=== PATIENT | female | born 1955 | race Caucasian/White ===

== ENCOUNTER 2016-10-06 08:54 | Inpatient (IN) | payer BC ==
[~2016-10-06] VITALS: Ht 165.1 cm; Wt 91.7 kg
[~2016-10-06 08:54] MED LIST: ADVIL; PRO20
[2016-10-06] MEDS ORDERED: SOD CHLORIDE 0.9% 1,000 ML IV STA (08:58)
--- NOTE | 2016-10-06 09:10 | ERA ---
ER Documentation Chief Complaint Date/Time DATE: 10/06/16 TIME: 09:06 Chief Complaint HPI Patient is a 61-year-old female who was last seen normal at 7 PM. She was found this morning with decreased mental status and left-sided weakness. paramedics brought her in for evaluation. Patient has significant slurred speech and is difficult to understand. She does state that she is weak on the left side. Sensation is not altered according to her. Although there may be a language barrier as well. It appears she is Yemeni-speaking. Our Yemeni- speaking nurses talking to her but again her speech is garbled and she is difficult to understand. From what it we can gather she does not have any chest pain or shortness of breath. And she did not fall and hit her head. The remainder of the systems are limited. ROS All systems reviewed and are negative except as per history of present illness. Medications Home Meds Reported Medications Advil 06/29/10 Nifedipine* (Procardia*) 20 Mg Cap 06/29/10 Allergies Allergies: Coded Allergies: No Known Drug Allergies (Unverified Allergy, Unknown, 02/20/15) PMhx/Soc History of Surgery: Yes (RONNY, GALLSTONES REMOVED, JACLYN ALATORRE 2004) Anesthesia Reaction: Yes (ONCE IN HER COUNTRY, SHE STOPPED BREATHING) Hx Neurological Disorder: No Hx Respiratory Disorders: No Hx Cardiac Disorders: Yes (AORTIC STENOSIS,HIGH CHOL, HTN) Hx Psychiatric Problems: Yes (DEPRESSION ON MED) Hx Miscellaneous Medical Probl: No Hx Alcohol Use: No Hx Substance Use: No Hx Tobacco Use: No (QUIT 40 YEARS AGO) Physical Exam Vitals Vital Signs Date Time Temp Pulse Resp B/P Pulse Ox O2 Delivery O2 Flow Rate FiO2 10/06/16 10:23 87 18 131/84 98 Room Air 2.0 Nasal Cannula 10/06/16 09:34 79 20 107/65 96 Room Air 10/06/16 09:15 Nasal Cannula 2 10/06/16 09:01 98.2 121 20 146/96 96 Physical Exam Const: [] Well-developed well-nourished female on the bed with obvious left- sided weakness. She appears to have some altered mentation. Head: Atraumatic normocephalic Eyes: Normal Conjunctiva, pupils are equally round reactive to light ENT: Normal External Ears, Nose and Mouth. Neck: Full range of motion..~ No meningismus. Resp: Clear to auscultation bilaterally Cardio: Irregular rate, slightly tachycardic, no murmurs, rubs or gallops Abd: Soft, non tender, non distended. Normal bowel sounds Skin: No petechiae or rashes Back: No midline or flank tenderness Ext: No cyanosis, or edema Neur: Awake and alert, no movement of the left upper or left lower extremity , left lower face has an obvious droop, she has slurred speech Psych: GCS equals [id number] V3 Result Diagram: 10/06/1691810/06/16918 Results 24 hrs Laboratory Tests Test 10/06/16 09:18 10/06/16 09:19 10/06/16 09:30 Hemoglobin A1c 6.0% Activated Partial Thromboplast Time 26.5Sec Alanine Aminotransferase (ALT/SGPT) 78IU/L Albumin 4.2g/dl Albumin/Globulin Ratio 0.97 Alkaline Phosphatase 133IU/L Anion Gap 19 Aspartate Amino Transf (AST/SGOT) 33IU/L Basophils # 0.010^3/ul Basophils % 0.2% Blood Urea Nitrogen 19mg/dl Calcium Level 9.7mg/dl Carbon Dioxide Level 27mmol/L Chloride Level 102mmol/L Creatinine 0.59mg/dl Direct Bilirubin 0.00mg/dl Eosinophils # 0.010^3/ul Eosinophils % 0.4% Globulin 4.30g/dl Glucose Level 130mg/dl Hematocrit 42.5% Hemoglobin 14.0g/dl INR International Normalized Ratio 0.95 Indirect Bilirubin 0.3mg/dl Lymphocytes # 1.310^3/ul Lymphocytes % 12.9% Mean Corpuscular Hemoglobin 28.9pg Mean Corpuscular Hemoglobin Concent 32.9g/dl Mean Corpuscular Volume 87.8fl Mean Platelet Volume 9.3fl Monocytes # 0.410^3/ul Monocytes % 3.9% Neutrophils # 8.110^3/ul Neutrophils % 82.2% Nucleated Red Blood Cells # 0.010^3/ul Nucleated Red Blood Cells % 0.0/100WBC Platelet Count 21489^3/UL Potassium Level 3.6mmol/L Prothrombin Time 12.7Sec Prothrombin Time Ratio 1.0 Red Blood Count 4.8410^6/ul Red Cell Distribution Width 13.2% Sodium Level 144mmol/L Total Bilirubin 0.3mg/dl Total Protein 8.5g/dl Troponin I < 0.012ng/ml White Blood Count 9.810^3/ul Urine Amphetamines Screen NEGATIVE Urine Barbiturates NEGATIVE Urine Benzodiazepines Screen NEGATIVE Urine Bilirubin NEGATIVE Urine Cannabinoids NEGATIVE Urine Clarity CLEAR Urine Cocaine Screen NEGATIVE Urine Color LT. YELLOW Urine Glucose NEGATIVE% Urine Hemoglobin 2+ Urine Ketones NEGATIVE Urine Leukocyte Esterase NEGATIVE Urine Microscopic RBC 2-5/HPF Urine Microscopic WBC NONE SEEN/HPF Urine Nitrite NEGATIVE Urine Opiates Screen NEGATIVE Urine Specific [place] <=1.005 Urine Total Protein NEGATIVE Urine Urobilinogen 0.2 E.U./dL Urine pH 7.0 Current Medications Medications (Trade) Dose Ordered Sig/Kiana Route PRN Reason Start Time Stop Time Status Last Admin Dose Admin Sodium Chloride 1,000 ml @ 1,000 mls/hr Q1H STAT IV 10/06/16 08:58 10/06/16 09:57 DC 10/06/16 09:22 Diltiazem HCl (Cardizem-D5W 125 Mg/125 ml Drip) 125 ml @ 5 mls/hr TITRATE IV 10/06/16 09:30 Diltiazem HCl (Cardizem Iv) 10 mg ONCE ONCE IV 10/06/16 09:30 10/06/16 09:31 DC 10/06/16 09:22 Procedures/MDM Differential includes but is not limited to acute ischemic stroke, hemorrhagic stroke, brain tumor, hypoglycemia, narcotic overdose, altered mental status EKG: Rate/Rhythm: Atrial fibrillation with RVR at 120 bpm, nonspecific ST -T wave changes noted inferolaterally without any evidence for acute ischemia, no old EKG available for comparison QRS, ST, T-waves: No changes consistent w/ acute ischemia Impression: No evidence of ischemia or arrhythmia CT of the head is already demonstrating evidence for evolving infarct of the right frontal/parietal lobes per the radiologist. The radiologist is suggesting MRI. An MRI has been ordered. Patient received 2 mg of diltiazem IV. Her rate has now been controlled. Unfortunately blood pressure dropped a little bit so we were unable to start the drip. Does not appear at this time she needs a drip. 1145: Patient's examination has remained unchanged physically. She is still profoundly weak on the left side with left facial droop and slurred speech. I spoke with Dr. Lau about admitting her to the hospital. My recommendation is that she probably go to the intensive care unit since her deficit is pretty significant and she is having some altered mental status. Dr. Lau requested Dr. Olivas to manage her atrial fibrillation. He would like tele-neuro to see the patient as well. Critical care time of 45 minutes not to include any procedures. Departure Diagnosis: Primary Impression: Acute CVA (cerebrovascular accident) Additional Impressions: Atrial fibrillation by electrocardiogram Altered mental status, unspecified Condition: Serious NERY YORK Oct 06, 2016 09:10
[2016-10-06] MEDS ORDERED: DILTIAZEM-D5W 125MG/125ML DRIP 125 ML IV SCH ×2 (09:30→18:30)
[2016-10-06] MEDS ORDERED: DILTIAZEM 25 MG INJ IV ONE (09:30)
[2016-10-06 09:33] LABS: ADD SCAN DIFF NO
[2016-10-06 09:36] LABS: BASOPHILS % 0.2 % (0.0-2.0); EOSINOPHILS % 0.4 % (0.0-7.0); HEMATOCRIT 42.5 % (37.0-47.0); LYMPHOCYTES # 1.3 10^3/ul (0.8-2.9); LYMPHOCYTES % 12.9 % (15.0-51.0); MEAN CORPUSCULAR HEMOGLOBIN 28.9 pg (29.0-33.0); MEAN CORPUSCULAR HGB CONC 32.9 g/dl (32.0-37.0); MEAN CORPUSCULAR VOLUME 87.8 fl (82.0-101.0); MEAN PLATELET VOLUME 9.3 fl (7.4-10.4); MONOCYTE # 0.4 10^3/ul (0.3-0.9); MONOCYTES % 3.9 % (0.0-11.0); NEUTROPHIL # 8.1 10^3/ul (1.6-7.5); NEUTROPHILS % 82.2 % (39.0-77.0); PLATELET COUNT 309 10^3/UL (140-415); RED BLOOD COUNT 4.84 10^6/ul (4.20-5.40); RED CELL DISTRIBUTION WIDTH 13.2 % (11.5-14.5); WHITE BLOOD COUNT 9.8 10^3/ul (4.8-10.8)
[2016-10-06 09:45] LABS: ALBUMIN 4.2 g/dl (3.3-4.9); CHLORIDE 102 mmol/L (97-110)
[2016-10-06 09:46] LABS: POTASSIUM 3.6 mmol/L (3.5-5.1); SODIUM 144 mmol/L (135-144)
[2016-10-06 09:48] LABS: ALBUMIN/GLOBULIN RATIO 0.97; ALKALINE PHOSPHATASE 133 IU/L (42-121); ANION GAP 19 (8-16); ASPARTATE AMINO TRANSFERASE 33 IU/L (15-46); BILIRUBIN,INDIRECT 0.3 mg/dl (0-1.1); BILIRUBIN,TOTAL 0.3 mg/dl (0.2-1.3); CARBON DIOXIDE 27 mmol/L (21-31); CREATININE 0.59 mg/dl (0.44-1.00); INR 0.95; PROTIME 12.7 Sec (12.2-14.2); TOTAL PROTEIN 8.5 g/dl (6.1-8.1)
[2016-10-06 09:49] LABS: ALANINE AMINOTRANSFERASE 78 IU/L (13-69); BLOOD UREA NITROGEN 19 mg/dl (7-20); CALCIUM 9.7 mg/dl (8.4-10.2); GLUCOSE 130 mg/dl (70-220); PARTIAL THROMBOPLASTIN TIME 26.5 Sec (25.0-35.0)
[2016-10-06 10:00] LABS: ADD UMIC YES; URINE BILIRUBIN (Dip) NEGATIVE (NEGATIVE); URINE BLOOD (Dip) 2+ (NEGATIVE); URINE COLOR LT. YELLOW (YELLOW); URINE GLUCOSE (Dip) NEGATIVE (NEGATIVE); URINE KETONES (Dip) NEGATIVE (NEGATIVE); URINE LEUKOCYTE ESTERASE (Dip) NEGATIVE (NEGATIVE); URINE NITRITE (Dip) NEGATIVE (NEGATIVE); URINE TOTAL PROTEIN (Dip) NEGATIVE (NEGATIVE); URINE UROBILINOGEN (Dip) 0.2 E.U./dL (0.1-1.0)
--- NOTE | 2016-10-06 10:09 | RADRPT ---
PROCEDURE: XR Chest. CLINICAL INDICATION: Possible Stroke TECHNIQUE: Single frontal chest x-ray. COMPARISON: None. FINDINGS: Sternotomy wires with atrial appendage clamp is seen. . Cardiomegaly with calcific atherosclerosis of the aorta is present.. There is mild hilar vascular congestion. No alveolar infiltrates, edema, or effusions.. The osseous structures are intact. IMPRESSION: Cardiomegaly status post sternotomy with atrial appendage clamp. Mild hilar vascular congestion.. RPTAT: VV .Deonte Cameron MD, MD Date Time Electronically viewed and signed by .Deonte Cameron MD, MD on 10/06/2016 10:09 .L/
[2016-10-06 10:19] LABS: BARBITURATES NEGATIVE (NEGATIVE); BENZODIAZEPINES NEGATIVE (NEGATIVE); CANNABINOIDS NEGATIVE (NEGATIVE); COCAINE NEGATIVE (NEGATIVE); OPIATES NEGATIVE (NEGATIVE)
[2016-10-06 10:29] LABS: TROPONIN-I < 0.012 ng/ml (0.00-0.12)
--- NOTE | 2016-10-06 11:18 | RADRPT ---
PROCEDURE: CT Head without. CLINICAL INDICATION: Mumbling, suspected stroke. TECHNIQUE: The study was performed utilizing a multi-slice, multidetector CT scanner. Direct spira l 1 mm axial sections were obtained through the head without the use of intravenous contrast materia l. 1 or more of the following dose reduction techniques were utilized: Automated exposure control, adjustment of the mA and/or kV according to patient's size, iterative reconstruction technique. Co fletcher and sagittal reformations were obtained. The images were reviewed on a PACS workstation. RADIATION DOSE: CTDIvol: 43.5 mGyDLP: 630.2 mGy-cm COMPARISON: No prior studies are available for comparison. FINDINGS: There is subtle loss of bach-white matter differentiation involving the right posterior frontal / pa rietal lobe, concerning for possible acute infarct. There is no intracranial hemorrhage, extra-axia l fluid collection, mass lesion, midline shift or hydrocephalus. The ventricles, sulci and cisterns are within normal limits. The white matter is unremarkable. There are mild atherosclerotic calcif ications of the bilateral parasellar internal carotid arteries. The bach-white matter differentiati on is preserved. The basal cisterns are patent. The midline structures are intact. The orbits, ca lvarium and extracranial soft tissues are normal in appearance. The visualized paranasal sinuses, ma stoid air cells and middle ear cavities are normally aerated. IMPRESSION: 1. Subtle loss of bach-white matter differentiation involving the right posterior frontal / parieta l lobe, concerning for possible acute infarct. MRI is recommended for further evaluation. 2. No intracranial hemorrhage, extra-axial fluid collection, mass lesion or hydrocephalous. The above findings were discussed with Patient's physician Dr. Boyd by telephone on 10/06/2016 11:15: 36 AM. RPTAT: DD .Ranjit Gaspar MD, Date Time Electronically viewed and signed by .Ranjit Gaspar MD, MD on 10/06/2016 11:17 .S/
--- NOTE | 2016-10-06 13:46 | STROKE ---
Date/Time of Note Date/Time of Note DATE: 10/06/16 TIME: 12:21 Patient Information General Patient location: emergency Arrival Date Age 61 Gender female Weight 90 kg Vital Signs Vital Signs Vital Signs Date Time Temp Pulse Resp B/P Pulse Ox O2 Delivery O2 Flow Rate FiO2 10/06/16 10:23 87 18 131/84 98 Room Air 2.0 Nasal Cannula 10/06/16 09:01 98.2 Patient History Current Medications Allergies: Coded Allergies: No Known Drug Allergies (Unverified Allergy, Unknown, 02/20/15) Labs Hematology Labs Hematology Test 10/06/16 09:19 Basophils # 0.010^3/ul (0.0-0.1) Basophils % 0.2% (0.0-2.0) Eosinophils # 0.010^3/ul (0.0-0.5) Eosinophils % 0.4% (0.0-7.0) Hematocrit 42.5% (37.0-47.0) Hemoglobin 14.0g/dl (12.0-16.0) Lymphocytes # 1.310^3/ul (0.8-2.9) Lymphocytes % 12.9% (15.0-51.0) Mean Corpuscular Hemoglobin 28.9pg (29.0-33.0) Mean Corpuscular Hemoglobin Concent 32.9g/dl (32.0-37.0) Mean Corpuscular Volume 87.8fl (82.0-101.0) Mean Platelet Volume 9.3fl (7.4-10.4) Monocytes # 0.410^3/ul (0.3-0.9) Monocytes % 3.9% (0.0-11.0) Neutrophils # 8.110^3/ul (1.6-7.5) Neutrophils % 82.2% (39.0-77.0) Nucleated Red Blood Cells # 0.010^3/ul (0.0-0.0) Nucleated Red Blood Cells % 0.0/100WBC (0.0-0.0) Platelet Count 49916^3/UL (140-415) Red Blood Count 4.8410^6/ul (4.20-5.40) Red Cell Distribution Width 13.2% (11.5-14.5) White Blood Count 9.810^3/ul (4.8-10.8) Chemistry Labs Chemistry Test 10/06/16 09:18 10/06/16 09:19 Hemoglobin A1c 6.0% (0-5.9) Alanine Aminotransferase (ALT/SGPT) 78IU/L (13-69) Albumin 4.2g/dl (3.3-4.9) Albumin/Globulin Ratio 0.97 Alkaline Phosphatase 133IU/L (42-121) Anion Gap 19 (8-16) Aspartate Amino Transf (AST/SGOT) 33IU/L (15-46) Blood Urea Nitrogen 19mg/dl (7-20) Calcium Level 9.7mg/dl (8.4-10.2) Carbon Dioxide Level 27mmol/L (21-31) Chloride Level 102mmol/L (97-110) Creatinine 0.59mg/dl (0.44-1.00) Direct Bilirubin 0.00mg/dl (0.00-0.20) Globulin 4.30g/dl (1.3-3.2) Glucose Level 130mg/dl (70-220) Indirect Bilirubin 0.3mg/dl (0-1.1) Potassium Level 3.6mmol/L (3.5-5.1) Sodium Level 144mmol/L (135-144) Total Bilirubin 0.3mg/dl (0.2-1.3) Total Protein 8.5g/dl (6.1-8.1) Troponin I < 0.012ng/ml (0.00-0.12) Coagulation Labs: Coagulation Test 10/06/16 09:19 Activated Partial Thromboplast Time 26.5Sec (25.0-35.0) INR International Normalized Ratio 0.95 Prothrombin Time 12.7Sec (12.2-14.2) Prothrombin Time Ratio 1.0 History & Physical Patient History Notes Pt Hx Reviewed History of Present Illness 61yo F presents with acute onset left sided weakness. Patient was last seen normal last night at 7pm by her son. She spoke to another relative at 10pm last night and was apparently normal at that time. Her son noticed when he woke that here was coffee spilled over the floor overnight, and thinks that she may have developed the weakness overnight. When he found her this morning, she had left arm and leg weakness. Review of Systems All Other Systems: Reviewed and Negative (unable to obtain from patient due to her decreased responsiveness to questions) NIH Stroke Scale NIH Stroke Scale 1A - Level of Conciousness: 2 - Not Alert w [id number] LOC Questions: 1 - Anwers one [id number] - LOC Commands: 1 - Performs one task2 - Best Gaze: 0 - Normal3 - Visual: 0 - No visual loss4 - Facial Palsy: 2 - Complete Hemianopia 5A - Motor Arm - Left: 4 - No [id number] - Motor Arm - Right: 0 - No [id number] - Motor Leg - Left: 4 - No [id number] - Motor Leg - Right: 0 - No drift7 - Limb Ataxia: 0 - Absent8 - Sensory: 1 - Mild to moderate loss9 - Best Language : 0 - No aphasia or normalDysarthria: 0 - [id number] - Extinction and inattentio : 1 - Sensory stimulationTotal Score: 16 Date/Time Recorded DATE: 10/06/16 TIME: 12:21 Submitted By Prasanth Harris t-PA Imaging Review Imaging Reviewed: Yes Date/Time Imaging Reviewed DATE: 10/06/16 TIME: 12:21 Imaging Findings hypodensity in right frontal lobe consistent with acute infarction Inclusion/Exclusion Criteria outside of time window t-PA Administration Recommendation: No Weight 90 kg Recommedation submitted by Prasanth Harris Reason t-PA not Recommended outside time window t-PA Not Recommended Date/Time 12:03 Recommendations Impression Diagnosis Acute ischemic stroke of the right middle cerebral artery Recommendation 61yo F presents with acute onset left sided weakness. Neurological exam is notable for patient being unable to attend to stimulation, left sided weakness and numbness, and left visual neglect. CT head is demonstrates hypodensity in the right frontal lobe. Patient has had an acute ischemic stroke of the right middle cerebral artery. I recommend patient be admitted to the ICU and serial CT scans daily to monitor for edema. I recommend workup to include MRI Brain without gadolinium and carotid ultrasound. Patient has been found to have atrial fibillation. I recommend holding anticoagulation for now. Anticoagulation could be reconsidered after 3 or 7 days, depending on size is stroke seen on MRI Brain. I recommend aspirin 325mg daily for now. Diagnostic Labs: Lipid Proile Hgb A1C CMP CBC w/Diff Coags Therapy: Physical Therapy Speech Therapy Occupational Therapy Misc. Recommendations: Bedside Swallow Evaluation Pnumatic Compression Devices Stroke Education Smoking Education PRASANTH HARRIS Oct 06, 2016 13:13
[2016-10-06] MEDS ORDERED: BISACODYL (EC) 5 MG TAB PO PRN (16:00)
[2016-10-06] MEDS ORDERED: ONDANSETRON 4 MG INJ IV PRN (16:00)
[2016-10-06] MEDS ORDERED: HYDROCODONE/APAP (5/325) TAB PO PRN (16:00)
[2016-10-06] MEDS ORDERED: DOCUSATE SODIUM 100 MG CAP PO PRN (16:00)
[2016-10-06] MEDS ORDERED: ALBUTEROL/IPRATROPIUM (NEB) 3 ML AMP NEB PRN (16:00)
[2016-10-06] MEDS ORDERED: ACETAMINOPHEN 325 MG TAB PO PRN (16:00)
[2016-10-06] MEDS ORDERED: NALOXONE (0.4 MG/ML) INJ IV PRN (16:00)
[2016-10-06] MEDS ORDERED: FLUMAZENIL 0.5 MG INJ IV PRN (16:00)
--- NOTE | 2016-10-06 18:34 | RADRPT ---
PROCEDURE: MR Brain without contrast. CLINICAL INDICATION: Left-sided weakness TECHNIQUE: An MRI of the brain was performed utilizing the following sequences: Axial T1, axial T 2, axial FLAIR, coronal gradient echo, sagittal T1 FLAIR, diffusion weighted imaging, and ADC map. COMPARISON: CT 09/27/2016 FINDINGS: There is diffusion restriction through the right middle cerebral artery territory, including involve ment of the right frontal lobe, right parietal lobe, right insula, right basal ganglia, and right ca udate nucleus. There is associated T2 and FLAIR hyperintensity, with effacement of sulci, and parti al effacement of the right lateral ventricle. There is slight shift of midline to the left, measuri ng 3 mm. There is small susceptibility artifact within the right putamen. There is minimal diffuse cerebral volume loss. The ventricles are symmetric and normal in configura tion. There is no mass, mass effect, or midline shift. There is no abnormal intra-axial or extra-a xial fluid collection. There is no intracranial hemorrhage. There are scattered areas of high T2 / FLAIR signal in the periventricular white matter, consistent with mild small vessel ischemic changes. The sella and suprasellar cistern appear within normal limits. The brainstem and posterior fossa ar e normal in configuration. There is gas within the left optic globe, likely postoperative. Paranasal sinuses are clear. IMPRESSION: 1. Large right middle cerebral artery territory acute infarct, with right frontal lobe and right par ietal lobe involvement, as well as right basal ganglia and caudate body involvement. 2. Susceptibility artifact in the right basal ganglia, without T1 hyperintensity, likely reflecting petechial/microscopic hemorrhagic changes. 3. Partial effacement of the right lateral ventricle, slight midline shift to the left, 3 mm. 4. Minimal diffuse cerebral volume loss. Mild small vessel ischemic changes. 5. Gas in the left optic globe, presumably postoperative. RPTAT: HBST .Lion Toth MD, Date Time Electronically viewed and signed by .Lion Toth MD, on 10/06/2016 18:34 .T/
[2016-10-06] MEDS: DEXTROSE 5%-0.45% NACL 1,000 ML IV SCH (18:36)
[2016-10-06] MEDS ORDERED: ASPI-664 PO (19:07)
[2016-10-06] MEDS ORDERED: AMLO5TAB4 PO (19:08)
[2016-10-06] MEDS ORDERED: FER325 PO (19:08)
[2016-10-06] MEDS ORDERED: ERGO500037 PO (19:09)
[2016-10-06] MEDS ORDERED: METF-382 PO (19:09)
[2016-10-06] MEDS ORDERED: LOSA25TA5 PO (19:10)
[2016-10-06] MEDS ORDERED: HYDR12.58 PO (19:10)
--- NOTE | 2016-10-06 20:13 | CONS ---
DATE OF ADMISSION: 10/06/2016 DATE OF CONSULTATION: REFERRING PHYSICIAN: Dr. Lau REASON FOR EVALUATION: Atrial fibrillation, valve replacement, likely mitral valve replacement, his tory of CVA. HISTORY OF PRESENT ILLNESS: Ms. Ayala is a 61-year-old woman with a history of hypertension, h istory of atrial fibrillation on chronic prior history of valve replacement, based on chest x-ray, l ikely mitral valve with bioprosthetic valve, unclear anticoagulation status, [facility] of mental status. The patient was already evaluated by neurologist. Sh ottoniel appears to have an acute CVA for which she is being treated by neurological team. I have been ask ed to see the patient in consultation to see the patient because of atrial fibrillation. The patien t's CVA is probably ischemic versus embolic. There is no obvious bleeding now. According to the ne urology interpretation, the patient was out of window for tPA therapy; therefore, conservative thera py is expected for now. Aspirin 325 was recommended per primary team, but primary neurologist will continue to monitor for now. The patient is in atrial fibrillation. Her rate is modestly well cont rolled and blood pressure is less than 140. For now, we will continue to follow the patient and niya l obtain a 2D echo to evaluate the valvular structures. Long-term patient, will require anticoagula tion, most likely both for atrial fibrillation and now CVA; however, will defer to neurology team fo r initial assessment. PAST MEDICAL HISTORY: 1. Hypertension. 2. Obesity. 3. Atrial fibrillation, probably chronic. 4. History of valve replacement, probably mitral valve replacement. 5. History of cardiac surgery in the past. ALLERGIES: NO KNOWN DRUG ALLERGIES. SOCIAL HISTORY: The patient does not smoke, does not drink, does not use any drugs. MEDICATIONS: The patient is on medications at home, but family was not aware of which ones. She has received Procardia here. REVIEW OF SYSTEMS: CONSTITUTIONAL: No fever, no chills. Recent altered mental status. HEENT: No changes in vision or hearing. CARDIAC: Atrial fibrillation, chronic. RESPIRATORY: Shortness of breath. GASTROINTESTINAL: No nausea, vomiting, diarrhea, constipation. NEUROLOGIC: Status post cerebrovascular accident. PSYCHIATRIC: Psychiatric history is unknown. PHYSICAL EXAMINATION: VITAL SIGNS: Temperature is 98.7, heart rate is 92, blood pressure 129/92. GENERAL: She is a well-nourished woman in no acute distress, alert and oriented x1 to 2, somewhat r esponsive. HEAD: Normocephalic, atraumatic. Eyes anicteric. NECK: Supple. JVD 6-7 cm. No lymphadenopathy. HEART: Irregularly irregular. She has a soft murmur mid chest. She has a sternal scar. LUNGS: Coarse at the bases. ABDOMEN: Distended, bowel sounds are present. There is no hepatosplenomegaly. GENITOURINARY: Exam is intact. EXTREMITIES: No clubbing or cyanosis. There is trace edema. LABORATORY DATA: No ECG is available for my review in the chart, but patient appears in atrial fibr illation on the monitor. White blood cell count 9.8, hemoglobin 14.0, platelets 305. INR is 1.0. Sodium 144, potassium 3.6. Her BUN is 19, creatinine . Troponin is less than 0.012, alkaline phosphatase is 133. ASSESSMENT AND PLAN: 1. Atrial fibrillation, atrial fibrillation, probably chronic. based on left atrial en largement on chest x-ray and mitral valve surgery; however, it is not a definitive finding. We will obtain a 2D echo to evaluate size and valve replacement and follow expectantly. No anticoagu lation now per neurology. Aspirin 325 is reasonable. 2. Hypertension. Blood pressure well controlled now. Continue medical optimization. 3. Status post cerebrovascular accident. Ischemic versus embolic but probably ischemic based on ne urologic interpretation. CVA is fairly large. The patient is beginning to have some recovery now. Neurology will follow. 4. Valve replacement, likely mitral valve replacement. I do not see any mechanical structures on t he chest x-ray, likely bioprosthetic valve, 2D echo to follow. 5. Hypertension. Blood pressure well optimized. We will allow permissive hypertension as needed p er neurology team. 6. History of diabetes. Continue therapy as warranted. I would like to thank Dr. Lau for referring this patient for my evaluation. Dictated By: AVERY FOLEY MD ML/NTS Conf#: [id number] DID#: [id number]
[2016-10-06 22:15] VITALS: BP 110/68; PULSE 106
--- NOTE | 2016-10-06 22:15 | QN ---
Documentation Comment [id number] SON AKHTAR MD Oct 06, 2016 22:15
[2016-10-06 22:45] VITALS: BP 107/65; PULSE 130; RESP 27
[2016-10-06 22:55] VITALS: Ht 165.1 cm; Wt 91.7 kg
[2016-10-06 23:00] VITALS: BP 155/95; PULSE 122; RESP 24
[2016-10-06 23:24] LABS: CHOL/HDL RATIO 4.9 RATIO
[2016-10-06 23:30] VITALS: BP 142/85; PULSE 98; RESP 29
[2016-10-07] VITALS (68 sets, daily range): BP systolic 119–169; BP diastolic 62–139; PULSE 74–125; RESP 17–36
[2016-10-07] MEDS: morphine 2 MG INJ IV PRN ×2 (00:26→21:29)
[2016-10-07] MEDS: ACCU-CHEK XX SCH (02:00)
--- NOTE | 2016-10-07 05:04 | CONS ---
DATE OF ADMISSION: 10/06/2016 DATE OF CONSULTATION: 10/06/2016 TYPE OF CONSULTATION: Neurology. Thank you, Dr. Lau, for your kind referral for evaluation of acute stroke. HISTORY OF PRESENT ILLNESS: The patient is a 61-year-old lady with past medical history of hyperten pam, valvular surgery last year, atrial fibrillation, not on anticoagulation. She is also diabetic and anemic. The patient woke up with left-sided weakness today. She already had a CAT scan as well as MRI of th e brain. MRI shows large right middle cerebral artery territory ischemic infarct with slight right to left shift, 3 mm, and partial effacement of the right lateral ventricle. Chest x-ray: Mild vasc ular congestion, status post surgery, sternotomy. LABORATORY DATA: Show essentially normal CBC, though neutrophil count 82%. ALT 78, alkaline phosph atase 133, total protein 8.5. The rest of comprehensive metabolic panel within normal limits. Norm al PT, PTT. Urinalysis: 2+ hemoglobin. Tox screen is negative. ALLERGIES: NONE. ALLERGIES: NONE. CURRENT MEDICATIONS: 1. Protonix. 2. Diltiazem. 3. Different p.r.n. The patient is still in the emergency room. SOCIAL HISTORY: No alcohol, tobacco, drug use. FAMILY HISTORY: Noncontributory. PHYSICAL EXAMINATION: VITAL SIGNS: Today, temperature 98.2, pulse 109, respirations 24, blood pressure 160/115. GENERAL: Not in acute distress, lying in bed. HEENT: Normocephalic, atraumatic head. NECK: No carotid bruits. No thyromegaly. LUNGS: Clear to auscultation bilaterally. CARDIAC: Irregularly irregular cardiac rhythm. ABDOMEN: Soft. Present bowel sounds. EXTREMITIES: No cyanosis, clubbing, or edema. NEUROLOGIC: She is lethargic but easily arousable by voice. The patient's son is at bedside interp reting. The patient speaks Cymraes. She has fluent speech. Oriented x2. She knows it is September t not the exact date. Follows commands. Cranial nerve examination shows no response to visual threat from the left. Pupils reactive from 3 to 2 mm on the right and about 3 mm fixed postsurgical on the left. Symmetrical face. Extraocular movements intact without nystagmus. Corneal reflexes present bilaterally. Gag is present. Motor s trength examination shows decreased tone in the left upper extremity. No spontaneous movements. Le ft lower extremity about 3/5, withdraws to pain. Deep tendon reflexes 2+ throughout. Downgoing toe s on the right and equivocal on the left. The patient has a diminished response to noxious stimuli applied to the left upper and lower extremities. IMPRESSION: Acute ischemic stroke in the right MCA territory in patient with atrial fibrillation, h istory of valvular surgery, as well as hypertension. The patient was on aspirin prior to admission, not on anticoagulation. Etiology of stroke is likely cardioembolic. I would not recommend to use anticoagulation given the large size of the stroke until 1 or 2 weeks from now to decrease chance of hemorrhagic transformatio n. We will obtain lipid profile and start the patient on Lipitor. Keep patient euglycemic. It is okay to allow elevated blood pressure in the first few days after ac nikolai stroke up to 220/120 unless different parameters set by electrical power engineer. The patient is lethargic but arousable. We will continue stroke scale testing per protocol. If any worsening of mental status or new neurological symptoms, we can repeat CAT scan of the head for david luation of mass effect from the large area of stroke, especially with expected edema in the area of the stroke. I would repeat CAT scan tomorrow regardless. If major worsening of edema seen tomorrow , then neurosurgical consult could be obtained for possibility of so-called malignant MCA territory stroke which, at times, requires craniectomy to relieve the pressure from the stroke related edema. We will get a swallow evaluation tomorrow. Thank you very much for this interesting consultation. Probably it is okay not to give any antiplat elet therapy for now. Dictated By: IRWIN MARQUEZ/AUDRA Conf#: [id number] DID#: [id number]
--- NOTE | 2016-10-07 05:16 | HP ---
DATE OF ADMISSION: 10/06/2016 HISTORY OF PRESENT ILLNESS: The patient has a history of CAD, CABG, history of ischemic attack, and presented to this hospital with left-sided weakness when she was found by the family member. The patient presented to the emergency room with acute stroke symptoms. When presented, the patient's vital signs show blood pressure 125/93. Hematocrit 42.5. Sodium 141, potassium 3.6. The patient's ALT 17, alkaline phosphatase 133, globulin 4.30. Urine toxicology is negative. The patient had chest x-ray done which shows cardiomegaly, stable post-sternotomy, with clamp. The patient has mild hilar vascular congestion. The patient had a CT of the brain that shows focal loss of bach white matter differentiation involving the right posterior frontal, right lobe, concerning for possible acute stroke. No acute intracranial hemorrhage. The patient had brain MRI scan done that shows large right middle cerebral artery territory infarction, right frontal lobe and right parietal lobe involvement, as well as basal ganglion right and carotid body involvement, right basal ganglion, partial effacement of the right lateral ventricle, slight midline shift to the left, 3 mm, minimal diffuse cerebral volume loss, and gas in the left optic globe, postoperative. The patient also has atrial fibrillation with rapid ventricular response which is controlled no. Dr. Turner has been consulted on this patient as well as Dr. Jeffers. Stroke neurologist called by ER physician. PAST MEDICAL HISTORY: Positive for diabetes mellitus, hypertension. The patient has history of coronary artery bypass graft and history of tummy tuck. ALLERGY HISTORY: NEGATIVE. FAMILY HISTORY: Negative. SOCIAL HISTORY: Negative. MEDICATIONS 1. Amlodipine. 2. Aspirin. 3. Ergocalciferol. 4. Iron sulfate. 5. Hydrochlorothiazide. 6. Losartan. 7. Metformin. REVIEW OF SYSTEMS: The patient has severe headache; cannot be obtained. PHYSICAL EXAMINATION: GENERAL: The patient is aphasic. VITAL SIGNS: Pulse 97, blood pressure 151/80 HEENT: Head is atraumatic, normocephalic. Pupils equal, reactive to light. No icterus. NECK: Supple. LUNGS: Clear. CARDIOVASCULAR: S1, S2 normal. CABG scar noted. ABDOMEN: Soft. Bowel sounds present. No palpable mass. Surgical scar of tummy tuck noted. EXTREMITIES: No cyanosis, clubbing, edema. CENTRAL NERVOUS SYSTEM: The patient is awake, alert, with left-sided weakness noted. LABORATORY DATA: As mentioned above. EKG will be reviewed. IMPRESSION: Acute cerebrovascular accident and left-sided weakness, hypertension, diabetes mellitus. The patient has atrial fibrillation on the monitor. PLAN: Obtain neurology consultation, cardiology consultation. The patient will be monitored in ICU. The patient will be on aspirin. The patient is on stroke sliding scale. The patient will have carotid duplex and 2-D echo. Orders were done. Dictated By: SON AKHTAR MD BS/NTS Conf#: [id number] DID#: [id number] MTDD
[2016-10-07] MEDS: PANTOPRAZOLE 40 MG INJ IV SCH (06:03)
[2016-10-07 06:24] LABS: CHOL/HDL RATIO 5.3 RATIO
[2016-10-07] MEDS: INSULIN ASPART [NOVOLOG] 3 ML PEN SC SCH ×4 (08:00→21:00)
--- NOTE | 2016-10-07 08:23 | RADRPT ---
PROCEDURE: US Carotids. CLINICAL INDICATION: bruit , cva TECHNIQUE: Multiple sonographic of the carotid bifurcation region and vertebral arteries were obta ined utilizing bach scale, duplex and color-flow imaging. The images were reviewed on a PACS worksta tion. COMPARISON: No prior studies are available for comparison. FINDINGS: Evaluation of the right carotid bifurcation region reveals no significant calcific atherosclerotic d isease. Evaluation of the left carotid bifurcation region reveals mild calcific atherosclerotic disease. the re is a 28% stenosis in the left carotid bulb. There is antegrade flow within the vertebral arteries bilaterally. RIGHT CAROTID MEASUREMENTS: Common Carotid Exknwz28.6 (cm/sec) Internal Carotid Artery - wxwnjqdy20.6 (cm/sec) Internal Carotid Artery - mid46.9 (cm/sec) Internal Carotid Artery - .6 (cm/sec) Internal Carotid/Common Carotid0.75 LEFT CAROTID MEASUREMENTS: Common Carotid Sajfhy78.1 (cm/sec) Internal Carotid Artery - ccmaybll70.5 (cm/sec) Internal Carotid Artery - mid47.6 (cm/sec) Internal Carotid Artery - .9 (cm/sec) Internal Carotid/Common Carotid0.89 RPTAT: AA IMPRESSION: No evidence for hemodynamically significant stenosis in the bilateral internal carotid arteries - va lidated velocity measurements with angiographic measurements, velocity criteria are extrapolated fro m diameter data as defined by the Society of Radiologists in Ultrasound Consensus Conference Radiolo gy 2003; 229;340-346. This study does indirectly reference the measurement of the distal ICA diamet er as the denominator for stenosis measurement. Normal antegrade flow in the vertebral arteries bilaterally. .Alexandre Pena MD, MD Date Time Electronically viewed and signed by .Alexandre Pena MD, MD on 10/07/2016 08:23 .S/
[2016-10-07] MEDS: DILTIAZEM-D5W 125MG/125ML DRIP 125 ML IV PRN (08:31)
[2016-10-07] MEDS ORDERED: ASPIRIN 325 MG TAB PO SCH (09:00)
[2016-10-07] MEDS ORDERED: ASPIRIN 300 MG SUPP PR SCH (09:00)
--- NOTE | 2016-10-07 09:33 | CONS ---
Date/Time of Note Date/Time of Note DATE: 10/07/16 TIME: 09:27 Assessment/Plan Assessment/Plan Chief Complaint/Hosp Course Imp: 1AF-on Dilt drip 2.HTN 3.CVA-acute 4.Encephalopathy 5.DM 6.HL Recc: -Tele -serial ecg's -F/U echo -Check TSH -IVP digoxin -Neuro followin-Not on systemic anti-coag due to petechial bleed on MRI Problems: Consultation Date/Type/Reason Admit Date/Time Oct 06, 2016 at 15:49 Initial Consult Date 10/06/2016 Type of Consultation: Cardiology Reason for Consultation AF Referring Provider: SON AKHTAR MD Exam/Review of Systems Vital Signs Vitals Vital Signs Date Time Temp Pulse Resp B/P Pulse Ox O2 Delivery O2 Flow Rate FiO2 10/07/16 08:00 100 10/07/16 06:09 3.0 10/07/16 06:00 25 157/95 98 Nasal Cannula 10/07/16 04:00 98.0 Intake and Output 10/06/16 10/06/16 10/07/16 15:00 23:00 07:00 Intake Total 100 ml 400 ml Output Total 1800 ml 520 ml Balance -1700 ml -120 ml Exam Review of Systems: CONSTITUTIONAL: No fevers, chills. PULMONARY: No sob CARDIOVASCULAR: No chest pain/palpitations GASTROINTESTINAL: No nausea/vomiting. GENITOURINARY: No hematuria/dysuria. MUSCULOSKELETAL: No myagias/arthalgias. PSYCHIATRIC: The patient denies depression. NEUROLOGIC: encephalopathic Constitutional: other (encephalopathic) Eyes: nl conjunctiva Neck: bruits Respiratory: diminished breath sounds (at bases/B) Cardiovascular: regular rate and rhythm Gastrointestinal: non-tender, soft Musculoskeletal: muscle tone Extremities: normal pulses Neurological: other (encephalopathic) Results Result Diagram: 10/06/1691810/06/16918 Results 24 hrs Laboratory Tests Test 10/06/16 09:30 10/06/16 17:00 10/06/16 22:00 10/07/16 05:25 Urine Amphetamines Screen NEGATIVE Urine Barbiturates NEGATIVE Urine Benzodiazepines Screen NEGATIVE Urine Bilirubin NEGATIVE Urine Cannabinoids NEGATIVE Urine Clarity CLEAR Urine Cocaine Screen NEGATIVE Urine Color LT. YELLOW Urine Glucose NEGATIVE Urine Hemoglobin 2+ H Urine Ketones NEGATIVE Urine Leukocyte Esterase NEGATIVE Urine Microscopic RBC 2-5 Urine Microscopic WBC NONE SEEN Urine Nitrite NEGATIVE Urine Opiates Screen NEGATIVE Urine Specific Lindsey <=1.005 L Urine Total Protein NEGATIVE Urine Urobilinogen 0.2 E.U./dL Urine pH 7.0 Troponin I < 0.012 < 0.012 0.084 Cholesterol Level 203 H 223 H Cholesterol/HDL Ratio 4.9 5.3 HDL Cholesterol 41 42 LDL Cholesterol, Calculated 131 150 Triglycerides Level 154 H 157 H Test 10/07/16 06:05 10/07/16 08:46 Bedside Glucose 119 132 Medications Medications Current Medications Dextrose/Sodium Chloride (D5-1/2ns) 1,000 ml @ 50 mls/hr Q20H IV Last administered on 10/06/16 18:36; Admin Dose 50 MLS/HR; Start 10/06/16 at 15:46 Flumazenil (Romazicon) 0.2 mg Q1M PRN IV BENZODIAZEPINE OVERDOSE; Start at 16:00 Naloxone HCl (Narcan) 0.4 mg Q3M PRN IV DECREASED REPIRATORY RATE; Start at 16:00 Ondansetron HCl (Zofran Inj) 4 mg Q6H PRN IV NAUSEA AND/OR VOMITING; Start at 16:00 Acetaminophen (Tylenol Liquid) 650 mg Q6H PRN PO PAIN LEVEL 1-3 OR FEVER; Start 10/06/16 at 16:00 Acetaminophen (Tylenol Tab) 650 mg Q6H PRN PO PAIN LEVEL 1-3 OR FEVER; Start at 16:00 Acetaminophen/ Hydrocodone Bitart ([place] (5/325)) 1 tab Q6H PRN PO PAIN LEVEL 4 -6; Start 10/06/16 at 16:00 Docusate Sodium (Colace) 100 mg Q12H PRN PO CONSTIPATION; Start 10/06/16 at 16: 00 Magnesium Hydroxide (Milk Of Mag) 30 ml DAILY PRN PO CONSTIPATION; Start at 16:00 Bisacodyl (Dulcolax) 5 mg DAILY PRN PO CONSTIPATION; Start 10/06/16 at 16:00 Pantoprazole (Protonix Iv) 40 mg DAILY@06 IV Last administered on 10/07/16 06: 03; Admin Dose 40 MG; Start 10/07/16 at 06:00 Morphine Sulfate (morphine) 2 mg Q6H PRN IV PAIN Last administered on 00:26; Admin Dose 2 MG; Start 10/06/16 at 22:00 Diagnostic Test (Pha) 1 ea 1 ea 02 XX Last administered on 10/07/16 02:00; Admin Dose 1 EA; Start 10/07/16 at 02:00 Diltiazem HCl (Cardizem-D5W 125 Mg/125 ml Drip) 125 ml @ 5 mls/hr TITRATE PRN IV START IF HR IS ABOVE 120/min * Last administered on 10/07/16 08:31; Admin Dose 5 MLS/HR; Start 10/07/16 at 00:30 Aspirin (Aspirin) 300 mg DAILY [place] Last administered on 10/07/16 08:30; Admin Dose 300 MG; Start 10/07/16 at 09:00 EMANUEL LAMAR 22, 2017 09:33
[2016-10-07] MEDS: DIGOXIN 500 MCG INJ IV SCH ×2 (10:03→16:27)
[2016-10-07] MEDS: DEXTROSE 5%-0.45% NACL 1,000 ML IV SCH ×2 (11:46→14:43)
--- NOTE | 2016-10-07 12:10 | RADRPT ---
PROCEDURE: CT Head without. CLINICAL INDICATION: Follow-up stroke. TECHNIQUE: The study was performed utilizing a multi-slice, multidetector CT scanner. Direct spira l 1 mm axial sections were obtained through the head without the use of intravenous contrast materia l. 1 or more of the following dose reduction techniques were utilized: Automated exposure control, adjustment of the mA and/or kV according to patient's size, iterative reconstruction technique. Co fletcher and sagittal reformations were obtained. The images were reviewed on a PACS workstation. RADIATION DOSE: CTDIvol: 43.4 mGyDLP: 630 point of mGy-cm COMPARISON: MRI brain 10/06/2016, CT head 10/06/2016 FINDINGS: There is redemonstration of ill-defined hypodensity involving the right frontal operculum/posterior right frontal lobe, left caudate in the left sub insular cortex, with redemonstration of subtle area s of hyperdensity involving the right insular cortex, consistent with the previously visualized hemo rrhagic conversion in this region. There is diffuse gyral swelling, with mild interval worsening link lcal effacement and mild right ventricular effacement. There is stable 2-3 mm of leftward midline s hift, unchanged compared to the prior MRI. There is no significant subfalcine, transtentorial or fo ramen magnum herniation. There is no extra-axial fluid collection, mass lesion, midline shift or hydrocephalus. The ventricl es, sulci and cisterns are within normal limits. The white matter is unremarkable. The basal ciste rns are patent. The midline structures are intact. The orbits, calvarium and extracranial soft tis sues are normal in appearance. The visualized paranasal sinuses, mastoid air cells and middle ear ca vities are normally aerated. IMPRESSION: 1. Continued interval evolution of the previously visualized right MCA distribution infarct involvi ng the right frontal lobe, right caudate and right sub insular white matter. There is stable early hemorrhagic conversion in the inferior aspect of the infarct in the region of the right sub insular cortex. There is stable 2-3 mm of leftward midline shift, unchanged compared to prior examination w ith diffuse moderate sulcal effacement. RPTAT: DD .Ranjit Gaspar MD, MD Date Time Electronically viewed and signed by .Ranjit Gaspar MD, MD on 10/07/2016 12:10 .S/
--- NOTE | 2016-10-07 20:15 | RADRPT ---
Echocardiogram Report Patient Name: ARIANA MORENO Gender: Female Date: 1955 Study Date: 07-Oct-2016 Audio Visual Technician: Miguel Verma [facility] Location: 107 Ref. Physician: AVERY FOLEY Quality: Good Procedures: Transthoracic echocardiogram with complete 2D, M-Mode, and doppler examination. Indications: Evaluate Left Ventricular function. 2D/M Mode Doppler Measurement Value Normal Ranges Measurement Value Normal Ranges LVIDd 2D 3.9 3.5 - 5.6 cm [place] Vmax 1.6 cm2 LVIDs 2D 2.8 2.1 - 4.1 cm [place] VTI 1.6 cm2 LVPWd 2D 1.1 0.6 - 1.1 cm AV Mean Shmuel 1.5 m/sec IVSd 2D 1.1 0.6 - 1.1 cm AV Mean PG 10.0 mmHg AoR Diam 2D 2.2 2.0 - 3.7 cm AV Peak Shmuel 2.1 m/sec EDV 2D 67.8 cm3 AV Peak PG 16.9 mmHg ESV 2D 22.1 cm3 AV VTI 40.1 cm LA Dimen 2D 5.3 2.3 - 4.0 cm LVOT Mean Shmuel 0.7 m/sec LVOT Diam 2.0 cm LVOT Mean PG 2.4 mmHg LVOT Peak Shmuel 1.0 m/sec LVOT Peak PG 4.2 mmHg LVOT VTI 23.2 cm MV Peak Shmuel 2.0 m/sec MV Peak PG 16.8 mmHg MV Mean Shmuel 1.4 m/sec MV Mean PG 8.8 mmHg MV VTI 8.5 cm TR Peak Shmuel 2.7 m/sec TR Peak PG 28.3 mmHg RVSP 31.0 mmHg Findings Left Ventricle: Normal left ventricular systolic function. Normal left ventricular cavity size. Normal left ventricular wall thickness. Ejection fraction is visually estimated at 60 %. Right Ventricle: Normal right ventricular size. Normal right ventricular systolic function. Left Atrium: There is severe enlargement of left atrium. Right Atrium: There is mild enlargement of right atrium. Mitral Valve: Mitral valve leaflets appear moderately thickened. Mild mitral annular calcification. Moderate mitral valve regurgitation. Mitral Valve Bio Prosthesis. Mild to moderate mitral stenosis. Mitral valve Max Velocity 1.37 m/sec. MaxPG 15.50 mmHg. MeanPG 8.50 mmHg. Mitral Valve Area by Continuity1.80 cm2. Aortic Valve: Mild aortic stenosis. Aortic valve Max velocity 2.06 m/sec. Max PG 16.90 mmHg. Mean PG 10.00 mmHg. Tricuspid Valve: Estimated peak PA systolic pressure 31 mmHg. There is mild tricuspid regurgitation. Pulmonic Valve: Normal pulmonic valve appearance. There is trace pulmonic regurgitation. Pericardium: Normal pericardium with no significant pericardial effusion. Aorta: Normal aortic root. IVC: Normal size and normal respiratory collapse consistent with normal right atrial pressure. Conclusions Normal left ventricular systolic function. Normal left ventricular cavity size. Normal left ventricular wall thickness. Ejection fraction is visually estimated at 6 %. There is severe enlargement of left atrium. There is mild enlargement of right atrium. Mitral valve leaflets appear moderately thickened. Mild mitral annular calcification. Moderate mitral valve regurgitation. Mitral Valve Bio Prosthesis/repair. Mild to moderate mitral stenosis. MaxPG 15.50 mmHg. MeanPG 8.50 mmHg. Mitral Valve Area by Continuity1.80 cm2. Mild aortic stenosis. Aortic valve Max velocity 2.06 m/sec. Max PG 16.90 mmHg. Mean PG 10.00 mmHg. Estimated peak PA systolic pressure 31 mmHg. There is mild tricuspid regurgitation. There is trace pulmonic regurgitation. Electronically Signed By: Horace Olivas 07-Oct-2016 20:15:16 -0700 Patient Name: ARIANA MORENO Study Date: 07-Oct-2016 [id number]
--- NOTE | 2016-10-07 22:19 | CONS ---
Date/Time of Note Date/Time of Note DATE: 10/07/16 TIME: 22:16 Consult Date/Type/Reason Admit Date/Time Oct 06, 2016 at 15:49 Initial Consult Date Type of Consultation: neurology Ordering Provider: SON AKHTAR MD Subjective no acute events. lethargic, arousable, received morphine for headache Objective Vital Signs Date Time Temp Pulse Resp B/P Pulse Ox O2 Delivery O2 Flow Rate FiO2 10/07/16 21:45 82 29 146/89 97 Nasal Cannula 2.0 10/07/16 21:01 31 10/07/16 20:00 97.8 Intake and Output 10/06/16 10/06/16 10/07/16 15:00 23:00 07:00 Intake Total 100 ml 400 ml Output Total 1800 ml 570 ml Balance -1700 ml -170 ml Results/Medications Result Diagram: 10/06/1691810/06/16918 Results 24 hrs Laboratory Tests Test 10/07/16 05:25 10/07/16 06:05 10/07/16 08:46 10/07/16 12:10 Troponin I 0.084 Triglycerides Level 157 H Cholesterol Level 223 H LDL Cholesterol, Calculated 150 HDL Cholesterol 42 Cholesterol/HDL Ratio 5.3 Bedside Glucose 119 132 118 Test 10/07/16 16:30 10/07/16 21:25 Bedside Glucose 119 123 Medications Current Medications Dextrose/Sodium Chloride (D5-1/2ns) 1,000 ml @ 50 mls/hr Q20H IV Last administered on 10/07/16t 14:43; Admin Dose 50 MLS/HR; Start 10/06/16 at 15:46 Flumazenil (Romazicon) 0.2 mg Q1M PRN IV BENZODIAZEPINE OVERDOSE; Start at 16:00 Naloxone HCl (Narcan) 0.4 mg Q3M PRN IV DECREASED REPIRATORY RATE; Start at 16:00 Ondansetron HCl (Zofran Inj) 4 mg Q6H PRN IV NAUSEA AND/OR VOMITING; Start at 16:00 Acetaminophen (Tylenol Liquid) 650 mg Q6H PRN PO PAIN LEVEL 1-3 OR FEVER; Start 10/06/16 at 16:00 Acetaminophen (Tylenol Tab) 650 mg Q6H PRN PO PAIN LEVEL 1-3 OR FEVER; Start at 16:00 Acetaminophen/ Hydrocodone Bitart ([place] (5/325)) 1 tab Q6H PRN PO PAIN LEVEL 4 -6; Start 10/06/16 at 16:00 Docusate Sodium (Colace) 100 mg Q12H PRN PO CONSTIPATION; Start 10/06/16 at 16: 00 Magnesium Hydroxide (Milk Of Mag) 30 ml DAILY PRN PO CONSTIPATION; Start at 16:00 Bisacodyl (Dulcolax) 5 mg DAILY PRN PO CONSTIPATION; Start 10/06/16 at 16:00 Pantoprazole (Protonix Iv) 40 mg DAILY@06 IV Last administered on 10/07/16 06: 03; Admin Dose 40 MG; Start 10/07/16 at 06:00 Morphine Sulfate (morphine) 2 mg Q6H PRN IV PAIN Last administered on 21:29; Admin Dose 2 MG; Start 10/06/16 at 22:00 Diagnostic Test (Pha) 1 ea 1 ea 02 XX Last administered on 10/07/16 02:00; Admin Dose 1 EA; Start 10/07/16 at 02:00 Diltiazem HCl (Cardizem-D5W 125 Mg/125 ml Drip) 125 ml @ 5 mls/hr TITRATE PRN IV START IF HR IS ABOVE 120/min * Last administered on 10/07/16 08:31; Admin Dose 5 MLS/HR; Start 10/07/16 at 00:30 Aspirin (Aspirin) 300 mg DAILY MA Last administered on 10/07/16 08:30; Admin Dose 300 MG; Start 10/07/16 at 09:00 Assessment/Plan Chief Complaint/Hosp Course PHYSICAL EXAMINATION: GENERAL: Not in acute distress, lying in bed. HEENT: Normocephalic, atraumatic head. NECK: No carotid bruits. No thyromegaly. LUNGS: Clear to auscultation bilaterally. CARDIAC: Irregularly irregular cardiac rhythm. ABDOMEN: Soft. Present bowel sounds. EXTREMITIES: No cyanosis, clubbing, or edema. NEUROLOGIC: She is lethargic but easily arousable by voice. The patient's son is at bedside interpreting. The patient speaks Slovak. She has fluent speech. Oriented x2. She knows it is September but not the exact date. Follows commands. Cranial nerve examination shows no response to visual threat from the left. Pupils reactive from 3 to 2 mm on the right and about 3 mm fixed postsurgical on the left. Symmetrical face. Extraocular movements intact without nystagmus. Corneal reflexes present bilaterally. Gag is present. Motor strength examination shows decreased tone in the left upper extremity. No spontaneous movements. Left lower extremity about 3/5, withdraws to pain. Deep tendon reflexes 2+ throughout. Downgoing toes on the right and equivocal on the left. The patient has a diminished response to noxious stimuli applied to the left upper and lower extremities. IMPRESSION: Acute ischemic stroke in the right MCA territory with hemorrhagic transformation in patient with atrial fibrillation, history of valvular surgery , as well as hypertension. The patient was on aspirin prior to admission, not on anticoagulation. Repeat CT slightly more mass effects. Etiology of stroke is likely cardioembolic. I would not recommend to use anticoagulation given the large size of the stroke until 1 or 2 weeks from now to decrease chance of hemorrhagic transformation. We will obtain lipid profile and start the patient on Lipitor. Keep patient euglycemic. It is okay to allow elevated blood pressure in the first few days after acute stroke up to 220/120 unless different parameters set by work force advisor. The patient is lethargic but arousable. We will continue stroke scale testing per protocol. If any worsening of mental status or new neurological symptoms, will repeat CAT scan of the head for evaluation of mass effect from the large area of stroke, especially with expected edema in the area of the stroke. I would repeat CAT scan tomorrow again. If major worsening of edema seen tomorrow , then neurosurgical consult could be obtained for possibility of so-called malignant MCA territory stroke which, at times, requires craniectomy to relieve the pressure from the stroke related edema. Problems: IRWIN AVALOS MD Oct 07, 2016 22:19
--- NOTE | 2016-10-07 23:00 | PN ---
Date/Time of Note Date/Time of Note DATE: 10/07/16 TIME: 22:57 Assessment/Plan VTE Prophylaxis VTE Prophylaxis Intervention: other Lines/Catheters IV Catheter Type (from Nrs): Peripheral IV Urinary Cath still in place: Yes Reason Cath still needed: other (indicate) Assessment/Plan Chief Complaint/Hosp Course Acute cerebrovascular accident and left-sided weakness, hypertension, diabetes mellitus. The patient has atrial fibrillation on the monitor. plan per dr nilo lea Problems: Subjective 24 Hr Interval Summary Subjective hx not possible: pt non-verbal Exam/Review of Systems Vital Signs Vitals Vital Signs Date Time Temp Pulse Resp B/P Pulse Ox O2 Delivery O2 Flow Rate FiO2 10/07/16 21:45 82 29 146/89 97 Nasal Cannula 2.0 10/07/16 21:01 31 10/07/16 20:00 97.8 Intake and Output 10/06/16 10/06/16 10/07/16 15:00 23:00 07:00 Intake Total 100 ml 400 ml Output Total 1800 ml 570 ml Balance -1700 ml -170 ml Exam Respiratory: clear to auscultation Cardiovascular: irregular rhythm Gastrointestinal: bowel sounds (+), soft Extremities: No edema Neurological: confused, lethargic Results Result Diagram: 10/06/1619 10/06/16 0919 Results 24 hrs Laboratory Tests Test 10/07/16 05:25 10/07/16 06:05 10/07/16 08:46 10/07/16 12:10 Troponin I 0.084 Triglycerides Level 157 H Cholesterol Level 223 H LDL Cholesterol, Calculated 150 HDL Cholesterol 42 Cholesterol/HDL Ratio 5.3 Bedside Glucose 119 132 118 Test 10/07/16 16:30 10/07/16 21:25 Bedside Glucose 119 123 Medications Medications Current Medications Dextrose/Sodium Chloride (D5-1/2ns) 1,000 ml @ 50 mls/hr Q20H IV Last administered on 10/07/16t 14:43; Admin Dose 50 MLS/HR; Start 10/06/16 at 15:46 Flumazenil (Romazicon) 0.2 mg Q1M PRN IV BENZODIAZEPINE OVERDOSE; Start at 16:00 Naloxone HCl (Narcan) 0.4 mg Q3M PRN IV DECREASED REPIRATORY RATE; Start at 16:00 Ondansetron HCl (Zofran Inj) 4 mg Q6H PRN IV NAUSEA AND/OR VOMITING; Start at 16:00 Acetaminophen (Tylenol Liquid) 650 mg Q6H PRN PO PAIN LEVEL 1-3 OR FEVER; Start 10/06/16 at 16:00 Acetaminophen (Tylenol Tab) 650 mg Q6H PRN PO PAIN LEVEL 1-3 OR FEVER; Start at 16:00 Acetaminophen/ Hydrocodone Bitart ([place] (5/325)) 1 tab Q6H PRN PO PAIN LEVEL 4 -6; Start 10/06/16 at 16:00 Docusate Sodium (Colace) 100 mg Q12H PRN PO CONSTIPATION; Start 10/06/16 at 16: 00 Magnesium Hydroxide (Milk Of Mag) 30 ml DAILY PRN PO CONSTIPATION; Start at 16:00 Bisacodyl (Dulcolax) 5 mg DAILY PRN PO CONSTIPATION; Start 10/06/16 at 16:00 Pantoprazole (Protonix Iv) 40 mg DAILY@06 IV Last administered on 10/07/16 06: 03; Admin Dose 40 MG; Start 10/07/16 at 06:00 Morphine Sulfate (morphine) 2 mg Q6H PRN IV PAIN Last administered on 21:29; Admin Dose 2 MG; Start 10/06/16 at 22:00 Diagnostic Test (Pha) 1 ea 1 ea 02 XX Last administered on 10/07/16 02:00; Admin Dose 1 EA; Start 10/07/16 at 02:00 Diltiazem HCl (Cardizem-D5W 125 Mg/125 ml Drip) 125 ml @ 5 mls/hr TITRATE PRN IV START IF HR IS ABOVE 120/min * Last administered on 10/07/16 08:31; Admin Dose 5 MLS/HR; Start 10/07/16 at 00:30 SON AKHTAR MD Oct 07, 2016 23:00
[2016-10-08] VITALS (60 sets, daily range): BP systolic 98–156; BP diastolic 55–109; PULSE 71–109; RESP 16–33
[2016-10-08] MEDS: ACCU-CHEK XX SCH (01:29)
[2016-10-08] MEDS: morphine 2 MG INJ IV PRN ×3 (03:50→23:09)
[2016-10-08] MEDS: DILTIAZEM-D5W 125MG/125ML DRIP 125 ML IV PRN (03:51)
[2016-10-08] MEDS: PANTOPRAZOLE 40 MG INJ IV SCH (05:47)
[2016-10-08 06:25] LABS: ADD SCAN DIFF NO
[2016-10-08 06:38] LABS: BASOPHILS % 0.1 % (0.0-2.0); EOSINOPHILS % 0.1 % (0.0-7.0); HEMATOCRIT 42.4 % (37.0-47.0); HEMOGLOBIN 14.3 g/dl (12.0-16.0); LYMPHOCYTES # 1.1 10^3/ul (0.8-2.9); LYMPHOCYTES % 9.9 % (15.0-51.0); MEAN CORPUSCULAR HEMOGLOBIN 29.3 pg (29.0-33.0); MEAN CORPUSCULAR HGB CONC 33.7 g/dl (32.0-37.0); MEAN CORPUSCULAR VOLUME 86.9 fl (82.0-101.0); MEAN PLATELET VOLUME 9.1 fl (7.4-10.4); MONOCYTE # 0.6 10^3/ul (0.3-0.9); MONOCYTES % 5.3 % (0.0-11.0); NEUTROPHIL # 9.2 10^3/ul (1.6-7.5); NEUTROPHILS % 84.2 % (39.0-77.0); PLATELET COUNT 298 10^3/UL (140-415); RED BLOOD COUNT 4.88 10^6/ul (4.20-5.40); RED CELL DISTRIBUTION WIDTH 13.5 % (11.5-14.5); WHITE BLOOD COUNT 10.9 10^3/ul (4.8-10.8)
[2016-10-08 06:46] LABS: ALBUMIN 3.6 g/dl (3.3-4.9)
[2016-10-08 06:49] LABS: ALBUMIN/GLOBULIN RATIO 0.94; BILIRUBIN,INDIRECT 0.5 mg/dl (0-1.1); BILIRUBIN,TOTAL 0.5 mg/dl (0.2-1.3); CREATININE 0.55 mg/dl (0.44-1.00); TOTAL PROTEIN 7.4 g/dl (6.1-8.1)
[2016-10-08 06:50] LABS: CALCIUM 9.2 mg/dl (8.4-10.2)
[2016-10-08] MEDS: INSULIN ASPART [NOVOLOG] 3 ML PEN SC SCH ×4 (07:35→20:58)
[2016-10-08] MEDS: DEXTROSE 5%-0.45% NACL 1,000 ML IV SCH (10:11)
--- NOTE | 2016-10-08 11:18 | CONS ---
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 Recc: -Tele -serial ecg's -IVP PRN diltiazem at this time -Neuro following-Not on systemic anti-coag due to Hemm conversion -ASA held Problems: Consultation Date/Type/Reason Admit Date/Time Oct 06, 2016 at 15:49 Initial Consult Date 10/06/2016 Type of Consultation: Cardiology Reason for Consultation AF Referring Provider: SON AKHTAR MD Exam/Review of Systems Vital Signs Vitals Vital Signs Date Time Temp Pulse Resp B/P Pulse Ox O2 Delivery O2 Flow Rate FiO2 10/08/16 09:30 73 24 116/80 96 10/08/16 09:00 Nasal Cannula 10/08/16 08:00 3.0 10/08/16 08:00 99.5 10/08/16 01:11 27 Intake and Output 10/07/16 10/07/16 10/08/16 15:00 23:00 07:00 Intake Total 432.5 ml 440 ml 385 ml Output Total 395 ml 485 ml 425 ml Balance 37.5 ml -45 ml -40 ml Exam Review of Systems: CONSTITUTIONAL: No fevers, chills. PULMONARY: No sob CARDIOVASCULAR: No chest pain/palpitations GASTROINTESTINAL: No nausea/vomiting. GENITOURINARY: No hematuria/dysuria. MUSCULOSKELETAL: No myagias/arthalgias. PSYCHIATRIC: The patient denies depression. NEUROLOGIC: encephalopathy Constitutional: other (encephalopathic) Psych: no complaints Head: normocephalic ENMT: mucosa pink and moist Neck: jvd (cm water), supple Respiratory: diminished breath sounds (at bases/B) Cardiovascular: regular rate and rhythm Gastrointestinal: non-tender, soft Musculoskeletal: muscle tone (normal) Extremities: edema (none) Neurological: other (Encephalopathy) Results Result Diagram: 10/08/16 0542 10/08/16 0542 Results 24 hrs Laboratory Tests Test 10/07/16 12:10 10/07/16 16:30 10/07/16 21:25 10/08/16 01:28 Bedside Glucose 118 119 123 127 Test 10/08/16 05:42 10/08/16 07:51 White Blood Count 10.9 H Red Blood Count 4.88 Hemoglobin 14.3 Hematocrit 42.4 Mean Corpuscular Volume 86.9 Mean Corpuscular Hemoglobin 29.3 Mean Corpuscular Hemoglobin Concent 33.7 Red Cell Distribution Width 13.5 Platelet Count 298 Mean Platelet Volume 9.1 Neutrophils % 84.2 H Lymphocytes % 9.9 L Monocytes % 5.3 Eosinophils % 0.1 Basophils % 0.1 Nucleated Red Blood Cells % 0.0 Neutrophils # 9.2 H Lymphocytes # 1.1 Monocytes # 0.6 Eosinophils # 0.0 Basophils # 0.0 Nucleated Red Blood Cells # 0.0 Sodium Level 139 Potassium Level 4.0 Chloride Level 102 Carbon Dioxide Level 23 Anion Gap 18 H Blood Urea Nitrogen 12 Creatinine 0.55 Glucose Level 134 Calcium Level 9.2 Total Bilirubin 0.5 Direct Bilirubin 0.00 Indirect Bilirubin 0.5 Aspartate Amino Transf (AST/SGOT) 174 H Alanine Aminotransferase (ALT/SGPT) 141 H Alkaline Phosphatase 167 H Total Protein 7.4 # Albumin 3.6 Globulin 3.80 H Albumin/Globulin Ratio 0.94 Bedside Glucose 144 Medications Medications Current Medications Dextrose/Sodium Chloride (D5-1/2ns) 1,000 ml @ 50 mls/hr Q20H IV Last administered on 10/08/16t 10:11; Admin Dose 50 MLS/HR; Start 10/06/16 at 15:46 Flumazenil (Romazicon) 0.2 mg Q1M PRN IV BENZODIAZEPINE OVERDOSE; Start at 16:00 Naloxone HCl (Narcan) 0.4 mg Q3M PRN IV DECREASED REPIRATORY RATE; Start at 16:00 Ondansetron HCl (Zofran Inj) 4 mg Q6H PRN IV NAUSEA AND/OR VOMITING; Start at 16:00 Acetaminophen (Tylenol Liquid) 650 mg Q6H PRN PO PAIN LEVEL 1-3 OR FEVER; Start 10/06/16 at 16:00 Acetaminophen (Tylenol Tab) 650 mg Q6H PRN PO PAIN LEVEL 1-3 OR FEVER; Start at 16:00 Acetaminophen/ Hydrocodone Bitart ([place] (5/325)) 1 tab Q6H PRN PO PAIN LEVEL 4 -6; Start 10/06/16 at 16:00 Docusate Sodium (Colace) 100 mg Q12H PRN PO CONSTIPATION; Start 10/06/16 at 16: 00 Magnesium Hydroxide (Milk Of Mag) 30 ml DAILY PRN PO CONSTIPATION; Start at 16:00 Bisacodyl (Dulcolax) 5 mg DAILY PRN PO CONSTIPATION; Start 10/06/16 at 16:00 Pantoprazole (Protonix Iv) 40 mg DAILY@06 IV Last administered on 10/08/16 05: 47; Admin Dose 40 MG; Start 10/07/16 at 06:00 Morphine Sulfate (morphine) 2 mg Q6H PRN IV PAIN Last administered on 10:13; Admin Dose 2 MG; Start 10/06/16 at 22:00 Diagnostic Test (Pha) 1 ea 1 ea 02 XX Last administered on 10/08/16 01:29; Admin Dose 1 EA; Start 10/07/16 at 02:00 Diltiazem HCl (Cardizem-D5W 125 Mg/125 ml Drip) 125 ml @ 5 mls/hr TITRATE PRN IV START IF HR IS ABOVE 120/min * Last administered on 10/08/16 03:51; Admin Dose 5 MLS/HR; Start 10/07/16 at 00:30 EMANUEL LAMAR Oct 08, 2016 11:18
--- NOTE | 2016-10-08 12:41 | RADRPT ---
PROCEDURE: CT Brain without contrast. CLINICAL INDICATION: Neurologic deficit TECHNIQUE: A CT of the brain was performed on multidetector high-resolution CT scanner utilizing a xial sections from the skull base through the vertex without contrast. One or more of the following dose reduction techniques were used: Automated exposure control, Adjustment of the mA and/or kV acc ording to patient size, and/or use of iterative reconstruction technique. DOSE: CTDI = 44 mGy and the DLP = 630 mGy-cm. COMPARISON: Head CT yesterday FINDINGS: Continued evolution of the right MCA territory infarct with hemorrhagic conversion. No evidence of n ew bleeding or progressive mass effect. Stable 3 mm leftward midline shift. Patchy hypoattenuation o f the cerebral white matter is most consistent with mildchronic microvascular ischemic changes. Athe rosclerotic calcifications of the cavernous segments of the internal carotid arteries are seen. Stab le ventricle size. No significant opacification of the visualized paranasal sinuses or mastoids. Air is again identified in the left globe and probably related to post-operative change. IMPRESSION: Continued evolution of the right MCA territory infarct with hemorrhagic conversion. No evidence of new bleeding or progressive mass effect. Stable 3 mm leftward midline shift. RPTAT: AA .Dhaval Ram MD, MD Date Time Electronically viewed and signed by .Dhaval Ram MD, on 10/08/2016 12:41 .T/
[2016-10-08] MEDS ORDERED: BUMETANIDE 1 MG INJ IV ONE (18:30)
--- NOTE | 2016-10-08 20:28 | CONS ---
Date/Time of Note Date/Time of Note DATE: 10/08/16 TIME: 20:22 Consult Date/Type/Reason Admit Date/Time Oct 06, 2016 at 15:49 Type of Consultation: neurology Ordering Provider: SON AKHTAR MD Subjective no acute events. per family, pt is more awake today. Still occasional headaches Objective Vital Signs Date Time Temp Pulse Resp B/P Pulse Ox O2 Delivery O2 Flow Rate FiO2 10/08/16 19:53 98 2.0 27 10/08/16 19:00 106 27 122/95 Nasal Cannula 10/08/16 16:00 97.5 Intake and Output 10/07/16 10/07/16 10/08/16 15:00 23:00 07:00 Intake Total 432.5 ml 440 ml 435 ml Output Total 395 ml 485 ml 425 ml Balance 37.5 ml -45 ml 10 ml Results/Medications Result Diagram: 10/08/16 0542 10/08/16 0542 Results 24 hrs Laboratory Tests Test 10/07/16 21:25 10/08/16 01:28 10/08/16 05:42 10/08/16 07:51 Bedside Glucose 123 127 144 White Blood Count 10.9 H Red Blood Count 4.88 Hemoglobin 14.3 Hematocrit 42.4 Mean Corpuscular Volume 86.9 Mean Corpuscular Hemoglobin 29.3 Mean Corpuscular Hemoglobin Concent 33.7 Red Cell Distribution Width 13.5 Platelet Count 298 Mean Platelet Volume 9.1 Neutrophils % 84.2 H Lymphocytes % 9.9 L Monocytes % 5.3 Eosinophils % 0.1 Basophils % 0.1 Nucleated Red Blood Cells % 0.0 Neutrophils # 9.2 H Lymphocytes # 1.1 Monocytes # 0.6 Eosinophils # 0.0 Basophils # 0.0 Nucleated Red Blood Cells # 0.0 Sodium Level 139 Potassium Level 4.0 Chloride Level 102 Carbon Dioxide Level 23 Anion Gap 18 H Blood Urea Nitrogen 12 Creatinine 0.55 Glucose Level 134 Calcium Level 9.2 Total Bilirubin 0.5 Direct Bilirubin 0.00 Indirect Bilirubin 0.5 Aspartate Amino Transf (AST/SGOT) 174 H Alanine Aminotransferase (ALT/SGPT) 141 H Alkaline Phosphatase 167 H Total Protein 7.4 # Albumin 3.6 Globulin 3.80 H Albumin/Globulin Ratio 0.94 Test 10/08/16 11:39 10/08/16 18:12 Bedside Glucose 114 117 Medications Current Medications Dextrose/Sodium Chloride (D5-1/2ns) 1,000 ml @ 50 mls/hr Q20H IV Last administered on 10/08/16 10:11; Admin Dose 50 MLS/HR; Start 10/06/16 at 15:46 Flumazenil (Romazicon) 0.2 mg Q1M PRN IV BENZODIAZEPINE OVERDOSE; Start at 16:00 Naloxone HCl (Narcan) 0.4 mg Q3M PRN IV DECREASED REPIRATORY RATE; Start at 16:00 Ondansetron HCl (Zofran Inj) 4 mg Q6H PRN IV NAUSEA AND/OR VOMITING; Start at 16:00 Acetaminophen (Tylenol Liquid) 650 mg Q6H PRN PO PAIN LEVEL 1-3 OR FEVER; Start 10/06/16 at 16:00 Acetaminophen (Tylenol Tab) 650 mg Q6H PRN PO PAIN LEVEL 1-3 OR FEVER; Start at 16:00 Acetaminophen/ Hydrocodone Bitart ([place] (5/325)) 1 tab Q6H PRN PO PAIN LEVEL 4 -6; Start 10/06/16 at 16:00 Docusate Sodium (Colace) 100 mg Q12H PRN PO CONSTIPATION; Start 10/06/16 at 16: 00 Magnesium Hydroxide (Milk Of Mag) 30 ml DAILY PRN PO CONSTIPATION; Start at 16:00 Bisacodyl (Dulcolax) 5 mg DAILY PRN PO CONSTIPATION; Start 10/06/16 at 16:00 Pantoprazole (Protonix Iv) 40 mg DAILY@06 IV Last administered on 10/08/16 05: 47; Admin Dose 40 MG; Start 10/07/16 at 06:00 Morphine Sulfate (morphine) 2 mg Q6H PRN IV PAIN Last administered on 10:13; Admin Dose 2 MG; Start 10/06/16 at 22:00 Diagnostic Test (Pha) 1 ea 1 ea 02 XX Last administered on 10/08/16 01:29; Admin Dose 1 EA; Start 10/07/16 at 02:00 Diltiazem HCl (Cardizem-D5W 125 Mg/125 ml Drip) 125 ml @ 5 mls/hr TITRATE PRN IV START IF HR IS ABOVE 120/min * Last administered on 10/08/16t 03:51; Admin Dose 5 MLS/HR; Start 10/07/16 at 00:30 Assessment/Plan Chief Complaint/Hosp Course PHYSICAL EXAMINATION: GENERAL: Not in acute distress, lying in bed. HEENT: Normocephalic, atraumatic head. NECK: No carotid bruits. No thyromegaly. LUNGS: Clear to auscultation bilaterally. CARDIAC: Irregularly irregular cardiac rhythm. ABDOMEN: Soft. Present bowel sounds. EXTREMITIES: No cyanosis, clubbing, or edema. NEUROLOGIC: She is lethargic but easily arousable by voice. The patient's son is at bedside interpreting. The patient speaks [place]. She has fluent speech. Oriented x2. She knows it is September but not the exact date. Follows commands. Cranial nerve examination shows no response to visual threat from the left. Pupils reactive from 3 to 2 mm on the right and about 3 mm fixed postsurgical on the left. Symmetrical face. Extraocular movements intact without nystagmus. Corneal reflexes present bilaterally. Gag is present. Motor strength examination shows decreased tone in the left upper extremity. No spontaneous movements. Left lower extremity about 3/5, withdraws to pain. Deep tendon reflexes 2+ throughout. Downgoing toes on the right and equivocal on the left. The patient has a diminished response to noxious stimuli applied to the left upper and lower extremities. IMPRESSION: Acute ischemic stroke in the right MCA territory with hemorrhagic transformation in patient with atrial fibrillation, history of valvular surgery , as well as hypertension. The patient was on aspirin prior to admission, not on anticoagulation. Repeat CT today stable mass effects. Keep patient euglycemic, normotensive. The patient is lethargic but arousable. We will continue stroke scale testing per protocol. If any worsening of mental status or new neurological symptoms, will repeat CAT scan of the head stat for evaluation of mass effect from the large area of stroke, especially with expected edema in the area of the stroke. If major worsening of edema seen, then neurosurgical consult could be obtained for possibility of so-called malignant MCA territory stroke which, at times, requires craniectomy to relieve the pressure from the stroke related edema. So far no worsening - stable mass effect on CT, and clinically pt is better, more awake. Dr. Thomas will follow over the weekend. OK for telemetry tomorrow Problems: IRWIN AVALOS MD Oct 08, 2016 20:27
--- NOTE | 2016-10-08 23:10 | PN ---
Date/Time of Note Date/Time of Note DATE: 10/08/16 TIME: 23:08 Assessment/Plan VTE Prophylaxis VTE Prophylaxis Intervention: other Lines/Catheters IV Catheter Type (from Nrs): Peripheral IV Urinary Cath still in place: Yes Reason Cath still needed: other (indicate) Assessment/Plan Chief Complaint/Hosp Course Acute cerebrovascular accident and left-sided weakness, hypertension, diabetes mellitus. The patient has atrial fibrillation on the monitor. plan per dr nilo lea d/w family Problems: Subjective 24 Hr Interval Summary Subjective hx not possible: pt non-verbal Exam/Review of Systems Vital Signs Vitals Vital Signs Date Time Temp Pulse Resp B/P Pulse Ox O2 Delivery O2 Flow Rate FiO2 10/08/16 21:30 95 31 139/89 97 10/08/16 21:00 Room Air Nasal Cannula 10/08/16 20:00 98.2 10/08/16 19:53 2.0 27 Intake and Output 10/07/16 10/07/16 10/08/16 14:59 22:59 06:59 Intake Total 427.5 ml 390 ml 490 ml Output Total 400 ml 480 ml 400 ml Balance 27.5 ml -90 ml 90 ml Exam Neck: supple Respiratory: clear to auscultation Cardiovascular: regular rate and rhythm Gastrointestinal: soft Neurological: confused Results Result Diagram: 10/08/16 0542 10/08/16 0542 Results 24 hrs Laboratory Tests Test 10/08/16 01:28 10/08/16 05:42 10/08/16 07:51 10/08/16 11:39 Bedside Glucose 127 144 114 White Blood Count 10.9 H Red Blood Count 4.88 Hemoglobin 14.3 Hematocrit 42.4 Mean Corpuscular Volume 86.9 Mean Corpuscular Hemoglobin 29.3 Mean Corpuscular Hemoglobin Concent 33.7 Red Cell Distribution Width 13.5 Platelet Count 298 Mean Platelet Volume 9.1 Neutrophils % 84.2 H Lymphocytes % 9.9 L Monocytes % 5.3 Eosinophils % 0.1 Basophils % 0.1 Nucleated Red Blood Cells % 0.0 Neutrophils # 9.2 H Lymphocytes # 1.1 Monocytes # 0.6 Eosinophils # 0.0 Basophils # 0.0 Nucleated Red Blood Cells # 0.0 Sodium Level 139 Potassium Level 4.0 Chloride Level 102 Carbon Dioxide Level 23 Anion Gap 18 H Blood Urea Nitrogen 12 Creatinine 0.55 Glucose Level 134 Calcium Level 9.2 Total Bilirubin 0.5 Direct Bilirubin 0.00 Indirect Bilirubin 0.5 Aspartate Amino Transf (AST/SGOT) 174 H Alanine Aminotransferase (ALT/SGPT) 141 H Alkaline Phosphatase 167 H Total Protein 7.4 # Albumin 3.6 Globulin 3.80 H Albumin/Globulin Ratio 0.94 Test 10/08/16 18:12 10/08/16 20:38 Bedside Glucose 117 129 Medications Medications Current Medications Dextrose/Sodium Chloride (D5-1/2ns) 1,000 ml @ 50 mls/hr Q20H IV Last administered on 10/08/16 10:11; Admin Dose 50 MLS/HR; Start 10/06/16 at 15:46 Flumazenil (Romazicon) 0.2 mg Q1M PRN IV BENZODIAZEPINE OVERDOSE; Start at 16:00 Naloxone HCl (Narcan) 0.4 mg Q3M PRN IV DECREASED REPIRATORY RATE; Start at 16:00 Ondansetron HCl (Zofran Inj) 4 mg Q6H PRN IV NAUSEA AND/OR VOMITING; Start at 16:00 Acetaminophen (Tylenol Liquid) 650 mg Q6H PRN PO PAIN LEVEL 1-3 OR FEVER; Start 10/06/16 at 16:00 Acetaminophen (Tylenol Tab) 650 mg Q6H PRN PO PAIN LEVEL 1-3 OR FEVER; Start at 16:00 Acetaminophen/ Hydrocodone Bitart ([place] (5/325)) 1 tab Q6H PRN PO PAIN LEVEL 4 -6; Start 10/06/16 at 16:00 Docusate Sodium (Colace) 100 mg Q12H PRN PO CONSTIPATION; Start 10/06/16 at 16: 00 Magnesium Hydroxide (Milk Of Mag) 30 ml DAILY PRN PO CONSTIPATION; Start at 16:00 Bisacodyl (Dulcolax) 5 mg DAILY PRN PO CONSTIPATION; Start 10/06/16 at 16:00 Pantoprazole (Protonix Iv) 40 mg DAILY@06 IV Last administered on 10/08/16 05: 47; Admin Dose 40 MG; Start 10/07/16 at 06:00 Morphine Sulfate (morphine) 2 mg Q6H PRN IV PAIN Last administered on 10:13; Admin Dose 2 MG; Start 10/06/16 at 22:00 Diagnostic Test (Pha) 1 ea 1 ea 02 XX Last administered on 10/08/16 01:29; Admin Dose 1 EA; Start 10/07/16 at 02:00 Diltiazem HCl (Cardizem-D5W 125 Mg/125 ml Drip) 125 ml @ 5 mls/hr TITRATE PRN IV START IF HR IS ABOVE 120/min * Last administered on 10/08/16 03:51; Admin Dose 5 MLS/HR; Start 10/07/16 at 00:30 SON AKHTAR MD Oct 08, 2016 23:10
[2016-10-09] VITALS (47 sets, daily range): BP systolic 115–159; BP diastolic 68–105; PULSE 79–135; RESP 11–32
[2016-10-09] MEDS: ACCU-CHEK XX SCH (02:00)
[2016-10-09] MEDS: DEXTROSE 5%-0.45% NACL 1,000 ML IV SCH ×2 (05:00→22:00)
[2016-10-09] MEDS: PANTOPRAZOLE 40 MG INJ IV SCH (05:09)
[2016-10-09] MEDS: morphine 2 MG INJ IV PRN ×2 (05:09→11:10)
[2016-10-09 06:31] LABS: ADD SCAN DIFF NO
[2016-10-09 06:54] LABS: BASOPHILS % 0.2 % (0.0-2.0); EOSINOPHILS % 0.3 % (0.0-7.0); HEMATOCRIT 45.2 % (37.0-47.0); HEMOGLOBIN 14.6 g/dl (12.0-16.0); LYMPHOCYTES # 1.2 10^3/ul (0.8-2.9); LYMPHOCYTES % 10.2 % (15.0-51.0); MEAN CORPUSCULAR HEMOGLOBIN 28.5 pg (29.0-33.0); MEAN CORPUSCULAR HGB CONC 32.3 g/dl (32.0-37.0); MEAN CORPUSCULAR VOLUME 88.3 fl (82.0-101.0); MEAN PLATELET VOLUME 9.6 fl (7.4-10.4); MONOCYTE # 0.9 10^3/ul (0.3-0.9); NEUTROPHIL # 9.5 10^3/ul (1.6-7.5); NEUTROPHILS % 80.9 % (39.0-77.0); PLATELET COUNT 292 10^3/UL (140-415); RED BLOOD COUNT 5.12 10^6/ul (4.20-5.40); RED CELL DISTRIBUTION WIDTH 13.8 % (11.5-14.5); WHITE BLOOD COUNT 11.7 10^3/ul (4.8-10.8)
[2016-10-09 06:59] LABS: ALBUMIN 3.8 g/dl (3.3-4.9)
[2016-10-09 07:01] LABS: BILIRUBIN,INDIRECT 0.5 mg/dl (0-1.1); BILIRUBIN,TOTAL 0.5 mg/dl (0.2-1.3); CREATININE 0.62 mg/dl (0.44-1.00)
[2016-10-09 07:02] LABS: CALCIUM 9.4 mg/dl (8.4-10.2); TOTAL PROTEIN 7.6 g/dl (6.1-8.1)
[2016-10-09] MEDS: INSULIN ASPART [NOVOLOG] 3 ML PEN SC SCH ×4 (07:35→21:00)
[2016-10-09] MEDS ORDERED: GLUCOSE GEL 15 GRAM TUBE BUCCAL PRN (09:30)
[2016-10-09] MEDS ORDERED: GLUCOSE GEL 15 GRAM TUBE PO PRN ×2 (09:30)
[2016-10-09] MEDS ORDERED: DEXTROSE 50% 50 ML SYRINGE IV PRN ×2 (09:30)
[2016-10-09] MEDS ORDERED: GLUCAGON 1 MG INJ IM PRN (09:30)
--- NOTE | 2016-10-09 09:50 | CONS ---
Date/Time of Note Date/Time of Note DATE: 10/09/16 TIME: 09:45 Assessment/Plan Assessment/Plan Additional Assessment/Plan Chest x-ray was reviewed from of this month which is showing mild cardio megaly, sternal wires are identified no acute infiltrates seen. Next CT of the head from yesterday showing hemorrhagic conversion of infarct in the right MCA distribution without any interval worsening compared to the prior CT of the head. Assessment recommendations; 1. 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 2. Multiple other comorbidities. As outlined above which all appear fairly stable, however patient is having A. fib with a heart rate around 110. Off Cardizem drip. 3. Currently there is no evidence of any airway compromise. Continue current supportive care. Consultation Date/Type/Reason Admit Date/Time Oct 06, 2016 at 15:49 Date of Consultation: Oct 09, 2016 Type of Consultation: Pulmonary/critical care Reason for Consultation Pulmonary consultation requested for evaluation of possible airway compromise. She is admitted for acute CVA. Next History presenting any; patient is a 60-year-old lady who was admitted on the first of this month with complaints of weakness involving the left arm. He was diagnosed with acute CVA. Was treated conservatively. Repeat CT of the head has shown hemorrhagic conversion out any interval worsening as seen on CT scan of head done yesterday morning. She has remained in atrial fibrillation with heart rate ranging between 90-110. Patient also is having slightly altered mental status and is unable to give any history by herself whatsoever patient was obtained from medical records. By the time I saw the patient I see the patient is awake somewhat responsive but does not appear to be in any distress. Next Past medical history; 1. History of aortic stenosis 2. History of hypertension. 3. History of coronary artery disease status post bypass surgery. 4. Atrial fibrillation apparently chronic 5. History of diabetes. 6. History of total abdominal hysterectomy. 7. History of diabetes. 8. History of cholecystectomy. Dictation; were reviewed. Allergies; are none. Next Social history; patient quit smoking 40 years ago. Next Occupational history; not available. Family history; not available. Review of systems; unable to be obtained. General exam; elderly woman, appears quite overweight. Currently in no distress awake follows minimal commands. Unable to move left upper extremity. As well as left lower extremity. Psychological: no complaints Social History Smoking Status: Former smoker Exam/Review of Systems Vital Signs Vitals Vital Signs Date Time Temp Pulse Resp B/P Pulse Ox O2 Delivery O2 Flow Rate FiO2 10/09/16 09:00 91 29 136/81 94 Room Air 10/09/16 08:00 98.8 10/09/16 05:30 2.0 10/09/16 02:20 27 Intake and Output 10/08/16 10/08/16 10/09/16 15:00 23:00 07:00 Intake Total 400 ml 400 ml 350 ml Output Total 320 ml 950 ml 370 ml Balance 80 ml -550 ml -20 ml Exam HEENT exam is; supple neck, JVD difficult to see because of short neck. No thyromegaly. No neck masses. No lymphadenopathy. Patient has left intraocular lens implant. Dentition is fair. No stridor. Chest examination; diminished but clear breath sounds bilaterally. S1-S2 audible, irregular rhythm. There is a well-healed sternal scar. Abdomen examination; soft, protuberant. Nontender. No organomegaly. Bowel sounds audible. Extremity exam is; no peripheral edema. Pulses 1+ bilaterally. [employer] examination a micro patient is awake but does not follow any commands unable to move left side. Results Result Diagram: 10/09/16 0541 10/09/16 0541 Results 24 hrs Laboratory Tests Test 10/08/16 11:39 10/08/16 18:12 10/08/16 20:38 10/09/16 05:41 Bedside Glucose 114 117 129 White Blood Count 11.7 H Red Blood Count 5.12 Hemoglobin 14.6 Hematocrit 45.2 Mean Corpuscular Volume 88.3 Mean Corpuscular Hemoglobin 28.5 L Mean Corpuscular Hemoglobin Concent 32.3 Red Cell Distribution Width 13.8 Platelet Count 292 Mean Platelet Volume 9.6 Neutrophils % 80.9 H Lymphocytes % 10.2 L Monocytes % 8.0 Eosinophils % 0.3 Basophils % 0.2 Nucleated Red Blood Cells % 0.0 Neutrophils # 9.5 H Lymphocytes # 1.2 Monocytes # 0.9 Eosinophils # 0.0 Basophils # 0.0 Nucleated Red Blood Cells # 0.0 Sodium Level 141 Potassium Level 4.0 Chloride Level 102 Carbon Dioxide Level 25 Anion Gap 18 H Blood Urea Nitrogen 17 Creatinine 0.62 Glucose Level 139 Calcium Level 9.4 Total Bilirubin 0.5 Direct Bilirubin 0.00 Indirect Bilirubin 0.5 Aspartate Amino Transf (AST/SGOT) 141 H Alanine Aminotransferase (ALT/SGPT) 255 H Alkaline Phosphatase 220 H Total Protein 7.6 Albumin 3.8 Globulin 3.80 H Albumin/Globulin Ratio 1.00 Test 10/09/16 08:03 Bedside Glucose 122 Medications Medications Current Medications Dextrose/Sodium Chloride (D5-1/2ns) 1,000 ml @ 50 mls/hr Q20H IV Last administered on 10/09/16 05:00; Admin Dose 50 MLS/HR; Start 10/06/16 at 15:46 Flumazenil (Romazicon) 0.2 mg Q1M PRN IV BENZODIAZEPINE OVERDOSE; Start at 16:00 Naloxone HCl (Narcan) 0.4 mg Q3M PRN IV DECREASED REPIRATORY RATE; Start at 16:00 Ondansetron HCl (Zofran Inj) 4 mg Q6H PRN IV NAUSEA AND/OR VOMITING; Start at 16:00 Acetaminophen (Tylenol Liquid) 650 mg Q6H PRN PO PAIN LEVEL 1-3 OR FEVER; Start 10/06/16 at 16:00 Acetaminophen (Tylenol Tab) 650 mg Q6H PRN PO PAIN LEVEL 1-3 OR FEVER; Start at 16:00 Acetaminophen/ Hydrocodone Bitart ([place] (5/325)) 1 tab Q6H PRN PO PAIN LEVEL 4 -6; Start 10/06/16 at 16:00 Docusate Sodium (Colace) 100 mg Q12H PRN PO CONSTIPATION; Start 10/06/16 at 16: 00 Magnesium Hydroxide (Milk Of Mag) 30 ml DAILY PRN PO CONSTIPATION; Start at 16:00 Bisacodyl (Dulcolax) 5 mg DAILY PRN PO CONSTIPATION; Start 10/06/16 at 16:00 Pantoprazole (Protonix Iv) 40 mg DAILY@06 IV Last administered on 10/09/16 05: 09; Admin Dose 40 MG; Start 10/07/16 at 06:00 Morphine Sulfate (morphine) 2 mg Q6H PRN IV PAIN Last administered on 05:09; Admin Dose 2 MG; Start 10/06/16 at 22:00 Diagnostic Test (Pha) 1 ea 1 ea 02 XX Last administered on 10/08/16 01:29; Admin Dose 1 EA; Start 10/07/16 at 02:00 Diltiazem HCl (Cardizem-D5W 125 Mg/125 ml Drip) 125 ml @ 5 mls/hr TITRATE PRN IV START IF HR IS ABOVE 120/min * Last administered on 10/08/16 03:51; Admin Dose 5 MLS/HR; Start 10/07/16 at 00:30 Miscellaneous Information 1 ea NOTE XX ; Start 10/09/16 at 09:30 Glucose (Glutose) 15 gm Q15M PRN PO DECREASED GLUCOSE; Start 10/09/16 at 09:30 Glucose (Glutose) 22.5 gm Q15M PRN PO DECREASED GLUCOSE; Start 10/09/16 at 09: 30 Dextrose (D50w Syringe) 25 ml Q15M PRN IV DECREASED GLUCOSE; Start 10/09/16 at 09:30 Dextrose (D50w Syringe) 50 ml Q15M PRN IV DECREASED GLUCOSE; Start 10/09/16 at 09:30 Glucagon (Glucagen) 1 mg Q15M PRN IM DECREASED GLUCOSE; Start 10/09/16 at 09:30 Glucose (Glutose) 15 gm Q15M PRN BUCCAL DECREASED GLUCOSE; Start 10/09/16 at 09 :30 FRANKIE WIGGINS Oct 09, 2016 09:50
--- NOTE | 2016-10-09 11:04 | CONS ---
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 Recc: -Tele -serial ecg's -IVP PRN diltiazem at this time -Neuro following-Not on systemic anti-coag due to Hemm conversion -ASA held -Follow MS closely -Possible transfer to tele today Problems: Consultation Date/Type/Reason Admit Date/Time Oct 06, 2016 at 15:49 Initial Consult Date 10/06/2016 Type of Consultation: Cardiology Reason for Consultation AF Referring Provider: SON AKHTAR MD Exam/Review of Systems Vital Signs Vitals Vital Signs Date Time Temp Pulse Resp B/P Pulse Ox O2 Delivery O2 Flow Rate FiO2 10/09/16 10:30 107 23 124/96 96 Room Air 10/09/16 08:00 98.8 10/09/16 05:30 2.0 10/09/16 02:20 27 Intake and Output 10/08/16 10/08/16 10/09/16 15:00 23:00 07:00 Intake Total 400 ml 400 ml 350 ml Output Total 320 ml 950 ml 370 ml Balance 80 ml -550 ml -20 ml Exam Review of Systems: CONSTITUTIONAL: No fevers, chills. PULMONARY: No sob CARDIOVASCULAR: No chest pain/palpitations GASTROINTESTINAL: No nausea/vomiting. GENITOURINARY: No hematuria/dysuria. MUSCULOSKELETAL: No myagias/arthalgias. PSYCHIATRIC: The patient denies depression. NEUROLOGIC: Encephalopathy/headache Constitutional: other (sleeping) Psych: no complaints Head: normocephalic ENMT: mucosa pink and moist Neck: jvd (9 cm water), supple Respiratory: diminished breath sounds (at bases/B) Cardiovascular: regular rate and rhythm Gastrointestinal: non-tender, soft Musculoskeletal: muscle tone (mild generalized weakness) Extremities: edema (none) Neurological: other (encephalopathic) Results Result Diagram: 10/09/16 0541 10/09/16 0541 Results 24 hrs Laboratory Tests Test 10/08/16 11:39 10/08/16 18:12 10/08/16 20:38 10/09/16 05:41 Bedside Glucose 114 117 129 White Blood Count 11.7 H Red Blood Count 5.12 Hemoglobin 14.6 Hematocrit 45.2 Mean Corpuscular Volume 88.3 Mean Corpuscular Hemoglobin 28.5 L Mean Corpuscular Hemoglobin Concent 32.3 Red Cell Distribution Width 13.8 Platelet Count 292 Mean Platelet Volume 9.6 Neutrophils % 80.9 H Lymphocytes % 10.2 L Monocytes % 8.0 Eosinophils % 0.3 Basophils % 0.2 Nucleated Red Blood Cells % 0.0 Neutrophils # 9.5 H Lymphocytes # 1.2 Monocytes # 0.9 Eosinophils # 0.0 Basophils # 0.0 Nucleated Red Blood Cells # 0.0 Sodium Level 141 Potassium Level 4.0 Chloride Level 102 Carbon Dioxide Level 25 Anion Gap 18 H Blood Urea Nitrogen 17 Creatinine 0.62 Glucose Level 139 Calcium Level 9.4 Total Bilirubin 0.5 Direct Bilirubin 0.00 Indirect Bilirubin 0.5 Aspartate Amino Transf (AST/SGOT) 141 H Alanine Aminotransferase (ALT/SGPT) 255 H Alkaline Phosphatase 220 H Total Protein 7.6 Albumin 3.8 Globulin 3.80 H Albumin/Globulin Ratio 1.00 Test 10/09/16 08:03 Bedside Glucose 122 Medications Medications Current Medications Dextrose/Sodium Chloride (D5-1/2ns) 1,000 ml @ 50 mls/hr Q20H IV Last administered on 10/09/16t 05:00; Admin Dose 50 MLS/HR; Start 10/06/16 at 15:46 Flumazenil (Romazicon) 0.2 mg Q1M PRN IV BENZODIAZEPINE OVERDOSE; Start at 16:00 Naloxone HCl (Narcan) 0.4 mg Q3M PRN IV DECREASED REPIRATORY RATE; Start at 16:00 Ondansetron HCl (Zofran Inj) 4 mg Q6H PRN IV NAUSEA AND/OR VOMITING; Start at 16:00 Acetaminophen (Tylenol Liquid) 650 mg Q6H PRN PO PAIN LEVEL 1-3 OR FEVER; Start 10/06/16 at 16:00 Acetaminophen (Tylenol Tab) 650 mg Q6H PRN PO PAIN LEVEL 1-3 OR FEVER; Start at 16:00 Acetaminophen/ Hydrocodone Bitart ([place] (5/325)) 1 tab Q6H PRN PO PAIN LEVEL 4 -6; Start 10/06/16 at 16:00 Docusate Sodium (Colace) 100 mg Q12H PRN PO CONSTIPATION; Start 10/06/16 at 16: 00 Magnesium Hydroxide (Milk Of Mag) 30 ml DAILY PRN PO CONSTIPATION; Start at 16:00 Bisacodyl (Dulcolax) 5 mg DAILY PRN PO CONSTIPATION; Start 10/06/16 at 16:00 Pantoprazole (Protonix Iv) 40 mg DAILY@06 IV Last administered on 10/09/16 05: 09; Admin Dose 40 MG; Start 10/07/16 at 06:00 Morphine Sulfate (morphine) 2 mg Q6H PRN IV PAIN Last administered on 05:09; Admin Dose 2 MG; Start 10/06/16 at 22:00 Diagnostic Test (Pha) 1 ea 1 ea 02 XX Last administered on 10/08/16 01:29; Admin Dose 1 EA; Start 10/07/16 at 02:00 Diltiazem HCl (Cardizem-D5W 125 Mg/125 ml Drip) 125 ml @ 5 mls/hr TITRATE PRN IV START IF HR IS ABOVE 120/min * Last administered on 10/08/16 03:51; Admin Dose 5 MLS/HR; Start 10/07/16 at 00:30 Miscellaneous Information 1 ea NOTE XX ; Start 10/09/16 at 09:30 Glucose (Glutose) 15 gm Q15M PRN PO DECREASED GLUCOSE; Start 10/09/16 at 09:30 Glucose (Glutose) 22.5 gm Q15M PRN PO DECREASED GLUCOSE; Start 10/09/16 at 09: 30 Dextrose (D50w Syringe) 25 ml Q15M PRN IV DECREASED GLUCOSE; Start 10/09/16 at 09:30 Dextrose (D50w Syringe) 50 ml Q15M PRN IV DECREASED GLUCOSE; Start 10/09/16 at 09:30 Glucagon (Glucagen) 1 mg Q15M PRN IM DECREASED GLUCOSE; Start 10/09/16 at 09:30 Glucose (Glutose) 15 gm Q15M PRN BUCCAL DECREASED GLUCOSE; Start 10/09/16 at 09 :30 EMANUEL LAMAR 24, 2017 11:04
[2016-10-09] MEDS ORDERED: DIGOXIN 500 MCG INJ IV ONE (11:30)
--- NOTE | 2016-10-09 13:43 | PN ---
Date/Time of Note Date/Time of Note DATE: 10/09/16 TIME: 13:38 Assessment/Plan VTE Prophylaxis VTE Prophylaxis Intervention: SCD's Lines/Catheters IV Catheter Type (from Nrs): Peripheral IV Urinary Cath still in place: Yes Reason Cath still needed: urinary retention Assessment/Plan Chief Complaint/Hosp Course 1.Acute cerebrovascular accident and left-sided weakness, 2. hypertension, 3 diabetes mellitus. T 4. Atrial flutter on the monitor. Problems: Assessment/Plan 1. Possible surgery per Neurosurgeon that was called by nursing 2. Pt is undergo swallow evaluation Subjective 24 Hr Interval Summary Constitutional: requiring IVF Eyes: visual change ENT: no complaints Respiratory: no complaints Cardiovascular: lightheadedness Gastrointestinal: decreased appetite Genitourinary: no complaints Musculoskeletal: other (left side wealness) Skin: no complaints Neurologic: other (unable to move left side of the body) Psychological: no complaints Immunologic: no complaints Exam/Review of Systems Vital Signs Vitals Vital Signs Date Time Temp Pulse Resp B/P Pulse Ox O2 Delivery O2 Flow Rate FiO2 10/09/16 12:30 102 28 120/87 96 Room Air 10/09/16 12:00 98.9 10/09/16 05:30 2.0 10/09/16 02:20 27 Intake and Output 10/08/16 10/08/16 10/09/16 15:00 23:00 07:00 Intake Total 400 ml 400 ml 400 ml Output Total 320 ml 950 ml 370 ml Balance 80 ml -550 ml 30 ml Exam Constitutional: alert, oriented, well developed Psych: nl mood/affect, no complaints Head: other (assymertrical) Eyes: nl conjunctiva, nl lids ENMT: nl external ears & nose, nl lips & teeth Neck: non-tender, supple Respiratory: diminished breath sounds Cardiovascular: irregular rhythm, other (atrial flutter) Gastrointestinal: soft Extremities: edema Neurological: other (left side decreased sensitivity and weakness) Skin: nl turgor Lymph: nl lymph nodes Results Result Diagram: 10/09/16 0541 10/09/16 0541 Results 24 hrs Laboratory Tests Test 10/08/16 18:12 10/08/16 20:38 10/09/16 05:41 10/09/16 08:03 Bedside Glucose 117 129 122 White Blood Count 11.7 H Red Blood Count 5.12 Hemoglobin 14.6 Hematocrit 45.2 Mean Corpuscular Volume 88.3 Mean Corpuscular Hemoglobin 28.5 L Mean Corpuscular Hemoglobin Concent 32.3 Red Cell Distribution Width 13.8 Platelet Count 292 Mean Platelet Volume 9.6 Neutrophils % 80.9 H Lymphocytes % 10.2 L Monocytes % 8.0 Eosinophils % 0.3 Basophils % 0.2 Nucleated Red Blood Cells % 0.0 Neutrophils # 9.5 H Lymphocytes # 1.2 Monocytes # 0.9 Eosinophils # 0.0 Basophils # 0.0 Nucleated Red Blood Cells # 0.0 Sodium Level 141 Potassium Level 4.0 Chloride Level 102 Carbon Dioxide Level 25 Anion Gap 18 H Blood Urea Nitrogen 17 Creatinine 0.62 Glucose Level 139 Calcium Level 9.4 Total Bilirubin 0.5 Direct Bilirubin 0.00 Indirect Bilirubin 0.5 Aspartate Amino Transf (AST/SGOT) 141 H Alanine Aminotransferase (ALT/SGPT) 255 H Alkaline Phosphatase 220 H Total Protein 7.6 Albumin 3.8 Globulin 3.80 H Albumin/Globulin Ratio 1.00 Test 10/09/16 11:13 Bedside Glucose 117 Medications Medications Current Medications Dextrose/Sodium Chloride (D5-1/2ns) 1,000 ml @ 50 mls/hr Q20H IV Last administered on 10/09/16t 05:00; Admin Dose 50 MLS/HR; Start 10/06/16 at 15:46 Flumazenil (Romazicon) 0.2 mg Q1M PRN IV BENZODIAZEPINE OVERDOSE; Start at 16:00 Naloxone HCl (Narcan) 0.4 mg Q3M PRN IV DECREASED REPIRATORY RATE; Start at 16:00 Ondansetron HCl (Zofran Inj) 4 mg Q6H PRN IV NAUSEA AND/OR VOMITING; Start at 16:00 Acetaminophen (Tylenol Liquid) 650 mg Q6H PRN PO PAIN LEVEL 1-3 OR FEVER; Start 10/06/16 at 16:00 Acetaminophen (Tylenol Tab) 650 mg Q6H PRN PO PAIN LEVEL 1-3 OR FEVER; Start at 16:00 Acetaminophen/ Hydrocodone Bitart ([place] (5/325)) 1 tab Q6H PRN PO PAIN LEVEL 4 -6; Start 10/06/16 at 16:00 Docusate Sodium (Colace) 100 mg Q12H PRN PO CONSTIPATION; Start 10/06/16 at 16: 00 Magnesium Hydroxide (Milk Of Mag) 30 ml DAILY PRN PO CONSTIPATION; Start at 16:00 Bisacodyl (Dulcolax) 5 mg DAILY PRN PO CONSTIPATION; Start 10/06/16 at 16:00 Pantoprazole (Protonix Iv) 40 mg DAILY@06 IV Last administered on 10/09/16 05: 09; Admin Dose 40 MG; Start 10/07/16 at 06:00 Morphine Sulfate (morphine) 2 mg Q6H PRN IV PAIN Last administered on 11:10; Admin Dose 2 MG; Start 10/06/16 at 22:00 Diagnostic Test (Pha) 1 ea 1 ea 02 XX Last administered on 10/08/16 01:29; Admin Dose 1 EA; Start 10/07/16 at 02:00 Diltiazem HCl (Cardizem-D5W 125 Mg/125 ml Drip) 125 ml @ 5 mls/hr TITRATE PRN IV START IF HR IS ABOVE 120/min * Last administered on 10/08/16 03:51; Admin Dose 5 MLS/HR; Start 10/07/16 at 00:30 Miscellaneous Information 1 ea NOTE XX ; Start 10/09/16 at 09:30 Glucose (Glutose) 15 gm Q15M PRN PO DECREASED GLUCOSE; Start 10/09/16 at 09:30 Glucose (Glutose) 22.5 gm Q15M PRN PO DECREASED GLUCOSE; Start 10/09/16 at 09: 30 Dextrose (D50w Syringe) 25 ml Q15M PRN IV DECREASED GLUCOSE; Start 10/09/16 at 09:30 Dextrose (D50w Syringe) 50 ml Q15M PRN IV DECREASED GLUCOSE; Start 10/09/16 at 09:30 Glucagon (Glucagen) 1 mg Q15M PRN IM DECREASED GLUCOSE; Start 10/09/16 at 09:30 Glucose (Glutose) 15 gm Q15M PRN BUCCAL DECREASED GLUCOSE; Start 10/09/16 at 09 :30 Diltiazem HCl (Cardizem Iv) 5 mg Q4H PRN IV PRN HR>110 Hold SBP<100; Start at 11:30 YULISSA GONSALES Oct 09, 2016 13:43
--- NOTE | 2016-10-09 19:55 | CONS ---
Date/Time of Note Date/Time of Note DATE: 10/09/16 TIME: 19:47 Assessment/Plan Assessment/Plan Problems: (1) Acute CVA (cerebrovascular accident) Status: Acute Additional Assessment/Plan Expected evolution of large Right MCA infarct with local mass effect and little / minimal midline shift. Patient is awake and tolerating the mass effect from CVA well. I think it is very unlikely that the small amount of hemorrhagic conversion in the infarct will progress to a larger clot, and most likely this represents the peak swelling from the infarct. There is therefore no indication for decompressive hemicraniectomy of clot evacuation. Avoid hypotonic fluid replacement. Avoid anti-platelet therapy or anti-coagulation. I think it would be reasonable to get a follow up CT in 2-3 days. She should also be followed by stroke neurology. Please re-c/s me prn. Consultation Date/Type/Reason Admit Date/Time Oct 06, 2016 at 15:49 Date of Consultation: Oct 09, 2016 Type of Consultation: neurosurgery Reason for Consultation hemorhagic Right MCA infarct Hx of Present Illness 61 y/o RH female with right MCA infarct with some hyperdensity on CT follow up. Stable on repeat CT. + mass effect with effacement of frontal horn of right lateral ventricle without significant midline shift. Complains of headache. Constitutional: requiring IVF Eyes: visual change ENT: no complaints Respiratory: no complaints Cardiovascular: lightheadedness Gastrointestinal: decreased appetite Genitourinary: no complaints Musculoskeletal: other (left side wealness) Skin: no complaints Neurologic: other (unable to move left side of the body) Endocrine: no complaints Lymphatic: no complaints Psychological: nl mood/affect, no complaints Immunologic: no complaints Social History Smoking Status: Former smoker Exam/Review of Systems Vital Signs Vitals Vital Signs Date Time Temp Pulse Resp B/P Pulse Ox O2 Delivery O2 Flow Rate FiO2 10/09/16 18:00 89 21 122/74 97 Room Air 10/09/16 16:00 98.9 10/09/16 14:52 21 10/09/16 05:30 2.0 Intake and Output 10/08/16 10/08/16 10/09/16 15:00 23:00 07:00 Intake Total 400 ml 400 ml 400 ml Output Total 320 ml 950 ml 370 ml Balance 80 ml -550 ml 30 ml Exam Constitutional: alert, obese, well developed Head: atraumatic, normocephalic Eyes: EOMI, nl conjunctiva ENMT: nl external ears & nose, nl lips & teeth Neck: supple Cardiovascular: regular rate and rhythm Musculoskeletal: nl extremities to inspection Skin: nl turgor Additional Comments On neuro exam, awake but slow to open eyes. Follows commands and + spontaneous speech (wants to go to private room on floor/ out of ICU!) Left hemiplegia. + left sensory deficit. Facce =. TML.. Results Result Diagram: 10/09/16 0541 10/09/16 0541 Results 24 hrs Laboratory Tests Test 10/08/16 20:38 10/09/16 05:41 10/09/16 08:03 10/09/16 11:13 Bedside Glucose 129 122 117 White Blood Count 11.7 H Red Blood Count 5.12 Hemoglobin 14.6 Hematocrit 45.2 Mean Corpuscular Volume 88.3 Mean Corpuscular Hemoglobin 28.5 L Mean Corpuscular Hemoglobin Concent 32.3 Red Cell Distribution Width 13.8 Platelet Count 292 Mean Platelet Volume 9.6 Neutrophils % 80.9 H Lymphocytes % 10.2 L Monocytes % 8.0 Eosinophils % 0.3 Basophils % 0.2 Nucleated Red Blood Cells % 0.0 Neutrophils # 9.5 H Lymphocytes # 1.2 Monocytes # 0.9 Eosinophils # 0.0 Basophils # 0.0 Nucleated Red Blood Cells # 0.0 Sodium Level 141 Potassium Level 4.0 Chloride Level 102 Carbon Dioxide Level 25 Anion Gap 18 H Blood Urea Nitrogen 17 Creatinine 0.62 Glucose Level 139 Calcium Level 9.4 Total Bilirubin 0.5 Direct Bilirubin 0.00 Indirect Bilirubin 0.5 Aspartate Amino Transf (AST/SGOT) 141 H Alanine Aminotransferase (ALT/SGPT) 255 H Alkaline Phosphatase 220 H Total Protein 7.6 Albumin 3.8 Globulin 3.80 H Albumin/Globulin Ratio 1.00 Test 10/09/16 17:47 Bedside Glucose 122 Medications Medications Current Medications Dextrose/Sodium Chloride (D5-1/2ns) 1,000 ml @ 50 mls/hr Q20H IV Last administered on 10/09/16t 05:00; Admin Dose 50 MLS/HR; Start 10/06/16 at 15:46 Flumazenil (Romazicon) 0.2 mg Q1M PRN IV BENZODIAZEPINE OVERDOSE; Start at 16:00 Naloxone HCl (Narcan) 0.4 mg Q3M PRN IV DECREASED REPIRATORY RATE; Start at 16:00 Ondansetron HCl (Zofran Inj) 4 mg Q6H PRN IV NAUSEA AND/OR VOMITING; Start at 16:00 Acetaminophen (Tylenol Liquid) 650 mg Q6H PRN PO PAIN LEVEL 1-3 OR FEVER; Start 10/06/16 at 16:00 Acetaminophen (Tylenol Tab) 650 mg Q6H PRN PO PAIN LEVEL 1-3 OR FEVER; Start at 16:00 Acetaminophen/ Hydrocodone Bitart ([place] (5/325)) 1 tab Q6H PRN PO PAIN LEVEL 4 -6 Last administered on 10/09/16 16:10; Admin Dose 1 TAB; Start 10/06/16 at 16: 00 Docusate Sodium (Colace) 100 mg Q12H PRN PO CONSTIPATION; Start 10/06/16 at 16: 00 Magnesium Hydroxide (Milk Of Mag) 30 ml DAILY PRN PO CONSTIPATION; Start at 16:00 Bisacodyl (Dulcolax) 5 mg DAILY PRN PO CONSTIPATION; Start 10/06/16 at 16:00 Pantoprazole (Protonix Iv) 40 mg DAILY@06 IV Last administered on 10/09/16 05: 09; Admin Dose 40 MG; Start 10/07/16 at 06:00 Morphine Sulfate (morphine) 2 mg Q6H PRN IV PAIN Last administered on 11:10; Admin Dose 2 MG; Start 10/06/16 at 22:00 Diagnostic Test (Pha) 1 ea 1 ea 02 XX Last administered on 10/08/16 01:29; Admin Dose 1 EA; Start 10/07/16 at 02:00 Diltiazem HCl (Cardizem-D5W 125 Mg/125 ml Drip) 125 ml @ 5 mls/hr TITRATE PRN IV START IF HR IS ABOVE 120/min * Last administered on 10/08/16 03:51; Admin Dose 5 MLS/HR; Start 10/07/16 at 00:30 Miscellaneous Information 1 ea NOTE XX ; Start 10/09/16 at 09:30 Glucose (Glutose) 15 gm Q15M PRN PO DECREASED GLUCOSE; Start 10/09/16 at 09:30 Glucose (Glutose) 22.5 gm Q15M PRN PO DECREASED GLUCOSE; Start 10/09/16 at 09: 30 Dextrose (D50w Syringe) 25 ml Q15M PRN IV DECREASED GLUCOSE; Start 10/09/16 at 09:30 Dextrose (D50w Syringe) 50 ml Q15M PRN IV DECREASED GLUCOSE; Start 10/09/16 at 09:30 Glucagon (Glucagen) 1 mg Q15M PRN IM DECREASED GLUCOSE; Start 10/09/16 at 09:30 Glucose (Glutose) 15 gm Q15M PRN BUCCAL DECREASED GLUCOSE; Start 10/09/16 at 09 :30 Diltiazem HCl (Cardizem Iv) 5 mg Q4H PRN IV PRN HR>110 Hold SBP<100; Start at 11:30 Brimonidine Tartrate ([place] 0.2%) 2 drop Q4 LEFT EYE ; Start 10/09/16 at 21: 00 Prednisolone Acetate (Pred-Forte 1%) 2 drop Q4 LEFT EYE ; Start 10/09/16 at 21: 00 SUE CARSON MD Oct 09, 2016 19:55
[2016-10-09] MEDS: PREDNISOLONE ACET 1% 5 ML OPH LEFT EYE SCH (22:37)
[2016-10-09] MEDS: BRIMONIDINE 0.2% 5 ML BTL LEFT EYE SCH (22:38)
--- NOTE | 2016-10-09 23:42 | RADRPT ---
PROCEDURE: XR Chest. CLINICAL INDICATION: Nasogastric tube placement. TECHNIQUE: Single frontal view of the chest was obtained COMPARISON: Plain film chest dated 10/06/2016. FINDINGS: Nasogastric tube with tip and sideport in the mid stomach. Cardiomegaly. Atherosclerotic calcifica tions in the thoracic aorta. Improved aeration bilateral lungs, with persistent mild bibasilar atelectasis versus airspace diseas e. Previously seen failure is substantially improved. New small left pleural effusion. There is no pneumothorax. IMPRESSION: 1. Nasogastric tube in place with tip inside port in the mid stomach. 2. Previously seen failure is substantially improved, with only mild bibasilar atelectasis versus ai rspace disease. 3. New small left pleural effusion. RPTAT: [facility] Physician Tangela Date Time Electronically viewed and signed by Physician Tangela on 10/09/2016 23:41 RS/
[2016-10-10] VITALS (43 sets, daily range): BP systolic 88–150; BP diastolic 53–99; PULSE 76–117; RESP 18–35
[2016-10-10] MEDS ORDERED: INSULIN ASPART [NOVOLOG] 3 ML PEN SC SCH
[2016-10-10] MEDS: PREDNISOLONE ACET 1% 5 ML OPH LEFT EYE SCH ×6 (01:01→20:59)
[2016-10-10] MEDS: BRIMONIDINE 0.2% 5 ML BTL LEFT EYE SCH ×6 (01:01→21:00)
[2016-10-10] MEDS: ACCU-CHEK XX SCH (02:00)
[2016-10-10] MEDS: morphine 2 MG INJ IV PRN ×4 (02:11→20:56)
[2016-10-10 05:02] LABS: ADD SCAN DIFF NO
[2016-10-10 05:06] LABS: BASOPHILS % 0.2 % (0.0-2.0); EOSINOPHILS % 0.4 % (0.0-7.0); HEMATOCRIT 42.4 % (37.0-47.0); HEMOGLOBIN 13.9 g/dl (12.0-16.0); LYMPHOCYTES # 1.6 10^3/ul (0.8-2.9); LYMPHOCYTES % 14.9 % (15.0-51.0); MEAN CORPUSCULAR HEMOGLOBIN 28.7 pg (29.0-33.0); MEAN CORPUSCULAR HGB CONC 32.8 g/dl (32.0-37.0); MEAN CORPUSCULAR VOLUME 87.6 fl (82.0-101.0); MEAN PLATELET VOLUME 9.5 fl (7.4-10.4); MONOCYTE # 0.9 10^3/ul (0.3-0.9); MONOCYTES % 8.5 % (0.0-11.0); NEUTROPHILS % 75.6 % (39.0-77.0); PLATELET COUNT 274 10^3/UL (140-415); RED BLOOD COUNT 4.84 10^6/ul (4.20-5.40); RED CELL DISTRIBUTION WIDTH 13.8 % (11.5-14.5); WHITE BLOOD COUNT 10.6 10^3/ul (4.8-10.8)
[2016-10-10 05:15] LABS: ALBUMIN 3.6 g/dl (3.3-4.9)
[2016-10-10 05:18] LABS: ALBUMIN/GLOBULIN RATIO 0.9; BILIRUBIN,INDIRECT 0.6 mg/dl (0-1.1); BILIRUBIN,TOTAL 0.6 mg/dl (0.2-1.3); CALCIUM 9.3 mg/dl (8.4-10.2); CREATININE 0.52 mg/dl (0.44-1.00); TOTAL PROTEIN 7.6 g/dl (6.1-8.1)
[2016-10-10 05:21] LABS: INR 1.02; PROTIME 13.4 Sec (12.2-14.2)
[2016-10-10 05:22] LABS: PARTIAL THROMBOPLASTIN TIME 29.2 Sec (25.0-35.0)
--- NOTE | 2016-10-10 05:36 | CONS ---
DATE OF ADMISSION: 10/06/2016 DATE OF CONSULTATION: REFERRING PHYSICIAN: Dr. Lau. 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 Karen abreu was on aspirin prior to the admission. The patient had a CT scan that shows midline shift with mass effect. PHYSICAL EXAMINATION: GENERAL: On exam today, the patient is alert, awake, and follows simple commands; however, difficult to follow along her left side. CRANIAL NERVES: Cranial nerve II: Pupils equal on both sides, reactive to light. Cranial nerves I II, IV, and : Extraocular muscles intact. Cranial nerve V: Equal sensation to face. Cranial ne rve VII: Decreased nasolabial fold. Cranial nerve VIII: Equal hearing bilaterally. Cranial nerve X: Elevates palate. Cranial nerve XI: Elevates shoulder 5/5. MOTOR: Left side 4-0/5. Right side scored 4/5. Sensation decreased for glove and sock area decrea sed on the left side ____. HEART: Regular rate and rhythm. LUNGS: Equal breath sounds. ABDOMEN: Soft, relaxed, nondistended. No tenderness. ASSESSMENT AND PLAN: 1. She is 61 years old with hemiplegia, status post acute ischemic stroke with hemorrhagic transfor mation. The patient already had MRI that shows midline shift with hemorrhagic transformation. We w ill keep the patient under observation. Neurosurgery consult was done for Dr. Feldman per the [facility] staff. 2. We will start the patient on bedside rehabilitation in the form of physical therapy, occupationa l therapy and speech therapy. 3. Keep the patient under deep venous thrombosis prophylaxis as well as decubitus ulcer prophylaxis . Again, thank you for asking me to see the patient with you. Dictated By: BURTON FOWLER/AUDRA Conf#: [id number] DID#: [id number]
[2016-10-10] MEDS: Insulin NOVOLOG SS MILD Algorithm (NPO/TPN/ENTERAL FEEDS) SC SCH ×5 (06:00→23:35)
[2016-10-10] MEDS: PANTOPRAZOLE 40 MG INJ IV SCH (06:14)
[2016-10-10] MEDS: ACETAMINOPHEN 650MG/20.3ML CUP PO PRN (08:29)
[2016-10-10] MEDS: DILTIAZEM 25 MG INJ IV PRN (08:36)
--- NOTE | 2016-10-10 10:29 | PN ---
Date/Time of Note Date/Time of Note DATE: 10/10/16 TIME: 10:23 Assessment/Plan VTE Prophylaxis VTE Prophylaxis Intervention: SCD's Lines/Catheters IV Catheter Type (from Nrs): Peripheral IV Urinary Cath still in place: Yes Reason Cath still needed: urinary retention Assessment/Plan Chief Complaint/Hosp Course 1.Acute cerebrovascular accident and left-sided weakness, neurosurger denied surgery 2. hypertension, stable 3 diabetes mellitus. uncontrolled 4. Atrial flutter on the monitor. Problems: Assessment/Plan 1. Continue UCU, pt is obtunded 2. ct scan heaqd to evaluate dynamic of hemathoma 3. Continue tube feeding even pt swallow evaluation passed due to periodic changes in conciseness. Subjective 24 Hr Interval Summary Subjective hx not possible: pt critical status Neurologic: other (lethargic) Exam/Review of Systems Vital Signs Vitals Vital Signs Date Time Temp Pulse Resp B/P Pulse Ox O2 Delivery O2 Flow Rate FiO2 10/10/16 08:00 117 10/10/16 07:00 99.7 18 136/71 95 Room Air 10/09/16 14:52 21 10/09/16 05:30 2.0 Intake and Output 10/09/16 10/09/16 10/10/16 15:00 23:00 07:00 Intake Total 350 ml 535 ml 450 ml Output Total 260 ml 390 ml 500 ml Balance 90 ml 145 ml -50 ml Exam Constitutional: obese, other (rgic) Psych: nl mood/affect Head: normocephalic Eyes: nl lids ENMT: nl external ears & nose Respiratory: clear to auscultation Cardiovascular: regular rate and rhythm Gastrointestinal: soft Extremities: normal pulses Neurological: focal weakness, lethargic Skin: nl turgor Results Result Diagram: 10/10/16 0435 10/10/16 0435 Results 24 hrs Laboratory Tests Test 10/09/16 11:13 10/09/16 17:47 10/09/16 21:19 10/10/16 00:47 Bedside Glucose 117 122 121 113 Test 10/10/16 04:35 10/10/16 06:14 White Blood Count 10.6 Red Blood Count 4.84 Hemoglobin 13.9 Hematocrit 42.4 Mean Corpuscular Volume 87.6 Mean Corpuscular Hemoglobin 28.7 L Mean Corpuscular Hemoglobin Concent 32.8 Red Cell Distribution Width 13.8 Platelet Count 274 Mean Platelet Volume 9.5 Neutrophils % 75.6 Lymphocytes % 14.9 L Monocytes % 8.5 Eosinophils % 0.4 Basophils % 0.2 Nucleated Red Blood Cells % 0.0 Neutrophils # 8.0 H Lymphocytes # 1.6 Monocytes # 0.9 Eosinophils # 0.0 Basophils # 0.0 Nucleated Red Blood Cells # 0.0 Prothrombin Time 13.4 Prothrombin Time Ratio 1.0 INR International Normalized Ratio 1.02 Activated Partial Thromboplast Time 29.2 Sodium Level 137 Potassium Level 4.0 Chloride Level 102 Carbon Dioxide Level 24 Anion Gap 15 Blood Urea Nitrogen 15 Creatinine 0.52 Glucose Level 140 Calcium Level 9.3 Total Bilirubin 0.6 Direct Bilirubin 0.00 Indirect Bilirubin 0.6 Aspartate Amino Transf (AST/SGOT) 84 H Alanine Aminotransferase (ALT/SGPT) 218 H Alkaline Phosphatase 235 H Total Protein 7.6 Albumin 3.6 Globulin 4.00 H Albumin/Globulin Ratio 0.90 Bedside Glucose 121 Medications Medications Current Medications Dextrose/Sodium Chloride (D5-1/2ns) 1,000 ml @ 30 mls/hr Q24H IV Last administered on 10/09/16 22:00; Admin Dose 30 MLS/HR; Start 10/06/16 at 15:46 Flumazenil (Romazicon) 0.2 mg Q1M PRN IV BENZODIAZEPINE OVERDOSE; Start at 16:00 Naloxone HCl (Narcan) 0.4 mg Q3M PRN IV DECREASED REPIRATORY RATE; Start at 16:00 Ondansetron HCl (Zofran Inj) 4 mg Q6H PRN IV NAUSEA AND/OR VOMITING; Start at 16:00 Acetaminophen (Tylenol Liquid) 650 mg Q6H PRN PO PAIN LEVEL 1-3 OR FEVER Last administered on 10/10/16 08:29; Admin Dose 650 MG; Start 10/06/16 at 16:00 Acetaminophen (Tylenol Tab) 650 mg Q6H PRN PO PAIN LEVEL 1-3 OR FEVER; Start at 16:00 Acetaminophen/ Hydrocodone Bitart ([place] (5/325)) 1 tab Q6H PRN PO PAIN LEVEL 4 -6 Last administered on 10/09/16 16:10; Admin Dose 1 TAB; Start 10/06/16 at 16: 00 Docusate Sodium (Colace) 100 mg Q12H PRN PO CONSTIPATION; Start 10/06/16 at 16: 00 Magnesium Hydroxide (Milk Of Mag) 30 ml DAILY PRN PO CONSTIPATION; Start at 16:00 Bisacodyl (Dulcolax) 5 mg DAILY PRN PO CONSTIPATION; Start 10/06/16 at 16:00 Pantoprazole 40 mg 40 mg DAILY@06 IV Last administered on 10/10/16 06:14; Admin Dose 40 MG; Start 10/07/16 at 06:00 Diltiazem HCl (Cardizem-D5W 125 Mg/125 ml Drip) 125 ml @ 5 mls/hr TITRATE PRN IV START IF HR IS ABOVE 120/min * Last administered on 10/08/16 03:51; Admin Dose 5 MLS/HR; Start 10/07/16 at 00:30 Miscellaneous Information 1 ea NOTE XX ; Start 10/09/16 at 09:30 Glucose (Glutose) 15 gm Q15M PRN PO DECREASED GLUCOSE; Start 10/09/16 at 09:30 Glucose (Glutose) 22.5 gm Q15M PRN PO DECREASED GLUCOSE; Start 10/09/16 at 09: 30 Dextrose (D50w Syringe) 25 ml Q15M PRN IV DECREASED GLUCOSE; Start 10/09/16 at 09:30 Dextrose (D50w Syringe) 50 ml Q15M PRN IV DECREASED GLUCOSE; Start 10/09/16 at 09:30 Glucagon (Glucagen) 1 mg Q15M PRN IM DECREASED GLUCOSE; Start 10/09/16 at 09:30 Glucose (Glutose) 15 gm Q15M PRN BUCCAL DECREASED GLUCOSE; Start 10/09/16 at 09 :30 Diltiazem HCl (Cardizem Iv) 5 mg Q4H PRN IV PRN HR>110 Hold SBP<100 Last administered on 10/10/16 08:36; Admin Dose 5 MG; Start 10/09/16 at 11:30 Brimonidine Tartrate (Alphagan 0.2%) 2 drop Q4 LEFT EYE Last administered on 08:29; Admin Dose 2 DROP; Start 10/09/16 at 21:00 Prednisolone Acetate (Pred-Forte 1%) 2 drop Q4 LEFT EYE Last administered on 08:29; Admin Dose 2 DROP; Start 10/09/16 at 21:00 Morphine Sulfate (morphine) 2 mg Q3H PRN IV PAIN Last administered on 10:14; Admin Dose 2 MG; Start 10/09/16 at 21:00 Insulin Aspart (Novolog Insulin Pen) (Adult SC Insulin - Mild Algorithm)... Q6 SC ; Start 10/10/16 at 00:00 YULISSA GONSALES Oct 10, 2016 10:29
--- NOTE | 2016-10-10 12:27 | CONS ---
Date/Time of Note Date/Time of Note DATE: 10/10/16 TIME: 12:24 Assessment/Plan Assessment/Plan Additional Assessment/Plan Assessment recommendations; 1. Patient admitted for acute CVA. Clinical improvement. 2. Multiple other comorbidities including aortic stenosis, hypertension, prior history of coronary artery disease, atrial fibrillation, diabetes,. 3. Prior surgical history of total abdominal hysterectomy and cholecystectomy. Continue current treatment. Patient can be transferred to telemetry unit. Consultation Date/Type/Reason Admit Date/Time Oct 06, 2016 at 15:49 Initial Consult Date 10/09/16 Type of Consultation: Pulmonary/critical care Referring Provider: SON AKHTAR MD 24 HR Interval Summary Free Text/Dictation Patient condition is significantly improved. Patient mental status is improved substantially over the last 24 hours now patient is following simple commands , able to move right upper extremity only though. General exam; elderly lady, currently in no distress awake and alert. Exam/Review of Systems Vital Signs Vitals Vital Signs Date Time Temp Pulse Resp B/P Pulse Ox O2 Delivery O2 Flow Rate FiO2 10/10/16 12:00 98.2 87 24 99/53 96 Room Air 10/09/16 14:52 21 10/09/16 05:30 2.0 Intake and Output 10/09/16 10/09/16 10/10/16 15:00 23:00 07:00 Intake Total 350 ml 535 ml 450 ml Output Total 260 ml 390 ml 500 ml Balance 90 ml 145 ml -50 ml Exam HEENT examination; supple neck, no JVD. No lymphadenopathy. Midline trachea. No thyromegaly. She has a left intraocular lens implant. She is mostly edentulous with a few remaining teeth. No neck bruits. No thyromegaly. Chest examination; clear to auscultation bilaterally. S1-S2 audible, there is a soft systolic ejection murmur best heard in the aortic area grade 1/6. Irregular rhythm. There is a well-healed sternal scar. Abdomen examination; soft, nontender. No organomegaly. Bowel sounds audible. Extremity examination; no peripheral edema. Pulses 2+ bilaterally. GEOINT ANALYST examination; patient is awake, alert. Follows simple commands but able to move right upper extremity only. Results Result Diagram: 10/10/16 0435 10/10/16 0435 Results 24 hrs Laboratory Tests Test 10/09/16 17:47 10/09/16 21:19 10/10/16 00:47 10/10/16 04:35 Bedside Glucose 122 121 113 White Blood Count 10.6 Red Blood Count 4.84 Hemoglobin 13.9 Hematocrit 42.4 Mean Corpuscular Volume 87.6 Mean Corpuscular Hemoglobin 28.7 L Mean Corpuscular Hemoglobin Concent 32.8 Red Cell Distribution Width 13.8 Platelet Count 274 Mean Platelet Volume 9.5 Neutrophils % 75.6 Lymphocytes % 14.9 L Monocytes % 8.5 Eosinophils % 0.4 Basophils % 0.2 Nucleated Red Blood Cells % 0.0 Neutrophils # 8.0 H Lymphocytes # 1.6 Monocytes # 0.9 Eosinophils # 0.0 Basophils # 0.0 Nucleated Red Blood Cells # 0.0 Prothrombin Time 13.4 Prothrombin Time Ratio 1.0 INR International Normalized Ratio 1.02 Activated Partial Thromboplast Time 29.2 Sodium Level 137 Potassium Level 4.0 Chloride Level 102 Carbon Dioxide Level 24 Anion Gap 15 Blood Urea Nitrogen 15 Creatinine 0.52 Glucose Level 140 Calcium Level 9.3 Total Bilirubin 0.6 Direct Bilirubin 0.00 Indirect Bilirubin 0.6 Aspartate Amino Transf (AST/SGOT) 84 H Alanine Aminotransferase (ALT/SGPT) 218 H Alkaline Phosphatase 235 H Total Protein 7.6 Albumin 3.6 Globulin 4.00 H Albumin/Globulin Ratio 0.90 Test 10/10/16 06:14 10/10/16 11:40 Bedside Glucose 121 125 Medications Medications Current Medications Dextrose/Sodium Chloride (D5-1/2ns) 1,000 ml @ 30 mls/hr Q24H IV Last administered on 10/09/16 22:00; Admin Dose 30 MLS/HR; Start 10/06/16 at 15:46 Flumazenil (Romazicon) 0.2 mg Q1M PRN IV BENZODIAZEPINE OVERDOSE; Start at 16:00 Naloxone HCl (Narcan) 0.4 mg Q3M PRN IV DECREASED REPIRATORY RATE; Start at 16:00 Ondansetron HCl (Zofran Inj) 4 mg Q6H PRN IV NAUSEA AND/OR VOMITING; Start at 16:00 Acetaminophen (Tylenol Liquid) 650 mg Q6H PRN PO PAIN LEVEL 1-3 OR FEVER Last administered on 10/10/16 08:29; Admin Dose 650 MG; Start 10/06/16 at 16:00 Acetaminophen (Tylenol Tab) 650 mg Q6H PRN PO PAIN LEVEL 1-3 OR FEVER; Start at 16:00 Docusate Sodium (Colace) 100 mg Q12H PRN PO CONSTIPATION; Start 10/06/16 at 16: 00 Magnesium Hydroxide (Milk Of Mag) 30 ml DAILY PRN PO CONSTIPATION; Start at 16:00 Bisacodyl (Dulcolax) 5 mg DAILY PRN PO CONSTIPATION; Start 10/06/16 at 16:00 Pantoprazole 40 mg 40 mg DAILY@06 IV Last administered on 10/10/16 06:14; Admin Dose 40 MG; Start 10/07/16 at 06:00 Diltiazem HCl (Cardizem-D5W 125 Mg/125 ml Drip) 125 ml @ 5 mls/hr TITRATE PRN IV START IF HR IS ABOVE 120/min * Last administered on 10/08/16 03:51; Admin Dose 5 MLS/HR; Start 10/07/16 at 00:30 Miscellaneous Information 1 ea NOTE XX ; Start 10/09/16 at 09:30 Glucose (Glutose) 15 gm Q15M PRN PO DECREASED GLUCOSE; Start 10/09/16 at 09:30 Glucose (Glutose) 22.5 gm Q15M PRN PO DECREASED GLUCOSE; Start 10/09/16 at 09: 30 Dextrose (D50w Syringe) 25 ml Q15M PRN IV DECREASED GLUCOSE; Start 10/09/16 at 09:30 Dextrose (D50w Syringe) 50 ml Q15M PRN IV DECREASED GLUCOSE; Start 10/09/16 at 09:30 Glucagon (Glucagen) 1 mg Q15M PRN IM DECREASED GLUCOSE; Start 10/09/16 at 09:30 Glucose (Glutose) 15 gm Q15M PRN BUCCAL DECREASED GLUCOSE; Start 10/09/16 at 09 :30 Diltiazem HCl (Cardizem Iv) 5 mg Q4H PRN IV PRN HR>110 Hold SBP<100 Last administered on 10/10/16 08:36; Admin Dose 5 MG; Start 10/09/16 at 11:30 Brimonidine Tartrate (Alphagan 0.2%) 2 drop Q4 LEFT EYE Last administered on 08:29; Admin Dose 2 DROP; Start 10/09/16 at 21:00 Prednisolone Acetate (Pred-Forte 1%) 2 drop Q4 LEFT EYE Last administered on 08:29; Admin Dose 2 DROP; Start 10/09/16 at 21:00 Morphine Sulfate (morphine) 2 mg Q3H PRN IV PAIN Last administered on 10:14; Admin Dose 2 MG; Start 10/09/16 at 21:00 Insulin Aspart (Novolog Insulin Pen) (Adult SC Insulin - Mild Algorithm)... Q6 SC ; Start 10/10/16 at 00:00 Docusate Sodium (Colace Liquid Cup) 100 mg BID NGT ; Start 10/10/16 at 11:30 Acetaminophen/ Codeine Phosphate (Tylenol No.3) 1 tab Q6H PRN PO PAIN; Start at 12:00 FRANKIE WIGGINS Oct 10, 2016 12:27
--- NOTE | 2016-10-10 14:20 | PN ---
DATE: 10/10/2016 CARDIOLOGY FOLLOWUP SUBJECTIVE: On questioning, the patient has no complaints of chest pain or shortness of breath. PHYSICAL EXAMINATION: GENERAL: The patient has an NG tube in place. VITAL SIGNS: Stable, blood pressure was ranging from 99 to 139 systolic. The patient is afebrile. HEENT: Head is normocephalic. NECK: JVP is not raised. Carotid pulses with normal upstrokes without any bruits. CHEST: Bilaterally symmetrical and nontender. HEART: PMI localized in the fourth intercostal space. S1 and S2 are irregularly irregular. A I to II/ systolic murmur is heard at the apex. LUNGS: Clear to percussion and auscultation. ABDOMEN: Soft and nontender belly, but there is moderate obesity. Bowel sounds present. No organo megaly appreciated. No palpable. EXTREMITIES: Reveals good femoral and pedal pulses. No femoral bruits. No pedal edema. No clubb ing, no cyanosis. LABORATORY DATA: White count is 10.6, down from yesterday. Platelet count is normal at 274,000. C hemistries today reveal normal potassium and normal sodium. BUN and creatinine are also normal. Th e AST and ALT are elevated to 84 and 218, respectively. Chest x-ray done yesterday reveals small left pleural effusion and NG tube in place. The previously seen failure has improved with some mild bibasilar atelectasis. IMPRESSION: 1. Atrial fibrillation. 2. Hypertension is controlled. 3. Cerebrovascular accident. 4. Bioprosthetic mitral valve placement in the past. RECOMMENDATIONS: We will continue same treatment from cardiac standpoint. Dictated By: MARIE PAYNE MD, RA/AUDRA Conf#: [id number] DID#: [id number]
[2016-10-10] MEDS ORDERED: DOCUSATE SODIUM 10 MG/ML (10ML CUP) PO PRN (14:30)
--- NOTE | 2016-10-10 15:53 | PN ---
DATE: 10/10/2016 REFERRING PHYSICIAN: Dr. Lau Thank you for asking me to see the patient with you. HISTORY OF PRESENT ILLNESS: The patient is a 61-year-old with left dense hemiplegia right middle ce rebral artery stroke with hemorrhagic transformation in which the patient was previously on aspirin on hold for the hemorrhagic transformation. The patient on current medications include: 1. Colace 100 mg twice a day. 2. Insulin twice a day. 3. Prednisone drip as needed. 4. Morphine sulfate 2 mg every 3 hours. 5. Cardizem 5 mg once a day. 6. Zofran 4 mg every 4 hours as needed. 7. Albuterol inhaler twice a day as needed. 5. Tylenol 650 mg as needed. 6. Milk of magnesia 30 mg once a day as needed. PHYSICAL EXAMINATION: On exam today, the patient is alert, awake, and follows simple commands. Looks confused and drowsy. CRANIAL NERVES: Cranial nerve II: Pupils equal on both sides, reactive to light. Cranial nerves I II, IV, and : Extraocular muscles intact. Cranial nerve V: Equal sensation to face. Cranial ne rve VII: Decreased nasolabial fold on the left side. Cranial nerve VIII: Decreased hearing bilate rally. Cranial nerves IX, X: Elevates palate. Cranial nerve XI: Elevates shoulder 5/5 on the rig ht side. Left side with weakness. Motor exam: Left side is 0/5. Right side is 4/5. ASSESSMENT AND PLAN: 1. The patient is 61 years old with a dense left hemiplegia. 2. Status post middle cerebral artery stroke with hemorrhagic transformation. Will follow up the p atient with physical therapy and occupational therapy. Follow up the patient with a carotid Doppler and 2D echocardiogram. We will keep the patient under deep venous thrombosis prophylaxis as well a s decubitus ulcer prophylaxis. 3. Keep the blood pressure at the level of 140/90. 4. We will follow up the patient with lipid panel and maximize her statin. Again, thank you for asking me to see the patient with you. Dictated By: BURTON FOWLER/AUDRA Conf#: [id number] DID#: [id number]
[2016-10-10] MEDS: DOCUSATE SODIUM 10 MG/ML (10ML CUP) NGT SCH ×2 (17:15→20:48)
[2016-10-10] MEDS: ACETAMINOPHEN/CODEINE #3 TAB PO PRN (17:52)
[2016-10-11] VITALS (47 sets, daily range): BP systolic 81–150; BP diastolic 53–99; PULSE 77–103; RESP 16–30
[2016-10-11] MEDS: BRIMONIDINE 0.2% 5 ML BTL LEFT EYE SCH ×6 (01:23→21:49)
[2016-10-11] MEDS: PREDNISOLONE ACET 1% 5 ML OPH LEFT EYE SCH ×6 (01:23→21:49)
[2016-10-11] MEDS: ACETAMINOPHEN/CODEINE #3 TAB PO PRN ×2 (01:30→22:04)
[2016-10-11] MEDS: DEXTROSE 5%-0.45% NACL 1,000 ML IV SCH (04:27)
[2016-10-11 05:22] LABS: ADD SCAN DIFF NO
[2016-10-11 05:23] LABS: BASOPHILS % 0.2 % (0.0-2.0); EOSINOPHILS # 0.2 10^3/ul (0.0-0.5); EOSINOPHILS % 1.6 % (0.0-7.0); HEMATOCRIT 40.6 % (37.0-47.0); HEMOGLOBIN 13.1 g/dl (12.0-16.0); LYMPHOCYTES # 1.2 10^3/ul (0.8-2.9); LYMPHOCYTES % 12.4 % (15.0-51.0); MEAN CORPUSCULAR HEMOGLOBIN 28.4 pg (29.0-33.0); MEAN CORPUSCULAR HGB CONC 32.3 g/dl (32.0-37.0); MEAN CORPUSCULAR VOLUME 88.1 fl (82.0-101.0); MEAN PLATELET VOLUME 9.4 fl (7.4-10.4); MONOCYTE # 0.6 10^3/ul (0.3-0.9); MONOCYTES % 6.6 % (0.0-11.0); NEUTROPHIL # 7.5 10^3/ul (1.6-7.5); NEUTROPHILS % 78.8 % (39.0-77.0); PLATELET COUNT 296 10^3/UL (140-415); RED BLOOD COUNT 4.61 10^6/ul (4.20-5.40); RED CELL DISTRIBUTION WIDTH 13.8 % (11.5-14.5); WHITE BLOOD COUNT 9.5 10^3/ul (4.8-10.8)
[2016-10-11] MEDS: PANTOPRAZOLE 40 MG INJ IV SCH (05:47)
[2016-10-11 05:48] LABS: ALBUMIN 3.6 g/dl (3.3-4.9)
[2016-10-11 05:51] LABS: ALBUMIN/GLOBULIN RATIO 0.87; BILIRUBIN,INDIRECT 0.5 mg/dl (0-1.1); BILIRUBIN,TOTAL 0.5 mg/dl (0.2-1.3); CREATININE 0.54 mg/dl (0.44-1.00); TOTAL PROTEIN 7.7 g/dl (6.1-8.1)
[2016-10-11 05:52] LABS: CALCIUM 9.1 mg/dl (8.4-10.2)
[2016-10-11] MEDS: Insulin NOVOLOG SS MILD Algorithm (NPO/TPN/ENTERAL FEEDS) SC SCH ×3 (06:00→18:00)
[2016-10-11] MEDS: morphine 2 MG INJ IV PRN ×2 (06:22→16:59)
--- NOTE | 2016-10-11 08:13 | RADRPT ---
PROCEDURE: CT Brain without contrast. CLINICAL INDICATION: rigth hemisphere hematoma TECHNIQUE: A CT of the brain was performed utilizing axial imaging from the skull base through the vertex without IV contrast. Multiplanar reformatted images were made. Images were reviewed on a [employer] workstation. The CTDIvol is 45 mGy and the DLP is 720 mGycm. COMPARISON: Head CT October 08, 2016 FINDINGS: There is no discrete extra-axial fluid collection or mass. Noted is effacement of the sulci in the right cerebral hemisphere as well as effacement of the right sylvian fissure. There is compression and displacement of the right lateral ventricle which is slit-like. There is a stable approximate f or mm right to left midline shift. There is probable subfalcine herniation without evidence of unca l herniation. Noted is a acute to subacute hemorrhagic infarct in the distribution of the right mid dle cerebral artery. The volume of blood has not changed appreciably in the interim. There is again noted in the left ocular globe likely related to recent surgery. IMPRESSION: Aging acute to subacute right MCA distribution infarct with mass effect as above. No evidence of un jennifer herniation. .Adi Hernandez MD, MD Date Time Electronically viewed and signed by .Adi Hernandez MD, on 10/11/2016 08:12 .A/
--- NOTE | 2016-10-11 09:18 | CONS ---
Date/Time of Note Date/Time of Note DATE: 10/11/16 TIME: 09:15 Assessment/Plan Assessment/Plan Additional Assessment/Plan Assessment recommendations; 1. 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 2. Multiple other comorbidities including aortic stenosis, hypertension, atrial fibrillation, diabetes. Continue current treatment. Patient's airway currently is not compromised. Consultation Date/Type/Reason Admit Date/Time Oct 06, 2016 at 15:49 Initial Consult Date 10/09/16 Type of Consultation: Pulmonary/critical care Referring Provider: SON AKHTAR MD 24 HR Interval Summary Free Text/Dictation Patient condition is unchanged. Remains semi-responsive. Has remained hemodynamically stable. General exam; elderly lady, awake currently in no distress. Somewhat responsive. Exam/Review of Systems Vital Signs Vitals Vital Signs Date Time Temp Pulse Resp B/P Pulse Ox O2 Delivery O2 Flow Rate FiO2 10/11/16 08:12 101 10/11/16 07:00 20 125/75 97 Room Air 10/11/16 04:00 98.8 10/10/16 18:04 21 10/09/16 05:30 2.0 Intake and Output 10/10/16 10/10/16 10/11/16 15:00 23:00 07:00 Intake Total 450 ml 420 ml 500 ml Output Total 330 ml 275 ml 325 ml Balance 120 ml 145 ml 175 ml Exam HEENT exam is; supple neck, no JVD. No lymphadenopathy. Midline trachea. No thyromegaly. Nipples are midsize and reactive to light bilaterally. Chest examination; clear to auscultation bilaterally. S1-S2 audible, no murmurs. Irregular rhythm. Abdomen examination; soft, no organomegaly. Bowel sounds audible. Extremity examination; no peripheral edema. Pulses 1+ bilaterally. EDUCATIONAL AIDE examination a micro patient is awake semi-responsive. Able to move right side only. Results Result Diagram: 10/11/16 0505 10/11/16 0505 Results 24 hrs Laboratory Tests Test 10/10/16 11:40 10/10/16 17:18 10/10/16 23:31 10/11/16 05:05 Bedside Glucose 125 137 121 White Blood Count 9.5 Red Blood Count 4.61 Hemoglobin 13.1 Hematocrit 40.6 Mean Corpuscular Volume 88.1 Mean Corpuscular Hemoglobin 28.4 L Mean Corpuscular Hemoglobin Concent 32.3 Red Cell Distribution Width 13.8 Platelet Count 296 Mean Platelet Volume 9.4 Neutrophils % 78.8 H Lymphocytes % 12.4 L Monocytes % 6.6 Eosinophils % 1.6 Basophils % 0.2 Nucleated Red Blood Cells % 0.0 Neutrophils # 7.5 Lymphocytes # 1.2 Monocytes # 0.6 Eosinophils # 0.2 Basophils # 0.0 Nucleated Red Blood Cells # 0.0 Sodium Level 135 Potassium Level 4.0 Chloride Level 101 Carbon Dioxide Level 26 Anion Gap 12 Blood Urea Nitrogen 19 Creatinine 0.54 Glucose Level 149 Calcium Level 9.1 Total Bilirubin 0.5 Direct Bilirubin 0.00 Indirect Bilirubin 0.5 Aspartate Amino Transf (AST/SGOT) 465 H Alanine Aminotransferase (ALT/SGPT) 516 H Alkaline Phosphatase 420 #H Total Protein 7.7 Albumin 3.6 Globulin 4.10 H Albumin/Globulin Ratio 0.87 Test 10/11/16 05:55 Bedside Glucose 113 Medications Medications Current Medications Dextrose/Sodium Chloride (D5-1/2ns) 1,000 ml @ 30 mls/hr Q24H IV Last administered on 10/11/16 04:27; Admin Dose 30 MLS/HR; Start 10/06/16 at 15:46 Flumazenil (Romazicon) 0.2 mg Q1M PRN IV BENZODIAZEPINE OVERDOSE; Start at 16:00 Naloxone HCl (Narcan) 0.4 mg Q3M PRN IV DECREASED REPIRATORY RATE; Start at 16:00 Ondansetron HCl (Zofran Inj) 4 mg Q6H PRN IV NAUSEA AND/OR VOMITING; Start at 16:00 Acetaminophen (Tylenol Liquid) 650 mg Q6H PRN PO PAIN LEVEL 1-3 OR FEVER Last administered on 10/10/16 08:29; Admin Dose 650 MG; Start 10/06/16 at 16:00 Acetaminophen (Tylenol Tab) 650 mg Q6H PRN PO PAIN LEVEL 1-3 OR FEVER; Start at 16:00 Magnesium Hydroxide (Milk Of Mag) 30 ml DAILY PRN PO CONSTIPATION; Start at 16:00 Bisacodyl (Dulcolax) 5 mg DAILY PRN PO CONSTIPATION; Start 10/06/16 at 16:00 Pantoprazole (Protonix Iv) 40 mg DAILY@06 IV Last administered on 10/11/16 05: 47; Admin Dose 40 MG; Start 10/07/16 at 06:00 Miscellaneous Information 1 ea NOTE XX ; Start 10/09/16 at 09:30 Glucose (Glutose) 15 gm Q15M PRN PO DECREASED GLUCOSE; Start 10/09/16 at 09:30 Glucose (Glutose) 22.5 gm Q15M PRN PO DECREASED GLUCOSE; Start 10/09/16 at 09: 30 Dextrose (D50w Syringe) 25 ml Q15M PRN IV DECREASED GLUCOSE; Start 10/09/16 at 09:30 Dextrose (D50w Syringe) 50 ml Q15M PRN IV DECREASED GLUCOSE; Start 10/09/16 at 09:30 Glucagon (Glucagen) 1 mg Q15M PRN IM DECREASED GLUCOSE; Start 10/09/16 at 09:30 Glucose (Glutose) 15 gm Q15M PRN BUCCAL DECREASED GLUCOSE; Start 10/09/16 at 09 :30 Diltiazem HCl (Cardizem Iv) 5 mg Q4H PRN IV PRN HR>110 Hold SBP<100 Last administered on 10/10/16 08:36; Admin Dose 5 MG; Start 10/09/16 at 11:30 Brimonidine Tartrate (Alphagan 0.2%) 2 drop Q4 LEFT EYE Last administered on 04:27; Admin Dose 2 DROP; Start 10/09/16 at 21:00 Prednisolone Acetate (Pred-Forte 1%) 2 drop Q4 LEFT EYE Last administered on 04:28; Admin Dose 2 DROP; Start 10/09/16 at 21:00 Morphine Sulfate (morphine) 2 mg Q3H PRN IV PAIN Last administered on 06:22; Admin Dose 2 MG; Start 10/09/16 at 21:00 Insulin Aspart (Novolog Insulin Pen) (Adult SC Insulin - Mild Algorithm)... Q6 SC ; Start 10/10/16 at 00:00 Docusate Sodium (Colace Liquid Cup) 100 mg BID NGT Last administered on 20:48; Admin Dose 100 MG; Start 10/10/16 at 11:30 Acetaminophen/ Codeine Phosphate (Tylenol No.3) 1 tab Q6H PRN PO PAIN Last administered on 10/11/16t 01:30; Admin Dose 1 TAB; Start 10/10/16 at 12:00 Docusate Sodium (Colace Liquid Cup) 100 mg Q12H PRN PO CONSTIPATION; Start at 14:30 FRANKIE WIGGINS Oct 11, 2016 09:18
[2016-10-11] MEDS: DOCUSATE SODIUM 10 MG/ML (10ML CUP) NGT SCH ×2 (09:20→21:11)
[2016-10-11] MEDS: ACETAMINOPHEN 650MG/20.3ML CUP PO PRN (10:05)
--- NOTE | 2016-10-11 15:21 | PN ---
Date/Time of Note Date/Time of Note DATE: 10/11/16 TIME: 15:19 Assessment/Plan VTE Prophylaxis VTE Prophylaxis Intervention: other Lines/Catheters IV Catheter Type (from Nrsg): Peripheral IV Urinary Cath still in place: Yes Reason Cath still needed: other (indicate) Assessment/Plan Chief Complaint/Hosp Course [id number] cerebrovascular accident and left-sided weakness, 2hypertension,3 diabetes mellitus. 4The patient has atrial fibrillation on the monitor. 5ABNLFT plan per dr nilo lea d/w family POSS PEG US LIVER Problems: Subjective 24 Hr Interval Summary Subjective hx not possible: pt non-verbal Respiratory: No pain, No shortness of breath Cardiovascular: no complaints Gastrointestinal: no complaints Exam/Review of Systems Vital Signs Vitals Vital Signs Date Time Temp Pulse Resp B/P Pulse Ox O2 Delivery O2 Flow Rate FiO2 10/11/16 12:30 92 16 120/74 97 10/11/16 12:00 98.3 Room Air 10/10/16 18:04 21 10/09/16 05:30 2.0 Intake and Output 10/10/16 10/10/16 10/11/16 15:00 23:00 07:00 Intake Total 450 ml 420 ml 500 ml Output Total 330 ml 275 ml 325 ml Balance 120 ml 145 ml 175 ml Exam Respiratory: clear to auscultation Cardiovascular: regular rate and rhythm Gastrointestinal: soft Musculoskeletal: nl extremities to inspection Extremities: normal pulses Results Result Diagram: 10/11/16 0505 10/11/16 0505 Results 24 hrs Laboratory Tests Test 10/10/16 17:18 10/10/16 23:31 10/11/16 05:05 10/11/16 05:55 Bedside Glucose 137 121 113 White Blood Count 9.5 Red Blood Count 4.61 Hemoglobin 13.1 Hematocrit 40.6 Mean Corpuscular Volume 88.1 Mean Corpuscular Hemoglobin 28.4 L Mean Corpuscular Hemoglobin Concent 32.3 Red Cell Distribution Width 13.8 Platelet Count 296 Mean Platelet Volume 9.4 Neutrophils % 78.8 H Lymphocytes % 12.4 L Monocytes % 6.6 Eosinophils % 1.6 Basophils % 0.2 Nucleated Red Blood Cells % 0.0 Neutrophils # 7.5 Lymphocytes # 1.2 Monocytes # 0.6 Eosinophils # 0.2 Basophils # 0.0 Nucleated Red Blood Cells # 0.0 Sodium Level 135 Potassium Level 4.0 Chloride Level 101 Carbon Dioxide Level 26 Anion Gap 12 Blood Urea Nitrogen 19 Creatinine 0.54 Glucose Level 149 Calcium Level 9.1 Total Bilirubin 0.5 Direct Bilirubin 0.00 Indirect Bilirubin 0.5 Aspartate Amino Transf (AST/SGOT) 465 H Alanine Aminotransferase (ALT/SGPT) 516 H Alkaline Phosphatase 420 #H Total Protein 7.7 Albumin 3.6 Globulin 4.10 H Albumin/Globulin Ratio 0.87 Test 10/11/16 12:24 Bedside Glucose 146 Medications Medications Current Medications Dextrose/Sodium Chloride (D5-1/2ns) 1,000 ml @ 30 mls/hr Q24H IV Last administered on 10/11/16 04:27; Admin Dose 30 MLS/HR; Start 10/06/16 at 15:46 Flumazenil (Romazicon) 0.2 mg Q1M PRN IV BENZODIAZEPINE OVERDOSE; Start at 16:00 Naloxone HCl (Narcan) 0.4 mg Q3M PRN IV DECREASED REPIRATORY RATE; Start at 16:00 Ondansetron HCl (Zofran Inj) 4 mg Q6H PRN IV NAUSEA AND/OR VOMITING; Start at 16:00 Acetaminophen (Tylenol Liquid) 650 mg Q6H PRN PO PAIN LEVEL 1-3 OR FEVER Last administered on 10/11/16 10:05; Admin Dose 650 MG; Start 10/06/16 at 16:00 Acetaminophen (Tylenol Tab) 650 mg Q6H PRN PO PAIN LEVEL 1-3 OR FEVER; Start at 16:00 Magnesium Hydroxide (Milk Of Mag) 30 ml DAILY PRN PO CONSTIPATION; Start at 16:00 Bisacodyl (Dulcolax) 5 mg DAILY PRN PO CONSTIPATION; Start 10/06/16 at 16:00 Pantoprazole (Protonix Iv) 40 mg DAILY@06 IV Last administered on 10/11/16 05: 47; Admin Dose 40 MG; Start 10/07/16 at 06:00 Miscellaneous Information 1 ea NOTE XX ; Start 10/09/16 at 09:30 Glucose (Glutose) 15 gm Q15M PRN PO DECREASED GLUCOSE; Start 10/09/16 at 09:30 Glucose (Glutose) 22.5 gm Q15M PRN PO DECREASED GLUCOSE; Start 10/09/16 at 09: 30 Dextrose (D50w Syringe) 25 ml Q15M PRN IV DECREASED GLUCOSE; Start 10/09/16 at 09:30 Dextrose (D50w Syringe) 50 ml Q15M PRN IV DECREASED GLUCOSE; Start 10/09/16 at 09:30 Glucagon (Glucagen) 1 mg Q15M PRN IM DECREASED GLUCOSE; Start 10/09/16 at 09:30 Glucose (Glutose) 15 gm Q15M PRN BUCCAL DECREASED GLUCOSE; Start 10/09/16 at 09 :30 Diltiazem HCl (Cardizem Iv) 5 mg Q4H PRN IV PRN HR>110 Hold SBP<100 Last administered on 10/10/16 08:36; Admin Dose 5 MG; Start 10/09/16 at 11:30 Brimonidine Tartrate (Alphagan 0.2%) 2 drop Q4 LEFT EYE Last administered on 12:25; Admin Dose 2 DROP; Start 10/09/16 at 21:00 Prednisolone Acetate (Pred-Forte 1%) 2 drop Q4 LEFT EYE Last administered on 12:25; Admin Dose 2 DROP; Start 10/09/16 at 21:00 Morphine Sulfate (morphine) 2 mg Q3H PRN IV PAIN Last administered on 06:22; Admin Dose 2 MG; Start 10/09/16 at 21:00 Insulin Aspart (Novolog Insulin Pen) (Adult SC Insulin - Mild Algorithm)... Q6 SC Last administered on 10/11/16 12:31; Admin Dose 1 UNIT; Start 10/10/16 at 00:00 Docusate Sodium (Colace Liquid Cup) 100 mg BID NGT Last administered on 09:20; Admin Dose 100 MG; Start 10/10/16 at 11:30 Acetaminophen/ Codeine Phosphate (Tylenol No.3) 1 tab Q6H PRN PO PAIN Last administered on 10/11/16 01:30; Admin Dose 1 TAB; Start 10/10/16 at 12:00 Docusate Sodium (Colace Liquid Cup) 100 mg Q12H PRN PO CONSTIPATION; Start at 14:30 SON AKHTAR MD Oct 11, 2016 15:21
--- NOTE | 2016-10-11 16:10 | PN ---
DATE: 10/11/2016 SUBJECTIVE: On questioning, the patient is not talking and only answering by hand gestures. She do es appear to be alert and oriented otherwise. Denies any chest pain, shortness of breath, dizziness or palpitation. OBJECTIVE: VITAL SIGNS: Blood pressure is 125/75, heart rate was , respiratory rate 20. NECK: JVP is not raised. CHEST: Bilaterally symmetrical. HEART: PMI localized in the fourth intercostal space. S1 and S2 are irregularly irregular, I/ sy stolic murmur is heard. LUNGS: Clear to percussion and auscultation. ABDOMEN: Soft, nontender belly with moderate obesity. EXTREMITIES: Good femoral and pedal pulses and no pedal edema. White count is 9.5, hemoglobin is 1 3.1, platelet count is 296, which are normal. Chemistries reveal elevated AST of 465 and elevated A LT of 516 and the alkaline phosphatase is 420, so all elevated. Telemetry is showing "atrial fibrillation with controlled ventricular response". IMPRESSION: 1. Atrial fibrillation. 2. Hypertension, which is controlled. 3. CVA. 4. History of bioprosthetic mitral valve replacement versus repair with mild to moderate mitral ava nosis. RECOMMENDATIONS: Continue same treatment from cardiac standpoint. Dictated By: MARIE PAYNE MD, RA/AUDRA Conf#: [id number] DID#: [id number]
[2016-10-11 16:43] LABS: ALBUMIN 3.6 g/dl (3.3-4.9)
[2016-10-11 16:46] LABS: ALBUMIN/GLOBULIN RATIO 0.87; BILIRUBIN,INDIRECT 0.4 mg/dl (0-1.1); BILIRUBIN,TOTAL 0.4 mg/dl (0.2-1.3); CREATININE 0.58 mg/dl (0.44-1.00); TOTAL PROTEIN 7.7 g/dl (6.1-8.1)
[2016-10-11 16:47] LABS: CALCIUM 9.3 mg/dl (8.4-10.2)
--- NOTE | 2016-10-11 17:35 | PN ---
DATE: REFERRING PHYSICIAN: Dr. Lau. This is a followup. 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 The patient is on current medications which include: 1. Colace 100 mg twice a day. 2. Insulin twice a day. 3. Morphine sulfate 2 mg every 3 hours as needed. 4. Cardizem ____ mg once a day. 5. Zofran 4 mg every 4 hours as needed. 6. Albuterol inhaler. 7. ____ 650 mg as needed. 8. Milk of magnesia 60 mg once a day. PHYSICAL EXAMINATION: On exam today, the patient is alert, awake, oriented for time, place, and person. Normal speech and normal language. Cranial nerve II: Pupils equal on both sides, reactive to light. Cranial nerves III, IV and : Extraocular muscles intact. Cranial nerve V: Equal sensation to face. Cranial n erve VII: Decreased nasolabial fold on the left side. Cranial nerve VIII: Decreased hearing bilat erally. Cranial nerve X: Elevates palate. Cranial nerve XI: Elevates shoulder 5/5. Cranial nerv e XII: With straight tongue. MOTOR: Decreased ____, decreased for the left side for light touch and temperature. COORDINATION: [id number] test intact on the right side. Left side with weakness 0/5. ASSESSMENT AND PLAN 1. The patient is a 61-year-old with left hemiplegia. 2. Status post hemorrhagic stroke in the right middle cerebral artery with hemorrhagic transformati on. Will keep the patient under deep venous thrombosis prophylaxis as well as decubitus ulcer proph ylaxis. Keep blood pressure at the level of 140/90 or less to avoid any extension of the stroke. 3. Dyslipidemia. Follow up the patient with lipid panel and maximize her statin. 4. We will follow up the patient with occupational therapy and physical therapy. Again, thank you for asking me to see the patient with you. Dictated By: BURTON FOWLER/AUDRA Conf#: [id number] DID#: [id number]
[2016-10-12] VITALS (21 sets, daily range): BP systolic 113–160; BP diastolic 66–103; PULSE 80–108; RESP 20–27
[2016-10-12] MEDS: PREDNISOLONE ACET 1% 5 ML OPH LEFT EYE SCH ×6 (00:22→20:56)
[2016-10-12] MEDS: DEXTROSE 5%-0.45% NACL 1,000 ML IV SCH ×2 (00:22→10:12)
[2016-10-12] MEDS: BRIMONIDINE 0.2% 5 ML BTL LEFT EYE SCH ×6 (00:22→20:57)
[2016-10-12] MEDS: morphine 2 MG INJ IV PRN (04:58)
[2016-10-12] MEDS: PANTOPRAZOLE 40 MG INJ IV SCH (05:03)
[2016-10-12] MEDS: Insulin NOVOLOG SS MILD Algorithm (NPO/TPN/ENTERAL FEEDS) SC SCH ×4 (05:47→17:23)
[2016-10-12 06:33] LABS: ADD SCAN DIFF NO
[2016-10-12 06:38] LABS: BASOPHILS % 0.2 % (0.0-2.0); EOSINOPHILS # 0.1 10^3/ul (0.0-0.5); EOSINOPHILS % 1.4 % (0.0-7.0); HEMATOCRIT 39.7 % (37.0-47.0); HEMOGLOBIN 12.9 g/dl (12.0-16.0); LYMPHOCYTES # 1.4 10^3/ul (0.8-2.9); LYMPHOCYTES % 14.9 % (15.0-51.0); MEAN CORPUSCULAR HEMOGLOBIN 28.7 pg (29.0-33.0); MEAN CORPUSCULAR HGB CONC 32.5 g/dl (32.0-37.0); MEAN CORPUSCULAR VOLUME 88.4 fl (82.0-101.0); MEAN PLATELET VOLUME 9.5 fl (7.4-10.4); MONOCYTE # 0.7 10^3/ul (0.3-0.9); MONOCYTES % 7.4 % (0.0-11.0); NEUTROPHIL # 6.9 10^3/ul (1.6-7.5); NEUTROPHILS % 75.6 % (39.0-77.0); PLATELET COUNT 319 10^3/UL (140-415); RED BLOOD COUNT 4.49 10^6/ul (4.20-5.40); RED CELL DISTRIBUTION WIDTH 13.5 % (11.5-14.5); WHITE BLOOD COUNT 9.1 10^3/ul (4.8-10.8)
[2016-10-12] MEDS: DOCUSATE SODIUM 10 MG/ML (10ML CUP) NGT SCH ×2 (09:00→20:55)
--- NOTE | 2016-10-12 09:07 | CONS ---
DATE OF ADMISSION: 10/06/2016 DATE OF CONSULTATION: TYPE OF CONSULTATION: Gastroenterology. REFERRING PHYSICIAN: Dr. Will Akhtar. Dear Dr. Akhtar: Thank you for asking me to evaluate the patient who is a pleasant 61-year-old female with a history of coronary artery disease, coronary artery bypass graft, possible prosthetic mitral valve, history of TIA, who comes to the hospital with left-sided weakness noticed by the family member. In the ER, she was evaluated. Chest x-ray was done which showed cardiomegaly, stable post-sternotomy with a c lamp. CT of the brain showed focal loss of bach white matter in the posterior frontal and right lob e with the concern of acute stroke. No intracranial hemorrhage. Patient had an MRI that showed a l arge right middle cerebral artery infarction. Patient also has a history of atrial fibrillation wit h rapid ventricular response. Faucet Polisher and the neurologist both have been consulted. A GI consu lt was called in because of aspiration and this was confirmed with ____ and also with you. PAST MEDICAL HISTORY: Diabetes mellitus, hypertension, coronary artery disease, tummy tuck and stat us post coronary artery bypass graft. ALLERGIES: Negative. FAMILY HISTORY: Negative. SOCIAL HISTORY: Negative. MEDICATIONS: She is on: 1. Amlodipine. 2. Aspirin. 3. Hydrochlorothiazide. 4. Losartan. 5. Metformin. REVIEW OF SYSTEMS: Negative. PHYSICAL EXAMINATION GENERAL: Well-built, nourished, not in distress. VITAL SIGNS: Stable. HEENT: Unremarkable. NECK: Supple, no thyromegaly, no lymphadenopathy. CARDIOVASCULAR SYSTEM: No murmur, gallop or click. Heart rate is irregular. ABDOMEN: Benign. EXTREMITIES: No edema. CENTRAL NERVOUS SYSTEM: Definitely has a left-sided weakness, but patient is alert, awake and orien bennie. LABORATORY DATA: INR is within normal limits. BMP is within normal limits with normal BUN and crea tinine. However, her SGOT and SGPT and alkaline phosphatase are abnormal, SGOT in the range of 465 ____, SGPT 516 and alkaline phosphatase is 420. Coagulation is normal. MEDICATIONS: I reviewed. The patient is not on any blood thinner. IMPRESSION: 1. 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 2. Diabetes mellitus. 3. Hypertension. 4. Atrial fibrillation. 5. Status post chest surgery. I note has got a bioprosthetic aortic valve ____ the mitral valve re paired, nothing is clear-cut. 6. Dysphagia with aspiration. PLAN: At this point, is to proceed with the placement of G-tube. Discussed with the son who is in agreement. Will cover her with antibiotic. Dictated By: EDSON PÉREZ MD PJ/NTS Conf#: [id number] DID#: [id number] CC: WILL AKHTAR MD;*EndCC*
--- NOTE | 2016-10-12 09:43 | RADRPT ---
PROCEDURE: US Abdomen. CLINICAL INDICATION: Elevated liver function tests in a 61 year-old female. TECHNIQUE: Multiple real-time images were acquired of the patient's abdomen and retroperitoneum ut ilizing a high resolution transducer. COMPARISON: None FINDINGS: The pancreas is normal. The inferior vena cava is patent. The liver is enlarged measuring 21.4 cm sagittal. The liver is echogenic. The hepatic and portal v eins are patent. The common bile duct measured 10.2 mm. The gallbladder was surgically removed. The right kidney measures 10.7 cm in length. IMPRESSION: 1. Hepatomegaly. 2. Increased echogenicity of the liver is noted and most commonly as a result of fatty infiltration. Steatohepatitis, vacuolar degeneration and cirrhosis of the liver are other causes. 3. Status post cholecystectomy with dilatation of the extrahepatic common bile duct lead related to prior cholecystectomy. RPTAT:AAJJ Physician Red Date Time Electronically viewed and signed by Physician Red on 10/12/2016 09:43 INEZ/
--- NOTE | 2016-10-12 10:52 | CONS ---
Date/Time of Note Date/Time of Note DATE: 10/12/16 TIME: 10:48 Consult Date/Type/Reason Admit Date/Time Oct 06, 2016 at 15:49 Initial Consult Date 10/09/16 Type of Consultation: Pulmonary/critical care Ordering Provider: SON AKHTAR MD Subjective Patient remains somewhat somnolent this morning however follows simple commands No evidence of respiratory distress or accessory muscle use Objective Vital Signs Date Time Temp Pulse Resp B/P Pulse Ox O2 Delivery O2 Flow Rate FiO2 10/12/16 08:00 88 10/12/16 08:00 98.9 24 128/79 99 Room Air 10/10/16 18:04 21 10/09/16 05:30 2.0 Intake and Output 10/11/16 10/11/16 10/12/16 15:00 23:00 07:00 Intake Total 490 ml 620 ml 180 ml Output Total 235 ml 290 ml 275 ml Balance 255 ml 330 ml -95 ml Exam GENERAL: Elderly appearing lady VITAL SIGNS: per chart NECK: Supple. No JVD or lymphadenopathy. CARDIAC EXAM: S1, S2. No added sounds or murmurs. CHEST: Diminished air entry both lung bases few rales right base ABDOMEN: Soft, nontender. No guarding or rebound. EXTREMITIES: No cyanosis, clubbing edema +1 NEUROLOGIC: Generalized weakness Results/Medications Result Diagram: 10/12/16 0542 10/11/16 1620 Results 24 hrs Laboratory Tests Test 10/11/16 12:24 10/11/16 16:20 10/11/16 18:30 10/12/16 00:21 Bedside Glucose 146 125 124 Sodium Level 137 Potassium Level 4.0 Chloride Level 101 Carbon Dioxide Level 26 Anion Gap 14 Blood Urea Nitrogen 20 Creatinine 0.58 Glucose Level 140 Calcium Level 9.3 Total Bilirubin 0.4 Direct Bilirubin 0.00 Indirect Bilirubin 0.4 Aspartate Amino Transf (AST/SGOT) 236 H Alanine Aminotransferase (ALT/SGPT) 460 H Alkaline Phosphatase 412 H Total Protein 7.7 Albumin 3.6 Globulin 4.10 H Albumin/Globulin Ratio 0.87 Test 10/12/16 05:42 10/12/16 05:46 White Blood Count 9.1 Red Blood Count 4.49 Hemoglobin 12.9 Hematocrit 39.7 Mean Corpuscular Volume 88.4 Mean Corpuscular Hemoglobin 28.7 L Mean Corpuscular Hemoglobin Concent 32.5 Red Cell Distribution Width 13.5 Platelet Count 319 Mean Platelet Volume 9.5 Neutrophils % 75.6 Lymphocytes % 14.9 L Monocytes % 7.4 Eosinophils % 1.4 Basophils % 0.2 Nucleated Red Blood Cells % 0.0 Neutrophils # 6.9 Lymphocytes # 1.4 Monocytes # 0.7 Eosinophils # 0.1 Basophils # 0.0 Nucleated Red Blood Cells # 0.0 Bedside Glucose 120 Medications Current Medications Dextrose/Sodium Chloride (D5-1/2ns) 1,000 ml @ 30 mls/hr Q24H IV Last administered on 10/12/16 10:12; Admin Dose 30 MLS/HR; Start 10/06/16 at 15:46 Flumazenil (Romazicon) 0.2 mg Q1M PRN IV BENZODIAZEPINE OVERDOSE; Start at 16:00 Naloxone HCl (Narcan) 0.4 mg Q3M PRN IV DECREASED REPIRATORY RATE; Start at 16:00 Ondansetron HCl (Zofran Inj) 4 mg Q6H PRN IV NAUSEA AND/OR VOMITING; Start at 16:00 Acetaminophen (Tylenol Liquid) 650 mg Q6H PRN PO PAIN LEVEL 1-3 OR FEVER Last administered on 10/11/16 10:05; Admin Dose 650 MG; Start 10/06/16 at 16:00 Acetaminophen (Tylenol Tab) 650 mg Q6H PRN PO PAIN LEVEL 1-3 OR FEVER; Start at 16:00 Magnesium Hydroxide (Milk Of Mag) 30 ml DAILY PRN PO CONSTIPATION; Start at 16:00 Bisacodyl (Dulcolax) 5 mg DAILY PRN PO CONSTIPATION; Start 10/06/16 at 16:00 Pantoprazole (Protonix Iv) 40 mg DAILY@06 IV Last administered on 10/12/16 05: 03; Admin Dose 40 MG; Start 10/07/16 at 06:00 Miscellaneous Information 1 ea NOTE XX ; Start 10/09/16 at 09:30 Glucose (Glutose) 15 gm Q15M PRN PO DECREASED GLUCOSE; Start 10/09/16 at 09:30 Glucose (Glutose) 22.5 gm Q15M PRN PO DECREASED GLUCOSE; Start 10/09/16 at 09: 30 Dextrose (D50w Syringe) 25 ml Q15M PRN IV DECREASED GLUCOSE; Start 10/09/16 at 09:30 Dextrose (D50w Syringe) 50 ml Q15M PRN IV DECREASED GLUCOSE; Start 10/09/16 at 09:30 Glucagon (Glucagen) 1 mg Q15M PRN IM DECREASED GLUCOSE; Start 10/09/16 at 09:30 Glucose (Glutose) 15 gm Q15M PRN BUCCAL DECREASED GLUCOSE; Start 10/09/16 at 09 :30 Diltiazem HCl (Cardizem Iv) 5 mg Q4H PRN IV PRN HR>110 Hold SBP<100 Last administered on 10/10/16 08:36; Admin Dose 5 MG; Start 10/09/16 at 11:30 Brimonidine Tartrate (Alphagan 0.2%) 2 drop Q4 LEFT EYE Last administered on 08:48; Admin Dose 2 DROP; Start 10/09/16 at 21:00 Prednisolone Acetate (Pred-Forte 1%) 2 drop Q4 LEFT EYE Last administered on 08:48; Admin Dose 2 DROP; Start 10/09/16 at 21:00 Morphine Sulfate (morphine) 2 mg Q3H PRN IV PAIN Last administered on 04:58; Admin Dose 2 MG; Start 10/09/16 at 21:00 Insulin Aspart (Novolog Insulin Pen) (Adult SC Insulin - Mild Algorithm)... Q6 SC Last administered on 10/11/16 12:31; Admin Dose 1 UNIT; Start 10/10/16 at 00:00 Docusate Sodium (Colace Liquid Cup) 100 mg BID NGT Last administered on 21:11; Admin Dose 100 MG; Start 10/10/16 at 11:30 Acetaminophen/ Codeine Phosphate (Tylenol No.3) 1 tab Q6H PRN PO PAIN Last administered on 10/11/16 22:04; Admin Dose 1 TAB; Start 10/10/16 at 12:00 Docusate Sodium (Colace Liquid Cup) 100 mg Q12H PRN PO CONSTIPATION; Start at 14:30 Assessment/Plan Chief Complaint/Hosp Course Assessment 1. Acute CVA involving the right MCA distribution 2. Alveolar hypoventilation secondary to altered mental status 3. History of hypertension 4. History of diabetes 5. History of atrial fibrillation Plan 1. Continue aspiration precautions 2. Continue pulmonary toilet 3. Continue physical therapy 4. Speech therapy recommendations 5. DVT GI prophylaxis Disposition Consider transfer to telemetry Problems: ADY MARCH MD, [facility] Oct 12, 2016 10:52
--- NOTE | 2016-10-12 18:05 | CONS ---
Date/Time of Note Date/Time of Note DATE: 10/12/16 TIME: 18:02 Assessment/Plan Assessment/Plan Chief Complaint/Hosp Course Imp: 1AF-on Dilt drip- now off Diltiazem drip s/p IVP digoxin x 2 with reasonable HR control 2.HTN-currently reasonable control 3.CVA-acute with Hemm conversion 4.Encephalopathy 5.DM 6.HL 7.MVR-Bioprosthetic versus repair and mild-mod MS Recc: -Tele -serial ecg's -IVP PRN diltiazem at this time -Neuro following-Not on systemic anti-coag due to Hemm conversion -ASA held -Follow MS closely Problems: Consultation Date/Type/Reason Admit Date/Time Oct 06, 2016 at 15:49 Initial Consult Date 10/06/2016 Type of Consultation: Cardiology Reason for Consultation AF Referring Provider: SON AKHTAR MD Exam/Review of Systems Vital Signs Vitals Vital Signs Date Time Temp Pulse Resp B/P Pulse Ox O2 Delivery O2 Flow Rate FiO2 10/12/16 16:07 108 10/12/16 15:52 97.9 20 143/92 95 10/12/16 11:00 Room Air 10/10/16 18:04 21 10/09/16 05:30 2.0 Intake and Output 10/11/16 10/11/16 10/12/16 15:00 23:00 07:00 Intake Total 490 ml 620 ml 180 ml Output Total 235 ml 290 ml 275 ml Balance 255 ml 330 ml -95 ml Exam Review of Systems: CONSTITUTIONAL: No fevers, chills. PULMONARY: No sob CARDIOVASCULAR: No chest pain/palpitations GASTROINTESTINAL: No nausea/vomiting. GENITOURINARY: No hematuria/dysuria. MUSCULOSKELETAL: No myagias/arthalgias. PSYCHIATRIC: The patient denies depression. NEUROLOGIC: No weakness Constitutional: alert Psych: no complaints Head: normocephalic ENMT: mucosa pink and moist Neck: jvd (9 cm water), supple Respiratory: diminished breath sounds (at bases/B) Cardiovascular: regular rate and rhythm Gastrointestinal: non-tender, soft Musculoskeletal: muscle tone Extremities: edema (none) Neurological: lethargic Results Result Diagram: 10/12/16 0542 10/11/16 1620 Results 24 hrs Laboratory Tests Test 10/11/16 18:30 10/12/16 00:21 10/12/16 05:42 10/12/16 05:46 Bedside Glucose 125 124 120 White Blood Count 9.1 Red Blood Count 4.49 Hemoglobin 12.9 Hematocrit 39.7 Mean Corpuscular Volume 88.4 Mean Corpuscular Hemoglobin 28.7 L Mean Corpuscular Hemoglobin Concent 32.5 Red Cell Distribution Width 13.5 Platelet Count 319 Mean Platelet Volume 9.5 Neutrophils % 75.6 Lymphocytes % 14.9 L Monocytes % 7.4 Eosinophils % 1.4 Basophils % 0.2 Nucleated Red Blood Cells % 0.0 Neutrophils # 6.9 Lymphocytes # 1.4 Monocytes # 0.7 Eosinophils # 0.1 Basophils # 0.0 Nucleated Red Blood Cells # 0.0 Test 10/12/16 12:04 10/12/16 17:23 Bedside Glucose 124 138 Medications Medications Current Medications Dextrose/Sodium Chloride (D5-1/2ns) 1,000 ml @ 30 mls/hr Q24H IV Last administered on 10/12/16 10:12; Admin Dose 30 MLS/HR; Start 10/06/16 at 15:46 Flumazenil (Romazicon) 0.2 mg Q1M PRN IV BENZODIAZEPINE OVERDOSE; Start at 16:00 Naloxone HCl (Narcan) 0.4 mg Q3M PRN IV DECREASED REPIRATORY RATE; Start at 16:00 Ondansetron HCl (Zofran Inj) 4 mg Q6H PRN IV NAUSEA AND/OR VOMITING; Start at 16:00 Acetaminophen (Tylenol Liquid) 650 mg Q6H PRN PO PAIN LEVEL 1-3 OR FEVER Last administered on 10/11/16 10:05; Admin Dose 650 MG; Start 10/06/16 at 16:00 Acetaminophen (Tylenol Tab) 650 mg Q6H PRN PO PAIN LEVEL 1-3 OR FEVER; Start at 16:00 Magnesium Hydroxide (Milk Of Mag) 30 ml DAILY PRN PO CONSTIPATION; Start at 16:00 Bisacodyl (Dulcolax) 5 mg DAILY PRN PO CONSTIPATION; Start 10/06/16 at 16:00 Pantoprazole (Protonix Iv) 40 mg DAILY@06 IV Last administered on 3/27/17at 05: 03; Admin Dose 40 MG; Start 10/07/16 at 06:00 Miscellaneous Information 1 ea NOTE XX ; Start 10/09/16 at 09:30 Glucose (Glutose) 15 gm Q15M PRN PO DECREASED GLUCOSE; Start 10/09/16 at 09:30 Glucose (Glutose) 22.5 gm Q15M PRN PO DECREASED GLUCOSE; Start 10/09/16 at 09: 30 Dextrose (D50w Syringe) 25 ml Q15M PRN IV DECREASED GLUCOSE; Start 10/09/16 at 09:30 Dextrose (D50w Syringe) 50 ml Q15M PRN IV DECREASED GLUCOSE; Start 10/09/16 at 09:30 Glucagon (Glucagen) 1 mg Q15M PRN IM DECREASED GLUCOSE; Start 10/09/16 at 09:30 Glucose (Glutose) 15 gm Q15M PRN BUCCAL DECREASED GLUCOSE; Start 10/09/16 at 09 :30 Diltiazem HCl (Cardizem Iv) 5 mg Q4H PRN IV PRN HR>110 Hold SBP<100 Last administered on 10/10/16 08:36; Admin Dose 5 MG; Start 10/09/16 at 11:30 Brimonidine Tartrate (Alphagan 0.2%) 2 drop Q4 LEFT EYE Last administered on 16:44; Admin Dose 2 DROP; Start 10/09/16 at 21:00 Prednisolone Acetate (Pred-Forte 1%) 2 drop Q4 LEFT EYE Last administered on 16:45; Admin Dose 2 DROP; Start 10/09/16 at 21:00 Morphine Sulfate (morphine) 2 mg Q3H PRN IV PAIN Last administered on 04:58; Admin Dose 2 MG; Start 10/09/16 at 21:00 Insulin Aspart (Novolog Insulin Pen) (Adult SC Insulin - Mild Algorithm)... Q6 SC Last administered on 10/11/16 12:31; Admin Dose 1 UNIT; Start 10/10/16 at 00:00 Docusate Sodium (Colace Liquid Cup) 100 mg BID NGT Last administered on 21:11; Admin Dose 100 MG; Start 10/10/16 at 11:30 Acetaminophen/ Codeine Phosphate (Tylenol No.3) 1 tab Q6H PRN PO PAIN Last administered on 10/11/16t 22:04; Admin Dose 1 TAB; Start 10/10/16 at 12:00 Docusate Sodium (Colace Liquid Cup) 100 mg Q12H PRN PO CONSTIPATION; Start at 14:30 EMANUEL LAMAR Oct 12, 2016 18:05
--- NOTE | 2016-10-12 18:16 | PN ---
Date/Time of Note Date/Time of Note DATE: 10/12/16 TIME: 18:13 Assessment/Plan VTE Prophylaxis VTE Prophylaxis Intervention: other Lines/Catheters IV Catheter Type (from Nrs): Saline Lock Urinary Cath still in place: Yes Reason Cath still needed: other (indicate) Assessment/Plan Chief Complaint/Hosp Course [id number] cerebrovascular accident and left-sided weakness, 2hypertension,3 diabetes mellitus. 4The patient has atrial fibrillation on the monitor. [id number] hx valve replacement plan per dr nilo lea d/w family POSS PEG US LIVER see per gi Problems: Subjective 24 Hr Interval Summary Subjective hx not possible: other (weak and lethargic) Cardiovascular: no complaints Gastrointestinal: no complaints Genitourinary: no complaints Exam/Review of Systems Vital Signs Vitals Vital Signs Date Time Temp Pulse Resp B/P Pulse Ox O2 Delivery O2 Flow Rate FiO2 10/12/16 16:07 108 10/12/16 15:52 97.9 20 143/92 95 10/12/16 11:00 Room Air 10/10/16 18:04 21 10/09/16 05:30 2.0 Intake and Output 10/11/16 10/11/16 10/12/16 15:00 23:00 07:00 Intake Total 490 ml 620 ml 180 ml Output Total 235 ml 290 ml 275 ml Balance 255 ml 330 ml -95 ml Exam Neck: supple Respiratory: clear to auscultation Cardiovascular: regular rate and rhythm Gastrointestinal: soft Musculoskeletal: nl extremities to inspection Extremities: normal pulses Results Result Diagram: 10/12/16 0542 10/11/16 1620 Results 24 hrs Laboratory Tests Test 10/11/16 18:30 10/12/16 00:21 10/12/16 05:42 10/12/16 05:46 Bedside Glucose 125 124 120 White Blood Count 9.1 Red Blood Count 4.49 Hemoglobin 12.9 Hematocrit 39.7 Mean Corpuscular Volume 88.4 Mean Corpuscular Hemoglobin 28.7 L Mean Corpuscular Hemoglobin Concent 32.5 Red Cell Distribution Width 13.5 Platelet Count 319 Mean Platelet Volume 9.5 Neutrophils % 75.6 Lymphocytes % 14.9 L Monocytes % 7.4 Eosinophils % 1.4 Basophils % 0.2 Nucleated Red Blood Cells % 0.0 Neutrophils # 6.9 Lymphocytes # 1.4 Monocytes # 0.7 Eosinophils # 0.1 Basophils # 0.0 Nucleated Red Blood Cells # 0.0 Test 10/12/16 12:04 10/12/16 17:23 Bedside Glucose 124 138 Medications Medications Current Medications Dextrose/Sodium Chloride (D5-1/2ns) 1,000 ml @ 30 mls/hr Q24H IV Last administered on 10/12/16 10:12; Admin Dose 30 MLS/HR; Start 10/06/16 at 15:46 Flumazenil (Romazicon) 0.2 mg Q1M PRN IV BENZODIAZEPINE OVERDOSE; Start at 16:00 Naloxone HCl (Narcan) 0.4 mg Q3M PRN IV DECREASED REPIRATORY RATE; Start at 16:00 Ondansetron HCl (Zofran Inj) 4 mg Q6H PRN IV NAUSEA AND/OR VOMITING; Start at 16:00 Acetaminophen (Tylenol Liquid) 650 mg Q6H PRN PO PAIN LEVEL 1-3 OR FEVER Last administered on 10/11/16 10:05; Admin Dose 650 MG; Start 10/06/16 at 16:00 Acetaminophen (Tylenol Tab) 650 mg Q6H PRN PO PAIN LEVEL 1-3 OR FEVER; Start at 16:00 Magnesium Hydroxide (Milk Of Mag) 30 ml DAILY PRN PO CONSTIPATION; Start at 16:00 Bisacodyl (Dulcolax) 5 mg DAILY PRN PO CONSTIPATION; Start 10/06/16 at 16:00 Pantoprazole (Protonix Iv) 40 mg DAILY@06 IV Last administered on 10/12/16 05: 03; Admin Dose 40 MG; Start 10/07/16 at 06:00 Miscellaneous Information 1 ea NOTE XX ; Start 10/09/16 at 09:30 Glucose (Glutose) 15 gm Q15M PRN PO DECREASED GLUCOSE; Start 10/09/16 at 09:30 Glucose (Glutose) 22.5 gm Q15M PRN PO DECREASED GLUCOSE; Start 10/09/16 at 09: 30 Dextrose (D50w Syringe) 25 ml Q15M PRN IV DECREASED GLUCOSE; Start 10/09/16 at 09:30 Dextrose (D50w Syringe) 50 ml Q15M PRN IV DECREASED GLUCOSE; Start 10/09/16 at 09:30 Glucagon (Glucagen) 1 mg Q15M PRN IM DECREASED GLUCOSE; Start 10/09/16 at 09:30 Glucose (Glutose) 15 gm Q15M PRN BUCCAL DECREASED GLUCOSE; Start 10/09/16 at 09 :30 Diltiazem HCl (Cardizem Iv) 5 mg Q4H PRN IV PRN HR>110 Hold SBP<100 Last administered on 10/10/16 08:36; Admin Dose 5 MG; Start 10/09/16 at 11:30 Brimonidine Tartrate (Alphagan 0.2%) 2 drop Q4 LEFT EYE Last administered on 16:44; Admin Dose 2 DROP; Start 10/09/16 at 21:00 Prednisolone Acetate (Pred-Forte 1%) 2 drop Q4 LEFT EYE Last administered on 16:45; Admin Dose 2 DROP; Start 10/09/16 at 21:00 Morphine Sulfate (morphine) 2 mg Q3H PRN IV PAIN Last administered on 04:58; Admin Dose 2 MG; Start 10/09/16 at 21:00 Insulin Aspart (Novolog Insulin Pen) (Adult SC Insulin - Mild Algorithm)... Q6 SC Last administered on 10/11/16 12:31; Admin Dose 1 UNIT; Start 10/10/16 at 00:00 Docusate Sodium (Colace Liquid Cup) 100 mg BID NGT Last administered on 21:11; Admin Dose 100 MG; Start 10/10/16 at 11:30 Acetaminophen/ Codeine Phosphate (Tylenol No.3) 1 tab Q6H PRN PO PAIN Last administered on 10/11/16 22:04; Admin Dose 1 TAB; Start 10/10/16 at 12:00 Docusate Sodium (Colace Liquid Cup) 100 mg Q12H PRN PO CONSTIPATION; Start at 14:30 SON AKHTAR MD Oct 12, 2016 18:15
--- NOTE | 2016-10-12 18:26 | SP ---
DATE OF PROCEDURE: 10/12/2016 REFERRING PHYSICIAN: Dr. Lau This is a followup note. HISTORY OF PRESENT ILLNESS: The patient is a 61-year-old with underlying stroke with hemorrhagic tr ansformation. There is left hemiplegia with right middle cerebellar artery ischemic stroke with hem orrhage. MEDICATIONS: The patient's current medications includes: 1. Colace 100 mg twice a day. 2. Morphine sulfate 2 mg every 3 hours as needed. 3. Cardizem once a day. 4. Zofran 4 mg every 4 hours as needed. 5. Albuterol inhaler 2 puffs, q. 4 hours as needed. 6. Tylenol 650 as needed. 7. Magnesium oxide 600 mg as needed. PHYSICAL EXAM: On exam today, the patient is alert, awake, oriented for time, place, and person. Normal speech and normal language. Cranial nerves: Cranial nerve II: Pupils equal on both sides, reactive to light. Cranial nerves III, IV, and : Extraocular muscles intact. Cranial nerve V: Decreased nasolabial fold left side. Cranial nerve VII: Symmetrical face. Cranial nerve VIII: De creased hearing bilaterally. Cranial nerve IX and X: Elevates palate. Cranial nerve XII: Straig ht tongue MOTOR: Decreased left side for light touch. Motor weakness in the left side with a dense stroke. Cranial nerve sensation decreased on the left side for light touch and temperature. COORDINATION: [id number] test intact on the right side. Left-sided weakness. ASSESSMENT: 1. The patient is a 61-year-old with left hemiplegia. 2. Status post right middle cerebral artery ischemic stroke with hemorrhagic transformation. 3. Gait difficulty secondary to #1. 4. Follow up the patient with physical therapy for ambulation and balance. 5. Left upper extremity weakness. Follow up the patient with occupational therapy. 6. Dyslipidemia. Follow up the patient with lipid panel and maximize her statin. 7. We will keep the patient under deep venous thrombosis prophylaxis as well as decubitus ulcer pro phylaxis. Again, thank you for asking me to see the patient with you. Dictated By: BURTON FOWLER/AUDRA Conf#: [id number] DID#: [id number]
--- NOTE | 2016-10-12 20:18 | CONS ---
Date/Time of Note Date/Time of Note DATE: 10/12/16 TIME: 20:16 Assessment/Plan Assessment/Plan Additional Assessment/Plan IMPRESSION: 1. 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 2. Diabetes mellitus. 3. Hypertension. 4. Atrial fibrillation. 5. Status post chest surgery. I note has got a bioprosthetic aortic valve ___ _ the mitral valve repaired, nothing is clear-cut. 6. Dysphagia with aspiration. 7. Abnormal LFT with a dilated biliary system, rule out bile duct stone, statin induced. Plan Patient was scheduled for PEG. Yesterday son had agreed and this morning he declined it. Son wants another swallow study. MRCP to rule out bile duct stone. Consultation Date/Type/Reason Admit Date/Time Oct 06, 2016 at 15:49 Initial Consult Date 10/09/16 Type of Consultation: Cardiology Referring Provider: SON AKHTAR MD 24 HR Interval Summary Subjective hx not possible: pt critical Exam/Review of Systems Vital Signs Vitals Vital Signs Date Time Temp Pulse Resp B/P Pulse Ox O2 Delivery O2 Flow Rate FiO2 10/12/16 20:12 98.4 94 24 140/89 96 10/12/16 11:00 Room Air 10/10/16 18:04 21 10/09/16 05:30 2.0 Intake and Output 10/11/16 10/11/16 10/12/16 15:00 23:00 07:00 Intake Total 490 ml 620 ml 180 ml Output Total 235 ml 290 ml 275 ml Balance 255 ml 330 ml -95 ml Exam ENMT: nl external ears & nose, nl lips & teeth, nl nasal mucosa & septum Respiratory: clear to auscultation, normal air movement Cardiovascular: nl pulses, regular rate and rhythm Gastrointestinal: nl liver, spleen, non-tender, soft Extremities: normal pulses Neurological: lethargic Results Result Diagram: 10/12/16 0542 10/11/16 1620 Results 24 hrs Laboratory Tests Test 10/12/16 00:21 10/12/16 05:42 10/12/16 05:46 10/12/16 12:04 Bedside Glucose 124 120 124 White Blood Count 9.1 Red Blood Count 4.49 Hemoglobin 12.9 Hematocrit 39.7 Mean Corpuscular Volume 88.4 Mean Corpuscular Hemoglobin 28.7 L Mean Corpuscular Hemoglobin Concent 32.5 Red Cell Distribution Width 13.5 Platelet Count 319 Mean Platelet Volume 9.5 Neutrophils % 75.6 Lymphocytes % 14.9 L Monocytes % 7.4 Eosinophils % 1.4 Basophils % 0.2 Nucleated Red Blood Cells % 0.0 Neutrophils # 6.9 Lymphocytes # 1.4 Monocytes # 0.7 Eosinophils # 0.1 Basophils # 0.0 Nucleated Red Blood Cells # 0.0 Test 10/12/16 17:23 Bedside Glucose 138 Medications Medications Current Medications Dextrose/Sodium Chloride (D5-1/2ns) 1,000 ml @ 30 mls/hr Q24H IV Last administered on 10/12/16 10:12; Admin Dose 30 MLS/HR; Start 10/06/16 at 15:46 Flumazenil (Romazicon) 0.2 mg Q1M PRN IV BENZODIAZEPINE OVERDOSE; Start at 16:00 Naloxone HCl (Narcan) 0.4 mg Q3M PRN IV DECREASED REPIRATORY RATE; Start at 16:00 Ondansetron HCl (Zofran Inj) 4 mg Q6H PRN IV NAUSEA AND/OR VOMITING; Start at 16:00 Acetaminophen (Tylenol Liquid) 650 mg Q6H PRN PO PAIN LEVEL 1-3 OR FEVER Last administered on 10/11/16 10:05; Admin Dose 650 MG; Start 10/06/16 at 16:00 Acetaminophen (Tylenol Tab) 650 mg Q6H PRN PO PAIN LEVEL 1-3 OR FEVER; Start at 16:00 Magnesium Hydroxide (Milk Of Mag) 30 ml DAILY PRN PO CONSTIPATION; Start at 16:00 Bisacodyl (Dulcolax) 5 mg DAILY PRN PO CONSTIPATION; Start 10/06/16 at 16:00 Pantoprazole (Protonix Iv) 40 mg DAILY@06 IV Last administered on 10/12/16 05: 03; Admin Dose 40 MG; Start 10/07/16 at 06:00 Miscellaneous Information 1 ea NOTE XX ; Start 10/09/16 at 09:30 Glucose (Glutose) 15 gm Q15M PRN PO DECREASED GLUCOSE; Start 10/09/16 at 09:30 Glucose (Glutose) 22.5 gm Q15M PRN PO DECREASED GLUCOSE; Start 10/09/16 at 09: 30 Dextrose (D50w Syringe) 25 ml Q15M PRN IV DECREASED GLUCOSE; Start 10/09/16 at 09:30 Dextrose (D50w Syringe) 50 ml Q15M PRN IV DECREASED GLUCOSE; Start 10/09/16 at 09:30 Glucagon (Glucagen) 1 mg Q15M PRN IM DECREASED GLUCOSE; Start 10/09/16 at 09:30 Glucose (Glutose) 15 gm Q15M PRN BUCCAL DECREASED GLUCOSE; Start 10/09/16 at 09 :30 Diltiazem HCl (Cardizem Iv) 5 mg Q4H PRN IV PRN HR>110 Hold SBP<100 Last administered on 10/10/16 08:36; Admin Dose 5 MG; Start 10/09/16 at 11:30 Brimonidine Tartrate (Alphagan 0.2%) 2 drop Q4 LEFT EYE Last administered on 16:44; Admin Dose 2 DROP; Start 10/09/16 at 21:00 Prednisolone Acetate (Pred-Forte 1%) 2 drop Q4 LEFT EYE Last administered on 16:45; Admin Dose 2 DROP; Start 10/09/16 at 21:00 Morphine Sulfate (morphine) 2 mg Q3H PRN IV PAIN Last administered on 04:58; Admin Dose 2 MG; Start 10/09/16 at 21:00 Insulin Aspart (Novolog Insulin Pen) (Adult SC Insulin - Mild Algorithm)... Q6 SC Last administered on 10/11/16 12:31; Admin Dose 1 UNIT; Start 10/10/16 at 00:00 Docusate Sodium (Colace Liquid Cup) 100 mg BID NGT Last administered on 21:11; Admin Dose 100 MG; Start 10/10/16 at 11:30 Acetaminophen/ Codeine Phosphate (Tylenol No.3) 1 tab Q6H PRN PO PAIN Last administered on 10/11/16 22:04; Admin Dose 1 TAB; Start 10/10/16 at 12:00 Docusate Sodium (Colace Liquid Cup) 100 mg Q12H PRN PO CONSTIPATION; Start at 14:30 EDSON PÉREZ MD Oct 12, 2016 20:18
[2016-10-12] MEDS: ACETAMINOPHEN/CODEINE #3 TAB PO PRN (20:56)
[2016-10-13] VITALS (12 sets, daily range): BP systolic 136–162; BP diastolic 80–103; PULSE 100–141; RESP 18–20
[2016-10-13] MEDS: PREDNISOLONE ACET 1% 5 ML OPH LEFT EYE SCH ×6 (01:00→22:06)
[2016-10-13] MEDS: BRIMONIDINE 0.2% 5 ML BTL LEFT EYE SCH ×6 (01:00→22:06)
[2016-10-13] MEDS: Insulin NOVOLOG SS MILD Algorithm (NPO/TPN/ENTERAL FEEDS) SC SCH ×4 (06:00→17:31)
[2016-10-13] MEDS: PANTOPRAZOLE 40 MG INJ IV SCH (06:26)
[2016-10-13] MEDS: DILTIAZEM 25 MG INJ IV PRN (07:06)
[2016-10-13] MEDS: ACETAMINOPHEN/CODEINE #3 TAB PO PRN (07:20)
[2016-10-13 08:22] LABS: ADD SCAN DIFF NO
[2016-10-13 08:27] LABS: BASOPHILS % 0.2 % (0.0-2.0); EOSINOPHILS # 0.1 10^3/ul (0.0-0.5); EOSINOPHILS % 0.9 % (0.0-7.0); HEMATOCRIT 41.5 % (37.0-47.0); HEMOGLOBIN 13.8 g/dl (12.0-16.0); LYMPHOCYTES # 1.3 10^3/ul (0.8-2.9); LYMPHOCYTES % 10.2 % (15.0-51.0); MEAN CORPUSCULAR HGB CONC 33.3 g/dl (32.0-37.0); MEAN CORPUSCULAR VOLUME 87.2 fl (82.0-101.0); MEAN PLATELET VOLUME 9.6 fl (7.4-10.4); MONOCYTE # 0.9 10^3/ul (0.3-0.9); NEUTROPHIL # 10.3 10^3/ul (1.6-7.5); NEUTROPHILS % 81.2 % (39.0-77.0); PLATELET COUNT 342 10^3/UL (140-415); RED BLOOD COUNT 4.76 10^6/ul (4.20-5.40); RED CELL DISTRIBUTION WIDTH 13.2 % (11.5-14.5); WHITE BLOOD COUNT 12.7 10^3/ul (4.8-10.8)
[2016-10-13] MEDS: MAGNESIUM HYDROXIDE 30ML CUP PO PRN (08:41)
[2016-10-13] MEDS: DOCUSATE SODIUM 10 MG/ML (10ML CUP) NGT SCH ×2 (08:41→22:06)
[2016-10-13 09:01] LABS: ALBUMIN 3.8 g/dl (3.3-4.9); POTASSIUM 4.1 mmol/L (3.5-5.1)
[2016-10-13 09:03] LABS: CREATININE 0.54 mg/dl (0.44-1.00)
[2016-10-13 09:04] LABS: ALBUMIN/GLOBULIN RATIO 0.82; BILIRUBIN,INDIRECT 0.4 mg/dl (0-1.1); BILIRUBIN,TOTAL 0.4 mg/dl (0.2-1.3); CALCIUM 9.7 mg/dl (8.4-10.2); TOTAL PROTEIN 8.4 g/dl (6.1-8.1)
--- NOTE | 2016-10-13 18:53 | PN ---
Date/Time of Note Date/Time of Note DATE: 10/13/16 TIME: 18:52 Assessment/Plan VTE Prophylaxis VTE Prophylaxis Intervention: other Lines/Catheters IV Catheter Type (from Nrs): Saline Lock Urinary Cath still in place: Yes Reason Cath still needed: other (indicate) Assessment/Plan Chief Complaint/Hosp Course [id number] cerebrovascular accident and left-sided weakness, 2hypertension,3 diabetes mellitus. 4The patient has atrial fibrillation on the monitor. [id number] hx valve replacement plan per dr nilo lea d/w family POSS PEG US LIVER seen per gi Problems: Subjective 24 Hr Interval Summary Subjective hx not possible: pt non-verbal, other (no peg per family) Exam/Review of Systems Vital Signs Vitals Vital Signs Date Time Temp Pulse Resp B/P Pulse Ox O2 Delivery O2 Flow Rate FiO2 10/13/16 16:32 97.4 99 18 141/80 94 10/13/16 06:36 21 10/12/16 11:00 Room Air Intake and Output 10/12/16 10/12/16 10/13/16 15:00 23:00 07:00 Intake Total 0 ml 400 ml 580 ml Output Total 235 ml 700 ml 750 ml Balance -235 ml -300 ml -170 ml Exam Neck: supple Respiratory: clear to auscultation Cardiovascular: regular rate and rhythm Musculoskeletal: nl extremities to inspection Extremities: normal pulses Results Result Diagram: 10/13/16 0720 10/13/16 0720 Results 24 hrs Laboratory Tests Test 10/13/16 00:21 10/13/16 06:25 10/13/16 07:20 10/13/16 11:44 Bedside Glucose 119 132 134 White Blood Count 12.7 #H Red Blood Count 4.76 Hemoglobin 13.8 Hematocrit 41.5 Mean Corpuscular Volume 87.2 Mean Corpuscular Hemoglobin 29.0 Mean Corpuscular Hemoglobin Concent 33.3 Red Cell Distribution Width 13.2 Platelet Count 342 Mean Platelet Volume 9.6 Neutrophils % 81.2 H Lymphocytes % 10.2 L Monocytes % 7.0 Eosinophils % 0.9 Basophils % 0.2 Nucleated Red Blood Cells % 0.0 Neutrophils # 10.3 H Lymphocytes # 1.3 Monocytes # 0.9 Eosinophils # 0.1 Basophils # 0.0 Nucleated Red Blood Cells # 0.0 Sodium Level 134 L Potassium Level 4.1 Chloride Level 99 Carbon Dioxide Level 25 Anion Gap 14 Blood Urea Nitrogen 15 Creatinine 0.54 Glucose Level 164 Calcium Level 9.7 Total Bilirubin 0.4 Direct Bilirubin 0.00 Indirect Bilirubin 0.4 Aspartate Amino Transf (AST/SGOT) 87 H Alanine Aminotransferase (ALT/SGPT) 286 H Alkaline Phosphatase 476 H Total Protein 8.4 H Albumin 3.8 Globulin 4.60 H Albumin/Globulin Ratio 0.82 Medications Medications Current Medications Dextrose/Sodium Chloride (D5-1/2ns) 1,000 ml @ 30 mls/hr Q24H IV Last administered on 10/12/16 10:12; Admin Dose 30 MLS/HR; Start 10/06/16 at 15:46 Flumazenil (Romazicon) 0.2 mg Q1M PRN IV BENZODIAZEPINE OVERDOSE; Start at 16:00 Naloxone HCl (Narcan) 0.4 mg Q3M PRN IV DECREASED REPIRATORY RATE; Start at 16:00 Ondansetron HCl (Zofran Inj) 4 mg Q6H PRN IV NAUSEA AND/OR VOMITING; Start at 16:00 Acetaminophen (Tylenol Liquid) 650 mg Q6H PRN PO PAIN LEVEL 1-3 OR FEVER Last administered on 10/11/16 10:05; Admin Dose 650 MG; Start 10/06/16 at 16:00 Acetaminophen (Tylenol Tab) 650 mg Q6H PRN PO PAIN LEVEL 1-3 OR FEVER; Start at 16:00 Magnesium Hydroxide (Milk Of Mag) 30 ml DAILY PRN PO CONSTIPATION Last administered on 10/13/16 08:41; Admin Dose 30 ML; Start 10/06/16 at 16:00 Bisacodyl (Dulcolax) 5 mg DAILY PRN PO CONSTIPATION; Start 10/06/16 at 16:00 Pantoprazole (Protonix Iv) 40 mg DAILY@06 IV Last administered on 10/13/16 06: 26; Admin Dose 40 MG; Start 10/07/16 at 06:00 Miscellaneous Information 1 ea NOTE XX ; Start 10/09/16 at 09:30 Glucose (Glutose) 15 gm Q15M PRN PO DECREASED GLUCOSE; Start 10/09/16 at 09:30 Glucose (Glutose) 22.5 gm Q15M PRN PO DECREASED GLUCOSE; Start 10/09/16 at 09: 30 Dextrose (D50w Syringe) 25 ml Q15M PRN IV DECREASED GLUCOSE; Start 10/09/16 at 09:30 Dextrose (D50w Syringe) 50 ml Q15M PRN IV DECREASED GLUCOSE; Start 10/09/16 at 09:30 Glucagon (Glucagen) 1 mg Q15M PRN IM DECREASED GLUCOSE; Start 10/09/16 at 09:30 Glucose (Glutose) 15 gm Q15M PRN BUCCAL DECREASED GLUCOSE; Start 10/09/16 at 09 :30 Diltiazem HCl (Cardizem Iv) 5 mg Q4H PRN IV PRN HR>110 Hold SBP<100 Last administered on 10/13/16 07:06; Admin Dose 5 MG; Start 10/09/16 at 11:30 Brimonidine Tartrate (Alphagan 0.2%) 2 drop Q4 LEFT EYE Last administered on 16:36; Admin Dose 2 DROP; Start 10/09/16 at 21:00 Prednisolone Acetate (Pred-Forte 1%) 2 drop Q4 LEFT EYE Last administered on 16:36; Admin Dose 2 DROP; Start 10/09/16 at 21:00 Morphine Sulfate (morphine) 2 mg Q3H PRN IV PAIN Last administered on 04:58; Admin Dose 2 MG; Start 10/09/16 at 21:00 Insulin Aspart (Novolog Insulin Pen) (Adult SC Insulin - Mild Algorithm)... Q6 SC Last administered on 10/11/16 12:31; Admin Dose 1 UNIT; Start 10/10/16 at 00:00 Docusate Sodium (Colace Liquid Cup) 100 mg BID NGT Last administered on 08:41; Admin Dose 100 MG; Start 10/10/16 at 11:30 Acetaminophen/ Codeine Phosphate (Tylenol No.3) 1 tab Q6H PRN PO PAIN Last administered on 10/13/16 07:20; Admin Dose 1 TAB; Start 10/10/16 at 12:00 Docusate Sodium (Colace Liquid Cup) 100 mg Q12H PRN PO CONSTIPATION; Start at 14:30 SON AKHTAR MD Oct 13, 2016 18:52
--- NOTE | 2016-10-13 19:46 | PN ---
DATE: REFERRING PHYSICIAN: Dr. Akhtar. SUBJECTIVE: The patient is a 61-year-old with underlying acute onset stroke with right middle cereb ral artery ischemic stroke, it is hemorrhagic x4 transformation with left hemiplegia. CURRENT MEDICATIONS: Include: 1. Colace 100 mg twice a day. 2. Morphine sulfate 2 mg every 3 hours as needed. 3. Cardizem once a day. 4. Zofran 4 mg every 4 hours as needed. 5. Albuterol inhaler twice a day. 6. Tylenol 650 mg. OBJECTIVE: GENERAL: Today, the patient is alert, awake, oriented for time, place, and person. Has slurred spe ech. CRANIAL NERVES: Cranial nerve II: Pupils equal on both sides, reactive to light. Cranial nerves I II, IV, and : Extraocular muscles intact. Cranial nerve V: Equal sensation to face. Cranial ne rve VII: Decreased nasolabial fold on the left side. Cranial nerve VIII: Decreased hearing bilate rally. Cranial nerve IX, X: Elevates palate. Cranial nerve XI: Elevates shoulder 5/5. Cranial n erve XII: With straight tongue. MOTOR: Left side is 1/5. Right side is 4+/5. SENSATION: Decreased on the left side for light touch and temperature. COORDINATION: [id number] test intact on the right. Left side with weakness. HEART: Regular rate and rhythm. LUNGS: Equal breath sounds. ABDOMEN: Soft, relaxed, nondistended. No tenderness. ASSESSMENT AND PLAN: 1. The patient is a 61-year-old with underlying left hemiplegia. 2. Status post middle cerebral artery stroke with hemorrhagic transformation. 3. Gait difficulty secondary to left hemiplegia. 4. Follow up the patient with physical therapy and rehabilitation. 5. Left upper extremity weakness. Follow up the patient with occupational therapy. 6. Keep the patient under deep venous thrombosis prophylaxis as well as decubitus ulcer prophylaxis . Again, thank you, Dr. Akhtar, for asking me to see the patient with you. Dictated By: BURTON FOWLER/NTS Conf#: [id number] DID#: [id number] CC: SON AKHTAR MD;*EndCC*
--- NOTE | 2016-10-13 23:03 | CONS ---
Date/Time of Note Date/Time of Note DATE: 10/13/16 TIME: 23:01 Assessment/Plan Assessment/Plan Additional Assessment/Plan Additional Assessment/Plan IMPRESSION: 1. 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 2. Diabetes mellitus. 3. Hypertension. 4. Atrial fibrillation. 5. Status post chest surgery. I note has got a bioprosthetic aortic valve ___ _ the mitral valve repaired, nothing is clear-cut. 6. Dysphagia with aspiration. 7. Abnormal LFT with a dilated biliary system, rule out bile duct stone, statin induced. Plan Patient was scheduled for PEG. Yesterday son had agreed and this morning he declined it. Son wants another swallow study. MRCP to rule out bile duct stone,not done today Consultation Date/Type/Reason Admit Date/Time Oct 06, 2016 at 15:49 Initial Consult Date 10/09/16 Type of Consultation: Cardiology Referring Provider: SON AKHTAR MD 24 HR Interval Summary Constitutional: no complaints Exam/Review of Systems Vital Signs Vitals Vital Signs Date Time Temp Pulse Resp B/P Pulse Ox O2 Delivery O2 Flow Rate FiO2 10/13/16 20:41 114 10/13/16 20:35 98.7 18 149/89 95 10/13/16 06:36 21 10/12/16 11:00 Room Air Intake and Output 10/12/16 10/12/16 10/13/16 15:00 23:00 07:00 Intake Total 0 ml 400 ml 580 ml Output Total 235 ml 700 ml 750 ml Balance -235 ml -300 ml -170 ml Exam Constitutional: alert, oriented, well developed Psych: nl mood/affect, no complaints Head: atraumatic, normocephalic Eyes: EOMI, PERRL, nl conjunctiva, nl lids, nl sclera ENMT: nl external ears & nose, nl lips & teeth, nl nasal mucosa & septum Neck: non-tender, supple Respiratory: clear to auscultation, normal air movement Cardiovascular: nl pulses, regular rate and rhythm Gastrointestinal: nl liver, spleen, non-tender, soft Musculoskeletal: nl extremities to inspection, nl gait and stance Extremities: normal pulses Neurological: NEUROLOGICAL SURGEON II-XII intact, nl mental status, nl speech, nl strength Skin: nl turgor, No rash or lesions Lymph: nl lymph nodes Results Result Diagram: 3/28/17 0720 3/28/17 0720 Results 24 hrs Laboratory Tests Test 10/13/16 00:21 10/13/16 06:25 10/13/16 07:20 10/13/16 11:44 Bedside Glucose 119 132 134 White Blood Count 12.7 #H Red Blood Count 4.76 Hemoglobin 13.8 Hematocrit 41.5 Mean Corpuscular Volume 87.2 Mean Corpuscular Hemoglobin 29.0 Mean Corpuscular Hemoglobin Concent 33.3 Red Cell Distribution Width 13.2 Platelet Count 342 Mean Platelet Volume 9.6 Neutrophils % 81.2 H Lymphocytes % 10.2 L Monocytes % 7.0 Eosinophils % 0.9 Basophils % 0.2 Nucleated Red Blood Cells % 0.0 Neutrophils # 10.3 H Lymphocytes # 1.3 Monocytes # 0.9 Eosinophils # 0.1 Basophils # 0.0 Nucleated Red Blood Cells # 0.0 Sodium Level 134 L Potassium Level 4.1 Chloride Level 99 Carbon Dioxide Level 25 Anion Gap 14 Blood Urea Nitrogen 15 Creatinine 0.54 Glucose Level 164 Calcium Level 9.7 Total Bilirubin 0.4 Direct Bilirubin 0.00 Indirect Bilirubin 0.4 Aspartate Amino Transf (AST/SGOT) 87 H Alanine Aminotransferase (ALT/SGPT) 286 H Alkaline Phosphatase 476 H Total Protein 8.4 H Albumin 3.8 Globulin 4.60 H Albumin/Globulin Ratio 0.82 Medications Medications Current Medications Dextrose/Sodium Chloride (D5-1/2ns) 1,000 ml @ 30 mls/hr Q24H IV Last administered on 10/12/16 10:12; Admin Dose 30 MLS/HR; Start 10/06/16 at 15:46 Flumazenil (Romazicon) 0.2 mg Q1M PRN IV BENZODIAZEPINE OVERDOSE; Start at 16:00 Naloxone HCl (Narcan) 0.4 mg Q3M PRN IV DECREASED REPIRATORY RATE; Start at 16:00 Ondansetron HCl (Zofran Inj) 4 mg Q6H PRN IV NAUSEA AND/OR VOMITING; Start at 16:00 Acetaminophen (Tylenol Liquid) 650 mg Q6H PRN PO PAIN LEVEL 1-3 OR FEVER Last administered on 10/11/16 10:05; Admin Dose 650 MG; Start 10/06/16 at 16:00 Acetaminophen (Tylenol Tab) 650 mg Q6H PRN PO PAIN LEVEL 1-3 OR FEVER; Start at 16:00 Magnesium Hydroxide (Milk Of Mag) 30 ml DAILY PRN PO CONSTIPATION Last administered on 10/13/16 08:41; Admin Dose 30 ML; Start 10/06/16 at 16:00 Bisacodyl (Dulcolax) 5 mg DAILY PRN PO CONSTIPATION; Start 10/06/16 at 16:00 Pantoprazole (Protonix Iv) 40 mg DAILY@06 IV Last administered on 10/13/16 06: 26; Admin Dose 40 MG; Start 10/07/16 at 06:00 Miscellaneous Information 1 ea NOTE XX ; Start 10/09/16 at 09:30 Glucose (Glutose) 15 gm Q15M PRN PO DECREASED GLUCOSE; Start 10/09/16 at 09:30 Glucose (Glutose) 22.5 gm Q15M PRN PO DECREASED GLUCOSE; Start 10/09/16 at 09: 30 Dextrose (D50w Syringe) 25 ml Q15M PRN IV DECREASED GLUCOSE; Start 10/09/16 at 09:30 Dextrose (D50w Syringe) 50 ml Q15M PRN IV DECREASED GLUCOSE; Start 10/09/16 at 09:30 Glucagon (Glucagen) 1 mg Q15M PRN IM DECREASED GLUCOSE; Start 10/09/16 at 09:30 Glucose (Glutose) 15 gm Q15M PRN BUCCAL DECREASED GLUCOSE; Start 10/09/16 at 09 :30 Diltiazem HCl (Cardizem Iv) 5 mg Q4H PRN IV PRN HR>110 Hold SBP<100 Last administered on 10/13/16 07:06; Admin Dose 5 MG; Start 10/09/16 at 11:30 Brimonidine Tartrate (Alphagan 0.2%) 2 drop Q4 LEFT EYE Last administered on 22:06; Admin Dose 2 DROP; Start 10/09/16 at 21:00 Prednisolone Acetate (Pred-Forte 1%) 2 drop Q4 LEFT EYE Last administered on 22:06; Admin Dose 2 DROP; Start 10/09/16 at 21:00 Morphine Sulfate (morphine) 2 mg Q3H PRN IV PAIN Last administered on 04:58; Admin Dose 2 MG; Start 10/09/16 at 21:00 Insulin Aspart (Novolog Insulin Pen) (Adult SC Insulin - Mild Algorithm)... Q6 SC Last administered on 10/11/16 12:31; Admin Dose 1 UNIT; Start 10/10/16 at 00:00 Docusate Sodium (Colace Liquid Cup) 100 mg BID NGT Last administered on 22:06; Admin Dose 100 MG; Start 10/10/16 at 11:30 Acetaminophen/ Codeine Phosphate (Tylenol No.3) 1 tab Q6H PRN PO PAIN Last administered on 10/13/16 07:20; Admin Dose 1 TAB; Start 10/10/16 at 12:00 Docusate Sodium (Colace Liquid Cup) 100 mg Q12H PRN PO CONSTIPATION; Start at 14:30 EDSON PÉREZ MD Oct 13, 2016 23:03
[2016-10-14] VITALS (13 sets, daily range): BP systolic 122–198; BP diastolic 78–102; PULSE 96–108; RESP 18–22
[2016-10-14] MEDS: DEXTROSE 5%-0.45% NACL 1,000 ML IV SCH (00:19)
[2016-10-14] MEDS: PREDNISOLONE ACET 1% 5 ML OPH LEFT EYE SCH ×5 (00:20→16:14)
[2016-10-14] MEDS: BRIMONIDINE 0.2% 5 ML BTL LEFT EYE SCH ×5 (00:20→16:15)
[2016-10-14] MEDS: Insulin NOVOLOG SS MILD Algorithm (NPO/TPN/ENTERAL FEEDS) SC SCH ×4 (05:30→19:11)
[2016-10-14] MEDS: PANTOPRAZOLE 40 MG INJ IV SCH (05:30)
[2016-10-14] MEDS: morphine 2 MG INJ IV PRN ×2 (05:35→19:08)
[2016-10-14] MEDS: DILTIAZEM 25 MG INJ IV PRN (05:59)
[2016-10-14 08:19] LABS: ADD SCAN DIFF NO
[2016-10-14 08:28] LABS: BASOPHILS % 0.1 % (0.0-2.0); EOSINOPHILS # 0.1 10^3/ul (0.0-0.5); EOSINOPHILS % 0.6 % (0.0-7.0); HEMATOCRIT 42.8 % (37.0-47.0); HEMOGLOBIN 13.9 g/dl (12.0-16.0); LYMPHOCYTES # 1.2 10^3/ul (0.8-2.9); LYMPHOCYTES % 8.7 % (15.0-51.0); MEAN CORPUSCULAR HEMOGLOBIN 28.5 pg (29.0-33.0); MEAN CORPUSCULAR HGB CONC 32.5 g/dl (32.0-37.0); MEAN CORPUSCULAR VOLUME 87.9 fl (82.0-101.0); MONOCYTE # 1.1 10^3/ul (0.3-0.9); MONOCYTES % 7.5 % (0.0-11.0); NEUTROPHIL # 11.6 10^3/ul (1.6-7.5); NEUTROPHILS % 82.7 % (39.0-77.0); PLATELET COUNT 322 10^3/UL (140-415); RED BLOOD COUNT 4.87 10^6/ul (4.20-5.40); RED CELL DISTRIBUTION WIDTH 13.4 % (11.5-14.5); WHITE BLOOD COUNT 14.1 10^3/ul (4.8-10.8)
[2016-10-14] MEDS: ACETAMINOPHEN 650MG/20.3ML CUP PO PRN (08:54)
[2016-10-14] MEDS: DOCUSATE SODIUM 10 MG/ML (10ML CUP) NGT SCH ×2 (08:54→22:26)
--- NOTE | 2016-10-14 17:50 | CONS ---
Date/Time of Note Date/Time of Note DATE: 10/14/16 TIME: 17:50 Assessment/Plan Assessment/Plan Additional Assessment/Plan IMPRESSION: 1. 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 2. Diabetes mellitus. 3. Hypertension. 4. Atrial fibrillation. 5. Status post chest surgery. I note has got a bioprosthetic aortic valve ___ _ the mitral valve repaired, nothing is clear-cut. 6. Dysphagia with aspiration. 7. Abnormal LFT with a dilated biliary system, rule out bile duct stone, statin induced. Plan Patient was scheduled for PEG,tomorrow,son agreed Son wants another swallow study. MRCP to rule out bile duct stone,not done today Consultation Date/Type/Reason Admit Date/Time Oct 06, 2016 at 15:49 Initial Consult Date 10/09/16 Type of Consultation: Cardiology Referring Provider: SON AKHTAR MD 24 HR Interval Summary Constitutional: improved, no complaints Exam/Review of Systems Vital Signs Vitals Vital Signs Date Time Temp Pulse Resp B/P Pulse Ox O2 Delivery O2 Flow Rate FiO2 10/14/16 16:23 105 10/14/16 16:15 98.9 20 172/96 98 10/13/16 06:36 21 10/12/16 11:00 Room Air Intake and Output 10/13/16 10/13/16 10/14/16 15:00 23:00 07:00 Intake Total 220 ml 700 ml Output Total 650 ml 400 ml Balance -430 ml 300 ml Exam Constitutional: alert, oriented, well developed Psych: nl mood/affect, no complaints Head: atraumatic, normocephalic Eyes: EOMI, PERRL, nl conjunctiva, nl lids, nl sclera ENMT: nl external ears & nose, nl lips & teeth, nl nasal mucosa & septum Neck: non-tender, supple Respiratory: clear to auscultation, normal air movement Cardiovascular: nl pulses, regular rate and rhythm Gastrointestinal: nl liver, spleen, non-tender, soft Musculoskeletal: nl extremities to inspection, nl gait and stance Extremities: normal pulses Neurological: RIPSHEAR OPERATOR II-XII intact, nl mental status, nl speech, nl strength Skin: nl turgor, No rash or lesions Lymph: nl lymph nodes Results Result Diagram: 10/14/16 0715 10/13/16 0720 Results 24 hrs Laboratory Tests Test 10/14/16 00:19 10/14/16 05:30 10/14/16 07:15 10/14/16 12:14 Bedside Glucose 128 140 137 White Blood Count 14.1 H Red Blood Count 4.87 Hemoglobin 13.9 Hematocrit 42.8 Mean Corpuscular Volume 87.9 Mean Corpuscular Hemoglobin 28.5 L Mean Corpuscular Hemoglobin Concent 32.5 Red Cell Distribution Width 13.4 Platelet Count 322 Mean Platelet Volume 10.0 Neutrophils % 82.7 H Lymphocytes % 8.7 L Monocytes % 7.5 Eosinophils % 0.6 Basophils % 0.1 Nucleated Red Blood Cells % 0.0 Neutrophils # 11.6 H Lymphocytes # 1.2 Monocytes # 1.1 H Eosinophils # 0.1 Basophils # 0.0 Nucleated Red Blood Cells # 0.0 Medications Medications Current Medications Dextrose/Sodium Chloride (D5-1/2ns) 1,000 ml @ 30 mls/hr Q24H IV Last administered on 10/14/16 00:19; Admin Dose 30 MLS/HR; Start 10/06/16 at 15:46 Flumazenil (Romazicon) 0.2 mg Q1M PRN IV BENZODIAZEPINE OVERDOSE; Start at 16:00 Naloxone HCl (Narcan) 0.4 mg Q3M PRN IV DECREASED REPIRATORY RATE; Start at 16:00 Ondansetron HCl (Zofran Inj) 4 mg Q6H PRN IV NAUSEA AND/OR VOMITING; Start at 16:00 Acetaminophen (Tylenol Liquid) 650 mg Q6H PRN PO PAIN LEVEL 1-3 OR FEVER Last administered on 10/14/16 08:54; Admin Dose 650 MG; Start 10/06/16 at 16:00 Acetaminophen (Tylenol Tab) 650 mg Q6H PRN PO PAIN LEVEL 1-3 OR FEVER; Start at 16:00 Magnesium Hydroxide (Milk Of Mag) 30 ml DAILY PRN PO CONSTIPATION Last administered on 10/13/16 08:41; Admin Dose 30 ML; Start 10/06/16 at 16:00 Bisacodyl (Dulcolax) 5 mg DAILY PRN PO CONSTIPATION; Start 10/06/16 at 16:00 Pantoprazole (Protonix Iv) 40 mg DAILY@06 IV Last administered on 10/14/16 05: 30; Admin Dose 40 MG; Start 10/07/16 at 06:00 Miscellaneous Information 1 ea NOTE XX ; Start 10/09/16 at 09:30 Glucose (Glutose) 15 gm Q15M PRN PO DECREASED GLUCOSE; Start 10/09/16 at 09:30 Glucose (Glutose) 22.5 gm Q15M PRN PO DECREASED GLUCOSE; Start 10/09/16 at 09: 30 Dextrose (D50w Syringe) 25 ml Q15M PRN IV DECREASED GLUCOSE; Start 10/09/16 at 09:30 Dextrose (D50w Syringe) 50 ml Q15M PRN IV DECREASED GLUCOSE; Start 10/09/16 at 09:30 Glucagon (Glucagen) 1 mg Q15M PRN IM DECREASED GLUCOSE; Start 10/09/16 at 09:30 Glucose (Glutose) 15 gm Q15M PRN BUCCAL DECREASED GLUCOSE; Start 10/09/16 at 09 :30 Diltiazem HCl (Cardizem Iv) 5 mg Q4H PRN IV PRN HR>110 Hold SBP<100 Last administered on 10/14/16 05:59; Admin Dose 5 MG; Start 10/09/16 at 11:30 Brimonidine Tartrate (Alphagan 0.2%) 2 drop Q4 LEFT EYE Last administered on 16:15; Admin Dose 2 DROP; Start 10/09/16 at 21:00 Prednisolone Acetate (Pred-Forte 1%) 2 drop Q4 LEFT EYE Last administered on 16:14; Admin Dose 2 DROP; Start 10/09/16 at 21:00 Morphine Sulfate (morphine) 2 mg Q3H PRN IV PAIN Last administered on 05:35; Admin Dose 2 MG; Start 10/09/16 at 21:00 Insulin Aspart (Novolog Insulin Pen) (Adult SC Insulin - Mild Algorithm)... Q6 SC Last administered on 10/11/16 12:31; Admin Dose 1 UNIT; Start 10/10/16 at 00:00 Docusate Sodium (Colace Liquid Cup) 100 mg BID NGT Last administered on 08:54; Admin Dose 100 MG; Start 10/10/16 at 11:30 Acetaminophen/ Codeine Phosphate (Tylenol No.3) 1 tab Q6H PRN PO PAIN Last administered on 10/13/16 07:20; Admin Dose 1 TAB; Start 10/10/16 at 12:00 Docusate Sodium (Colace Liquid Cup) 100 mg Q12H PRN PO CONSTIPATION; Start at 14:30 EDSON PÉREZ MD Oct 14, 2016 17:50
--- NOTE | 2016-10-14 19:23 | PN ---
Date/Time of Note Date/Time of Note DATE: 10/14/16 TIME: 19:21 Assessment/Plan VTE Prophylaxis VTE Prophylaxis Intervention: other Lines/Catheters IV Catheter Type (from Nrs): Saline Lock Urinary Cath still in place: Yes Reason Cath still needed: other (indicate) Assessment/Plan Chief Complaint/Hosp Course [id number] cerebrovascular accident and left-sided weakness, 2hypertension,3 diabetes mellitus. 4The patient has atrial fibrillation on the monitor. [id number] hx valve replacement hemorragic cva leucocytosis plan per dr nilo lea d/w family [facility] PEGlabs am LIVER seen per gi Problems: Subjective 24 Hr Interval Summary Respiratory: no complaints Cardiovascular: no complaints Exam/Review of Systems Vital Signs Vitals Vital Signs Date Time Temp Pulse Resp B/P Pulse Ox O2 Delivery O2 Flow Rate FiO2 10/14/16 16:23 105 10/14/16 16:15 98.9 20 172/96 98 10/13/16 06:36 21 10/12/16 11:00 Room Air Intake and Output 10/13/16 10/13/16 10/14/16 15:00 23:00 07:00 Intake Total 220 ml 700 ml Output Total 650 ml 400 ml Balance -430 ml 300 ml Exam Neck: supple Respiratory: clear to auscultation Cardiovascular: regular rate and rhythm Gastrointestinal: soft Musculoskeletal: nl extremities to inspection Extremities: normal pulses Results Result Diagram: 10/14/16 0715 10/13/16 0720 Results 24 hrs Laboratory Tests Test 10/14/16 00:19 10/14/16 05:30 10/14/16 07:15 10/14/16 12:14 Bedside Glucose 128 140 137 White Blood Count 14.1 H Red Blood Count 4.87 Hemoglobin 13.9 Hematocrit 42.8 Mean Corpuscular Volume 87.9 Mean Corpuscular Hemoglobin 28.5 L Mean Corpuscular Hemoglobin Concent 32.5 Red Cell Distribution Width 13.4 Platelet Count 322 Mean Platelet Volume 10.0 Neutrophils % 82.7 H Lymphocytes % 8.7 L Monocytes % 7.5 Eosinophils % 0.6 Basophils % 0.1 Nucleated Red Blood Cells % 0.0 Neutrophils # 11.6 H Lymphocytes # 1.2 Monocytes # 1.1 H Eosinophils # 0.1 Basophils # 0.0 Nucleated Red Blood Cells # 0.0 Test 10/14/16 18:59 Bedside Glucose 142 Medications Medications Current Medications Dextrose/Sodium Chloride (D5-1/2ns) 1,000 ml @ 30 mls/hr Q24H IV Last administered on 10/14/16 00:19; Admin Dose 30 MLS/HR; Start 10/06/16 at 15:46 Flumazenil (Romazicon) 0.2 mg Q1M PRN IV BENZODIAZEPINE OVERDOSE; Start at 16:00 Naloxone HCl (Narcan) 0.4 mg Q3M PRN IV DECREASED REPIRATORY RATE; Start at 16:00 Ondansetron HCl (Zofran Inj) 4 mg Q6H PRN IV NAUSEA AND/OR VOMITING; Start at 16:00 Acetaminophen (Tylenol Liquid) 650 mg Q6H PRN PO PAIN LEVEL 1-3 OR FEVER Last administered on 10/14/16 08:54; Admin Dose 650 MG; Start 10/06/16 at 16:00 Acetaminophen (Tylenol Tab) 650 mg Q6H PRN PO PAIN LEVEL 1-3 OR FEVER; Start at 16:00 Magnesium Hydroxide (Milk Of Mag) 30 ml DAILY PRN PO CONSTIPATION Last administered on 10/13/16 08:41; Admin Dose 30 ML; Start 10/06/16 at 16:00 Bisacodyl (Dulcolax) 5 mg DAILY PRN PO CONSTIPATION; Start 10/06/16 at 16:00 Pantoprazole (Protonix Iv) 40 mg DAILY@06 IV Last administered on 10/14/16 05: 30; Admin Dose 40 MG; Start 10/07/16 at 06:00 Miscellaneous Information 1 ea NOTE XX ; Start 10/09/16 at 09:30 Glucose (Glutose) 15 gm Q15M PRN PO DECREASED GLUCOSE; Start 10/09/16 at 09:30 Glucose (Glutose) 22.5 gm Q15M PRN PO DECREASED GLUCOSE; Start 10/09/16 at 09: 30 Dextrose (D50w Syringe) 25 ml Q15M PRN IV DECREASED GLUCOSE; Start 10/09/16 at 09:30 Dextrose (D50w Syringe) 50 ml Q15M PRN IV DECREASED GLUCOSE; Start 10/09/16 at 09:30 Glucagon (Glucagen) 1 mg Q15M PRN IM DECREASED GLUCOSE; Start 10/09/16 at 09:30 Glucose (Glutose) 15 gm Q15M PRN BUCCAL DECREASED GLUCOSE; Start 10/09/16 at 09 :30 Diltiazem HCl (Cardizem Iv) 5 mg Q4H PRN IV PRN HR>110 Hold SBP<100 Last administered on 10/14/16 05:59; Admin Dose 5 MG; Start 10/09/16 at 11:30 Brimonidine Tartrate (Alphagan 0.2%) 2 drop Q4 LEFT EYE Last administered on 16:15; Admin Dose 2 DROP; Start 10/09/16 at 21:00 Prednisolone Acetate (Pred-Forte 1%) 2 drop Q4 LEFT EYE Last administered on 16:14; Admin Dose 2 DROP; Start 10/09/16 at 21:00 Morphine Sulfate (morphine) 2 mg Q3H PRN IV PAIN Last administered on 19:08; Admin Dose 2 MG; Start 10/09/16 at 21:00 Insulin Aspart (Novolog Insulin Pen) (Adult SC Insulin - Mild Algorithm)... Q6 SC Last administered on 10/14/16 19:11; Admin Dose 1 UNIT; Start 10/10/16 at 00:00 Docusate Sodium (Colace Liquid Cup) 100 mg BID NGT Last administered on 08:54; Admin Dose 100 MG; Start 10/10/16 at 11:30 Acetaminophen/ Codeine Phosphate (Tylenol No.3) 1 tab Q6H PRN PO PAIN Last administered on 10/13/16 07:20; Admin Dose 1 TAB; Start 10/10/16 at 12:00 Docusate Sodium (Colace Liquid Cup) 100 mg Q12H PRN PO CONSTIPATION; Start at 14:30 SON AKHTAR MD Oct 14, 2016 19:22
--- NOTE | 2016-10-14 21:07 | RADRPT ---
PROCEDURE: MRCP. CLINICAL INDICATION: Right upper quadrant pain. TECHNIQUE: Axial single shot fast-spin echo, axial and coronal fat-saturated FIESTA, single-shot M VASCULAR NEUROLOGIST using both thick and thin-slab collimation, and 3D MRCP were performed. COMPARISON: Ultrasound, 10/12/2016. FINDINGS: Gallbladder is surgically absent. There is mild intra and extrahepatic bile duct dilatation without filling defect. No filling defect or choledocholithiasis. No biliary stricture or obstruction. Pancreatic duct, as visualized, is equally unremarkable. IMPRESSION: Surgical absence of the gallbladder with presumed compensatory dilatation of the biliary system with out evidence of filling defect, choledocholithiasis, or biliary obstruction. RPTAT: [facility] .Rodri Christina MD, MD Date Time Electronically viewed and signed by .Rodri Christina MD, MD on 10/14/2016 21:07 .C/
--- NOTE | 2016-10-14 21:18 | CONS ---
DATE OF ADMISSION: 10/06/2016 DATE OF CONSULTATION: REFERRING PHYSICIAN: Dr. Akhtar. Thank you for asking me to see the patient. 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 CURRENT MEDICATIONS: Include: 1. Colace 100 mg once a day. 2. Morphine sulfate 2 mg as needed. 3. Cardizem as needed. 4. Zofran 4 mg every 4 hours as needed. 5. Albuterol inhaler twice a day. 6. Tylenol 650 mg once a day. PHYSICAL EXAMINATION: GENERAL: Today, the patient is alert, oriented for time, place, and person. Normal speech and norm al language. CRANIAL NERVES: Cranial nerve II: Pupils equal on both sides, reactive to light. Cranial nerves I II, IV, and : Extraocular muscles intact. Cranial nerve V: Equal sensation to face. Cranial ne rve VII: Decreased nasolabial fold on the left side. Cranial nerve VIII: Decreased hearing bilate rally. Cranial nerve IX, X: Elevates palate. Cranial nerve XI: Elevates shoulder 5/5. Cranial n erve XII: With straight tongue. MOTOR: Left side 1/5. Right side 4/5. SENSATION: Decreased for glove and sock area for light touch, was diminished on the left side. COORDINATION: [id number] test intact on the right side. Left side with weakness. HEART: Regular rate and rhythm. LUNGS: Equal breath sounds. ABDOMEN: Soft, relaxed, nondistended. No tenderness. ASSESSMENT AND PLAN: The patient is a 61-year-old with left hemiplegia, status post middle cerebral artery stroke with hemorrhagic transformation. 1. Gait difficulty. We will follow up the patient with physical therapy for left hemiplegia. 2. Left upper extremity weakness. Follow up the patient with occupational therapy and acute rehabi litation. 3. Keep the patient under deep venous thrombosis prophylaxis as well as decubitus ulcer prophylaxis . Again, thank you for asking me to see the patient with you. Dictated By: BURTON NOE MD NA/NTS Conf#: [id number] DID#: [id number] CC: SON AKHTAR MD;*EndCC*
[2016-10-14] MEDS ORDERED: hydrALAzine 20 MG INJ IV PRN (22:30)
[2016-10-14] MEDS: ACETAMINOPHEN/CODEINE #3 TAB PO PRN (22:32)
[2016-10-15] VITALS (19 sets, daily range): BP systolic 95–137; BP diastolic 61–89; PULSE 97–160; RESP 17–25
[2016-10-15] MEDS: BRIMONIDINE 0.2% 5 ML BTL LEFT EYE SCH ×7 (01:00→20:51)
[2016-10-15] MEDS: PREDNISOLONE ACET 1% 5 ML OPH LEFT EYE SCH ×7 (01:00→20:50)
[2016-10-15] MEDS: morphine 2 MG INJ IV PRN ×4 (01:11→19:40)
[2016-10-15] MEDS: DEXTROSE 5%-0.45% NACL 1,000 ML IV SCH (04:30)
[2016-10-15] MEDS: Insulin NOVOLOG SS MILD Algorithm (NPO/TPN/ENTERAL FEEDS) SC SCH ×4 (06:00→17:49)
[2016-10-15] MEDS: PANTOPRAZOLE 40 MG INJ IV SCH (06:27)
[2016-10-15] MEDS: DILTIAZEM 25 MG INJ IV PRN (06:42)
[2016-10-15 08:01] LABS: ADD SCAN DIFF NO
[2016-10-15] MEDS: DOCUSATE SODIUM 10 MG/ML (10ML CUP) NGT SCH ×2 (08:06→20:51)
[2016-10-15 08:09] LABS: BASOPHILS % 0.1 % (0.0-2.0); EOSINOPHILS # 0.1 10^3/ul (0.0-0.5); EOSINOPHILS % 0.6 % (0.0-7.0); HEMATOCRIT 40.8 % (37.0-47.0); HEMOGLOBIN 12.9 g/dl (12.0-16.0); LYMPHOCYTES # 1.2 10^3/ul (0.8-2.9); LYMPHOCYTES % 8.2 % (15.0-51.0); MEAN CORPUSCULAR HGB CONC 31.6 g/dl (32.0-37.0); MEAN CORPUSCULAR VOLUME 88.5 fl (82.0-101.0); MEAN PLATELET VOLUME 9.6 fl (7.4-10.4); MONOCYTE # 1.3 10^3/ul (0.3-0.9); MONOCYTES % 8.6 % (0.0-11.0); NEUTROPHIL # 12.1 10^3/ul (1.6-7.5); PLATELET COUNT 365 10^3/UL (140-415); RED BLOOD COUNT 4.61 10^6/ul (4.20-5.40); RED CELL DISTRIBUTION WIDTH 13.6 % (11.5-14.5); WHITE BLOOD COUNT 14.8 10^3/ul (4.8-10.8)
[2016-10-15 08:22] LABS: INR 1.1; PROTIME 14.2 Sec (12.2-14.2); PT RATIO 1.1
[2016-10-15 08:23] LABS: PARTIAL THROMBOPLASTIN TIME 33.2 Sec (25.0-35.0)
[2016-10-15 08:43] LABS: POTASSIUM 4.6 mmol/L (3.5-5.1)
[2016-10-15 08:46] LABS: CREATININE 0.59 mg/dl (0.44-1.00)
[2016-10-15 08:47] LABS: CALCIUM 9.7 mg/dl (8.4-10.2)
[2016-10-15] MEDS ORDERED: DIGOXIN 500 MCG INJ IV ONE ×2 (09:00→15:00)
[2016-10-15] MEDS ORDERED: METOPROLOL 25 MG TAB NGT SCH (10:00)
--- NOTE | 2016-10-15 10:23 | CONS ---
Date/Time of Note Date/Time of Note DATE: 10/15/16 TIME: 10:20 Assessment/Plan Assessment/Plan Additional Assessment/Plan Additional Assessment/Plan IMPRESSION: 1. 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 2. Diabetes mellitus. 3. Hypertension. 4. Atrial fibrillation. This morning patient had rapid ventricular response, she was given IV digoxin 5. Status post chest surgery. I do not know whether has got a bioprosthetic aortic valve or the mitral valve repaired, nothing is clear-cut. 6. Dysphagia with aspiration. 7. Abnormal LFT with a dilated biliary system, rule out bile duct stone, statin induced. Plan Patient is cleared for PEG today Son wants another swallow study. MRCP was negative for bile duct stone. However MRCP can miss 10% of biliary stone close to the ampulla Consultation Date/Type/Reason Admit Date/Time Oct 06, 2016 at 15:49 Initial Consult Date 10/09/16 Type of Consultation: Cardiology Referring Provider: SON AKHTAR MD 24 HR Interval Summary Constitutional: no complaints Exam/Review of Systems Vital Signs Vitals Vital Signs Date Time Temp Pulse Resp B/P Pulse Ox O2 Delivery O2 Flow Rate FiO2 10/15/16 08:39 129 10/15/16 07:53 Nasal Cannula 2.0 10/15/16 07:46 97.6 20 123/70 97 10/13/16 06:36 21 Intake and Output 10/14/16 10/14/16 10/15/16 15:00 23:00 07:00 Intake Total 90 ml 687 ml Output Total 900 ml 500 ml Balance -810 ml 187 ml Exam Constitutional: alert, oriented, well developed Psych: nl mood/affect, no complaints Head: atraumatic, normocephalic Eyes: EOMI, PERRL, nl conjunctiva, nl lids, nl sclera ENMT: nl external ears & nose, nl lips & teeth, nl nasal mucosa & septum Neck: non-tender, supple Respiratory: clear to auscultation, normal air movement Cardiovascular: nl pulses, regular rate and rhythm Gastrointestinal: nl liver, spleen, non-tender, soft Musculoskeletal: nl extremities to inspection, nl gait and stance Extremities: normal pulses Neurological: 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, nl mental status, nl speech, nl strength Skin: nl turgor, No rash or lesions Lymph: nl lymph nodes Results Result Diagram: 10/15/16 0720 10/15/16 0720 Results 24 hrs Laboratory Tests Test 10/14/16 12:14 10/14/16 18:59 10/15/16 00:58 10/15/16 06:29 Bedside Glucose 137 142 140 134 Test 10/15/16 07:20 White Blood Count 14.8 H Red Blood Count 4.61 Hemoglobin 12.9 Hematocrit 40.8 Mean Corpuscular Volume 88.5 Mean Corpuscular Hemoglobin 28.0 L Mean Corpuscular Hemoglobin Concent 31.6 L Red Cell Distribution Width 13.6 Platelet Count 365 Mean Platelet Volume 9.6 Neutrophils % 82.0 H Lymphocytes % 8.2 L Monocytes % 8.6 Eosinophils % 0.6 Basophils % 0.1 Nucleated Red Blood Cells % 0.0 Neutrophils # 12.1 H Lymphocytes # 1.2 Monocytes # 1.3 H Eosinophils # 0.1 Basophils # 0.0 Nucleated Red Blood Cells # 0.0 Prothrombin Time 14.2 Prothrombin Time Ratio 1.1 INR International Normalized Ratio 1.10 Activated Partial Thromboplast Time 33.2 Sodium Level 134 L Potassium Level 4.6 Chloride Level 98 Carbon Dioxide Level 27 Anion Gap 14 Blood Urea Nitrogen 21 H Creatinine 0.59 Glucose Level 153 Calcium Level 9.7 Medications Medications Current Medications Dextrose/Sodium Chloride (D5-1/2ns) 1,000 ml @ 30 mls/hr Q24H IV Last administered on 10/15/16 04:30; Admin Dose 30 MLS/HR; Start 10/06/16 at 15:46 Flumazenil (Romazicon) 0.2 mg Q1M PRN IV BENZODIAZEPINE OVERDOSE; Start at 16:00 Naloxone HCl (Narcan) 0.4 mg Q3M PRN IV DECREASED REPIRATORY RATE; Start at 16:00 Ondansetron HCl (Zofran Inj) 4 mg Q6H PRN IV NAUSEA AND/OR VOMITING; Start at 16:00 Acetaminophen (Tylenol Liquid) 650 mg Q6H PRN PO PAIN LEVEL 1-3 OR FEVER Last administered on 10/14/16 08:54; Admin Dose 650 MG; Start 10/06/16 at 16:00 Acetaminophen (Tylenol Tab) 650 mg Q6H PRN PO PAIN LEVEL 1-3 OR FEVER; Start at 16:00 Magnesium Hydroxide (Milk Of Mag) 30 ml DAILY PRN PO CONSTIPATION Last administered on 10/13/16 08:41; Admin Dose 30 ML; Start 10/06/16 at 16:00 Bisacodyl (Dulcolax) 5 mg DAILY PRN PO CONSTIPATION; Start 10/06/16 at 16:00 Pantoprazole (Protonix Iv) 40 mg DAILY@06 IV Last administered on 10/15/16 06: 27; Admin Dose 40 MG; Start 10/07/16 at 06:00 Miscellaneous Information 1 ea NOTE XX ; Start 10/09/16 at 09:30 Glucose (Glutose) 15 gm Q15M PRN PO DECREASED GLUCOSE; Start 10/09/16 at 09:30 Glucose (Glutose) 22.5 gm Q15M PRN PO DECREASED GLUCOSE; Start 10/09/16 at 09: 30 Dextrose (D50w Syringe) 25 ml Q15M PRN IV DECREASED GLUCOSE; Start 10/09/16 at 09:30 Dextrose (D50w Syringe) 50 ml Q15M PRN IV DECREASED GLUCOSE; Start 10/09/16 at 09:30 Glucagon (Glucagen) 1 mg Q15M PRN IM DECREASED GLUCOSE; Start 10/09/16 at 09:30 Glucose (Glutose) 15 gm Q15M PRN BUCCAL DECREASED GLUCOSE; Start 10/09/16 at 09 :30 Diltiazem HCl (Cardizem Iv) 5 mg Q4H PRN IV PRN HR>110 Hold SBP<100 Last administered on 10/15/16 06:42; Admin Dose 5 MG; Start 10/09/16 at 11:30 Brimonidine Tartrate (Alphagan 0.2%) 2 drop Q4 LEFT EYE Last administered on 09:06; Admin Dose 2 DROP; Start 10/09/16 at 21:00 Prednisolone Acetate (Pred-Forte 1%) 2 drop Q4 LEFT EYE Last administered on 09:06; Admin Dose 2 DROP; Start 10/09/16 at 21:00 Morphine Sulfate (morphine) 2 mg Q3H PRN IV PAIN Last administered on 06:42; Admin Dose 2 MG; Start 10/09/16 at 21:00 Insulin Aspart (Novolog Insulin Pen) (Adult SC Insulin - Mild Algorithm)... Q6 SC Last administered on 10/14/16 19:11; Admin Dose 1 UNIT; Start 10/10/16 at 00:00 Docusate Sodium (Colace Liquid Cup) 100 mg BID NGT Last administered on 22:26; Admin Dose 100 MG; Start 10/10/16 at 11:30 Acetaminophen/ Codeine Phosphate (Tylenol No.3) 1 tab Q6H PRN PO PAIN Last administered on 10/14/16 22:32; Admin Dose 1 TAB; Start 10/10/16 at 12:00 Docusate Sodium (Colace Liquid Cup) 100 mg Q12H PRN PO CONSTIPATION; Start at 14:30 Hydralazine HCl (Apresoline) 10 mg Q6H PRN IV ELEVATED BLOOD PRESSURE; Start at 22:30 Metoprolol Tartrate (Lopressor) 25 mg BID NGT Last administered on 10/15/16 10 :03; Admin Dose 25 MG; Start 10/15/16 at 10:00 EDSON PÉREZ MD Oct 15, 2016 10:22
[2016-10-15] MEDS ORDERED: CEFAZOLIN 2 GM/50 ML (PMX) 50 ML IVPB ONE (11:07)
[2016-10-15] MEDS ORDERED: CEFAZOLIN 1 GM/50 ML (PMX) 50 ML IVPB ONE (11:07)
[2016-10-15] MEDS ORDERED: PROPOFOL 20 ML ONE (11:23)
[2016-10-15] MEDS ORDERED: LIDOCAINE 2% (SDV) 5 ML INJ ONE (11:23)
[2016-10-15 11:45] LABS: ADD UMIC YES; URINE BILIRUBIN (Dip) NEGATIVE (NEGATIVE); URINE BLOOD (Dip) 3+ (NEGATIVE); URINE COLOR YELLOW (YELLOW); URINE GLUCOSE (Dip) NEGATIVE (NEGATIVE); URINE KETONES (Dip) NEGATIVE (NEGATIVE); URINE LEUKOCYTE ESTERASE (Dip) 1+ (NEGATIVE); URINE NITRITE (Dip) NEGATIVE (NEGATIVE); URINE TOTAL PROTEIN (Dip) 2+ (NEGATIVE); URINE UROBILINOGEN (Dip) 1.0 E.U./dL (0.1-1.0)
[2016-10-15 12:02] LABS: BACTERIA,URINE MANY; SQUAMOUS EPITHELIAL CELL,UR FEW
--- NOTE | 2016-10-15 12:11 | GILP ---
DATE OF PROCEDURE: PROCEDURE: Percutaneous endoscopic gastrostomy. SURGEON: Edson Pérez MD INDICATIONS: A 61-year-old female with a CVA, dysphagia, is undergoing this procedure for placemen t of G-tube for long-term enteral nutrition. The risk of the procedure, related and unrelated compl ications, anesthetic risks, alternatives discussed and informed consent was obtained. DESCRIPTION OF PROCEDURE: The patient was brought to the GI lab, sedated by the anesthesiologist. She was given Ancef 2 grams. After obtaining sedation, scope was passed with much ease into esophag us and advanced further down into stomach and duodenum. There was no evidence of obstruction. By t ransillumination and digital palpation technique, appropriate site was chosen on the anterior abdomi nal wall. Site was sterilized with chlorhexidine solution, 2% Xylocaine instilled by safe method. A small incision was made. Through that incision, trocar stylus passed into the stomach. Stylet wa s removed. Through the hole of the tip of the catheter, the insertion wire was passed and the entir e procedure was completed by modified Ponsky technique. The patient was rescoped. The position of the internal bumper confirmed. External bumper secured. Tolerated the procedure very well. IMPRESSION: Successful placement of G-tube done. PLAN: Resume feeding after 6 hours, all the medications after 4 hours, and abdominal binder all the time. Dictated By: EDSON CAMPBELL/AUDRA Conf#: [id number] DID#: [id number] CC: SON AKHTAR MD; EDSON PÉREZ MD;*[facility]*
--- NOTE | 2016-10-15 13:23 | CONS ---
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 Recc: -Tele -serial ecg's -IVP PRN diltiazem at this time -Neuro following-Not on systemic anti-coag due to Hemm conversion -ASA held due to Hemm conversion on head CT -Follow MS closely -Will continue BB but change to atenolol and give additional dose of digoxin to improve HR closely Problems: Consultation Date/Type/Reason Admit Date/Time Oct 06, 2016 at 15:49 Initial Consult Date 10/06/2016 Type of Consultation: Cardiology Reason for Consultation AF Referring Provider: SON AKHTAR MD Exam/Review of Systems Vital Signs Vitals Vital Signs Date Time Temp Pulse Resp B/P Pulse Ox O2 Delivery O2 Flow Rate FiO2 10/15/16 13:00 99.2 102 20 123/89 97 10/15/16 12:28 Nasal Cannula 2.0 10/13/16 06:36 21 Intake and Output 10/14/16 10/14/16 10/15/16 15:00 23:00 07:00 Intake Total 90 ml 687 ml Output Total 900 ml 500 ml Balance -810 ml 187 ml Exam Review of Systems: CONSTITUTIONAL: No fevers, chills. PULMONARY: No sob CARDIOVASCULAR: No chest pain/palpitations GASTROINTESTINAL: ysphagia s/p G tube GENITOURINARY: No hematuria/dysuria. MUSCULOSKELETAL: No myagias/arthalgias. PSYCHIATRIC: The patient denies depression. NEUROLOGIC: Encephalopathic Constitutional: other (encephalopathic) Head: normocephalic ENMT: mucosa pink and moist Neck: jvd (8 cm water), supple Respiratory: diminished breath sounds (at bases/B) Cardiovascular: irregular rhythm (tachycardic) Gastrointestinal: non-tender, soft Musculoskeletal: muscle tone (normal) Extremities: edema (trace/B) Neurological: confused, lethargic Results Result Diagram: 10/15/16 0720 10/15/16 0720 Results 24 hrs Laboratory Tests Test 10/14/16 18:59 10/15/16 00:58 10/15/16 06:29 10/15/16 07:20 Bedside Glucose 142 140 134 White Blood Count 14.8 H Red Blood Count 4.61 Hemoglobin 12.9 Hematocrit 40.8 Mean Corpuscular Volume 88.5 Mean Corpuscular Hemoglobin 28.0 L Mean Corpuscular Hemoglobin Concent 31.6 L Red Cell Distribution Width 13.6 Platelet Count 365 Mean Platelet Volume 9.6 Neutrophils % 82.0 H Lymphocytes % 8.2 L Monocytes % 8.6 Eosinophils % 0.6 Basophils % 0.1 Nucleated Red Blood Cells % 0.0 Neutrophils # 12.1 H Lymphocytes # 1.2 Monocytes # 1.3 H Eosinophils # 0.1 Basophils # 0.0 Nucleated Red Blood Cells # 0.0 Prothrombin Time 14.2 Prothrombin Time Ratio 1.1 INR International Normalized Ratio 1.10 Activated Partial Thromboplast Time 33.2 Sodium Level 134 L Potassium Level 4.6 Chloride Level 98 Carbon Dioxide Level 27 Anion Gap 14 Blood Urea Nitrogen 21 H Creatinine 0.59 Glucose Level 153 Calcium Level 9.7 Medications Medications Current Medications Dextrose/Sodium Chloride (D5-1/2ns) 1,000 ml @ 30 mls/hr Q24H IV Last administered on 10/15/16 04:30; Admin Dose 30 MLS/HR; Start 10/06/16 at 15:46 Flumazenil (Romazicon) 0.2 mg Q1M PRN IV BENZODIAZEPINE OVERDOSE; Start at 16:00 Naloxone HCl (Narcan) 0.4 mg Q3M PRN IV DECREASED REPIRATORY RATE; Start at 16:00 Ondansetron HCl (Zofran Inj) 4 mg Q6H PRN IV NAUSEA AND/OR VOMITING; Start at 16:00 Acetaminophen (Tylenol Liquid) 650 mg Q6H PRN PO PAIN LEVEL 1-3 OR FEVER Last administered on 10/14/16 08:54; Admin Dose 650 MG; Start 10/06/16 at 16:00 Acetaminophen (Tylenol Tab) 650 mg Q6H PRN PO PAIN LEVEL 1-3 OR FEVER; Start at 16:00 Magnesium Hydroxide (Milk Of Mag) 30 ml DAILY PRN PO CONSTIPATION Last administered on 10/13/16 08:41; Admin Dose 30 ML; Start 10/06/16 at 16:00 Bisacodyl (Dulcolax) 5 mg DAILY PRN PO CONSTIPATION; Start 10/06/16 at 16:00 Pantoprazole (Protonix Iv) 40 mg DAILY@06 IV Last administered on 10/15/16 06: 27; Admin Dose 40 MG; Start 10/07/16 at 06:00 Miscellaneous Information 1 ea NOTE XX ; Start 10/09/16 at 09:30 Glucose (Glutose) 15 gm Q15M PRN PO DECREASED GLUCOSE; Start 10/09/16 at 09:30 Glucose (Glutose) 22.5 gm Q15M PRN PO DECREASED GLUCOSE; Start 10/09/16 at 09: 30 Dextrose (D50w Syringe) 25 ml Q15M PRN IV DECREASED GLUCOSE; Start 10/09/16 at 09:30 Dextrose (D50w Syringe) 50 ml Q15M PRN IV DECREASED GLUCOSE; Start 10/09/16 at 09:30 Glucagon (Glucagen) 1 mg Q15M PRN IM DECREASED GLUCOSE; Start 10/09/16 at 09:30 Glucose (Glutose) 15 gm Q15M PRN BUCCAL DECREASED GLUCOSE; Start 10/09/16 at 09 :30 Diltiazem HCl (Cardizem Iv) 5 mg Q4H PRN IV PRN HR>110 Hold SBP<100 Last administered on 10/15/16 06:42; Admin Dose 5 MG; Start 10/09/16 at 11:30 Brimonidine Tartrate (Alphagan 0.2%) 2 drop Q4 LEFT EYE Last administered on 13:02; Admin Dose 2 DROP; Start 10/09/16 at 21:00 Prednisolone Acetate (Pred-Forte 1%) 2 drop Q4 LEFT EYE Last administered on 13:02; Admin Dose 2 DROP; Start 10/09/16 at 21:00 Morphine Sulfate (morphine) 2 mg Q3H PRN IV PAIN Last administered on 06:42; Admin Dose 2 MG; Start 10/09/16 at 21:00 Insulin Aspart (Novolog Insulin Pen) (Adult SC Insulin - Mild Algorithm)... Q6 SC Last administered on 10/14/16 19:11; Admin Dose 1 UNIT; Start 10/10/16 at 00:00 Docusate Sodium (Colace Liquid Cup) 100 mg BID NGT Last administered on 22:26; Admin Dose 100 MG; Start 10/10/16 at 11:30 Acetaminophen/ Codeine Phosphate (Tylenol No.3) 1 tab Q6H PRN PO PAIN Last administered on 10/14/16 22:32; Admin Dose 1 TAB; Start 10/10/16 at 12:00 Docusate Sodium (Colace Liquid Cup) 100 mg Q12H PRN PO CONSTIPATION; Start at 14:30 Hydralazine HCl (Apresoline) 10 mg Q6H PRN IV ELEVATED BLOOD PRESSURE; Start at 22:30 Metoprolol Tartrate (Lopressor) 25 mg BID NGT Last administered on 10/15/16 10 :03; Admin Dose 25 MG; Start 10/15/16 at 10:00 EMANUEL LAMAR Oct 15, 2016 13:23
--- NOTE | 2016-10-15 15:34 | RADRPT ---
PROCEDURE: XR Chest 1 View. CLINICAL INDICATION: Shortness of breath TECHNIQUE: AP view of the chest was obtained. COMPARISON: October 09, 2016 FINDINGS: The cardiomediastinal silhouette is within normal limits. The lungs are hypoinflated. Atelectasis i s noted at the lung bases. No consolidations are identified. No pneumothorax is seen. The osseous structures are osteopenic, but appear grossly intact. Degenerative changes are seen in the shoulder s. IMPRESSION: Hypoinflated lungs with atelectasis at the lung bases. RPTAT: AA .Todd Giles MD, MD Date Time Electronically viewed and signed by .Todd Giles MD, MD on 10/15/2016 15:34 .P/
--- NOTE | 2016-10-15 15:56 | RADRPT ---
Vent Rate: 130 bpm RR Interval: 0 msec DE Interval: 0 msec QRS Duration: 74 msec QT Interval: 278 msec QTC Interval: 409 msec P-R-T Barnard: 0 - 58 - 0 degrees Atrial fibrillation with rapid ventricular response Cannot rule out Anterior infarct , age undetermined ST amp; T wave abnormality, consider inferior ischemia or digitalis effect Abnormal ECG Electronically Signed By: John Mak [id number]
--- NOTE | 2016-10-15 19:58 | PN ---
Date/Time of Note Date/Time of Note DATE: 10/15/16 TIME: 19:57 Assessment/Plan VTE Prophylaxis VTE Prophylaxis Intervention: other Lines/Catheters IV Catheter Type (from Nrsg): Peripheral IV Urinary Cath still in place: Yes Reason Cath still needed: other (indicate) Assessment/Plan Chief Complaint/Hosp Course [id number] cerebrovascular accident and left-sided weakness, 2hypertension,3 diabetes mellitus. 4The patient has atrial fibrillation on the monitor. [id number] hx valve replacement hemorragic cva leucocytosis plan per dr nilo lea d/w [facility] LIVER seen per gi peg done Problems: Subjective 24 Hr Interval Summary Subjective hx not possible: other (s/p peg) Exam/Review of Systems Vital Signs Vitals Vital Signs Date Time Temp Pulse Resp B/P Pulse Ox O2 Delivery O2 Flow Rate FiO2 10/15/16 16:25 97 10/15/16 15:51 99.3 20 137/66 97 10/15/16 12:28 Nasal Cannula 2.0 10/13/16 06:36 21 Intake and Output 10/14/16 10/14/16 10/15/16 15:00 23:00 07:00 Intake Total 90 ml 687 ml Output Total 900 ml 500 ml Balance -810 ml 187 ml Exam Neck: supple Respiratory: clear to auscultation Cardiovascular: regular rate and rhythm Gastrointestinal: bowel sounds (+), other (peg+), soft Results Result Diagram: 10/15/16 0720 10/15/16 0720 Results 24 hrs Laboratory Tests Test 10/15/16 00:58 10/15/16 06:29 10/15/16 07:20 10/15/16 17:49 Bedside Glucose 140 134 126 White Blood Count 14.8 H Red Blood Count 4.61 Hemoglobin 12.9 Hematocrit 40.8 Mean Corpuscular Volume 88.5 Mean Corpuscular Hemoglobin 28.0 L Mean Corpuscular Hemoglobin Concent 31.6 L Red Cell Distribution Width 13.6 Platelet Count 365 Mean Platelet Volume 9.6 Neutrophils % 82.0 H Lymphocytes % 8.2 L Monocytes % 8.6 Eosinophils % 0.6 Basophils % 0.1 Nucleated Red Blood Cells % 0.0 Neutrophils # 12.1 H Lymphocytes # 1.2 Monocytes # 1.3 H Eosinophils # 0.1 Basophils # 0.0 Nucleated Red Blood Cells # 0.0 Prothrombin Time 14.2 Prothrombin Time Ratio 1.1 INR International Normalized Ratio 1.10 Activated Partial Thromboplast Time 33.2 Sodium Level 134 L Potassium Level 4.6 Chloride Level 98 Carbon Dioxide Level 27 Anion Gap 14 Blood Urea Nitrogen 21 H Creatinine 0.59 Glucose Level 153 Calcium Level 9.7 Medications Medications Current Medications Dextrose/Sodium Chloride (D5-1/2ns) 1,000 ml @ 30 mls/hr Q24H IV Last administered on 10/15/16 04:30; Admin Dose 30 MLS/HR; Start 10/06/16 at 15:46 Flumazenil (Romazicon) 0.2 mg Q1M PRN IV BENZODIAZEPINE OVERDOSE; Start at 16:00 Naloxone HCl (Narcan) 0.4 mg Q3M PRN IV DECREASED REPIRATORY RATE; Start at 16:00 Ondansetron HCl (Zofran Inj) 4 mg Q6H PRN IV NAUSEA AND/OR VOMITING; Start at 16:00 Acetaminophen (Tylenol Liquid) 650 mg Q6H PRN PO PAIN LEVEL 1-3 OR FEVER Last administered on 10/14/16 08:54; Admin Dose 650 MG; Start 10/06/16 at 16:00 Acetaminophen (Tylenol Tab) 650 mg Q6H PRN PO PAIN LEVEL 1-3 OR FEVER; Start at 16:00 Magnesium Hydroxide (Milk Of Mag) 30 ml DAILY PRN PO CONSTIPATION Last administered on 10/13/16 08:41; Admin Dose 30 ML; Start 10/06/16 at 16:00 Bisacodyl (Dulcolax) 5 mg DAILY PRN PO CONSTIPATION; Start 10/06/16 at 16:00 Pantoprazole (Protonix Iv) 40 mg DAILY@06 IV Last administered on 10/15/16 06: 27; Admin Dose 40 MG; Start 10/07/16 at 06:00 Miscellaneous Information 1 ea NOTE XX ; Start 10/09/16 at 09:30 Glucose (Glutose) 15 gm Q15M PRN PO DECREASED GLUCOSE; Start 10/09/16 at 09:30 Glucose (Glutose) 22.5 gm Q15M PRN PO DECREASED GLUCOSE; Start 10/09/16 at 09: 30 Dextrose (D50w Syringe) 25 ml Q15M PRN IV DECREASED GLUCOSE; Start 10/09/16 at 09:30 Dextrose (D50w Syringe) 50 ml Q15M PRN IV DECREASED GLUCOSE; Start 10/09/16 at 09:30 Glucagon (Glucagen) 1 mg Q15M PRN IM DECREASED GLUCOSE; Start 10/09/16 at 09:30 Glucose (Glutose) 15 gm Q15M PRN BUCCAL DECREASED GLUCOSE; Start 10/09/16 at 09 :30 Diltiazem HCl (Cardizem Iv) 5 mg Q4H PRN IV PRN HR>110 Hold SBP<100 Last administered on 10/15/16 06:42; Admin Dose 5 MG; Start 10/09/16 at 11:30 Brimonidine Tartrate (Alphagan 0.2%) 2 drop Q4 LEFT EYE Last administered on 16:21; Admin Dose 2 DROP; Start 10/09/16 at 21:00 Prednisolone Acetate (Pred-Forte 1%) 2 drop Q4 LEFT EYE Last administered on 16:21; Admin Dose 2 DROP; Start 10/09/16 at 21:00 Morphine Sulfate (morphine) 2 mg Q3H PRN IV PAIN Last administered on 19:40; Admin Dose 2 MG; Start 10/09/16 at 21:00 Insulin Aspart (Novolog Insulin Pen) (Adult SC Insulin - Mild Algorithm)... Q6 SC Last administered on 10/14/16 19:11; Admin Dose 1 UNIT; Start 10/10/16 at 00:00 Docusate Sodium (Colace Liquid Cup) 100 mg BID NGT Last administered on 22:26; Admin Dose 100 MG; Start 10/10/16 at 11:30 Acetaminophen/ Codeine Phosphate (Tylenol No.3) 1 tab Q6H PRN PO PAIN Last administered on 10/14/16 22:32; Admin Dose 1 TAB; Start 10/10/16 at 12:00 Docusate Sodium (Colace Liquid Cup) 100 mg Q12H PRN PO CONSTIPATION; Start at 14:30 Hydralazine HCl (Apresoline) 10 mg Q6H PRN IV ELEVATED BLOOD PRESSURE; Start at 22:30 Atenolol (Tenormin) 25 mg BID PO ; Start 10/15/16 at 21:00 SON AKHTAR MD Oct 15, 2016 19:58
[2016-10-15] MEDS: ATENOLOL 25 MG TAB PO SCH (20:51)
[2016-10-16] VITALS (10 sets, daily range): BP systolic 103–126; BP diastolic 58–79; PULSE 57–88; RESP 16–18
[2016-10-16] MEDS: PREDNISOLONE ACET 1% 5 ML OPH LEFT EYE SCH ×6 (01:00→20:32)
[2016-10-16] MEDS: BRIMONIDINE 0.2% 5 ML BTL LEFT EYE SCH ×6 (01:00→20:32)
[2016-10-16] MEDS: morphine 2 MG INJ IV PRN ×2 (02:40→07:03)
[2016-10-16] MEDS: DEXTROSE 5%-0.45% NACL 1,000 ML IV SCH ×2 (02:48→23:48)
[2016-10-16] MEDS: Insulin NOVOLOG SS MILD Algorithm (NPO/TPN/ENTERAL FEEDS) SC SCH ×4 (06:00→17:29)
[2016-10-16] MEDS: PANTOPRAZOLE 40 MG INJ IV SCH (06:49)
--- NOTE | 2016-10-16 07:52 | PN ---
DATE: REFERRING PHYSICIAN: Dr. Lau This is followup. The patient is ____ years old with acute onset of right middle cerebral artery st roke with hemorrhagic transformation with left-sided weakness. The patient's current medications include: 1. Colace 100 mg twice a day. 2. Morphine sulfate 2 mg twice a day as needed. 3. Cardizem as needed. 4. Zofran 4 mg every 4 hours as needed. 5. Albuterol inhaler twice a day. 6. Tylenol 650 once a day. PHYSICAL EXAMINATION: GENERAL: On exam today, the patient is alert, awake, oriented for time, place and person. Normal sp eech and normal language. CRANIAL NERVES: Cranial nerve II: Pupils equal on both sides, reactive to light. Cranial nerves I II, IV and : Extraocular muscles intact. No nystagmus. Cranial nerve V: Equal sensation to fac e. Cranial nerve VII: Decreased nasolabial fold on the left side. Cranial nerve VIII: Decreased hearing bilaterally. Cranial nerves IX and X: Elevates palate. Cranial nerve XI: Elevates should er 5/5. Cranial nerve XII: Straight tongue. MOTOR: Left side is 1/5 to 2/5. Right side is 4/5. Sensation decreased on the left side for light touch and temperature. COORDINATION: Intact on the right side. Left side with weakness. HEART: Regular rate and rhythm. LUNGS: Equal breath sounds. ABDOMEN: Soft, relaxed, nondistended. No tenderness. ASSESSMENT AND PLAN: 1. 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 Left hemiplegia. Will keep the patient under physical therapy and occupational therapy for more evaluation and treatment. 3. Gait difficulty. Keep the patient under fall precautions for now. 4. Keep the patient under deep venous thrombosis prophylaxis as well as decubitus ulcer prophylaxis . 5. We might consider the patient at acute rehabilitation facility for continuation of her treatment . Again, thank you for asking me to see the patient with you. Dictated By: BURTON FOWLER/AUDRA Conf#: [id number] DID#: [id number]
[2016-10-16 08:18] LABS: ADD SCAN DIFF NO
[2016-10-16 08:24] LABS: BASOPHILS % 0.3 % (0.0-2.0); EOSINOPHILS # 0.2 10^3/ul (0.0-0.5); EOSINOPHILS % 1.9 % (0.0-7.0); HEMATOCRIT 39.5 % (37.0-47.0); HEMOGLOBIN 12.4 g/dl (12.0-16.0); LYMPHOCYTES # 1.4 10^3/ul (0.8-2.9); LYMPHOCYTES % 12.9 % (15.0-51.0); MEAN CORPUSCULAR HEMOGLOBIN 28.6 pg (29.0-33.0); MEAN CORPUSCULAR HGB CONC 31.4 g/dl (32.0-37.0); MEAN CORPUSCULAR VOLUME 91.2 fl (82.0-101.0); MEAN PLATELET VOLUME 9.3 fl (7.4-10.4); MONOCYTES % 9.1 % (0.0-11.0); NEUTROPHIL # 7.9 10^3/ul (1.6-7.5); NEUTROPHILS % 75.6 % (39.0-77.0); PLATELET COUNT 390 10^3/UL (140-415); RED BLOOD COUNT 4.33 10^6/ul (4.20-5.40); RED CELL DISTRIBUTION WIDTH 13.2 % (11.5-14.5); WHITE BLOOD COUNT 10.5 10^3/ul (4.8-10.8)
[2016-10-16 08:41] LABS: ALBUMIN 3.4 g/dl (3.3-4.9); POTASSIUM 4.2 mmol/L (3.5-5.1)
[2016-10-16 08:43] LABS: BILIRUBIN,INDIRECT 0.3 mg/dl (0-1.1); BILIRUBIN,TOTAL 0.3 mg/dl (0.2-1.3); CREATININE 0.65 mg/dl (0.44-1.00)
[2016-10-16 08:44] LABS: ALBUMIN/GLOBULIN RATIO 0.73; CALCIUM 9.8 mg/dl (8.4-10.2)
[2016-10-16] MEDS: DOCUSATE SODIUM 10 MG/ML (10ML CUP) NGT SCH ×2 (09:00→20:30)
[2016-10-16] MEDS: ATENOLOL 25 MG TAB PO SCH ×2 (09:01→20:31)
--- NOTE | 2016-10-16 15:58 | PN ---
Date/Time of Note Date/Time of Note DATE: 10/16/16 TIME: 15:57 Assessment/Plan VTE Prophylaxis VTE Prophylaxis Intervention: SCD's Lines/Catheters IV [facility]ter Type (from [facility]): Peripheral IV Urinary Cath still in place: Yes Reason Cath still needed: urinary retention Assessment/Plan Chief Complaint/Hosp Course 1.Acute cerebrovascular accident and left-sided weakness, neurosurger denied surgery 2. hypertension, stable 3 diabetes mellitus. uncontrolled 4. Atrial flutter on the monitor. Problems: Assessment/Plan 1. Continue PEG feeding Subjective 24 Hr Interval Summary Constitutional: improved, no complaints Eyes: no complaints Respiratory: no complaints Cardiovascular: no complaints Gastrointestinal: no complaints Genitourinary: no complaints Exam/Review of Systems Vital Signs Vitals Vital Signs Date Time Temp Pulse Resp B/P Pulse Ox O2 Delivery O2 Flow Rate FiO2 10/16/16 12:16 57 10/16/16 12:12 98.3 18 111/66 97 10/16/16 10:37 Nasal Cannula 2.0 10/13/16 06:36 21 Intake and Output 10/15/16 10/15/16 10/16/16 15:00 23:00 07:00 Intake Total 560 ml 734 ml Output Total 600 ml Balance -40 ml 734 ml Exam Constitutional: alert, oriented Psych: no complaints Head: other (face with left eye drop and fascial sssymetry) Neck: supple Results Result Diagram: 10/16/16 0725 10/16/16 0725 Results 24 hrs Laboratory Tests Test 10/15/16 17:49 10/16/16 00:34 10/16/16 06:53 10/16/16 07:25 Bedside Glucose 126 153 109 White Blood Count 10.5 # Red Blood Count 4.33 Hemoglobin 12.4 Hematocrit 39.5 Mean Corpuscular Volume 91.2 Mean Corpuscular Hemoglobin 28.6 L Mean Corpuscular Hemoglobin Concent 31.4 L Red Cell Distribution Width 13.2 Platelet Count 390 Mean Platelet Volume 9.3 Neutrophils % 75.6 Lymphocytes % 12.9 L Monocytes % 9.1 Eosinophils % 1.9 Basophils % 0.3 Nucleated Red Blood Cells % 0.0 Neutrophils # 7.9 H Lymphocytes # 1.4 Monocytes # 1.0 H Eosinophils # 0.2 Basophils # 0.0 Nucleated Red Blood Cells # 0.0 Sodium Level 139 Potassium Level 4.2 Chloride Level 101 Carbon Dioxide Level 31 Anion Gap 11 Blood Urea Nitrogen 25 H Creatinine 0.65 Glucose Level 122 Calcium Level 9.8 Total Bilirubin 0.3 Direct Bilirubin 0.00 Indirect Bilirubin 0.3 Aspartate Amino Transf (AST/SGOT) 82 H Alanine Aminotransferase (ALT/SGPT) 142 H Alkaline Phosphatase 356 H Total Protein 8.0 Albumin 3.4 Globulin 4.60 H Albumin/Globulin Ratio 0.73 Test 10/16/16 12:16 Bedside Glucose 126 Medications Medications Current Medications Dextrose/Sodium Chloride (D5-1/2ns) 1,000 ml @ 30 mls/hr Q24H IV Last administered on 10/16/16 02:48; Admin Dose 30 MLS/HR; Start 10/06/16 at 15:46 Flumazenil (Romazicon) 0.2 mg Q1M PRN IV BENZODIAZEPINE OVERDOSE; Start at 16:00 Naloxone HCl (Narcan) 0.4 mg Q3M PRN IV DECREASED REPIRATORY RATE; Start at 16:00 Ondansetron HCl (Zofran Inj) 4 mg Q6H PRN IV NAUSEA AND/OR VOMITING; Start at 16:00 Acetaminophen (Tylenol Liquid) 650 mg Q6H PRN PO PAIN LEVEL 1-3 OR FEVER Last administered on 10/14/16 08:54; Admin Dose 650 MG; Start 10/06/16 at 16:00 Acetaminophen (Tylenol Tab) 650 mg Q6H PRN PO PAIN LEVEL 1-3 OR FEVER; Start at 16:00 Magnesium Hydroxide (Milk Of Mag) 30 ml DAILY PRN PO CONSTIPATION Last administered on 10/13/16 08:41; Admin Dose 30 ML; Start 10/06/16 at 16:00 Bisacodyl (Dulcolax) 5 mg DAILY PRN PO CONSTIPATION; Start 10/06/16 at 16:00 Pantoprazole (Protonix Iv) 40 mg DAILY@06 IV Last administered on 10/16/16 06: 49; Admin Dose 40 MG; Start 10/07/16 at 06:00 Miscellaneous Information 1 ea NOTE XX ; Start 10/09/16 at 09:30 Glucose (Glutose) 15 gm Q15M PRN PO DECREASED GLUCOSE; Start 10/09/16 at 09:30 Glucose (Glutose) 22.5 gm Q15M PRN PO DECREASED GLUCOSE; Start 10/09/16 at 09: 30 Dextrose (D50w Syringe) 25 ml Q15M PRN IV DECREASED GLUCOSE; Start 10/09/16 at 09:30 Dextrose (D50w Syringe) 50 ml Q15M PRN IV DECREASED GLUCOSE; Start 10/09/16 at 09:30 Glucagon (Glucagen) 1 mg Q15M PRN IM DECREASED GLUCOSE; Start 10/09/16 at 09:30 Glucose (Glutose) 15 gm Q15M PRN BUCCAL DECREASED GLUCOSE; Start 10/09/16 at 09 :30 Diltiazem HCl (Cardizem Iv) 5 mg Q4H PRN IV PRN HR>110 Hold SBP<100 Last administered on 10/15/16 06:42; Admin Dose 5 MG; Start 10/09/16 at 11:30 Brimonidine Tartrate (Alphagan 0.2%) 2 drop Q4 LEFT EYE Last administered on 12:18; Admin Dose 2 DROP; Start 10/09/16 at 21:00 Prednisolone Acetate (Pred-Forte 1%) 2 drop Q4 LEFT EYE Last administered on 12:18; Admin Dose 2 DROP; Start 10/09/16 at 21:00 Morphine Sulfate (morphine) 2 mg Q3H PRN IV PAIN Last administered on 07:03; Admin Dose 2 MG; Start 10/09/16 at 21:00 Insulin Aspart (Novolog Insulin Pen) (Adult SC Insulin - Mild Algorithm)... Q6 SC Last administered on 10/14/16 19:11; Admin Dose 1 UNIT; Start 10/10/16 at 00:00 Docusate Sodium (Colace Liquid Cup) 100 mg BID NGT Last administered on 09:00; Admin Dose 100 MG; Start 10/10/16 at 11:30 Acetaminophen/ Codeine Phosphate (Tylenol No.3) 1 tab Q6H PRN PO PAIN Last administered on 10/14/16 22:32; Admin Dose 1 TAB; Start 10/10/16 at 12:00 Docusate Sodium (Colace Liquid Cup) 100 mg Q12H PRN PO CONSTIPATION; Start at 14:30 Hydralazine HCl (Apresoline) 10 mg Q6H PRN IV ELEVATED BLOOD PRESSURE; Start at 22:30 Atenolol (Tenormin) 25 mg BID PO Last administered on 10/16/16t 09:01; Admin Dose 25 MG; Start 10/15/16 at 21:00 YULISSA GONSALES Oct 16, 2016 15:58
--- NOTE | 2016-10-16 18:39 | CONS ---
Date/Time of Note Date/Time of Note DATE: 10/16/16 TIME: 18:35 Assessment/Plan Assessment/Plan Chief Complaint/Hosp Course Imp: 1AF-with recurrent RVR this AM 2.HTN-Currently bordereline HOtn 3.CVA-acute with Hemm conversion 4.Encephalopathy 5.DM 6.HL 7.MVR-Bioprosthetic versus repair and mild-mod MS 8.Dysphagia s/p G tube Recc: -Tele -serial ecg's -IVP PRN diltiazem at this time -Neuro following-Not on systemic anti-coag due to Hemm conversion -ASA held due to Hemm conversion on head CT -Follow MS closely -Continue BB with well controlled HR at this time Problems: Consultation Date/Type/Reason Admit Date/Time Oct 06, 2016 at 15:49 Initial Consult Date 10/06/2016 Type of Consultation: Cardiology Reason for Consultation AF/MVR Referring Provider: SON AKHTAR MD Exam/Review of Systems Vital Signs Vitals Vital Signs Date Time Temp Pulse Resp B/P Pulse Ox O2 Delivery O2 Flow Rate FiO2 10/16/16 17:00 74 10/16/16 16:40 97.6 18 113/58 98 10/16/16 10:46 2.0 10/16/16 10:46 Nasal Cannula 10/13/16 06:36 21 Intake and Output 10/15/16 10/15/16 10/16/16 15:00 23:00 07:00 Intake Total 560 ml 734 ml Output Total 600 ml Balance -40 ml 734 ml Exam Review of Systems: CONSTITUTIONAL: No fevers, chills. PULMONARY: No sob CARDIOVASCULAR: No obvious chest pain/palpitations GASTROINTESTINAL: No nausea/vomiting. GENITOURINARY: No hematuria/dysuria. MUSCULOSKELETAL: No obvious myagias/arthalgias. PSYCHIATRIC: The patient denies depression. NEUROLOGIC: encephalopthic Constitutional: other (encephalopathic) Head: normocephalic Neck: jvd (8 cm water), supple Respiratory: diminished breath sounds (at bases/B) Cardiovascular: regular rate and rhythm Gastrointestinal: other (GT/covered by binder), soft Musculoskeletal: muscle tone (normal) Extremities: edema (none) Neurological: confused, lethargic Results Result Diagram: 10/16/16 0725 10/16/16 0725 Results 24 hrs Laboratory Tests Test 10/16/16 00:34 10/16/16 06:53 10/16/16 07:25 10/16/16 12:16 Bedside Glucose 153 109 126 White Blood Count 10.5 # Red Blood Count 4.33 Hemoglobin 12.4 Hematocrit 39.5 Mean Corpuscular Volume 91.2 Mean Corpuscular Hemoglobin 28.6 L Mean Corpuscular Hemoglobin Concent 31.4 L Red Cell Distribution Width 13.2 Platelet Count 390 Mean Platelet Volume 9.3 Neutrophils % 75.6 Lymphocytes % 12.9 L Monocytes % 9.1 Eosinophils % 1.9 Basophils % 0.3 Nucleated Red Blood Cells % 0.0 Neutrophils # 7.9 H Lymphocytes # 1.4 Monocytes # 1.0 H Eosinophils # 0.2 Basophils # 0.0 Nucleated Red Blood Cells # 0.0 Sodium Level 139 Potassium Level 4.2 Chloride Level 101 Carbon Dioxide Level 31 Anion Gap 11 Blood Urea Nitrogen 25 H Creatinine 0.65 Glucose Level 122 Calcium Level 9.8 Total Bilirubin 0.3 Direct Bilirubin 0.00 Indirect Bilirubin 0.3 Aspartate Amino Transf (AST/SGOT) 82 H Alanine Aminotransferase (ALT/SGPT) 142 H Alkaline Phosphatase 356 H Total Protein 8.0 Albumin 3.4 Globulin 4.60 H Albumin/Globulin Ratio 0.73 Test 10/16/16 17:18 Bedside Glucose 113 Medications Medications Current Medications Dextrose/Sodium Chloride (D5-1/2ns) 1,000 ml @ 30 mls/hr Q24H IV Last administered on 10/16/16 02:48; Admin Dose 30 MLS/HR; Start 10/06/16 at 15:46 Flumazenil (Romazicon) 0.2 mg Q1M PRN IV BENZODIAZEPINE OVERDOSE; Start at 16:00 Naloxone HCl (Narcan) 0.4 mg Q3M PRN IV DECREASED REPIRATORY RATE; Start at 16:00 Ondansetron HCl (Zofran Inj) 4 mg Q6H PRN IV NAUSEA AND/OR VOMITING; Start at 16:00 Acetaminophen (Tylenol Liquid) 650 mg Q6H PRN PO PAIN LEVEL 1-3 OR FEVER Last administered on 10/14/16 08:54; Admin Dose 650 MG; Start 10/06/16 at 16:00 Acetaminophen (Tylenol Tab) 650 mg Q6H PRN PO PAIN LEVEL 1-3 OR FEVER; Start at 16:00 Magnesium Hydroxide (Milk Of Mag) 30 ml DAILY PRN PO CONSTIPATION Last administered on 10/13/16 08:41; Admin Dose 30 ML; Start 10/06/16 at 16:00 Bisacodyl (Dulcolax) 5 mg DAILY PRN PO CONSTIPATION; Start 10/06/16 at 16:00 Pantoprazole (Protonix Iv) 40 mg DAILY@06 IV Last administered on 10/16/16 06: 49; Admin Dose 40 MG; Start 10/07/16 at 06:00 Miscellaneous Information 1 ea NOTE XX ; Start 10/09/16 at 09:30 Glucose (Glutose) 15 gm Q15M PRN PO DECREASED GLUCOSE; Start 10/09/16 at 09:30 Glucose (Glutose) 22.5 gm Q15M PRN PO DECREASED GLUCOSE; Start 10/09/16 at 09: 30 Dextrose (D50w Syringe) 25 ml Q15M PRN IV DECREASED GLUCOSE; Start 10/09/16 at 09:30 Dextrose (D50w Syringe) 50 ml Q15M PRN IV DECREASED GLUCOSE; Start 10/09/16 at 09:30 Glucagon (Glucagen) 1 mg Q15M PRN IM DECREASED GLUCOSE; Start 10/09/16 at 09:30 Glucose (Glutose) 15 gm Q15M PRN BUCCAL DECREASED GLUCOSE; Start 10/09/16 at 09 :30 Diltiazem HCl (Cardizem Iv) 5 mg Q4H PRN IV PRN HR>110 Hold SBP<100 Last administered on 10/15/16 06:42; Admin Dose 5 MG; Start 10/09/16 at 11:30 Brimonidine Tartrate (Alphagan 0.2%) 2 drop Q4 LEFT EYE Last administered on 17:28; Admin Dose 2 DROP; Start 10/09/16 at 21:00 Prednisolone Acetate (Pred-Forte 1%) 2 drop Q4 LEFT EYE Last administered on 17:28; Admin Dose 2 DROP; Start 10/09/16 at 21:00 Morphine Sulfate (morphine) 2 mg Q3H PRN IV PAIN Last administered on 07:03; Admin Dose 2 MG; Start 10/09/16 at 21:00 Insulin Aspart (Novolog Insulin Pen) (Adult SC Insulin - Mild Algorithm)... Q6 SC Last administered on 10/14/16 19:11; Admin Dose 1 UNIT; Start 10/10/16 at 00:00 Docusate Sodium (Colace Liquid Cup) 100 mg BID NGT Last administered on 09:00; Admin Dose 100 MG; Start 10/10/16 at 11:30 Acetaminophen/ Codeine Phosphate (Tylenol No.3) 1 tab Q6H PRN PO PAIN Last administered on 10/14/16 22:32; Admin Dose 1 TAB; Start 10/10/16 at 12:00 Docusate Sodium (Colace Liquid Cup) 100 mg Q12H PRN PO CONSTIPATION; Start at 14:30 Hydralazine HCl (Apresoline) 10 mg Q6H PRN IV ELEVATED BLOOD PRESSURE; Start at 22:30 Atenolol (Tenormin) 25 mg BID PO Last administered on 10/16/16 09:01; Admin Dose 25 MG; Start 10/15/16 at 21:00 EMANUEL LAMAR Oct 16, 2016 18:39
--- NOTE | 2016-10-16 19:13 | CONS ---
Date/Time of Note Date/Time of Note DATE: 10/16/16 TIME: 19:12 Assessment/Plan Assessment/Plan Additional Assessment/Plan IMPRESSION: 1. 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 2. Diabetes mellitus. 3. Hypertension. 4. Atrial fibrillation. This morning patient had rapid ventricular response, she was given IV digoxin 5. Status post chest surgery. I do not know whether has got a bioprosthetic aortic valve or the mitral valve repaired, nothing is clear-cut. 6. Dysphagia with aspiration. 7. Abnormal LFT with a dilated biliary system. 8. Status post PEG patient is tolerating feeding Plan Increase feeding to 50 cc/h Reduce IV fluid Monitor liver function tests periodically Consultation Date/Type/Reason Admit Date/Time Oct 06, 2016 at 15:49 Initial Consult Date 10/09/16 Type of Consultation: Cardiology Referring Provider: SON AKHTAR MD 24 HR Interval Summary Constitutional: improved, no complaints Exam/Review of Systems Vital Signs Vitals Vital Signs Date Time Temp Pulse Resp B/P Pulse Ox O2 Delivery O2 Flow Rate FiO2 10/16/16 17:00 74 10/16/16 16:40 97.6 18 113/58 98 10/16/16 10:46 2.0 10/16/16 10:46 Nasal Cannula 10/13/16 06:36 21 Intake and Output 10/15/16 10/15/16 10/16/16 15:00 23:00 07:00 Intake Total 560 ml 734 ml Output Total 600 ml Balance -40 ml 734 ml Exam Constitutional: alert, oriented, well developed Psych: nl mood/affect, no complaints Head: atraumatic, normocephalic Eyes: EOMI, PERRL, nl conjunctiva, nl lids, nl sclera ENMT: nl external ears & nose, nl lips & teeth, nl nasal mucosa & septum Neck: non-tender, supple Respiratory: clear to auscultation, normal air movement Cardiovascular: nl pulses, regular rate and rhythm Gastrointestinal: nl liver, spleen, non-tender, soft Musculoskeletal: nl extremities to inspection, nl gait and stance Extremities: normal pulses Neurological: MECHANIC II-XII intact, nl mental status, nl speech, nl strength Skin: nl turgor, No rash or lesions Lymph: nl lymph nodes Results Result Diagram: 10/16/16 0725 10/16/16 0725 Results 24 hrs Laboratory Tests Test 10/16/16 00:34 10/16/16 06:53 10/16/16 07:25 10/16/16 12:16 Bedside Glucose 153 109 126 White Blood Count 10.5 # Red Blood Count 4.33 Hemoglobin 12.4 Hematocrit 39.5 Mean Corpuscular Volume 91.2 Mean Corpuscular Hemoglobin 28.6 L Mean Corpuscular Hemoglobin Concent 31.4 L Red Cell Distribution Width 13.2 Platelet Count 390 Mean Platelet Volume 9.3 Neutrophils % 75.6 Lymphocytes % 12.9 L Monocytes % 9.1 Eosinophils % 1.9 Basophils % 0.3 Nucleated Red Blood Cells % 0.0 Neutrophils # 7.9 H Lymphocytes # 1.4 Monocytes # 1.0 H Eosinophils # 0.2 Basophils # 0.0 Nucleated Red Blood Cells # 0.0 Sodium Level 139 Potassium Level 4.2 Chloride Level 101 Carbon Dioxide Level 31 Anion Gap 11 Blood Urea Nitrogen 25 H Creatinine 0.65 Glucose Level 122 Calcium Level 9.8 Total Bilirubin 0.3 Direct Bilirubin 0.00 Indirect Bilirubin 0.3 Aspartate Amino Transf (AST/SGOT) 82 H Alanine Aminotransferase (ALT/SGPT) 142 H Alkaline Phosphatase 356 H Total Protein 8.0 Albumin 3.4 Globulin 4.60 H Albumin/Globulin Ratio 0.73 Test 10/16/16 17:18 Bedside Glucose 113 Medications Medications Current Medications Dextrose/Sodium Chloride (D5-1/2ns) 1,000 ml @ 30 mls/hr Q24H IV Last administered on 10/16/16 02:48; Admin Dose 30 MLS/HR; Start 10/06/16 at 15:46 Flumazenil (Romazicon) 0.2 mg Q1M PRN IV BENZODIAZEPINE OVERDOSE; Start at 16:00 Naloxone HCl (Narcan) 0.4 mg Q3M PRN IV DECREASED REPIRATORY RATE; Start at 16:00 Ondansetron HCl (Zofran Inj) 4 mg Q6H PRN IV NAUSEA AND/OR VOMITING; Start at 16:00 Acetaminophen (Tylenol Liquid) 650 mg Q6H PRN PO PAIN LEVEL 1-3 OR FEVER Last administered on 10/14/16 08:54; Admin Dose 650 MG; Start 10/06/16 at 16:00 Acetaminophen (Tylenol Tab) 650 mg Q6H PRN PO PAIN LEVEL 1-3 OR FEVER; Start at 16:00 Magnesium Hydroxide (Milk Of Mag) 30 ml DAILY PRN PO CONSTIPATION Last administered on 10/13/16 08:41; Admin Dose 30 ML; Start 10/06/16 at 16:00 Bisacodyl (Dulcolax) 5 mg DAILY PRN PO CONSTIPATION; Start 10/06/16 at 16:00 Pantoprazole (Protonix Iv) 40 mg DAILY@06 IV Last administered on 10/16/16 06: 49; Admin Dose 40 MG; Start 10/07/16 at 06:00 Miscellaneous Information 1 ea NOTE XX ; Start 10/09/16 at 09:30 Glucose (Glutose) 15 gm Q15M PRN PO DECREASED GLUCOSE; Start 10/09/16 at 09:30 Glucose (Glutose) 22.5 gm Q15M PRN PO DECREASED GLUCOSE; Start 10/09/16 at 09: 30 Dextrose (D50w Syringe) 25 ml Q15M PRN IV DECREASED GLUCOSE; Start 10/09/16 at 09:30 Dextrose (D50w Syringe) 50 ml Q15M PRN IV DECREASED GLUCOSE; Start 10/09/16 at 09:30 Glucagon (Glucagen) 1 mg Q15M PRN IM DECREASED GLUCOSE; Start 10/09/16 at 09:30 Glucose (Glutose) 15 gm Q15M PRN BUCCAL DECREASED GLUCOSE; Start 10/09/16 at 09 :30 Diltiazem HCl (Cardizem Iv) 5 mg Q4H PRN IV PRN HR>110 Hold SBP<100 Last administered on 10/15/16 06:42; Admin Dose 5 MG; Start 10/09/16 at 11:30 Brimonidine Tartrate (Alphagan 0.2%) 2 drop Q4 LEFT EYE Last administered on 17:28; Admin Dose 2 DROP; Start 10/09/16 at 21:00 Prednisolone Acetate (Pred-Forte 1%) 2 drop Q4 LEFT EYE Last administered on 17:28; Admin Dose 2 DROP; Start 10/09/16 at 21:00 Morphine Sulfate (morphine) 2 mg Q3H PRN IV PAIN Last administered on 07:03; Admin Dose 2 MG; Start 10/09/16 at 21:00 Insulin Aspart (Novolog Insulin Pen) (Adult SC Insulin - Mild Algorithm)... Q6 SC Last administered on 10/14/16 19:11; Admin Dose 1 UNIT; Start 10/10/16 at 00:00 Docusate Sodium (Colace Liquid Cup) 100 mg BID NGT Last administered on 09:00; Admin Dose 100 MG; Start 10/10/16 at 11:30 Acetaminophen/ Codeine Phosphate (Tylenol No.3) 1 tab Q6H PRN PO PAIN Last administered on 10/14/16 22:32; Admin Dose 1 TAB; Start 10/10/16 at 12:00 Docusate Sodium (Colace Liquid Cup) 100 mg Q12H PRN PO CONSTIPATION; Start at 14:30 Hydralazine HCl (Apresoline) 10 mg Q6H PRN IV ELEVATED BLOOD PRESSURE; Start at 22:30 Atenolol (Tenormin) 25 mg BID PO Last administered on 10/16/16 09:01; Admin Dose 25 MG; Start 10/15/16 at 21:00 EDSON PÉREZ MD Oct 16, 2016 19:13
[2016-10-16] MEDS: ACETAMINOPHEN/CODEINE #3 TAB PO PRN (20:55)
[2016-10-17] VITALS (12 sets, daily range): BP systolic 86–122; BP diastolic 55–78; PULSE 69–82; RESP 18–21
[2016-10-17] MEDS: Insulin NOVOLOG SS MILD Algorithm (NPO/TPN/ENTERAL FEEDS) SC SCH ×4 (00:50→17:29)
[2016-10-17] MEDS: DEXTROSE 5%-0.45% NACL 1,000 ML IV SCH (01:04)
[2016-10-17] MEDS: BRIMONIDINE 0.2% 5 ML BTL LEFT EYE SCH ×6 (01:23→21:43)
[2016-10-17] MEDS: PREDNISOLONE ACET 1% 5 ML OPH LEFT EYE SCH ×6 (01:24→21:43)
[2016-10-17] MEDS: PANTOPRAZOLE 40 MG INJ IV SCH (05:51)
[2016-10-17 08:06] LABS: ADD SCAN DIFF NO
[2016-10-17 08:10] LABS: BASOPHILS % 0.1 % (0.0-2.0); EOSINOPHILS # 0.2 10^3/ul (0.0-0.5); EOSINOPHILS % 2.5 % (0.0-7.0); HEMATOCRIT 40.2 % (37.0-47.0); HEMOGLOBIN 12.5 g/dl (12.0-16.0); LYMPHOCYTES # 1.3 10^3/ul (0.8-2.9); LYMPHOCYTES % 15.9 % (15.0-51.0); MEAN CORPUSCULAR HGB CONC 31.1 g/dl (32.0-37.0); MEAN CORPUSCULAR VOLUME 89.9 fl (82.0-101.0); MEAN PLATELET VOLUME 9.5 fl (7.4-10.4); MONOCYTE # 0.7 10^3/ul (0.3-0.9); MONOCYTES % 7.7 % (0.0-11.0); NEUTROPHIL # 6.2 10^3/ul (1.6-7.5); NEUTROPHILS % 73.4 % (39.0-77.0); PLATELET COUNT 392 10^3/UL (140-415); RED BLOOD COUNT 4.47 10^6/ul (4.20-5.40); WHITE BLOOD COUNT 8.5 10^3/ul (4.8-10.8)
--- NOTE | 2016-10-17 08:22 | CONS ---
DATE OF ADMISSION: 10/06/2016 DATE OF CONSULTATION: REFERRING PHYSICIAN: Dr. Lau. HISTORY OF PRESENT ILLNESS: The patient is a 61-year-old with an acute onset of right middle cerebr al artery stroke with hemorrhagic transformation with left-sided weakness and left-sided hemiplegia. MEDICATIONS: The patient's current medications include: 1. Colace 100 mg once a day. 2. Morphine sulfate 2 mg as needed. 3. Cardizem as needed. 4. Zofran 4 mg every 4 hours as needed. 5. Albuterol inhaler twice a day as needed. 6. Tylenol 650 mg. PHYSICAL EXAMINATION: GENERAL: On exam today the patient is alert, awake, oriented to time, place and person. Normal spe ech and normal language. CRANIAL NERVE EXAMINATION: Cranial nerve II: Pupils equal on both sides, reactive to light. Crani al nerves III, IV and : Extraocular muscles intact. Cranial nerve V: Equal sensation to face. Cranial nerve : Symmetrical face. Cranial nerve VII: Decreased nasolabial fold on the left side . Cranial nerve VIII: Decreased hearing bilaterally. Cranial nerve . MOTOR EXAMINATION: Left side is 1 to 2/5. Sensation decreased on the left side for light touch and temperature. COORDINATION: [id number] test intact on the right. Left side with weakness. HEART: Regular rate and rhythm. LUNGS: Equal breath sounds. ABDOMEN: Soft, relaxed, nondistended, no tenderness. ASSESSMENT AND PLAN 1. The patient is a 61-year-old with a history of acute onset of stroke with hemorrhagic transforma tion in the right middle cerebral artery. 2. Left hemiplegia. Continue the patient on occupation therapy and physical therapy. 3. History of diabetes. Will keep the patient on sliding scale insulin and hemoglobin A1c. 4. History of hypertension. Keep the blood pressure at the level of 140/90 and avoid any extension of the stroke. 5. Atrial fibrillation with the patient on IV digoxin with ventricular response. 6. History of dysphagia with aspiration. 7. Keep the patient on deep venous thrombosis prophylaxis as well as decubitus ulcer prophylaxis. 8. Gait difficulty. We will follow up the patient with physical therapy acute rehab evaluatio n. Again, thank you for asking me to see the patient with you. Dictated By: BURTON FOWLER/NTS Conf#: [id number] [facility]#: [id number]
[2016-10-17 08:30] LABS: POTASSIUM 4.2 mmol/L (3.5-5.1)
[2016-10-17 08:32] LABS: CREATININE 0.58 mg/dl (0.44-1.00)
[2016-10-17 08:33] LABS: CALCIUM 9.9 mg/dl (8.4-10.2)
[2016-10-17] MEDS: DOCUSATE SODIUM 10 MG/ML (10ML CUP) NGT SCH ×2 (09:10→21:43)
[2016-10-17] MEDS: ATENOLOL 25 MG TAB PO SCH ×2 (09:11→21:44)
[2016-10-17] MEDS: ACETAMINOPHEN/CODEINE #3 TAB PO PRN ×2 (11:00→22:44)
--- NOTE | 2016-10-17 13:33 | CONS ---
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 MS Hypertension GERD Dysphagia s/p G tube Continue Atenolol No anticoagulation due to hemorrhagic transformation pending clearance from Neurology Continue Protonix Aspiration precautions Consultation Date/Type/Reason Admit Date/Time Oct 06, 2016 at 15:49 Constitutional: improved, no complaints Eyes: no complaints ENT: no complaints Respiratory: no complaints Cardiovascular: no complaints Gastrointestinal: no complaints Genitourinary: no complaints Musculoskeletal: other (left side wealness) Skin: no complaints Neurologic: other (lethargic) Endocrine: no complaints Lymphatic: no complaints Psychological: nl mood/affect, no complaints Immunologic: no complaints Social History Smoking Status: Former smoker Exam/Review of Systems Vital Signs Vitals Vital Signs Date Time Temp Pulse Resp B/P Pulse Ox O2 Delivery O2 Flow Rate FiO2 10/17/16 12:05 75 10/17/16 12:01 98.5 19 94/62 91 10/17/16 08:10 Nasal Cannula 2.0 Intake and Output 10/16/16 10/16/16 10/17/16 15:00 23:00 07:00 Intake Total 600 ml 681 ml Output Total 200 ml 350 ml Balance 400 ml 331 ml Exam Head: atraumatic, normocephalic Neck: non-tender, supple Respiratory: diminished breath sounds Cardiovascular: diastolic murmur, irregular rhythm, systolic murmur Gastrointestinal: nl liver, spleen, non-tender, soft Extremities: normal pulses Results Result Diagram: 10/17/16 0730 10/17/16 0730 Results 24 hrs Laboratory Tests Test 10/16/16 17:18 10/17/16 01:04 10/17/16 05:51 10/17/16 07:30 Bedside Glucose 113 121 127 White Blood Count 8.5 Red Blood Count 4.47 Hemoglobin 12.5 Hematocrit 40.2 Mean Corpuscular Volume 89.9 Mean Corpuscular Hemoglobin 28.0 L Mean Corpuscular Hemoglobin Concent 31.1 L Red Cell Distribution Width 13.0 Platelet Count 392 Mean Platelet Volume 9.5 Neutrophils % 73.4 Lymphocytes % 15.9 Monocytes % 7.7 Eosinophils % 2.5 Basophils % 0.1 Nucleated Red Blood Cells % 0.0 Neutrophils # 6.2 Lymphocytes # 1.3 Monocytes # 0.7 Eosinophils # 0.2 Basophils # 0.0 Nucleated Red Blood Cells # 0.0 Sodium Level 140 Potassium Level 4.2 Chloride Level 106 Carbon Dioxide Level 27 Anion Gap 11 Blood Urea Nitrogen 26 H Creatinine 0.58 Glucose Level 149 Calcium Level 9.9 Test 10/17/16 12:06 Bedside Glucose 123 Medications Medications Current Medications Dextrose/Sodium Chloride (D5-1/2ns) 1,000 ml @ 30 mls/hr Q24H IV Last administered on 10/16/16 23:48; Admin Dose 30 MLS/HR; Start 10/06/16 at 15:46 Flumazenil (Romazicon) 0.2 mg Q1M PRN IV BENZODIAZEPINE OVERDOSE; Start at 16:00 Naloxone HCl (Narcan) 0.4 mg Q3M PRN IV DECREASED REPIRATORY RATE; Start at 16:00 Ondansetron HCl (Zofran Inj) 4 mg Q6H PRN IV NAUSEA AND/OR VOMITING; Start at 16:00 Acetaminophen (Tylenol Liquid) 650 mg Q6H PRN PO PAIN LEVEL 1-3 OR FEVER Last administered on 10/14/16 08:54; Admin Dose 650 MG; Start 10/06/16 at 16:00 Acetaminophen (Tylenol Tab) 650 mg Q6H PRN PO PAIN LEVEL 1-3 OR FEVER; Start at 16:00 Magnesium Hydroxide (Milk Of Mag) 30 ml DAILY PRN PO CONSTIPATION Last administered on 10/13/16 08:41; Admin Dose 30 ML; Start 10/06/16 at 16:00 Bisacodyl (Dulcolax) 5 mg DAILY PRN PO CONSTIPATION; Start 10/06/16 at 16:00 Pantoprazole (Protonix Iv) 40 mg DAILY@06 IV Last administered on 10/17/16 05: 51; Admin Dose 40 MG; Start 10/07/16 at 06:00 Miscellaneous Information 1 ea NOTE XX ; Start 10/09/16 at 09:30 Glucose (Glutose) 15 gm Q15M PRN PO DECREASED GLUCOSE; Start 10/09/16 at 09:30 Glucose (Glutose) 22.5 gm Q15M PRN PO DECREASED GLUCOSE; Start 10/09/16 at 09: 30 Dextrose (D50w Syringe) 25 ml Q15M PRN IV DECREASED GLUCOSE; Start 10/09/16 at 09:30 Dextrose (D50w Syringe) 50 ml Q15M PRN IV DECREASED GLUCOSE; Start 10/09/16 at 09:30 Glucagon (Glucagen) 1 mg Q15M PRN IM DECREASED GLUCOSE; Start 10/09/16 at 09:30 Glucose (Glutose) 15 gm Q15M PRN BUCCAL DECREASED GLUCOSE; Start 10/09/16 at 09 :30 Diltiazem HCl (Cardizem Iv) 5 mg Q4H PRN IV PRN HR>110 Hold SBP<100 Last administered on 10/15/16 06:42; Admin Dose 5 MG; Start 10/09/16 at 11:30 Brimonidine Tartrate (Alphagan 0.2%) 2 drop Q4 LEFT EYE Last administered on 09:10; Admin Dose 2 DROP; Start 10/09/16 at 21:00 Prednisolone Acetate (Pred-Forte 1%) 2 drop Q4 LEFT EYE Last administered on 09:10; Admin Dose 2 DROP; Start 10/09/16 at 21:00 Morphine Sulfate (morphine) 2 mg Q3H PRN IV PAIN Last administered on 07:03; Admin Dose 2 MG; Start 10/09/16 at 21:00 Insulin Aspart (Novolog Insulin Pen) (Adult SC Insulin - Mild Algorithm)... Q6 SC Last administered on 10/14/16 19:11; Admin Dose 1 UNIT; Start 10/10/16 at 00:00 Docusate Sodium (Colace Liquid Cup) 100 mg BID NGT Last administered on 09:10; Admin Dose 100 MG; Start 10/10/16 at 11:30 Acetaminophen/ Codeine Phosphate (Tylenol No.3) 1 tab Q6H PRN PO PAIN Last administered on 10/17/16 11:00; Admin Dose 1 TAB; Start 10/10/16 at 12:00 Docusate Sodium (Colace Liquid Cup) 100 mg Q12H PRN PO CONSTIPATION; Start at 14:30 Hydralazine HCl (Apresoline) 10 mg Q6H PRN IV ELEVATED BLOOD PRESSURE; Start at 22:30 Atenolol (Tenormin) 25 mg BID PO Last administered on 10/17/16 09:11; Admin Dose 25 MG; Start 10/15/16 at 21:00 OCHOA HERNÁNDEZ M.D. Oct 17, 2016 13:33
--- NOTE | 2016-10-17 15:46 | PN ---
Date/Time of Note Date/Time of Note DATE: 10/17/16 TIME: 15:45 Assessment/Plan VTE Prophylaxis VTE Prophylaxis Intervention: SCD's Lines/Catheters IV Catheter Type (from Nrs): Peripheral IV Urinary Cath still in place: Yes Reason Cath still needed: urinary retention Assessment/Plan Chief Complaint/Hosp Course 1.Acute cerebrovascular accident and left-sided weakness, neurosurger denied surgery 2. hypertension, stable 3 diabetes mellitus. uncontrolled 4. Atrial flutter on the monitor. Problems: Assessment/Plan 1. Adjusted meds 2. Increased tube feeding 3. Constipation give dulcolax [facility] Subjective 24 Hr Interval Summary Constitutional: no complaints ENT: no complaints Respiratory: no complaints Gastrointestinal: constipation, pain Genitourinary: no complaints Exam/Review of Systems Vital Signs Vitals Vital Signs Date Time Temp Pulse Resp B/P Pulse Ox O2 Delivery O2 Flow Rate FiO2 10/17/16 12:05 75 10/17/16 12:01 98.5 19 94/62 91 10/17/16 08:10 Nasal Cannula 2.0 Intake and Output 10/16/16 10/16/16 10/17/16 14:59 22:59 06:59 Intake Total 600 ml 681 ml Output Total 200 ml 350 ml Balance 400 ml 331 ml Exam Constitutional: alert, oriented Psych: no complaints Head: normocephalic Eyes: nl conjunctiva ENMT: nl external ears & nose Neck: supple Respiratory: clear to auscultation Cardiovascular: regular rate and rhythm Gastrointestinal: other (GT tube) Results Result Diagram: 10/17/16 0730 10/17/16 0730 Results 24 hrs Laboratory Tests Test 10/16/16 17:18 10/17/16 01:04 10/17/16 05:51 10/17/16 07:30 Bedside Glucose 113 121 127 White Blood Count 8.5 Red Blood Count 4.47 Hemoglobin 12.5 Hematocrit 40.2 Mean Corpuscular Volume 89.9 Mean Corpuscular Hemoglobin 28.0 L Mean Corpuscular Hemoglobin Concent 31.1 L Red Cell Distribution Width 13.0 Platelet Count 392 Mean Platelet Volume 9.5 Neutrophils % 73.4 Lymphocytes % 15.9 Monocytes % 7.7 Eosinophils % 2.5 Basophils % 0.1 Nucleated Red Blood Cells % 0.0 Neutrophils # 6.2 Lymphocytes # 1.3 Monocytes # 0.7 Eosinophils # 0.2 Basophils # 0.0 Nucleated Red Blood Cells # 0.0 Sodium Level 140 Potassium Level 4.2 Chloride Level 106 Carbon Dioxide Level 27 Anion Gap 11 Blood Urea Nitrogen 26 H Creatinine 0.58 Glucose Level 149 Calcium Level 9.9 Test 10/17/16 12:06 Bedside Glucose 123 Medications Medications Current Medications Dextrose/Sodium Chloride (D5-1/2ns) 1,000 ml @ 30 mls/hr Q24H IV Last administered on 10/16/16 23:48; Admin Dose 30 MLS/HR; Start 10/06/16 at 15:46 Flumazenil (Romazicon) 0.2 mg Q1M PRN IV BENZODIAZEPINE OVERDOSE; Start at 16:00 Naloxone HCl (Narcan) 0.4 mg Q3M PRN IV DECREASED REPIRATORY RATE; Start at 16:00 Ondansetron HCl (Zofran Inj) 4 mg Q6H PRN IV NAUSEA AND/OR VOMITING; Start at 16:00 Acetaminophen (Tylenol Liquid) 650 mg Q6H PRN PO PAIN LEVEL 1-3 OR FEVER Last administered on 10/14/16 08:54; Admin Dose 650 MG; Start 10/06/16 at 16:00 Acetaminophen (Tylenol Tab) 650 mg Q6H PRN PO PAIN LEVEL 1-3 OR FEVER; Start at 16:00 Magnesium Hydroxide (Milk Of Mag) 30 ml DAILY PRN PO CONSTIPATION Last administered on 10/13/16 08:41; Admin Dose 30 ML; Start 10/06/16 at 16:00 Bisacodyl (Dulcolax) 5 mg DAILY PRN PO CONSTIPATION; Start 10/06/16 at 16:00 Pantoprazole (Protonix Iv) 40 mg DAILY@06 IV Last administered on 10/17/16 05: 51; Admin Dose 40 MG; Start 10/07/16 at 06:00 Miscellaneous Information 1 ea NOTE XX ; Start 10/09/16 at 09:30 Glucose (Glutose) 15 gm Q15M PRN PO DECREASED GLUCOSE; Start 10/09/16 at 09:30 Glucose (Glutose) 22.5 gm Q15M PRN PO DECREASED GLUCOSE; Start 10/09/16 at 09: 30 Dextrose (D50w Syringe) 25 ml Q15M PRN IV DECREASED GLUCOSE; Start 10/09/16 at 09:30 Dextrose (D50w Syringe) 50 ml Q15M PRN IV DECREASED GLUCOSE; Start 10/09/16 at 09:30 Glucagon (Glucagen) 1 mg Q15M PRN IM DECREASED GLUCOSE; Start 10/09/16 at 09:30 Glucose (Glutose) 15 gm Q15M PRN BUCCAL DECREASED GLUCOSE; Start 10/09/16 at 09 :30 Diltiazem HCl (Cardizem Iv) 5 mg Q4H PRN IV PRN HR>110 Hold SBP<100 Last administered on 10/15/16 06:42; Admin Dose 5 MG; Start 10/09/16 at 11:30 Brimonidine Tartrate (Alphagan 0.2%) 2 drop Q4 LEFT EYE Last administered on 13:32; Admin Dose 2 DROP; Start 10/09/16 at 21:00 Prednisolone Acetate (Pred-Forte 1%) 2 drop Q4 LEFT EYE Last administered on 13:32; Admin Dose 2 DROP; Start 10/09/16 at 21:00 Morphine Sulfate (morphine) 2 mg Q3H PRN IV PAIN Last administered on 07:03; Admin Dose 2 MG; Start 10/09/16 at 21:00 Insulin Aspart (Novolog Insulin Pen) (Adult SC Insulin - Mild Algorithm)... Q6 SC Last administered on 10/14/16 19:11; Admin Dose 1 UNIT; Start 10/10/16 at 00:00 Docusate Sodium (Colace Liquid Cup) 100 mg BID NGT Last administered on 09:10; Admin Dose 100 MG; Start 10/10/16 at 11:30 Acetaminophen/ Codeine Phosphate (Tylenol No.3) 1 tab Q6H PRN PO PAIN Last administered on 10/17/16 11:00; Admin Dose 1 TAB; Start 10/10/16 at 12:00 Docusate Sodium (Colace Liquid Cup) 100 mg Q12H PRN PO CONSTIPATION; Start at 14:30 Hydralazine HCl (Apresoline) 10 mg Q6H PRN IV ELEVATED BLOOD PRESSURE; Start at 22:30 Atenolol (Tenormin) 25 mg BID PO Last administered on 10/17/16t 09:11; Admin Dose 25 MG; Start 10/15/16 at 21:00 Bisacodyl (Dulcolax Supp) 10 mg Q48H PRN [place] CONSTIPATION; Start 10/17/16 at 16: 00; Status YULISSA MIKE Oct 17, 2016 15:46
[2016-10-17] MEDS ORDERED: BISACODYL 10 MG SUPP PR PRN (16:00)
--- NOTE | 2016-10-17 19:51 | CONS ---
Date/Time of Note Date/Time of Note DATE: 10/17/16 TIME: 19:50 Assessment/Plan Assessment/Plan Additional Assessment/Plan Additional Assessment/Plan IMPRESSION: 1. 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 2. Diabetes mellitus. 3. Hypertension. 4. Atrial fibrillation. This morning patient had rapid ventricular response, she was given IV digoxin 5. Status post chest surgery. I do not know whether has got a bioprosthetic aortic valve or the mitral valve repaired, nothing is clear-cut. 6. Dysphagia with aspiration. 7. Abnormal LFT with a dilated biliary system. 8. Status post PEG patient is tolerating feeding Plan Increase feeding to 50 cc/h Reduce IV fluid Monitor liver function tests periodically Consultation Date/Type/Reason Admit Date/Time Oct 06, 2016 at 15:49 Initial Consult Date 10/09/16 Type of Consultation: Cardiology Referring Provider: SON AKHTAR MD 24 HR Interval Summary Constitutional: improved, no complaints Exam/Review of Systems Vital Signs Vitals Vital Signs Date Time Temp Pulse Resp B/P Pulse Ox O2 Delivery O2 Flow Rate FiO2 10/17/16 16:33 2.0 10/17/16 16:01 72 10/17/16 15:55 98.5 20 113/68 94 10/17/16 08:10 Nasal Cannula Intake and Output 10/16/16 10/16/16 10/17/16 15:00 23:00 07:00 Intake Total 600 ml 681 ml Output Total 200 ml 350 ml Balance 400 ml 331 ml Exam Constitutional: alert, oriented, well developed Psych: nl mood/affect, no complaints Head: atraumatic, normocephalic Eyes: EOMI, PERRL, nl conjunctiva, nl lids, nl sclera ENMT: nl external ears & nose, nl lips & teeth, nl nasal mucosa & septum Neck: non-tender, supple Respiratory: clear to auscultation, normal air movement Cardiovascular: nl pulses, regular rate and rhythm Gastrointestinal: nl liver, spleen, non-tender, soft Musculoskeletal: nl extremities to inspection, nl gait and stance Extremities: normal pulses Neurological: CLOTHING MANAGER II-XII intact, nl mental status, nl speech, nl strength Skin: nl turgor, No rash or lesions Lymph: nl lymph nodes Results Result Diagram: 10/17/16 0730 10/17/16 0730 Results 24 hrs Laboratory Tests Test 10/17/16 01:04 10/17/16 05:51 10/17/16 07:30 10/17/16 12:06 Bedside Glucose 121 127 123 White Blood Count 8.5 Red Blood Count 4.47 Hemoglobin 12.5 Hematocrit 40.2 Mean Corpuscular Volume 89.9 Mean Corpuscular Hemoglobin 28.0 L Mean Corpuscular Hemoglobin Concent 31.1 L Red Cell Distribution Width 13.0 Platelet Count 392 Mean Platelet Volume 9.5 Neutrophils % 73.4 Lymphocytes % 15.9 Monocytes % 7.7 Eosinophils % 2.5 Basophils % 0.1 Nucleated Red Blood Cells % 0.0 Neutrophils # 6.2 Lymphocytes # 1.3 Monocytes # 0.7 Eosinophils # 0.2 Basophils # 0.0 Nucleated Red Blood Cells # 0.0 Sodium Level 140 Potassium Level 4.2 Chloride Level 106 Carbon Dioxide Level 27 Anion Gap 11 Blood Urea Nitrogen 26 H Creatinine 0.58 Glucose Level 149 Calcium Level 9.9 Test 10/17/16 17:27 Bedside Glucose 132 Medications Medications Current Medications Flumazenil (Romazicon) 0.2 mg Q1M PRN IV BENZODIAZEPINE OVERDOSE; Start at 16:00 Naloxone HCl (Narcan) 0.4 mg Q3M PRN IV DECREASED REPIRATORY RATE; Start at 16:00 Ondansetron HCl (Zofran Inj) 4 mg Q6H PRN IV NAUSEA AND/OR VOMITING; Start at 16:00 Acetaminophen (Tylenol Liquid) 650 mg Q6H PRN PO PAIN LEVEL 1-3 OR FEVER Last administered on 10/14/16 08:54; Admin Dose 650 MG; Start 10/06/16 at 16:00 Magnesium Hydroxide (Milk Of Mag) 30 ml DAILY PRN PO CONSTIPATION Last administered on 10/13/16 08:41; Admin Dose 30 ML; Start 10/06/16 at 16:00 Bisacodyl (Dulcolax) 5 mg DAILY PRN PO CONSTIPATION; Start 10/06/16 at 16:00 Miscellaneous Information 1 ea NOTE XX ; Start 10/09/16 at 09:30 Glucose (Glutose) 15 gm Q15M PRN PO DECREASED GLUCOSE; Start 10/09/16 at 09:30 Glucose (Glutose) 22.5 gm Q15M PRN PO DECREASED GLUCOSE; Start 10/09/16 at 09: 30 Dextrose (D50w Syringe) 25 ml Q15M PRN IV DECREASED GLUCOSE; Start 10/09/16 at 09:30 Dextrose (D50w Syringe) 50 ml Q15M PRN IV DECREASED GLUCOSE; Start 10/09/16 at 09:30 Glucagon (Glucagen) 1 mg Q15M PRN IM DECREASED GLUCOSE; Start 10/09/16 at 09:30 Glucose (Glutose) 15 gm Q15M PRN BUCCAL DECREASED GLUCOSE; Start 10/09/16 at 09 :30 Diltiazem HCl (Cardizem Iv) 5 mg Q4H PRN IV PRN HR>110 Hold SBP<100 Last administered on 10/15/16 06:42; Admin Dose 5 MG; Start 10/09/16 at 11:30 Brimonidine Tartrate (Alphagan 0.2%) 2 drop Q4 LEFT EYE Last administered on 17:29; Admin Dose 2 DROP; Start 10/09/16 at 21:00 Prednisolone Acetate (Pred-Forte 1%) 2 drop Q4 LEFT EYE Last administered on 17:29; Admin Dose 2 DROP; Start 10/09/16 at 21:00 Morphine Sulfate (morphine) 2 mg Q3H PRN IV PAIN Last administered on 07:03; Admin Dose 2 MG; Start 10/09/16 at 21:00 Insulin Aspart (Novolog Insulin Pen) (Adult SC Insulin - Mild Algorithm)... Q6 SC Last administered on 10/14/16 19:11; Admin Dose 1 UNIT; Start 10/10/16 at 00:00 Docusate Sodium (Colace Liquid Cup) 100 mg BID NGT Last administered on 09:10; Admin Dose 100 MG; Start 10/10/16 at 11:30 Acetaminophen/ Codeine Phosphate (Tylenol No.3) 1 tab Q6H PRN PO PAIN Last administered on 10/17/16 11:00; Admin Dose 1 TAB; Start 10/10/16 at 12:00 Docusate Sodium (Colace Liquid Cup) 100 mg Q12H PRN PO CONSTIPATION; Start at 14:30 Hydralazine HCl (Apresoline) 10 mg Q6H PRN IV ELEVATED BLOOD PRESSURE; Start at 22:30 Atenolol (Tenormin) 25 mg BID PO Last administered on 10/17/16 09:11; Admin Dose 25 MG; Start 10/15/16 at 21:00 Bisacodyl (Dulcolax Supp) 10 mg Q48H PRN [place] CONSTIPATION Last administered on 17:32; Admin Dose 10 MG; Start 10/17/16 at 16:00 Famotidine (Pepcid) 20 mg BID GTB ; Start 10/17/16 at 21:00 EDSON PÉREZ MD Oct 17, 2016 19:51
[2016-10-17] MEDS: FAMOTIDINE 20 MG TAB GTB SCH (21:43)
[2016-10-18] VITALS (11 sets, daily range): BP systolic 100–121; BP diastolic 59–75; PULSE 74–114; RESP 18
[2016-10-18] MEDS: BRIMONIDINE 0.2% 5 ML BTL LEFT EYE SCH ×6 (01:47→20:37)
[2016-10-18] MEDS: PREDNISOLONE ACET 1% 5 ML OPH LEFT EYE SCH ×6 (01:47→20:37)
[2016-10-18] MEDS: Insulin NOVOLOG SS MILD Algorithm (NPO/TPN/ENTERAL FEEDS) SC SCH ×4 (05:59→17:09)
[2016-10-18] MEDS: DOCUSATE SODIUM 10 MG/ML (10ML CUP) NGT SCH ×2 (09:00→20:37)
[2016-10-18] MEDS: FAMOTIDINE 20 MG TAB GTB SCH ×2 (09:48→20:34)
[2016-10-18] MEDS: ATENOLOL 25 MG TAB PO SCH ×2 (09:48→20:37)
[2016-10-18] MEDS: ACETAMINOPHEN 650MG/20.3ML CUP PO PRN (11:14)
--- NOTE | 2016-10-18 14:37 | CONS ---
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 MS Hypertension GERD Dysphagia s/p G tube Continue Atenolol No anticoagulation due to hemorrhagic transformation pending clearance from Neurology Continue Protonix Aspiration precautions Consultation Date/Type/Reason Admit Date/Time Oct 06, 2016 at 15:49 Initial Consult Date 10/09/16 Type of Consultation: Cardiology Referring Provider: SON AKHTAR MD Exam/Review of Systems Vital Signs Vitals Vital Signs Date Time Temp Pulse Resp B/P Pulse Ox O2 Delivery O2 Flow Rate FiO2 10/18/16 12:09 99 10/18/16 11:40 99.3 18 111/74 94 10/18/16 08:24 2.0 10/18/16 08:00 Nasal Cannula Intake and Output 10/17/16 10/17/16 10/18/16 15:00 23:00 07:00 Intake Total 400 ml 366 ml Output Total 500 ml 600 ml Balance -100 ml -234 ml Exam Head: atraumatic, normocephalic Neck: non-tender, supple Respiratory: diminished breath sounds Cardiovascular: irregular rhythm, systolic murmur and diastolic murmur Gastrointestinal: nl liver, spleen, non-tender, soft Extremities: normal pulses Results Result Diagram: 10/17/16 0730 10/17/16 0730 Results 24 hrs Laboratory Tests Test 10/17/16 17:27 10/18/16 00:25 10/18/16 05:58 10/18/16 12:17 Bedside Glucose 132 138 120 157 Medications Medications Current Medications Flumazenil (Romazicon) 0.2 mg Q1M PRN IV BENZODIAZEPINE OVERDOSE; Start at 16:00 Naloxone HCl (Narcan) 0.4 mg Q3M PRN IV DECREASED REPIRATORY RATE; Start at 16:00 Ondansetron HCl (Zofran Inj) 4 mg Q6H PRN IV NAUSEA AND/OR VOMITING; Start at 16:00 Acetaminophen (Tylenol Liquid) 650 mg Q6H PRN PO PAIN LEVEL 1-3 OR FEVER Last administered on 10/18/16t 11:14; Admin Dose 650 MG; Start 10/06/16 at 16:00 Magnesium Hydroxide (Milk Of Mag) 30 ml DAILY PRN PO CONSTIPATION Last administered on 10/13/16 08:41; Admin Dose 30 ML; Start 10/06/16 at 16:00 Bisacodyl (Dulcolax) 5 mg DAILY PRN PO CONSTIPATION; Start 10/06/16 at 16:00 Miscellaneous Information 1 ea NOTE XX ; Start 10/09/16 at 09:30 Glucose (Glutose) 15 gm Q15M PRN PO DECREASED GLUCOSE; Start 10/09/16 at 09:30 Glucose (Glutose) 22.5 gm Q15M PRN PO DECREASED GLUCOSE; Start 10/09/16 at 09: 30 Dextrose (D50w Syringe) 25 ml Q15M PRN IV DECREASED GLUCOSE; Start 10/09/16 at 09:30 Dextrose (D50w Syringe) 50 ml Q15M PRN IV DECREASED GLUCOSE; Start 10/09/16 at 09:30 Glucagon (Glucagen) 1 mg Q15M PRN IM DECREASED GLUCOSE; Start 10/09/16 at 09:30 Glucose (Glutose) 15 gm Q15M PRN BUCCAL DECREASED GLUCOSE; Start 10/09/16 at 09 :30 Diltiazem HCl (Cardizem Iv) 5 mg Q4H PRN IV PRN HR>110 Hold SBP<100 Last administered on 10/15/16 06:42; Admin Dose 5 MG; Start 10/09/16 at 11:30 Brimonidine Tartrate (Alphagan 0.2%) 2 drop Q4 LEFT EYE Last administered on 13:14; Admin Dose 2 DROP; Start 10/09/16 at 21:00 Prednisolone Acetate (Pred-Forte 1%) 2 drop Q4 LEFT EYE Last administered on 13:14; Admin Dose 2 DROP; Start 10/09/16 at 21:00 Morphine Sulfate (morphine) 2 mg Q3H PRN IV PAIN Last administered on 07:03; Admin Dose 2 MG; Start 10/09/16 at 21:00 Insulin Aspart (Novolog Insulin Pen) (Adult SC Insulin - Mild Algorithm)... Q6 SC Last administered on 10/18/16 13:17; Admin Dose 1 UNIT; Start 10/10/16 at 00 :00 Docusate Sodium (Colace Liquid Cup) 100 mg BID NGT Last administered on 21:43; Admin Dose 100 MG; Start 10/10/16 at 11:30 Acetaminophen/ Codeine Phosphate (Tylenol No.3) 1 tab Q6H PRN PO PAIN Last administered on 10/17/16 22:44; Admin Dose 1 TAB; Start 10/10/16 at 12:00 Docusate Sodium (Colace Liquid Cup) 100 mg Q12H PRN PO CONSTIPATION; Start at 14:30 Hydralazine HCl (Apresoline) 10 mg Q6H PRN IV ELEVATED BLOOD PRESSURE; Start at 22:30 Atenolol (Tenormin) 25 mg BID PO Last administered on 10/18/16 09:48; Admin Dose 25 MG; Start 10/15/16 at 21:00 Bisacodyl (Dulcolax Supp) 10 mg Q48H PRN [place] CONSTIPATION Last administered on 17:32; Admin Dose 10 MG; Start 10/17/16 at 16:00 Famotidine (Pepcid) 20 mg BID GTB Last administered on 10/18/16 09:48; Admin Dose 20 MG; Start 10/17/16 at 21:00 OCHOA HERNÁNDEZ M.D. Oct 18, 2016 14:36
--- NOTE | 2016-10-18 16:54 | CONS ---
Date/Time of Note Date/Time of Note DATE: 10/18/16 TIME: 16:53 Assessment/Plan Assessment/Plan Additional Assessment/Plan Additional Assessment/Plan IMPRESSION: 1. 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 2. Diabetes mellitus. 3. Hypertension. 4. Atrial fibrillation. This morning patient had rapid ventricular response, she was given IV digoxin 5. Status post chest surgery. I do not know whether has got a bioprosthetic aortic valve or the mitral valve repaired, nothing is clear-cut. 6. Dysphagia with aspiration. 7. Abnormal LFT with a dilated biliary system. 8. Status post PEG patient is tolerating feeding Plan Increase feeding to 50 cc/h, patient is tolerating feeding well. Reduce IV fluid Monitor liver function tests periodically Consultation Date/Type/Reason Admit Date/Time Oct 06, 2016 at 15:49 Initial Consult Date 10/09/16 Type of Consultation: Cardiology Referring Provider: SON AKHTAR MD 24 HR Interval Summary Constitutional: improved, no complaints Exam/Review of Systems Vital Signs Vitals Vital Signs Date Time Temp Pulse Resp B/P Pulse Ox O2 Delivery O2 Flow Rate FiO2 10/18/16 16:14 98.7 89 18 121/59 94 10/18/16 08:24 2.0 10/18/16 08:00 Nasal Cannula Intake and Output 10/17/16 10/17/16 10/18/16 15:00 23:00 07:00 Intake Total 400 ml 366 ml Output Total 500 ml 600 ml Balance -100 ml -234 ml Exam Constitutional: alert, oriented, well developed Psych: nl mood/affect, no complaints Head: atraumatic, normocephalic Eyes: EOMI, PERRL, nl conjunctiva, nl lids, nl sclera ENMT: nl external ears & nose, nl lips & teeth, nl nasal mucosa & septum Neck: non-tender, supple Respiratory: clear to auscultation, normal air movement Cardiovascular: nl pulses, regular rate and rhythm Gastrointestinal: nl liver, spleen, non-tender, soft Musculoskeletal: nl extremities to inspection, nl gait and stance Extremities: normal pulses Neurological: BEZEL CUTTER II-XII intact, nl mental status, nl speech, nl strength Skin: nl turgor, No rash or lesions Lymph: nl lymph nodes Results Result Diagram: 10/17/16 0730 10/17/16 0730 Results 24 hrs Laboratory Tests Test 10/17/16:27 10/18/16 00:25 10/18/16 05:58 10/18/16 12:17 Bedside Glucose 132 138 120 157 Medications Medications Current Medications Flumazenil (Romazicon) 0.2 mg Q1M PRN IV BENZODIAZEPINE OVERDOSE; Start at 16:00 Naloxone HCl (Narcan) 0.4 mg Q3M PRN IV DECREASED REPIRATORY RATE; Start at 16:00 Ondansetron HCl (Zofran Inj) 4 mg Q6H PRN IV NAUSEA AND/OR VOMITING; Start at 16:00 Acetaminophen (Tylenol Liquid) 650 mg Q6H PRN PO PAIN LEVEL 1-3 OR FEVER Last administered on 10/18/16 11:14; Admin Dose 650 MG; Start 10/06/16 at 16:00 Magnesium Hydroxide (Milk Of Mag) 30 ml DAILY PRN PO CONSTIPATION Last administered on 10/13/16 08:41; Admin Dose 30 ML; Start 10/06/16 at 16:00 Bisacodyl (Dulcolax) 5 mg DAILY PRN PO CONSTIPATION; Start 10/06/16 at 16:00 Miscellaneous Information 1 ea NOTE XX ; Start 10/09/16 at 09:30 Glucose (Glutose) 15 gm Q15M PRN PO DECREASED GLUCOSE; Start 10/09/16 at 09:30 Glucose (Glutose) 22.5 gm Q15M PRN PO DECREASED GLUCOSE; Start 10/09/16 at 09: 30 Dextrose (D50w Syringe) 25 ml Q15M PRN IV DECREASED GLUCOSE; Start 10/09/16 at 09:30 Dextrose (D50w Syringe) 50 ml Q15M PRN IV DECREASED GLUCOSE; Start 10/09/16 at 09:30 Glucagon (Glucagen) 1 mg Q15M PRN IM DECREASED GLUCOSE; Start 10/09/16 at 09:30 Glucose (Glutose) 15 gm Q15M PRN BUCCAL DECREASED GLUCOSE; Start 10/09/16 at 09 :30 Diltiazem HCl (Cardizem Iv) 5 mg Q4H PRN IV PRN HR>110 Hold SBP<100 Last administered on 10/15/16 06:42; Admin Dose 5 MG; Start 10/09/16 at 11:30 Brimonidine Tartrate (Alphagan 0.2%) 2 drop Q4 LEFT EYE Last administered on 13:14; Admin Dose 2 DROP; Start 10/09/16 at 21:00 Prednisolone Acetate (Pred-Forte 1%) 2 drop Q4 LEFT EYE Last administered on 13:14; Admin Dose 2 DROP; Start 10/09/16 at 21:00 Morphine Sulfate (morphine) 2 mg Q3H PRN IV PAIN Last administered on 07:03; Admin Dose 2 MG; Start 10/09/16 at 21:00 Insulin Aspart (Novolog Insulin Pen) (Adult SC Insulin - Mild Algorithm)... Q6 SC Last administered on 10/18/16 13:17; Admin Dose 1 UNIT; Start 10/10/16 at 00 :00 Docusate Sodium (Colace Liquid Cup) 100 mg BID NGT Last administered on 21:43; Admin Dose 100 MG; Start 10/10/16 at 11:30 Acetaminophen/ Codeine Phosphate (Tylenol No.3) 1 tab Q6H PRN PO PAIN Last administered on 10/17/16 22:44; Admin Dose 1 TAB; Start 10/10/16 at 12:00 Docusate Sodium (Colace Liquid Cup) 100 mg Q12H PRN PO CONSTIPATION; Start at 14:30 Hydralazine HCl (Apresoline) 10 mg Q6H PRN IV ELEVATED BLOOD PRESSURE; Start at 22:30 Atenolol (Tenormin) 25 mg BID PO Last administered on 10/18/16 09:48; Admin Dose 25 MG; Start 10/15/16 at 21:00 Bisacodyl (Dulcolax Supp) 10 mg Q48H PRN [place] CONSTIPATION Last administered on 17:32; Admin Dose 10 MG; Start 10/17/16 at 16:00 Famotidine (Pepcid) 20 mg BID GTB Last administered on 10/18/16 09:48; Admin Dose 20 MG; Start 10/17/16 at 21:00 EDSON PÉREZ MD Oct 18, 2016 16:54
--- NOTE | 2016-10-18 17:25 | PN ---
Date/Time of Note Date/Time of Note DATE: 10/18/16 TIME: 17:24 Assessment/Plan VTE Prophylaxis VTE Prophylaxis Intervention: other Lines/Catheters IV Catheter Type (from Nrsg): Saline Lock Urinary Cath still in place: Yes Reason Cath still needed: urinary retention, skin wounds contaminated by urine Assessment/Plan Chief Complaint/Hosp Course [id number] cerebrovascular accident and left-sided weakness, 2hypertension,3 diabetes mellitus. 4The patient has atrial fibrillation on the monitor. [id number] hx valve replacement hemorragic cva leucocytosis plan per dr nilo lea d/w [facility] LIVER seen per gi s/p peg need rehab Problems: Subjective 24 Hr Interval Summary Respiratory: no complaints Cardiovascular: no complaints Exam/Review of Systems Vital Signs Vitals Vital Signs Date Time Temp Pulse Resp B/P Pulse Ox O2 Delivery O2 Flow Rate FiO2 10/18/16 16:14 98.7 89 18 121/59 94 10/18/16 08:24 2.0 10/18/16 08:00 Nasal Cannula Intake and Output 10/17/16 10/17/16 10/18/16 14:59 22:59 06:59 Intake Total 400 ml 366 ml Output Total 500 ml 600 ml Balance -100 ml -234 ml Exam Eyes: nl conjunctiva ENMT: nl external ears & nose Neck: supple Respiratory: clear to auscultation Cardiovascular: regular rate and rhythm Gastrointestinal: other (peg+), soft Extremities: No edema Results Result Diagram: 10/17/16 0730 10/17/16 0730 Results 24 hrs Laboratory Tests Test 10/17/16 17:27 10/18/16 00:25 10/18/16 05:58 10/18/16 12:17 Bedside Glucose 132 138 120 157 Test 10/18/16 17:07 Bedside Glucose 134 Medications Medications Current Medications Flumazenil (Romazicon) 0.2 mg Q1M PRN IV BENZODIAZEPINE OVERDOSE; Start at 16:00 Naloxone HCl (Narcan) 0.4 mg Q3M PRN IV DECREASED REPIRATORY RATE; Start at 16:00 Ondansetron HCl (Zofran Inj) 4 mg Q6H PRN IV NAUSEA AND/OR VOMITING; Start at 16:00 Acetaminophen (Tylenol Liquid) 650 mg Q6H PRN PO PAIN LEVEL 1-3 OR FEVER Last administered on 10/18/16 11:14; Admin Dose 650 MG; Start 10/06/16 at 16:00 Magnesium Hydroxide (Milk Of Mag) 30 ml DAILY PRN PO CONSTIPATION Last administered on 10/13/16 08:41; Admin Dose 30 ML; Start 10/06/16 at 16:00 Bisacodyl (Dulcolax) 5 mg DAILY PRN PO CONSTIPATION; Start 10/06/16 at 16:00 Miscellaneous Information 1 ea NOTE XX ; Start 10/09/16 at 09:30 Glucose (Glutose) 15 gm Q15M PRN PO DECREASED GLUCOSE; Start 10/09/16 at 09:30 Glucose (Glutose) 22.5 gm Q15M PRN PO DECREASED GLUCOSE; Start 10/09/16 at 09: 30 Dextrose (D50w Syringe) 25 ml Q15M PRN IV DECREASED GLUCOSE; Start 10/09/16 at 09:30 Dextrose (D50w Syringe) 50 ml Q15M PRN IV DECREASED GLUCOSE; Start 10/09/16 at 09:30 Glucagon (Glucagen) 1 mg Q15M PRN IM DECREASED GLUCOSE; Start 10/09/16 at 09:30 Glucose (Glutose) 15 gm Q15M PRN BUCCAL DECREASED GLUCOSE; Start 10/09/16 at 09 :30 Diltiazem HCl (Cardizem Iv) 5 mg Q4H PRN IV PRN HR>110 Hold SBP<100 Last administered on 10/15/16 06:42; Admin Dose 5 MG; Start 10/09/16 at 11:30 Brimonidine Tartrate (Alphagan 0.2%) 2 drop Q4 LEFT EYE Last administered on 17:09; Admin Dose 2 DROP; Start 10/09/16 at 21:00 Prednisolone Acetate (Pred-Forte 1%) 2 drop Q4 LEFT EYE Last administered on 17:09; Admin Dose 2 DROP; Start 10/09/16 at 21:00 Morphine Sulfate (morphine) 2 mg Q3H PRN IV PAIN Last administered on 07:03; Admin Dose 2 MG; Start 10/09/16 at 21:00 Insulin Aspart (Novolog Insulin Pen) (Adult SC Insulin - Mild Algorithm)... Q6 SC Last administered on 10/18/16 13:17; Admin Dose 1 UNIT; Start 10/10/16 at 00 :00 Docusate Sodium (Colace Liquid Cup) 100 mg BID NGT Last administered on 21:43; Admin Dose 100 MG; Start 10/10/16 at 11:30 Acetaminophen/ Codeine Phosphate (Tylenol No.3) 1 tab Q6H PRN PO PAIN Last administered on 10/17/16 22:44; Admin Dose 1 TAB; Start 10/10/16 at 12:00 Docusate Sodium (Colace Liquid Cup) 100 mg Q12H PRN PO CONSTIPATION; Start at 14:30 Hydralazine HCl (Apresoline) 10 mg Q6H PRN IV ELEVATED BLOOD PRESSURE; Start at 22:30 Atenolol (Tenormin) 25 mg BID PO Last administered on 10/18/16 09:48; Admin Dose 25 MG; Start 10/15/16 at 21:00 Bisacodyl (Dulcolax Supp) 10 mg Q48H PRN [place] CONSTIPATION Last administered on 17:32; Admin Dose 10 MG; Start 10/17/16 at 16:00 Famotidine (Pepcid) 20 mg BID GTB Last administered on 10/18/16 09:48; Admin Dose 20 MG; Start 10/17/16 at 21:00 SON AKHTAR MD Oct 18, 2016 17:25
[2016-10-19] VITALS (12 sets, daily range): BP systolic 100–132; BP diastolic 56–79; PULSE 81–97; RESP 18–20
[2016-10-19] MEDS: PREDNISOLONE ACET 1% 5 ML OPH LEFT EYE SCH ×6 (03:31→21:40)
[2016-10-19] MEDS: BRIMONIDINE 0.2% 5 ML BTL LEFT EYE SCH ×6 (03:32→21:41)
[2016-10-19] MEDS: Insulin NOVOLOG SS MILD Algorithm (NPO/TPN/ENTERAL FEEDS) SC SCH ×4 (05:16→17:29)
[2016-10-19] MEDS: FAMOTIDINE 20 MG TAB GTB SCH ×2 (08:39→21:40)
[2016-10-19] MEDS: DOCUSATE SODIUM 10 MG/ML (10ML CUP) NGT SCH ×2 (08:39→21:40)
[2016-10-19] MEDS: ATENOLOL 25 MG TAB PO SCH ×2 (08:40→21:40)
--- NOTE | 2016-10-19 18:54 | CONS ---
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 8.Dysphagia s/p G tube Recc: -Tele -serial ecg's -IVP PRN diltiazem at this time -Neuro following-Not on systemic anti-coag due to Hemm conversion -ASA held due to Hemm conversion on head CT -Follow MS closely -Continue BB with well controlled HR at this time Problems: Consultation Date/Type/Reason Admit Date/Time Oct 06, 2016 at 15:49 Initial Consult Date 10/06/2016 Type of Consultation: Cardiology Reason for Consultation AF Referring Provider: SON AKHTAR MD Exam/Review of Systems Vital Signs Vitals Vital Signs Date Time Temp Pulse Resp B/P Pulse Ox O2 Delivery O2 Flow Rate FiO2 10/19/16 16:19 83 10/19/16 16:06 98.3 18 100/67 98 10/19/16 08:15 Nasal Cannula 2.0 Intake and Output 10/18/16 10/18/16 10/19/16 15:00 23:00 07:00 Intake Total 560 ml 520 ml Output Total 500 ml 500 ml Balance 60 ml 20 ml Exam Review of Systems: CONSTITUTIONAL: No fevers, chills. PULMONARY: No sob CARDIOVASCULAR: No chest pain/palpitations GASTROINTESTINAL: No nausea/vomiting. GENITOURINARY: No hematuria/dysuria. MUSCULOSKELETAL: No myagias/arthalgias. PSYCHIATRIC: The patient denies depression. NEUROLOGIC: Encephalopathy Constitutional: alert Psych: no complaints Head: normocephalic ENMT: mucosa pink and moist Neck: jvd (9 cm water), supple Respiratory: diminished breath sounds (at bases/B) Cardiovascular: irregular rhythm Gastrointestinal: non-tender, soft Musculoskeletal: muscle tone (normal) Extremities: edema (none) Neurological: confused, lethargic Results Result Diagram: 10/17/16 0730 10/17/16 0730 Results 24 hrs Laboratory Tests Test 10/19/16 01:14 10/19/16 05:15 10/19/16 11:51 10/19/16 16:56 Bedside Glucose 128 132 118 138 Medications Medications Current Medications Flumazenil (Romazicon) 0.2 mg Q1M PRN IV BENZODIAZEPINE OVERDOSE; Start at 16:00 Naloxone HCl (Narcan) 0.4 mg Q3M PRN IV DECREASED REPIRATORY RATE; Start at 16:00 Ondansetron HCl (Zofran Inj) 4 mg Q6H PRN IV NAUSEA AND/OR VOMITING; Start at 16:00 Acetaminophen (Tylenol Liquid) 650 mg Q6H PRN PO PAIN LEVEL 1-3 OR FEVER Last administered on 10/18/16 11:14; Admin Dose 650 MG; Start 10/06/16 at 16:00 Magnesium Hydroxide (Milk Of Mag) 30 ml DAILY PRN PO CONSTIPATION Last administered on 10/13/16 08:41; Admin Dose 30 ML; Start 10/06/16 at 16:00 Bisacodyl (Dulcolax) 5 mg DAILY PRN PO CONSTIPATION; Start 10/06/16 at 16:00 Miscellaneous Information 1 ea NOTE XX ; Start 10/09/16 at 09:30 Glucose (Glutose) 15 gm Q15M PRN PO DECREASED GLUCOSE; Start 10/09/16 at 09:30 Glucose (Glutose) 22.5 gm Q15M PRN PO DECREASED GLUCOSE; Start 10/09/16 at 09: 30 Dextrose (D50w Syringe) 25 ml Q15M PRN IV DECREASED GLUCOSE; Start 10/09/16 at 09:30 Dextrose (D50w Syringe) 50 ml Q15M PRN IV DECREASED GLUCOSE; Start 10/09/16 at 09:30 Glucagon (Glucagen) 1 mg Q15M PRN IM DECREASED GLUCOSE; Start 10/09/16 at 09:30 Glucose (Glutose) 15 gm Q15M PRN BUCCAL DECREASED GLUCOSE; Start 10/09/16 at 09 :30 Diltiazem HCl (Cardizem Iv) 5 mg Q4H PRN IV PRN HR>110 Hold SBP<100 Last administered on 10/15/16 06:42; Admin Dose 5 MG; Start 10/09/16 at 11:30 Brimonidine Tartrate (Alphagan 0.2%) 2 drop Q4 LEFT EYE Last administered on 17:29; Admin Dose 2 DROP; Start 10/09/16 at 21:00 Prednisolone Acetate (Pred-Forte 1%) 2 drop Q4 LEFT EYE Last administered on 17:29; Admin Dose 2 DROP; Start 10/09/16 at 21:00 Morphine Sulfate (morphine) 2 mg Q3H PRN IV PAIN Last administered on 07:03; Admin Dose 2 MG; Start 10/09/16 at 21:00 Insulin Aspart (Novolog Insulin Pen) (Adult SC Insulin - Mild Algorithm)... Q6 SC Last administered on 10/18/16 13:17; Admin Dose 1 UNIT; Start 10/10/16 at 00 :00 Docusate Sodium (Colace Liquid Cup) 100 mg BID NGT Last administered on 08:39; Admin Dose 100 MG; Start 10/10/16 at 11:30 Acetaminophen/ Codeine Phosphate (Tylenol No.3) 1 tab Q6H PRN PO PAIN Last administered on 10/17/16 22:44; Admin Dose 1 TAB; Start 10/10/16 at 12:00 Docusate Sodium (Colace Liquid Cup) 100 mg Q12H PRN PO CONSTIPATION; Start at 14:30 Hydralazine HCl (Apresoline) 10 mg Q6H PRN IV ELEVATED BLOOD PRESSURE; Start at 22:30 Atenolol (Tenormin) 25 mg BID PO Last administered on 10/19/16 08:40; Admin Dose 25 MG; Start 10/15/16 at 21:00 Bisacodyl (Dulcolax Supp) 10 mg Q48H PRN [place] CONSTIPATION Last administered on 17:32; Admin Dose 10 MG; Start 10/17/16 at 16:00 Famotidine (Pepcid) 20 mg BID GTB Last administered on 10/19/16 08:39; Admin Dose 20 MG; Start 10/17/16 at 21:00 EMANUEL LAMAR Oct 19, 2016 18:54
--- NOTE | 2016-10-19 18:57 | CONS ---
Date/Time of Note Date/Time of Note DATE: 10/19/16 TIME: 18:56 Assessment/Plan Assessment/Plan Additional Assessment/Plan Additional Assessment/Plan IMPRESSION: 1. 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 Diabetes mellitus. 3. Hypertension. 4. Atrial fibrillation. This morning patient had rapid ventricular response, she was given IV digoxin 5. Status post chest surgery. I do not know whether has got a bioprosthetic aortic valve or the mitral valve repaired, nothing is clear-cut. 6. Dysphagia with aspiration. 7. Abnormal LFT with a dilated biliary system. 8. Status post PEG patient is tolerating feeding Plan Increase feeding to 50 cc/h, patient is tolerating feeding well. Reduce IV fluid Monitor liver function tests periodically Consultation Date/Type/Reason Admit Date/Time Oct 06, 2016 at 15:49 Initial Consult Date 10/09/16 Type of Consultation: Cardiology Referring Provider: SON AKHTAR MD 24 HR Interval Summary Constitutional: improved, no complaints Exam/Review of Systems Vital Signs Vitals Vital Signs Date Time Temp Pulse Resp B/P Pulse Ox O2 Delivery O2 Flow Rate FiO2 10/19/16 16:19 83 10/19/16 16:06 98.3 18 100/67 98 10/19/16 08:15 Nasal Cannula 2.0 Intake and Output 10/18/16 10/18/16 10/19/16 15:00 23:00 07:00 Intake Total 560 ml 520 ml Output Total 500 ml 500 ml Balance 60 ml 20 ml Exam Constitutional: alert, oriented, well developed Psych: nl mood/affect, no complaints Head: atraumatic, normocephalic Eyes: EOMI, PERRL, nl conjunctiva, nl lids, nl sclera ENMT: nl external ears & nose, nl lips & teeth, nl nasal mucosa & septum Neck: non-tender, supple Respiratory: clear to auscultation, normal air movement Cardiovascular: nl pulses, regular rate and rhythm Gastrointestinal: nl liver, spleen, non-tender, soft Musculoskeletal: nl extremities to inspection, nl gait and stance Extremities: normal pulses Neurological: SENIOR NET ENGINEER II-XII intact, nl mental status, nl speech, nl strength Skin: nl turgor, No rash or lesions Lymph: nl lymph nodes Results Result Diagram: 10/17/16 0730 10/17/16 0730 Results 24 hrs Laboratory Tests Test 10/19/16 01:14 10/19/16 05:15 10/19/16 11:51 10/19/16 16:56 Bedside Glucose 128 132 118 138 Medications Medications Current Medications Flumazenil (Romazicon) 0.2 mg Q1M PRN IV BENZODIAZEPINE OVERDOSE; Start at 16:00 Naloxone HCl (Narcan) 0.4 mg Q3M PRN IV DECREASED REPIRATORY RATE; Start at 16:00 Ondansetron HCl (Zofran Inj) 4 mg Q6H PRN IV NAUSEA AND/OR VOMITING; Start at 16:00 Acetaminophen (Tylenol Liquid) 650 mg Q6H PRN PO PAIN LEVEL 1-3 OR FEVER Last administered on 10/18/16 11:14; Admin Dose 650 MG; Start 10/06/16 at 16:00 Magnesium Hydroxide (Milk Of Mag) 30 ml DAILY PRN PO CONSTIPATION Last administered on 10/13/16 08:41; Admin Dose 30 ML; Start 10/06/16 at 16:00 Bisacodyl (Dulcolax) 5 mg DAILY PRN PO CONSTIPATION; Start 10/06/16 at 16:00 Miscellaneous Information 1 ea NOTE XX ; Start 10/09/16 at 09:30 Glucose (Glutose) 15 gm Q15M PRN PO DECREASED GLUCOSE; Start 10/09/16 at 09:30 Glucose (Glutose) 22.5 gm Q15M PRN PO DECREASED GLUCOSE; Start 10/09/16 at 09: 30 Dextrose (D50w Syringe) 25 ml Q15M PRN IV DECREASED GLUCOSE; Start 10/09/16 at 09:30 Dextrose (D50w Syringe) 50 ml Q15M PRN IV DECREASED GLUCOSE; Start 10/09/16 at 09:30 Glucagon (Glucagen) 1 mg Q15M PRN IM DECREASED GLUCOSE; Start 10/09/16 at 09:30 Glucose (Glutose) 15 gm Q15M PRN BUCCAL DECREASED GLUCOSE; Start 10/09/16 at 09 :30 Diltiazem HCl (Cardizem Iv) 5 mg Q4H PRN IV PRN HR>110 Hold SBP<100 Last administered on 10/15/16 06:42; Admin Dose 5 MG; Start 10/09/16 at 11:30 Brimonidine Tartrate (Alphagan 0.2%) 2 drop Q4 LEFT EYE Last administered on 17:29; Admin Dose 2 DROP; Start 10/09/16 at 21:00 Prednisolone Acetate (Pred-Forte 1%) 2 drop Q4 LEFT EYE Last administered on 17:29; Admin Dose 2 DROP; Start 10/09/16 at 21:00 Morphine Sulfate (morphine) 2 mg Q3H PRN IV PAIN Last administered on 07:03; Admin Dose 2 MG; Start 10/09/16 at 21:00 Insulin Aspart (Novolog Insulin Pen) (Adult SC Insulin - Mild Algorithm)... Q6 SC Last administered on 10/18/16 13:17; Admin Dose 1 UNIT; Start 10/10/16 at 00 :00 Docusate Sodium (Colace Liquid Cup) 100 mg BID NGT Last administered on 08:39; Admin Dose 100 MG; Start 10/10/16 at 11:30 Acetaminophen/ Codeine Phosphate (Tylenol No.3) 1 tab Q6H PRN PO PAIN Last administered on 10/17/16 22:44; Admin Dose 1 TAB; Start 10/10/16 at 12:00 Docusate Sodium (Colace Liquid Cup) 100 mg Q12H PRN PO CONSTIPATION; Start at 14:30 Hydralazine HCl (Apresoline) 10 mg Q6H PRN IV ELEVATED BLOOD PRESSURE; Start at 22:30 Atenolol (Tenormin) 25 mg BID PO Last administered on 10/19/16 08:40; Admin Dose 25 MG; Start 10/15/16 at 21:00 Bisacodyl (Dulcolax Supp) 10 mg Q48H PRN [place] CONSTIPATION Last administered on 17:32; Admin Dose 10 MG; Start 10/17/16 at 16:00 Famotidine (Pepcid) 20 mg BID GTB Last administered on 10/19/16 08:39; Admin Dose 20 MG; Start 10/17/16 at 21:00 EDSON PÉREZ MD Oct 19, 2016 18:57
--- NOTE | 2016-10-19 19:15 | PN ---
Date/Time of Note Date/Time of Note DATE: 10/19/16 TIME: 19:14 Assessment/Plan VTE Prophylaxis VTE Prophylaxis Intervention: other Lines/Catheters IV Catheter Type (from Nrsg): Saline Lock Urinary Cath still in place: Yes Reason Cath still needed: other (indicate) Assessment/Plan Chief Complaint/Hosp Course [id number] cerebrovascular accident and left-sided weakness, 2hypertension,3 diabetes mellitus. 4The patient has atrial fibrillation on the monitor. [id number] hx valve replacement hemorragic cva leucocytosis plan per dr nilo lea d/w [facility] LIVER seen per gi s/p peg need rehab Problems: Subjective 24 Hr Interval Summary Constitutional: no complaints Exam/Review of Systems Vital Signs Vitals Vital Signs Date Time Temp Pulse Resp B/P Pulse Ox O2 Delivery O2 Flow Rate FiO2 10/19/16 16:19 83 10/19/16 16:06 98.3 18 100/67 98 10/19/16 08:15 Nasal Cannula 2.0 Intake and Output 10/18/16 10/18/16 10/19/16 15:00 23:00 07:00 Intake Total 560 ml 520 ml Output Total 500 ml 500 ml Balance 60 ml 20 ml Exam ENMT: nl external ears & nose Neck: supple Respiratory: clear to auscultation Cardiovascular: regular rate and rhythm Gastrointestinal: nl liver, spleen, non-tender, soft Genitourinary - Female: nl adnexae Musculoskeletal: nl extremities to inspection Results Result Diagram: 10/17/16 0730 10/17/16 0730 Results 24 hrs Laboratory Tests Test 10/19/16 01:14 10/19/16 05:15 10/19/16 11:51 10/19/16 16:56 Bedside Glucose 128 132 118 138 Medications Medications Current Medications Flumazenil (Romazicon) 0.2 mg Q1M PRN IV BENZODIAZEPINE OVERDOSE; Start at 16:00 Naloxone HCl (Narcan) 0.4 mg Q3M PRN IV DECREASED REPIRATORY RATE; Start at 16:00 Ondansetron HCl (Zofran Inj) 4 mg Q6H PRN IV NAUSEA AND/OR VOMITING; Start at 16:00 Acetaminophen (Tylenol Liquid) 650 mg Q6H PRN PO PAIN LEVEL 1-3 OR FEVER Last administered on 10/18/16 11:14; Admin Dose 650 MG; Start 10/06/16 at 16:00 Magnesium Hydroxide (Milk Of Mag) 30 ml DAILY PRN PO CONSTIPATION Last administered on 10/13/16 08:41; Admin Dose 30 ML; Start 10/06/16 at 16:00 Bisacodyl (Dulcolax) 5 mg DAILY PRN PO CONSTIPATION; Start 10/06/16 at 16:00 Miscellaneous Information 1 ea NOTE XX ; Start 10/09/16 at 09:30 Glucose (Glutose) 15 gm Q15M PRN PO DECREASED GLUCOSE; Start 10/09/16 at 09:30 Glucose (Glutose) 22.5 gm Q15M PRN PO DECREASED GLUCOSE; Start 10/09/16 at 09: 30 Dextrose (D50w Syringe) 25 ml Q15M PRN IV DECREASED GLUCOSE; Start 10/09/16 at 09:30 Dextrose (D50w Syringe) 50 ml Q15M PRN IV DECREASED GLUCOSE; Start 10/09/16 at 09:30 Glucagon (Glucagen) 1 mg Q15M PRN IM DECREASED GLUCOSE; Start 10/09/16 at 09:30 Glucose (Glutose) 15 gm Q15M PRN BUCCAL DECREASED GLUCOSE; Start 10/09/16 at 09 :30 Diltiazem HCl (Cardizem Iv) 5 mg Q4H PRN IV PRN HR>110 Hold SBP<100 Last administered on 10/15/16 06:42; Admin Dose 5 MG; Start 10/09/16 at 11:30 Brimonidine Tartrate (Alphagan 0.2%) 2 drop Q4 LEFT EYE Last administered on 17:29; Admin Dose 2 DROP; Start 10/09/16 at 21:00 Prednisolone Acetate (Pred-Forte 1%) 2 drop Q4 LEFT EYE Last administered on 17:29; Admin Dose 2 DROP; Start 10/09/16 at 21:00 Morphine Sulfate (morphine) 2 mg Q3H PRN IV PAIN Last administered on 07:03; Admin Dose 2 MG; Start 10/09/16 at 21:00 Insulin Aspart (Novolog Insulin Pen) (Adult SC Insulin - Mild Algorithm)... Q6 SC Last administered on 10/18/16 13:17; Admin Dose 1 UNIT; Start 10/10/16 at 00 :00 Docusate Sodium (Colace Liquid Cup) 100 mg BID NGT Last administered on 08:39; Admin Dose 100 MG; Start 10/10/16 at 11:30 Acetaminophen/ Codeine Phosphate (Tylenol No.3) 1 tab Q6H PRN PO PAIN Last administered on 10/17/16 22:44; Admin Dose 1 TAB; Start 10/10/16 at 12:00 Docusate Sodium (Colace Liquid Cup) 100 mg Q12H PRN PO CONSTIPATION; Start at 14:30 Hydralazine HCl (Apresoline) 10 mg Q6H PRN IV ELEVATED BLOOD PRESSURE; Start at 22:30 Atenolol (Tenormin) 25 mg BID PO Last administered on 10/19/16 08:40; Admin Dose 25 MG; Start 10/15/16 at 21:00 Bisacodyl (Dulcolax Supp) 10 mg Q48H PRN [place] CONSTIPATION Last administered on 17:32; Admin Dose 10 MG; Start 10/17/16 at 16:00 Famotidine (Pepcid) 20 mg BID GTB Last administered on 10/19/16 08:39; Admin Dose 20 MG; Start 10/17/16 at 21:00 SON AKHTAR MD Oct 19, 2016 19:15
[2016-10-20] VITALS (12 sets, daily range): BP systolic 102–132; BP diastolic 40–85; PULSE 69–95; RESP 15–18
[2016-10-20] MEDS: PREDNISOLONE ACET 1% 5 ML OPH LEFT EYE SCH ×6 (01:01→21:33)
[2016-10-20] MEDS: BRIMONIDINE 0.2% 5 ML BTL LEFT EYE SCH ×6 (01:02→21:33)
[2016-10-20] MEDS: Insulin NOVOLOG SS MILD Algorithm (NPO/TPN/ENTERAL FEEDS) SC SCH ×4 (06:00→17:43)
[2016-10-20] MEDS: FAMOTIDINE 20 MG TAB GTB SCH ×2 (08:13→21:32)
[2016-10-20] MEDS: DOCUSATE SODIUM 10 MG/ML (10ML CUP) NGT SCH ×2 (08:13→21:32)
[2016-10-20] MEDS: ATENOLOL 25 MG TAB PO SCH ×2 (09:00→21:33)
[2016-10-20] MEDS: ACETAMINOPHEN 650MG/20.3ML CUP PO PRN (10:32)
--- NOTE | 2016-10-20 16:39 | PDOCDIS ---
Discharge Instructions CONDITION Patient Condition: Stable HOME CARE INSTRUCTIONS: Diet Instructions: Reduced CalorieSpecial Diet: GT feeding ACTIVITY: Activity Restrictions: Slowly Increase Activity FOLLOW UP/APPOINTMENTS Appointments F/U DR LAMAR [address] MIRZA 2 WKS SEE PCP AT [facility] SON AKHTAR MD Oct 20, 2016 16:39
--- NOTE | 2016-10-20 17:04 | CONS ---
Date/Time of Note Date/Time of Note DATE: 10/20/16 TIME: 17:02 Assessment/Plan Assessment/Plan Additional Assessment/Plan 1AF-with recurrent RVR this AM - still a. 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 fib - rate controlled ROS: No fever, no chills, no nausea, no vomiting, no diarrhea/constipation No recent weight changes No chest pain, no PND, no orthopnea No dizziness, blurred vision No thirst, no heat or cold intolerance (per nurse) Exam/Review of Systems Vital Signs Vitals Vital Signs Date Time Temp Pulse Resp B/P Pulse Ox O2 Delivery O2 Flow Rate FiO2 10/20/16 16:00 85 10/20/16 15:51 98.3 18 114/62 96 10/20/16 08:15 Nasal Cannula 2.0 Intake and Output 10/19/16 10/19/16 10/20/16 15:00 23:00 07:00 Intake Total 560 ml Output Total 300 ml Balance 260 ml Exam General: WN/WD/NAD, AOx 0 HEENT: Unicetric/atraumatic/EOMI (does not follow commands) s/p CVA NECK: JVD elevated, no thyromegaly Lymph: no lymphadenopathy HEART: regular with no S3, II/ systolic murmur at apex LUNGS: Coarse sounds ABD: soft, NT, ND, +BS : Intact Neuro: non focal SKIN: chronic changes EXT: trace edema Results Result Diagram: 10/17/16 0730 10/17/16 0730 Results 24 hrs Laboratory Tests Test 10/20/16 00:18 10/20/16 06:07 10/20/16 11:52 Bedside Glucose 133 128 122 Medications Medications Current Medications Flumazenil (Romazicon) 0.2 mg Q1M PRN IV BENZODIAZEPINE OVERDOSE; Start at 16:00 Naloxone HCl (Narcan) 0.4 mg Q3M PRN IV DECREASED REPIRATORY RATE; Start at 16:00 Ondansetron HCl (Zofran Inj) 4 mg Q6H PRN IV NAUSEA AND/OR VOMITING; Start at 16:00 Acetaminophen (Tylenol Liquid) 650 mg Q6H PRN PO PAIN LEVEL 1-3 OR FEVER Last administered on 10/20/16 10:32; Admin Dose 650 MG; Start 10/06/16 at 16:00 Magnesium Hydroxide (Milk Of Mag) 30 ml DAILY PRN PO CONSTIPATION Last administered on 10/13/16 08:41; Admin Dose 30 ML; Start 10/06/16 at 16:00 Bisacodyl (Dulcolax) 5 mg DAILY PRN PO CONSTIPATION; Start 10/06/16 at 16:00 Miscellaneous Information 1 ea NOTE XX ; Start 10/09/16 at 09:30 Glucose (Glutose) 15 gm Q15M PRN PO DECREASED GLUCOSE; Start 10/09/16 at 09:30 Glucose (Glutose) 22.5 gm Q15M PRN PO DECREASED GLUCOSE; Start 10/09/16 at 09: 30 Dextrose (D50w Syringe) 25 ml Q15M PRN IV DECREASED GLUCOSE; Start 10/09/16 at 09:30 Dextrose (D50w Syringe) 50 ml Q15M PRN IV DECREASED GLUCOSE; Start 10/09/16 at 09:30 Glucagon (Glucagen) 1 mg Q15M PRN IM DECREASED GLUCOSE; Start 10/09/16 at 09:30 Glucose (Glutose) 15 gm Q15M PRN BUCCAL DECREASED GLUCOSE; Start 10/09/16 at 09 :30 Diltiazem HCl (Cardizem Iv) 5 mg Q4H PRN IV PRN HR>110 Hold SBP<100 Last administered on 10/15/16 06:42; Admin Dose 5 MG; Start 10/09/16 at 11:30 Brimonidine Tartrate (Alphagan 0.2%) 2 drop Q4 LEFT EYE Last administered on 13:08; Admin Dose 2 DROP; Start 10/09/16 at 21:00 Prednisolone Acetate (Pred-Forte 1%) 2 drop Q4 LEFT EYE Last administered on 13:08; Admin Dose 2 DROP; Start 10/09/16 at 21:00 Morphine Sulfate (morphine) 2 mg Q3H PRN IV PAIN Last administered on 07:03; Admin Dose 2 MG; Start 10/09/16 at 21:00 Insulin Aspart (Novolog Insulin Pen) (Adult SC Insulin - Mild Algorithm)... Q6 SC Last administered on 10/18/16 13:17; Admin Dose 1 UNIT; Start 10/10/16 at 00 :00 Docusate Sodium (Colace Liquid Cup) 100 mg BID NGT Last administered on 08:13; Admin Dose 100 MG; Start 10/10/16 at 11:30 Acetaminophen/ Codeine Phosphate (Tylenol No.3) 1 tab Q6H PRN PO PAIN Last administered on 10/17/16 22:44; Admin Dose 1 TAB; Start 10/10/16 at 12:00 Docusate Sodium (Colace Liquid Cup) 100 mg Q12H PRN PO CONSTIPATION; Start at 14:30 Hydralazine HCl (Apresoline) 10 mg Q6H PRN IV ELEVATED BLOOD PRESSURE; Start at 22:30 Atenolol (Tenormin) 25 mg BID PO Last administered on 10/19/16 21:40; Admin Dose 25 MG; Start 10/15/16 at 21:00 Bisacodyl (Dulcolax Supp) 10 mg Q48H PRN [place] CONSTIPATION Last administered on 17:32; Admin Dose 10 MG; Start 10/17/16 at 16:00 Famotidine (Pepcid) 20 mg BID GTB Last administered on 10/20/16 08:13; Admin Dose 20 MG; Start 10/17/16 at 21:00 AVERY FOLEY MD Oct 20, 2016 17:04
--- NOTE | 2016-10-20 19:06 | CONS ---
Date/Time of Note Date/Time of Note DATE: 10/20/16 TIME: 19:06 Assessment/Plan Assessment/Plan Additional Assessment/Plan Additional Assessment/Plan IMPRESSION: 1. 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 Diabetes mellitus. 3. Hypertension. 4. Atrial fibrillation. This morning patient had rapid ventricular response, she was given IV digoxin 5. Status post chest surgery. I do not know whether has got a bioprosthetic aortic valve or the mitral valve repaired, nothing is clear-cut. 6. Dysphagia with aspiration. 7. Abnormal LFT with a dilated biliary system. 8. Status post PEG patient is tolerating feeding Plan Increase feeding to 50 cc/h, patient is tolerating feeding well. Reduce IV fluid Monitor liver function tests periodically Consultation Date/Type/Reason Admit Date/Time Oct 06, 2016 at 15:49 Initial Consult Date 10/09/16 Type of Consultation: Cardiology Referring Provider: SON AKHTAR MD 24 HR Interval Summary Constitutional: improved, no complaints Exam/Review of Systems Vital Signs Vitals Vital Signs Date Time Temp Pulse Resp B/P Pulse Ox O2 Delivery O2 Flow Rate FiO2 10/20/16 16:00 85 10/20/16 15:51 98.3 18 114/62 96 10/20/16 08:15 Nasal Cannula 2.0 Intake and Output 10/19/16 10/19/16 10/20/16 15:00 23:00 07:00 Intake Total 560 ml Output Total 300 ml Balance 260 ml Exam Constitutional: alert, oriented, well developed Psych: nl mood/affect, no complaints Head: atraumatic, normocephalic Eyes: EOMI, PERRL, nl conjunctiva, nl lids, nl sclera ENMT: nl external ears & nose, nl lips & teeth, nl nasal mucosa & septum Neck: non-tender, supple Respiratory: clear to auscultation, normal air movement Cardiovascular: nl pulses, regular rate and rhythm Gastrointestinal: nl liver, spleen, non-tender, soft Musculoskeletal: nl extremities to inspection, nl gait and stance Extremities: normal pulses Neurological: LIVER TRIMMER II-XII intact, nl mental status, nl speech, nl strength Skin: nl turgor, No rash or lesions Lymph: nl lymph nodes Results Result Diagram: 10/17/16 0730 10/17/16 0730 Results 24 hrs Laboratory Tests Test 10/20/16 00:18 10/20/16 06:07 10/20/16 11:52 10/20/16 17:38 Bedside Glucose 133 128 122 165 Medications Medications Current Medications Flumazenil (Romazicon) 0.2 mg Q1M PRN IV BENZODIAZEPINE OVERDOSE; Start at 16:00 Naloxone HCl (Narcan) 0.4 mg Q3M PRN IV DECREASED REPIRATORY RATE; Start at 16:00 Ondansetron HCl (Zofran Inj) 4 mg Q6H PRN IV NAUSEA AND/OR VOMITING; Start at 16:00 Acetaminophen (Tylenol Liquid) 650 mg Q6H PRN PO PAIN LEVEL 1-3 OR FEVER Last administered on 10/20/16 10:32; Admin Dose 650 MG; Start 10/06/16 at 16:00 Magnesium Hydroxide (Milk Of Mag) 30 ml DAILY PRN PO CONSTIPATION Last administered on 10/13/16 08:41; Admin Dose 30 ML; Start 10/06/16 at 16:00 Bisacodyl (Dulcolax) 5 mg DAILY PRN PO CONSTIPATION; Start 10/06/16 at 16:00 Miscellaneous Information 1 ea NOTE XX ; Start 10/09/16 at 09:30 Glucose (Glutose) 15 gm Q15M PRN PO DECREASED GLUCOSE; Start 10/09/16 at 09:30 Glucose (Glutose) 22.5 gm Q15M PRN PO DECREASED GLUCOSE; Start 10/09/16 at 09: 30 Dextrose (D50w Syringe) 25 ml Q15M PRN IV DECREASED GLUCOSE; Start 10/09/16 at 09:30 Dextrose (D50w Syringe) 50 ml Q15M PRN IV DECREASED GLUCOSE; Start 10/09/16 at 09:30 Glucagon (Glucagen) 1 mg Q15M PRN IM DECREASED GLUCOSE; Start 10/09/16 at 09:30 Glucose (Glutose) 15 gm Q15M PRN BUCCAL DECREASED GLUCOSE; Start 10/09/16 at 09 :30 Diltiazem HCl (Cardizem Iv) 5 mg Q4H PRN IV PRN HR>110 Hold SBP<100 Last administered on 10/15/16 06:42; Admin Dose 5 MG; Start 10/09/16 at 11:30 Brimonidine Tartrate (Alphagan 0.2%) 2 drop Q4 LEFT EYE Last administered on 17:13; Admin Dose 2 DROP; Start 10/09/16 at 21:00 Prednisolone Acetate (Pred-Forte 1%) 2 drop Q4 LEFT EYE Last administered on 17:13; Admin Dose 2 DROP; Start 10/09/16 at 21:00 Morphine Sulfate (morphine) 2 mg Q3H PRN IV PAIN Last administered on 07:03; Admin Dose 2 MG; Start 10/09/16 at 21:00 Insulin Aspart (Novolog Insulin Pen) (Adult SC Insulin - Mild Algorithm)... Q6 SC Last administered on 10/20/16 17:43; Admin Dose 1 UNIT; Start 10/10/16 at 00 :00 Docusate Sodium (Colace Liquid Cup) 100 mg BID NGT Last administered on 08:13; Admin Dose 100 MG; Start 10/10/16 at 11:30 Acetaminophen/ Codeine Phosphate (Tylenol No.3) 1 tab Q6H PRN PO PAIN Last administered on 10/17/16 22:44; Admin Dose 1 TAB; Start 10/10/16 at 12:00 Docusate Sodium (Colace Liquid Cup) 100 mg Q12H PRN PO CONSTIPATION; Start at 14:30 Hydralazine HCl (Apresoline) 10 mg Q6H PRN IV ELEVATED BLOOD PRESSURE; Start at 22:30 Atenolol (Tenormin) 25 mg BID PO Last administered on 10/19/16 21:40; Admin Dose 25 MG; Start 10/15/16 at 21:00 Bisacodyl (Dulcolax Supp) 10 mg Q48H PRN [place] CONSTIPATION Last administered on 17:32; Admin Dose 10 MG; Start 10/17/16 at 16:00 Famotidine (Pepcid) 20 mg BID GTB Last administered on 10/20/16 08:13; Admin Dose 20 MG; Start 10/17/16 at 21:00 EDSON PÉREZ MD Oct 20, 2016 19:06
--- NOTE | 2016-10-20 21:15 | PN ---
Date/Time of Note Date/Time of Note DATE: 10/20/16 TIME: 21:14 Assessment/Plan VTE Prophylaxis VTE Prophylaxis Intervention: other Lines/Catheters IV Catheter Type (from Nrsg): Saline Lock Urinary Cath still in place: Yes Reason Cath still needed: other (indicate) Assessment/Plan Chief Complaint/Hosp Course [id number] cerebrovascular accident and left-sided weakness, 2hypertension,3 diabetes mellitus. 4The patient has atrial fibrillation on the monitor. [id number] hx valve replacement hemorragic cva leucocytosis plan per dr nilo lea d/w family per gi s/p peg SNF PER REHAB RECOM. Problems: Subjective 24 Hr Interval Summary Respiratory: no complaints Cardiovascular: no complaints Exam/Review of Systems Vital Signs Vitals Vital Signs Date Time Temp Pulse Resp B/P Pulse Ox O2 Delivery O2 Flow Rate FiO2 10/20/16 20:50 98.5 90 18 102/40 94 10/20/16 08:15 Nasal Cannula 2.0 Intake and Output 10/19/16 10/19/16 10/20/16 15:00 23:00 07:00 Intake Total 560 ml Output Total 300 ml Balance 260 ml Exam Respiratory: clear to auscultation Cardiovascular: regular rate and rhythm Gastrointestinal: bowel sounds (+), soft Extremities: normal pulses Neurological: other (NO CHANGE) Results Result Diagram: 10/17/16 0730 10/17/16 0730 Results 24 hrs Laboratory Tests Test 10/20/16 00:18 10/20/16 06:07 10/20/16 11:52 10/20/16 17:38 Bedside Glucose 133 128 122 165 Medications Medications Current Medications Flumazenil (Romazicon) 0.2 mg Q1M PRN IV BENZODIAZEPINE OVERDOSE; Start at 16:00 Naloxone HCl (Narcan) 0.4 mg Q3M PRN IV DECREASED REPIRATORY RATE; Start at 16:00 Ondansetron HCl (Zofran Inj) 4 mg Q6H PRN IV NAUSEA AND/OR VOMITING; Start at 16:00 Acetaminophen (Tylenol Liquid) 650 mg Q6H PRN PO PAIN LEVEL 1-3 OR FEVER Last administered on 10/20/16t 10:32; Admin Dose 650 MG; Start 10/06/16 at 16:00 Magnesium Hydroxide (Milk Of Mag) 30 ml DAILY PRN PO CONSTIPATION Last administered on 10/13/16 08:41; Admin Dose 30 ML; Start 10/06/16 at 16:00 Bisacodyl (Dulcolax) 5 mg DAILY PRN PO CONSTIPATION; Start 10/06/16 at 16:00 Miscellaneous Information 1 ea NOTE XX ; Start 10/09/16 at 09:30 Glucose (Glutose) 15 gm Q15M PRN PO DECREASED GLUCOSE; Start 10/09/16 at 09:30 Glucose (Glutose) 22.5 gm Q15M PRN PO DECREASED GLUCOSE; Start 10/09/16 at 09: 30 Dextrose (D50w Syringe) 25 ml Q15M PRN IV DECREASED GLUCOSE; Start 10/09/16 at 09:30 Dextrose (D50w Syringe) 50 ml Q15M PRN IV DECREASED GLUCOSE; Start 10/09/16 at 09:30 Glucagon (Glucagen) 1 mg Q15M PRN IM DECREASED GLUCOSE; Start 10/09/16 at 09:30 Glucose (Glutose) 15 gm Q15M PRN BUCCAL DECREASED GLUCOSE; Start 10/09/16 at 09 :30 Diltiazem HCl (Cardizem Iv) 5 mg Q4H PRN IV PRN HR>110 Hold SBP<100 Last administered on 10/15/16 06:42; Admin Dose 5 MG; Start 10/09/16 at 11:30 Brimonidine Tartrate (Alphagan 0.2%) 2 drop Q4 LEFT EYE Last administered on 17:13; Admin Dose 2 DROP; Start 10/09/16 at 21:00 Prednisolone Acetate (Pred-Forte 1%) 2 drop Q4 LEFT EYE Last administered on 17:13; Admin Dose 2 DROP; Start 10/09/16 at 21:00 Morphine Sulfate (morphine) 2 mg Q3H PRN IV PAIN Last administered on 07:03; Admin Dose 2 MG; Start 10/09/16 at 21:00 Insulin Aspart (Novolog Insulin Pen) (Adult SC Insulin - Mild Algorithm)... Q6 SC Last administered on 10/20/16 17:43; Admin Dose 1 UNIT; Start 10/10/16 at 00 :00 Docusate Sodium (Colace Liquid Cup) 100 mg BID NGT Last administered on 08:13; Admin Dose 100 MG; Start 10/10/16 at 11:30 Acetaminophen/ Codeine Phosphate (Tylenol No.3) 1 tab Q6H PRN PO PAIN Last administered on 10/17/16 22:44; Admin Dose 1 TAB; Start 10/10/16 at 12:00 Docusate Sodium (Colace Liquid Cup) 100 mg Q12H PRN PO CONSTIPATION; Start at 14:30 Hydralazine HCl (Apresoline) 10 mg Q6H PRN IV ELEVATED BLOOD PRESSURE; Start at 22:30 Atenolol (Tenormin) 25 mg BID PO Last administered on 10/19/16 21:40; Admin Dose 25 MG; Start 10/15/16 at 21:00 Bisacodyl (Dulcolax Supp) 10 mg Q48H PRN [place] CONSTIPATION Last administered on 17:32; Admin Dose 10 MG; Start 10/17/16 at 16:00 Famotidine (Pepcid) 20 mg BID GTB Last administered on 10/20/16 08:13; Admin Dose 20 MG; Start 10/17/16 at 21:00 SON AKHTAR MD Oct 20, 2016 21:15
[2016-10-21] VITALS (13 sets, daily range): BP systolic 120–154; BP diastolic 77–99; PULSE 75–96; RESP 16–20
[2016-10-21] MEDS: morphine 2 MG INJ IV PRN ×2 (01:18→14:25)
[2016-10-21] MEDS: PREDNISOLONE ACET 1% 5 ML OPH LEFT EYE SCH ×6 (01:18→21:22)
[2016-10-21] MEDS: BRIMONIDINE 0.2% 5 ML BTL LEFT EYE SCH ×6 (01:18→21:23)
[2016-10-21] MEDS: ACETAMINOPHEN/CODEINE #3 TAB PO PRN ×2 (02:18→21:28)
[2016-10-21] MEDS: Insulin NOVOLOG SS MILD Algorithm (NPO/TPN/ENTERAL FEEDS) SC SCH ×5 (06:00→21:18)
[2016-10-21] MEDS: DOCUSATE SODIUM 10 MG/ML (10ML CUP) NGT SCH ×2 (09:00→21:19)
[2016-10-21] MEDS: FAMOTIDINE 20 MG TAB GTB SCH ×2 (09:46→21:19)
[2016-10-21] MEDS: ATENOLOL 25 MG TAB PO SCH ×2 (09:46→21:19)
[2016-10-21] MEDS: ACETAMINOPHEN 650MG/20.3ML CUP PO PRN (12:29)
--- NOTE | 2016-10-21 15:21 | CONS ---
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 MS 8.Dysphagia s/p G tube Recc: -Tele -serial ecg's -IVP PRN diltiazem at this time -Neuro following-Not on systemic anti-coag due to Hemm conversion -ASA held due to Hemm conversion on head CT -Follow MS closely -Continue BB with well controlled HR at this time Problems: Consultation Date/Type/Reason Admit Date/Time Oct 06, 2016 at 15:49 Initial Consult Date 10/06/2016 Type of Consultation: Cardiology Reason for Consultation AF Referring Provider: SON AKHTAR MD Exam/Review of Systems Vital Signs Vitals Vital Signs Date Time Temp Pulse Resp B/P Pulse Ox O2 Delivery O2 Flow Rate FiO2 10/21/16 12:30 78 10/21/16 12:02 98.2 19 154/87 93 10/20/16 21:30 Nasal Cannula 2.0 Intake and Output 10/20/16 10/20/16 10/21/16 14:59 22:59 06:59 Intake Total 560 ml 460 ml Output Total 250 ml 300 ml Balance 310 ml 160 ml Exam Review of Systems: CONSTITUTIONAL: No fevers, chills. PULMONARY: No sob CARDIOVASCULAR: No chest pain/palpitations GASTROINTESTINAL: No nausea/vomiting. GENITOURINARY: No hematuria/dysuria. MUSCULOSKELETAL: No myagias/arthalgias. PSYCHIATRIC: The patient denies depression. NEUROLOGIC: lethargic Constitutional: alert, oriented Psych: no complaints ENMT: mucosa pink and moist Neck: jvd (9 cm water), supple Respiratory: diminished breath sounds (at bases/B) Cardiovascular: regular rate and rhythm Gastrointestinal: non-tender, soft Musculoskeletal: muscle tone (normal) Extremities: edema (none) Neurological: lethargic Results Result Diagram: 10/17/16 0730 10/17/16 0730 Results 24 hrs Laboratory Tests Test 10/20/16 17:38 10/21/16 00:28 10/21/16 06:55 10/21/16 12:16 Bedside Glucose 165 139 115 155 Medications Medications Current Medications Flumazenil (Romazicon) 0.2 mg Q1M PRN IV BENZODIAZEPINE OVERDOSE; Start at 16:00 Naloxone HCl (Narcan) 0.4 mg Q3M PRN IV DECREASED REPIRATORY RATE; Start at 16:00 Ondansetron HCl (Zofran Inj) 4 mg Q6H PRN IV NAUSEA AND/OR VOMITING; Start at 16:00 Acetaminophen (Tylenol Liquid) 650 mg Q6H PRN PO PAIN LEVEL 1-3 OR FEVER Last administered on 10/21/16 12:29; Admin Dose 650 MG; Start 10/06/16 at 16:00 Magnesium Hydroxide (Milk Of Mag) 30 ml DAILY PRN PO CONSTIPATION Last administered on 10/13/16 08:41; Admin Dose 30 ML; Start 10/06/16 at 16:00 Bisacodyl (Dulcolax) 5 mg DAILY PRN PO CONSTIPATION; Start 10/06/16 at 16:00 Miscellaneous Information 1 ea NOTE XX ; Start 10/09/16 at 09:30 Glucose (Glutose) 15 gm Q15M PRN PO DECREASED GLUCOSE; Start 10/09/16 at 09:30 Glucose (Glutose) 22.5 gm Q15M PRN PO DECREASED GLUCOSE; Start 10/09/16 at 09: 30 Dextrose (D50w Syringe) 25 ml Q15M PRN IV DECREASED GLUCOSE; Start 10/09/16 at 09:30 Dextrose (D50w Syringe) 50 ml Q15M PRN IV DECREASED GLUCOSE; Start 10/09/16 at 09:30 Glucagon (Glucagen) 1 mg Q15M PRN IM DECREASED GLUCOSE; Start 10/09/16 at 09:30 Glucose (Glutose) 15 gm Q15M PRN BUCCAL DECREASED GLUCOSE; Start 10/09/16 at 09 :30 Diltiazem HCl (Cardizem Iv) 5 mg Q4H PRN IV PRN HR>110 Hold SBP<100 Last administered on 10/15/16 06:42; Admin Dose 5 MG; Start 10/09/16 at 11:30 Brimonidine Tartrate (Alphagan 0.2%) 2 drop Q4 LEFT EYE Last administered on 12:24; Admin Dose 2 DROP; Start 10/09/16 at 21:00 Prednisolone Acetate (Pred-Forte 1%) 2 drop Q4 LEFT EYE Last administered on 12:24; Admin Dose 2 DROP; Start 10/09/16 at 21:00 Morphine Sulfate (morphine) 2 mg Q3H PRN IV PAIN Last administered on 10/21/16 14:25; Admin Dose 2 MG; Start 10/09/16 at 21:00 Insulin Aspart (Novolog Insulin Pen) (Adult SC Insulin - Mild Algorithm)... Q6 SC Last administered on 10/20/16 17:43; Admin Dose 1 UNIT; Start 10/10/16 at 00 :00 Docusate Sodium (Colace Liquid Cup) 100 mg BID NGT Last administered on 21:32; Admin Dose 100 MG; Start 10/10/16 at 11:30 Acetaminophen/ Codeine Phosphate (Tylenol No.3) 1 tab Q6H PRN PO PAIN Last administered on 10/21/16 02:18; Admin Dose 1 TAB; Start 10/10/16 at 12:00 Docusate Sodium (Colace Liquid Cup) 100 mg Q12H PRN PO CONSTIPATION; Start at 14:30 Hydralazine HCl (Apresoline) 10 mg Q6H PRN IV ELEVATED BLOOD PRESSURE; Start at 22:30 Atenolol (Tenormin) 25 mg BID PO Last administered on 10/21/16 09:46; Admin Dose 25 MG; Start 10/15/16 at 21:00 Bisacodyl (Dulcolax Supp) 10 mg Q48H PRN [place] CONSTIPATION Last administered on 17:32; Admin Dose 10 MG; Start 10/17/16 at 16:00 Famotidine (Pepcid) 20 mg BID GTB Last administered on 10/21/16 09:46; Admin Dose 20 MG; Start 10/17/16 at 21:00 EMANUEL LAMAR Oct 21, 2016 15:21
[2016-10-21] MEDS: MAGNESIUM HYDROXIDE 30ML CUP PO PRN (16:28)
--- NOTE | 2016-10-21 20:21 | PN ---
Date/Time of Note Date/Time of Note DATE: 10/21/16 TIME: 20:20 Assessment/Plan VTE Prophylaxis VTE Prophylaxis Intervention: other Lines/Catheters IV Catheter Type (from Nrsg): Peripheral IV Urinary Cath still in place: Yes Reason Cath still needed: other (indicate) Assessment/Plan Chief Complaint/Hosp Course [id number] cerebrovascular accident and left-sided weakness, 2hypertension,3 diabetes mellitus. 4The patient has atrial fibrillation on the monitor. [id number] hx valve replacement hemorragic cva leucocytosis better plan per dr nilo lea d/w family per gi s/p peg SNF PER REHAB RECOM. family aware Problems: Subjective 24 Hr Interval Summary Cardiovascular: no complaints Gastrointestinal: no complaints Exam/Review of Systems Vital Signs Vitals Vital Signs Date Time Temp Pulse Resp B/P Pulse Ox O2 Delivery O2 Flow Rate FiO2 10/21/16 20:08 98.0 72 18 153/99 93 10/21/16 08:00 Nasal Cannula 2.0 Intake and Output 10/20/16 10/20/16 10/21/16 15:00 23:00 07:00 Intake Total 560 ml 460 ml Output Total 250 ml 300 ml Balance 310 ml 160 ml Exam Respiratory: clear to auscultation Cardiovascular: regular rate and rhythm Gastrointestinal: soft Musculoskeletal: nl extremities to inspection Results Result Diagram: 10/17/1672910/17/16 0730 Results 24 hrs Laboratory Tests Test 10/21/16 00:28 10/21/16 06:55 10/21/16 12:16 10/21/16 17:47 Bedside Glucose 139 115 155 173 Medications Medications Current Medications Flumazenil (Romazicon) 0.2 mg Q1M PRN IV BENZODIAZEPINE OVERDOSE; Start at 16:00 Naloxone HCl (Narcan) 0.4 mg Q3M PRN IV DECREASED REPIRATORY RATE; Start at 16:00 Ondansetron HCl (Zofran Inj) 4 mg Q6H PRN IV NAUSEA AND/OR VOMITING; Start at 16:00 Acetaminophen (Tylenol Liquid) 650 mg Q6H PRN PO PAIN LEVEL 1-3 OR FEVER Last administered on 10/21/16t 12:29; Admin Dose 650 MG; Start 10/06/16 at 16:00 Magnesium Hydroxide (Milk Of Mag) 30 ml DAILY PRN PO CONSTIPATION Last administered on 10/21/16 16:28; Admin Dose 30 ML; Start 10/06/16 at 16:00 Bisacodyl (Dulcolax) 5 mg DAILY PRN PO CONSTIPATION; Start 10/06/16 at 16:00 Miscellaneous Information 1 ea NOTE XX ; Start 10/09/16 at 09:30 Glucose (Glutose) 15 gm Q15M PRN PO DECREASED GLUCOSE; Start 10/09/16 at 09:30 Glucose (Glutose) 22.5 gm Q15M PRN PO DECREASED GLUCOSE; Start 10/09/16 at 09: 30 Dextrose (D50w Syringe) 25 ml Q15M PRN IV DECREASED GLUCOSE; Start 10/09/16 at 09:30 Dextrose (D50w Syringe) 50 ml Q15M PRN IV DECREASED GLUCOSE; Start 10/09/16 at 09:30 Glucagon (Glucagen) 1 mg Q15M PRN IM DECREASED GLUCOSE; Start 10/09/16 at 09:30 Glucose (Glutose) 15 gm Q15M PRN BUCCAL DECREASED GLUCOSE; Start 10/09/16 at 09 :30 Diltiazem HCl (Cardizem Iv) 5 mg Q4H PRN IV PRN HR>110 Hold SBP<100 Last administered on 10/15/16 06:42; Admin Dose 5 MG; Start 10/09/16 at 11:30 Brimonidine Tartrate (Alphagan 0.2%) 2 drop Q4 LEFT EYE Last administered on 16:28; Admin Dose 2 DROP; Start 10/09/16 at 21:00 Prednisolone Acetate (Pred-Forte 1%) 2 drop Q4 LEFT EYE Last administered on 16:28; Admin Dose 2 DROP; Start 10/09/16 at 21:00 Morphine Sulfate (morphine) 2 mg Q3H PRN IV PAIN Last administered on 10/21/16 14:25; Admin Dose 2 MG; Start 10/09/16 at 21:00 Insulin Aspart (Novolog Insulin Pen) (Adult SC Insulin - Mild Algorithm)... Q6 SC Last administered on 10/20/16 17:43; Admin Dose 1 UNIT; Start 10/10/16 at 00 :00 Docusate Sodium (Colace Liquid Cup) 100 mg BID NGT Last administered on 21:32; Admin Dose 100 MG; Start 10/10/16 at 11:30 Acetaminophen/ Codeine Phosphate (Tylenol No.3) 1 tab Q6H PRN PO PAIN Last administered on 10/21/16 02:18; Admin Dose 1 TAB; Start 10/10/16 at 12:00 Docusate Sodium (Colace Liquid Cup) 100 mg Q12H PRN PO CONSTIPATION; Start at 14:30 Hydralazine HCl (Apresoline) 10 mg Q6H PRN IV ELEVATED BLOOD PRESSURE; Start at 22:30 Atenolol (Tenormin) 25 mg BID PO Last administered on 10/21/16 09:46; Admin Dose 25 MG; Start 10/15/16 at 21:00 Bisacodyl (Dulcolax Supp) 10 mg Q48H PRN [place] CONSTIPATION Last administered on 17:32; Admin Dose 10 MG; Start 10/17/16 at 16:00 Famotidine (Pepcid) 20 mg BID GTB Last administered on 10/21/16 09:46; Admin Dose 20 MG; Start 10/17/16 at 21:00 SON AKHTAR MD Oct 21, 2016 20:21
[2016-10-22] VITALS (9 sets, daily range): BP systolic 123–165; BP diastolic 81–94; PULSE 69–112; RESP 16–18
[2016-10-22] MEDS: Insulin NOVOLOG SS MILD Algorithm (NPO/TPN/ENTERAL FEEDS) SC SCH ×4 (01:08→17:47)
[2016-10-22] MEDS: BRIMONIDINE 0.2% 5 ML BTL LEFT EYE SCH ×6 (01:12→17:46)
[2016-10-22] MEDS: PREDNISOLONE ACET 1% 5 ML OPH LEFT EYE SCH ×5 (01:13→17:00)
[2016-10-22] MEDS: ACETAMINOPHEN/CODEINE #3 TAB PO PRN (03:30)
[2016-10-22] MEDS: DOCUSATE SODIUM 10 MG/ML (10ML CUP) NGT SCH (08:52)
[2016-10-22] MEDS: ATENOLOL 25 MG TAB PO SCH (08:53)
[2016-10-22] MEDS: FAMOTIDINE 20 MG TAB GTB SCH (08:55)
== END 2016-10-22 17:48 | DRG 64 ==
LOC: E/R 08:54 → ICU 15:49 → MS4 10-12 11:20
PROVIDERS: ADMIT Internal Medicine Nephrology; ATTEND Internal Medicine Nephrology
PROC: 0DH63UZ Insertion of Feeding Device into Stomach, Percutaneous Approach (ICD-10-PCS; principal; 2016-10-15 10:00)
DX: I63.9 Cerebral infarction, unspecified (principal); I61.9 Nontraumatic intracerebral hemorrhage, unspecified; G93.40 Encephalopathy, unspecified; G81.94 Hemiplegia, unspecified affecting left nondominant side; R13.10 Dysphagia, unspecified; I48.92 Unspecified atrial flutter; I48.91 Unspecified atrial fibrillation; I10 Essential (primary) hypertension; D64.9 Anemia, unspecified; R74.0 Nonspecific elevation of levels of transaminase and lactic acid dehydrogenase [LDH]; E11.9 Type 2 diabetes mellitus without complications; Z95.1 Presence of aortocoronary bypass graft; Z86.73 Personal history of transient ischemic attack (TIA), and cerebral infarction without residual deficits; Z79.84 Long term (current) use of oral hypoglycemic drugs; K21.9 Gastro-esophageal reflux disease without esophagitis; Z95.4 Presence of other heart-valve replacement
CPT/HCPCS: 36415; 70450; 70553; 71010; 74181; 76705; 80048; 80053; 80061; 80307; 81001; 81003; 82962; 83036; 84484; 85025; 85610; 85730; 87081; 92522; 92526; 92610; 93005; 93306; 93880; 94664; 96374; 97110; 97162; 97530; C9113; J0360; J0690; J1815; J2270; J2405; J7030; J7042

== ENCOUNTER 2016-12-26 06:55 | Emergency (ER) | payer BC ==
[~2016-12-26] VITALS: Ht 154.9 cm; Wt 70.0 kg
[~2016-12-26 06:55] MED LIST changes: -ADVIL; +AMLO5TAB4 PO; +ASPI-664 PO; +ERGO500037 PO; +FER325 PO; +HYDR12.58 PO; +LOSA25TA5 PO; +METF500T4 PO; -PRO20
[2016-12-26] MEDS ORDERED: morphine 4 MG/ML VIAL IV STA (07:12)
[2016-12-26] MEDS ORDERED: SOD CHLORIDE 0.9% 500 ML IV STA (07:12)
[2016-12-26 07:18] VITALS: Ht 154.9 cm; Wt 70.0 kg
[2016-12-26 07:45] LABS: ADD SCAN DIFF NO
[2016-12-26 07:47] LABS: BASOPHILS % 0.3 % (0.0-2.0); EOSINOPHILS # 0.1 10^3/ul (0.0-0.5); EOSINOPHILS % 1.5 % (0.0-7.0); HEMATOCRIT 44.2 % (37.0-47.0); HEMOGLOBIN 14.3 g/dl (12.0-16.0); LYMPHOCYTES % 29.6 % (15.0-51.0); MEAN CORPUSCULAR HEMOGLOBIN 27.9 pg (29.0-33.0); MEAN CORPUSCULAR HGB CONC 32.4 g/dl (32.0-37.0); MEAN CORPUSCULAR VOLUME 86.3 fl (82.0-101.0); MEAN PLATELET VOLUME 9.6 fl (7.4-10.4); MONOCYTE # 0.5 10^3/ul (0.3-0.9); MONOCYTES % 7.2 % (0.0-11.0); NEUTROPHIL # 4.2 10^3/ul (1.6-7.5); NEUTROPHILS % 61.1 % (39.0-77.0); PLATELET COUNT 314 10^3/UL (140-415); RED BLOOD COUNT 5.12 10^6/ul (4.20-5.40); RED CELL DISTRIBUTION WIDTH 14.3 % (11.5-14.5); WHITE BLOOD COUNT 6.8 10^3/ul (4.8-10.8)
[2016-12-26 08:12] LABS: CALCIUM 10.9 mg/dl (8.4-10.2); CREATININE 0.72 mg/dl (0.44-1.00); POTASSIUM 3.9 mmol/L (3.5-5.1)
[2016-12-26] MEDS ORDERED: ONDANSETRON 4 MG INJ IV STA (08:30)
[2016-12-26] MEDS ORDERED: NA PHOSPHATE/BIPHOS 133 ML ENEMA PR ONE ×2 (08:30→11:30)
--- NOTE | 2016-12-26 08:33 | RADRPT ---
PROCEDURE: CT Abdomen and pelvis without contrast. CLINICAL INDICATION: Abdominal pain TECHNIQUE: CT scan of the abdomen and pelvis without contrast was performed on a multidetector hig h-resolution CT scan. . Coronal and sagittal reformatted images were obtained from the axial [facility] e images. Standard CT scan of the abdomen pelvis without contrast protocols were performed. The total exam CTDI equals 19.65 mGy and the total exam DLP equals 1109.06 mGy-cm. One or more of the following dose reduction techniques were used: - Automated exposure control. - Adjustment of the mA and/or kV according to patient size. Use of iterative reconstruction technique. COMPARISON: None. FINDINGS: The patient is status post cholecystectomy. Dilated extrahepatic biliary ductal system level pancre atic head consistent with postsurgical changes. No intrahepatic biliary ductal dilation. The right kidney is mildly atrophic. The left kidney is normal in size. There is no evidence of re nal calcified calculi or hydronephrosis bilaterally. There is a pedunculated 1.5 cm anterior inferi or right renal low density mass likely a cyst. No other intra renal masses bilaterally. The ureter s and urinary bladder are unremarkable. There is diffuse diverticulosis of the descending and sigmoid colon without CT evidence of diverticu litis. There is a large localized area of retained feces involving the rectum and distal sigmoid co kash consistent with impaction. Recommend clinical correlation. Remainder the colon is unremarkable . The appendix is unremarkable. The stomach and small bowel are unremarkable. The liver and spleen are normal in size with focal calcifications consistent with old granulomatous disease. No hepatic or splenic masses. The pancreas and adrenal glands are unremarkable. Negative for intra-abdominal free air, free fluid, abscesses or lymphadenopathy. There is atheroscl erotic vascular disease of the aorta and iliac arteries without aneurysm. There is a localized scar in the subcutaneous left parasagittal mid anterior abdominal wall. There is no evidence of abdominal or pelvic hernias. There is scarring at the lung bases. The patient has had previous thoracotomy with sternotomy sutur es. Evidence of cardiac surgery. Lung bases are otherwise unremarkable. There are degenerative ch anges lower thoracic and lumbar spine. No acute osseous findings are osteoblastic/osteolytic lesion s. IMPRESSION: 1. Diffuse diverticulosis of the descending and sigmoid colon without CT evidence of diverticulitis . Unremarkable appendix. 2. Large localized area of retained feces within the rectum and distal sigmoid colon and rule out i mpaction. No evidence of bowel obstruction. 3. Status post cholecystectomy. 4. 1.5 cm pedunculated the anterior inferior right renal low density lesion likely a cyst. No calc ified urinary calculi or obstructive uropathy. 4. Negative for intra or free air fluid abscesses or lymphadenopathy. 5. 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 RPTAT:AAJJ Physician Marina Date Time Electronically viewed and signed by Terry Dang Physician on 12/26/2016 08:32 /
[2016-12-26] MEDS ORDERED: MAGNESIUM CITRATE 300 ML BTL PO ONE (09:00)
--- NOTE | 2016-12-26 10:39 | ERD ---
ER Documentation Chief Complaint Date/Time DATE: 12/26/16 TIME: 10:32 Chief Complaint Constipation HPI 61-year-old female with history of right-sided ischemic stroke with hemorrhagic conversion in October 2016 presenting with abdominal cramping and constipation. She states she has complete weakness on her left side from the stroke. She has been having constipation for about 5 days. She denies any associated dysuria. She is taken care of by her children. She has tried enemas, but it has not helped. She currently complains of rectal pain and intermittent abdominal cramping. She has nausea but no vomiting. No fevers, chills, chest pain, shortness of breath. She states that after she was discharged home from the hospital, physical therapy was supposed to see her in her home, but no one ever came. She has not received any physical therapy and is usually laying in bed due to her weakness. ROS All systems reviewed and are negative except as per history of present illness. Medications Home Meds Active Scripts Sennosides* (Senna Lax*) 8.6 Mg Tablet, 1 TAB PO Q12H Y for CONSTIPATION, #14 TAB Prov:MIRANDA BERRIOS MD 12/26/16 Reported Medications Hydrochlorothiazide* (Hydrochlorothiazide*) 12.5 Mg Tablet, 12.5 MG PO DAILY, # 30 TAB 10/06/16 Losartan Potassium* (Losartan Potassium*) 25 Mg Tablet, 25 MG PO DAILY, TAB 10/06/16 Ergocalciferol (Vitamin D2) (VITAMIN D2) 50,000 Unit Capsule, 54684 UNIT PO Q7D , CAP 10/06/16 Metformin Hcl* (Metformin Hcl*) 500 Mg Tablet, 500 MG PO WITH BREAKFAST DINNE, # 60 TAB 10/06/16 Ferrous Sulfate* (Ferrous Sulfate*) 325 Mg Tabec, 325 MG PO BID, TAB 10/06/16 Amlodipine Besylate* (Norvasc*) 5 Mg Tablet, 5 MG PO DAILY, TAB 10/06/16 Aspirin* (Aspirin* EC) 81 Mg Tablet.dr, 81 MG PO DAILY, TAB 10/06/16 Allergies Allergies: Coded Allergies: No Known Drug Allergies (Unverified Allergy, Unknown, 10/06/16) PMhx/Soc History of Surgery: Yes (RONNY, GALLSTONE REMOVED, JACLYN ALATORRE2005) Anesthesia Reaction: Yes (SHE STOPPED BREATHING) Hx Neurological Disorder: No Hx Respiratory Disorders: No Hx Cardiac Disorders: Yes (AORTIC STENOSIS, HIGH CHOL,HTN) Hx Psychiatric Problems: Yes (DEPRESSION) Hx Miscellaneous Medical Probl: Yes (pls see EMR) Hx Alcohol Use: No Hx Substance Use: No Hx Tobacco Use: Yes (QUIT SMOKING 40 YEARS AGO) Smoking Status: Former smoker FmHx Family History: No diabetes Physical Exam Vitals Vital Signs Date Time Temp Pulse Resp B/P Pulse Ox O2 Delivery O2 Flow Rate FiO2 12/26/16 11:06 115 18 141/90 98 Room Air 12/26/16 08:15 105 18 130/77 99 Room Air 12/26/16 07:18 98.3 115 20 144/107 100 Physical Exam Const: Nontoxic, distress noted and moaning in pain Head: Atraumatic Eyes: Normal Conjunctiva, PERRLA ENT: Normal External Ears, Nose and Mouth. Neck: Full range of motion. No meningismus. Resp: Clear to auscultation bilaterally Cardio: Tachycardic with regular rhythm, no murmurs Abd: Soft, non tender, non distended. Normal bowel sounds. G-tube has been removed and there is a dressing on the ostomy site. Multiple surgical scars noted, well-healed. Rectal: Normal tone, No mass, no blood or melena Stool: Light brown Skin: No petechiae or rashes Back: No midline or flank tenderness Ext: No cyanosis, or edema Neur: Awake and alert, normal speech, left-sided hemiplegia Psych: Anxious Result Diagram: 12/26/16 0728 12/26/16 0728 Results 24 hrs Laboratory Tests Test 12/26/16 07:28 12/26/16 11:35 White Blood Count 6.810^3/ul Red Blood Count 5.1210^6/ul Hemoglobin 14.3g/dl Hematocrit 44.2% Mean Corpuscular Volume 86.3fl Mean Corpuscular Hemoglobin 27.9pg Mean Corpuscular Hemoglobin Concent 32.4g/dl Red Cell Distribution Width 14.3% Platelet Count 24032^3/UL Mean Platelet Volume 9.6fl Neutrophils % 61.1% Lymphocytes % 29.6% Monocytes % 7.2% Eosinophils % 1.5% Basophils % 0.3% Nucleated Red Blood Cells % 0.0/100WBC Neutrophils # 4.210^3/ul Lymphocytes # 2.010^3/ul Monocytes # 0.510^3/ul Eosinophils # 0.110^3/ul Basophils # 0.010^3/ul Nucleated Red Blood Cells # 0.010^3/ul Sodium Level 145mmol/L Potassium Level 3.9mmol/L Chloride Level 109mmol/L Carbon Dioxide Level 21mmol/L Anion Gap 19 Blood Urea Nitrogen 17mg/dl Creatinine 0.72mg/dl Glucose Level 101mg/dl Calcium Level 10.9mg/dl Urine Color YELLOW Urine Clarity CLEAR Urine pH 5.0 Urine Specific [place] >=1.030 Urine Ketones 15 Urine Nitrite NEGATIVE Urine Bilirubin 2+ Urine Ictotest Pending Urine Urobilinogen 1.0 E.U./dL Urine Leukocyte Esterase NEGATIVE Urine Microscopic RBC 2-5/HPF Urine Microscopic WBC NONE SEEN/HPF Urine Epithelial Cells FEW Urine Bacteria FEW Urine Hemoglobin 2+ Urine Glucose NEGATIVE% Urine Total Protein NEGATIVE Current Medications Medications (Trade) Dose Ordered Sig/Kiana Route PRN Reason Start Time Stop Time Status Last Admin Dose Admin Sodium Chloride (NS) 500 ml @ 500 mls/hr Q1H STAT IV 12/26/16 07:12 12/26/16 08:11 DC 12/26/16 07:33 Morphine Sulfate (morphine) 4 mg ONCE STAT IV 12/26/16 07:12 12/26/16 07:14 DC 12/26/16 07:33 Sodium Biphosphate/ Sodium Phosphate (Fleet Enema) 133 ml ONCE ONCE NH 12/26/16 08:30 12/26/16 08:31 DC 12/26/16 08:40 Ondansetron HCl (Zofran Inj) 4 mg ONCE STAT IV 12/26/16 08:30 12/26/16 08:31 DC 12/26/16 08:40 Magnesium Citrate (Citroma) 300 ml ONCE ONCE PO 12/26/16 09:00 12/26/16 09:01 DC 12/26/16 09:08 Lorazepam (Ativan) 0.5 mg ONCE ONCE PO 12/26/16 11:30 12/26/16 11:31 DC 12/26/16 11:41 Sodium Biphosphate/ Sodium Phosphate (Fleet Enema) 133 ml ONCE ONCE NH 12/26/16 11:30 12/26/16 11:31 DC 12/26/16 11:41 Procedures/MDM Labs: CBC and BMP done, notable for mild hypercalcemia CT abdomen and pelvis: IMPRESSION: 1. Diffuse diverticulosis of the descending and sigmoid colon without CT evidence of diverticulitis. Unremarkable appendix. 2. Large localized area of retained feces within the rectum and distal sigmoid colon and rule out impaction. No evidence of bowel obstruction. 3. Status post cholecystectomy. 4. 1.5 cm pedunculated the anterior inferior right renal low density lesion likely a cyst. No calcified urinary calculi or obstructive uropathy. 4. Negative for intra or free air fluid abscesses or lymphadenopathy. 5. 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 Physician Marina Date Time Electronically viewed and signed by Terry Dang Physician on 12/26/2016 08:32 MDM Patient is presenting with constipation and abdominal pain. Her vitals are stable other than mild tachycardia, likely secondary to pain. Morphine was given for pain. Zofran was given for nausea. I have a low suspicion for acute surgical abdomen. CT shows retained stool in her distal colon and rectum. On exam the stool seems very soft. I do not feel any hard masses. Rectal fleets enema was done with no subsequent bowel movement. Magnesium citrate was given orally and was not successful. A second enema was given with significant BM and some relief of her symptoms. I had social work speak to the patient as it seems like her family is not taking care of her well and has not followed up with physical therapy. jewelry bench worker spoke with the patient's son and they will request physical therapy outpatient. Patient was discharged with prescription for senna. At this time she is medically stable for discharge Departure Diagnosis: Primary Impression: Constipation Constipation type: unspecified constipation type Qualified Code: K59.00 - Constipation, unspecified constipation type Condition: MIRANDA Dawson MD Dec 26, 2016 10:39
[2016-12-26] MEDS ORDERED: LORAZEPAM 0.5 MG TAB PO ONE (11:30)
[2016-12-26 11:53] LABS: ADD UMIC YES; URINE BILIRUBIN (Dip) 2+ (NEGATIVE); URINE BLOOD (Dip) 2+ (NEGATIVE); URINE COLOR YELLOW (YELLOW); URINE GLUCOSE (Dip) NEGATIVE (NEGATIVE); URINE KETONES (Dip) 15 (NEGATIVE); URINE LEUKOCYTE ESTERASE (Dip) NEGATIVE (NEGATIVE); URINE NITRITE (Dip) NEGATIVE (NEGATIVE); URINE TOTAL PROTEIN (Dip) NEGATIVE (NEGATIVE); URINE UROBILINOGEN (Dip) 1.0 E.U./dL (0.1-1.0)
[2016-12-26 12:22] LABS: BACTERIA,URINE FEW
[2016-12-26] MEDS ORDERED: SENN-53 PO (12:30)
[2016-12-26 16:59] VITALS: BP 142/110; PULSE 84; RESP 18; TEMP 98.3
[2016-12-26 17:09] LABS: ICTOTEST NEGATIVE (NEGATIVE)
== END 2016-12-26 17:25 | disposition home or self-care (01) ==
LOC: E/R 06:55
DX: K59.00 Constipation, unspecified (principal); R11.0 Nausea; I10 Essential (primary) hypertension; Z87.891 Personal history of nicotine dependence; Z79.82 Long term (current) use of aspirin
CPT/HCPCS: 36415; 74176; 80048; 81001; 85025; 96374; 96375; J2270; J2405; J7040; Z7502; Z7610

== ENCOUNTER 2017-01-13 21:28 | Emergency (ER) | payer BC ==
[~2017-01-13] VITALS: Ht 160 cm; Wt 77.3 kg
[~2017-01-13 21:28] MED LIST changes: +SENN-53 PO
[2017-01-13 21:32] VITALS: Ht 160 cm; Wt 77.3 kg
[2017-01-13] MEDS ORDERED: ONDANSETRON 4 MG INJ IV STA ×2 (21:54→23:16)
[2017-01-13] MEDS ORDERED: HYDROmorphONE 1 MG/ML SYG IV STA ×2 (21:54→23:16)
[2017-01-13] MEDS ORDERED: DILTIAZEM 25 MG INJ IV ONE (22:00)
[2017-01-13 22:08] LABS: ADD SCAN DIFF NO
[2017-01-13] MEDS ORDERED: SOD CHLORIDE 0.9% 100 ML ONE ×2 (22:11→23:26)
[2017-01-13] MEDS ORDERED: IOHEXOL 300MG/ML 150 ML BTL ONE ×2 (22:11→23:26)
--- NOTE | 2017-01-13 22:20 | ERA ---
ER Documentation Chief Complaint Date/Time DATE: 01/13/17 TIME: 22:16 Chief Complaint BIBA RA 90 leg pain,hx heart valve replacement X1 year,CVS w/ Lt side defic HPI This is a 61-year-old female who started complaining of some sudden right leg pain about 2 hours ago. The patient has a history of a stroke a month ago leaving her with left-sided deficits with weakness and near total loss of sensation. The patient started complaining of some burning pain in her right leg. On arrival via EMS the patient has an elevated blood pressure and heart rate with atrial fibrillation. Patient denies any chest pain back pain or abdominal pain. No nausea vomiting no headache. ROS All systems reviewed and are negative except as per history of present illness. Medications Home Meds Reported Medications Acetaminophen with Codeine (Acetaminophen-Cod #3 Tablet) 1 Each Tablet, 1 TAB PO Q6H for PAIN, #7 TAB 01/13/17 Famotidine* (Famotidine*) 20 Mg Tablet, 20 MG PO BID, #60 TAB 01/13/17 Atenolol* (Atenolol*) 25 Mg Tablet, 25 MG PO BID, #60 TAB 01/13/17 Metformin Hcl* (Metformin Hcl*) 500 Mg Tablet, 500 MG PO WITH BREAKFAST DINNE, # 60 TAB 10/06/16 Discontinued Reported Medications Hydrochlorothiazide* (Hydrochlorothiazide*) 12.5 Mg Tablet, 12.5 MG PO DAILY, # 30 TAB 10/06/16 Losartan Potassium* (Losartan Potassium*) 25 Mg Tablet, 25 MG PO DAILY, TAB 10/06/16 Ergocalciferol (Vitamin D2) (VITAMIN D2) 50,000 Unit Capsule, 71968 UNIT PO Q7D , CAP 10/06/16 Ferrous Sulfate* (Ferrous Sulfate*) 325 Mg Tabec, 325 MG PO BID, TAB 10/06/16 Amlodipine Besylate* (Norvasc*) 5 Mg Tablet, 5 MG PO DAILY, TAB 10/06/16 Aspirin* (Aspirin* EC) 81 Mg Tablet.dr, 81 MG PO DAILY, TAB 10/06/16 Discontinued Scripts Sennosides* (Senna Lax*) 8.6 Mg Tablet, 1 TAB PO Q12H Y for CONSTIPATION, #14 TAB Prov:MIRANDA BERRIOS MD 12/26/16 Allergies Allergies: Coded Allergies: No Known Drug Allergies (Unverified Allergy, Unknown, 01/13/17) PMhx/Soc History of Surgery: Yes (heart valve replacement) Anesthesia Reaction: No Hx Neurological Disorder: Yes (CVA with left sided weakness) Hx Respiratory Disorders: No Hx Cardiac Disorders: Yes (heart valve replacement) Hx Psychiatric Problems: No Hx Miscellaneous Medical Probl: Yes (CVA) Hx Alcohol Use: No Hx Substance Use: No Hx Tobacco Use: No Smoking Status: Former smoker FmHx Family History: No coronary disease Physical Exam Vitals Vital Signs Date Time Temp Pulse Resp B/P Pulse Ox O2 Delivery O2 Flow Rate FiO2 01/14/17 01:45 79 16 112/80 99 Nasal Cannula 01/14/17 01:00 97.9 126 18 141/107 99 Nasal Cannula 01/14/17 00:20 122 18 138/100 99 Nasal Cannula 01/13/17 23:25 121 20 145/111 98 Nasal Cannula 01/13/17 23:19 Nasal Cannula 2 01/13/17 21:49 98.1 152 20 159/109 98 Room Air 01/13/17 21:32 97.9 69 18 170/105 99 Physical Exam Const: Well-developed, well-nourished, obvious pain Head: Atraumatic, normocephalic Eyes: Normal Conjunctiva, PERRLA, EOMI, normal sclera, no nystagmus ENT: Normal External Ears, Nose and Mouth, moist mucus membranes. Neck: Full range of motion. No meningismus, no lymphadenopathy. Resp: Clear to auscultation bilaterally, no wheezing, rhonchi, rales Cardio: Irregularly irregular rhythm tachycardic no murmurs, S1 S2 present Abd: Soft, non tender x 4, non distended. Normal bowel sounds, no guarding or rebound, no pulsitile abdominal masses or bruits Skin: No petechiae or rashes, no ecchymosis , no maculopapular rash, bilateral lower extremities with mottled skin Back: No midline or flank tenderness Ext: No edema, upper extremities full range of motion, minimal range of motion right leg no range of motion left leg, both lower extremities are cool to touch no palpable femoral pulses bilateral, neurovascularly intact in both arms Neur: Awake and alert, STR 5/5 x 4, sensation intact x 4, no focal findings, cerebellum intact Psych: Normal Mood and Affect Result Diagram: 01/13/17219901/13/172199 Results 24 hrs Laboratory Tests Test 01/13/17 22:00 White Blood Count 11.510^3/ul Red Blood Count 4.8310^6/ul Hemoglobin 13.3g/dl Hematocrit 42.1% Mean Corpuscular Volume 87.2fl Mean Corpuscular Hemoglobin 27.5pg Mean Corpuscular Hemoglobin Concent 31.6g/dl Red Cell Distribution Width 14.7% Platelet Count 72527^3/UL Mean Platelet Volume 9.8fl Neutrophils % 74.0% Lymphocytes % 18.5% Monocytes % 5.6% Eosinophils % 1.0% Basophils % 0.3% Nucleated Red Blood Cells % 0.0/100WBC Neutrophils # 8.510^3/ul Lymphocytes # 2.110^3/ul Monocytes # 0.710^3/ul Eosinophils # 0.110^3/ul Basophils # 0.010^3/ul Nucleated Red Blood Cells # 0.010^3/ul Prothrombin Time 12.9Sec Prothrombin Time Ratio 1.0 INR International Normalized Ratio 0.97 Activated Partial Thromboplast Time 23.6Sec D-Dimer 2381.24ng/ml D-Dimer Comment Sodium Level 141mmol/L Potassium Level 3.7mmol/L Chloride Level 112mmol/L Carbon Dioxide Level 16mmol/L Anion Gap 17 Blood Urea Nitrogen 15mg/dl Creatinine 0.64mg/dl Glucose Level 181mg/dl Calcium Level 9.3mg/dl Troponin I < 0.012ng/ml Current Medications Medications (Trade) Dose Ordered Sig/Kiana Route PRN Reason Start Time Stop Time Status Last Admin Dose Admin Hydromorphone HCl (Dilaudid) 1 mg ONCE STAT IV 01/13/17 21:54 01/13/17 21:57 DC 01/13/17 22:07 Ondansetron HCl (Zofran Inj) 4 mg ONCE STAT IV 01/13/17 21:54 01/13/17 21:57 DC 01/13/17 22:08 Diltiazem HCl (Cardizem Iv) 20 mg ONCE ONCE IV 01/13/17 22:00 01/13/17 22:01 DC 01/13/17 22:08 Esmolol HCl 77 mg 77 mg ONCE ONCE IV 01/13/17 22:30 6/28/17 22:31 DC 01/13/17 22:55 Sodium Nitroprusside/ Dextrose (Nipride/D5W) 250 ml @ 6.95 mls/hr TITRATE IV 01/13/17 22:30 01/13/17 23:02 IV Flush 10 ml 10 ml STK-MED ONCE .ROUTE 01/13/17 22:11 01/13/17 22:12 DC 01/13/17 22:11 Sodium Chloride (NS) 100 ml @ ud STK-MED ONCE .ROUTE 01/13/17 22:11 01/13/17 22:12 DC 01/13/17 22:11 Iohexol (Omnipaque 300mg/ ml) 150 ml STK-MED ONCE .ROUTE 01/13/17 22:11 01/13/17 22:12 DC 01/13/17 22:11 Hydromorphone HCl (Dilaudid) 1 mg ONCE STAT IV 01/13/17 23:16 01/13/17 23:17 DC 01/13/17 23:25 Ondansetron HCl (Zofran Inj) 4 mg ONCE STAT IV 01/13/17 23:16 01/13/17 23:17 DC 01/13/17 23:25 IV Flush 10 ml 10 ml STK-MED ONCE .ROUTE 01/13/17 23:26 01/13/17 23:27 DC 01/13/17 23:48 Sodium Chloride (NS) 100 ml @ ud STK-MED ONCE .ROUTE 01/13/17 23:26 01/13/17 23:27 DC 01/13/17 23:48 Iohexol (Omnipaque 300mg/ ml) 150 ml STK-MED ONCE .ROUTE 01/13/17 23:26 01/13/17 23:27 DC 01/13/17 23:49 Hydromorphone HCl (Dilaudid) 1 mg ONCE STAT IV 01/14/17 00:55 01/14/17 00:56 DC 01/14/17 01:08 Ondansetron HCl 4 mg 4 mg ONCE STAT IV 01/14/17 00:55 01/14/17 00:56 DC 01/14/17 01:09 Heparin Sodium (Porcine) (Heparin 33432 Units/250 ml) 250 ml @ 0 mls/hr ONCE STAT IV 01/14/17 00:56 01/14/17 00:58 DC 01/14/17 01:16 Diltiazem HCl (Cardizem Iv) 20 mg ONCE ONCE IV 01/14/17 01:30 01/14/17 01:31 DC 01/14/17 01:15 Heparin Sodium (Porcine) (Heparin (1000 Units/ml)) 5,000 unit ONCE STAT IV 01/14/17 01:26 01/14/17 01:27 DC 01/14/17 01:41 Procedures/MDM EKG: Rate/Rhythm: Atrial fibrillation with a heart rate 159, ST depression V4 through V6 QRS, ST, QT: NORMAL [place], QRS, QT] Impression: Abnormal EKG CT scan was immediately notified to do a CT scan of the chest abdomen and pelvis to evaluate the aorta. She is also given Cardizem 20 mg IV followed by drip of nitrite and esmolol to obtain a blood pressure of systolic 100-120 Lab was called to immediately run her BMP stat PROCEDURE: CT Angiogram Abdomen/Pelvis/Biltaeral lower extremities runoff with IV contrast. CLINICAL INDICATION: Bilateral lower extremity pain. Mottled legs. Possible dissection. TECHNIQUE: CT scan of the abdomen, pelvis bilateral lower extremities was performed on a multidetector CT scanner. The patient was scanned following the uncomplicated administration of 100 cc Omnipaque-350 intravenous contrast material. 3D, Coronal and sagittal reformatted images were obtained from the axial source images. Images were reviewed on a high-resolution PACS workstation. Exam CTDlvol = 174 mGy and DLP = 1308 mGy-cm. One of the following 3 dose reduction techniques were used: Automated exposure control; adjustment of the mA and/or kV according to patient size; or use of iterative reconstruction technique. COMPARISON: CT CAP with runoff 01/13/2017 FINDINGS: CTA abdomen/pelvis/bilateral lower extremity runoff:: There is a good contrast bolus present. The abdominal aorta is normal caliber. The abdominal aorta is patent from the visualized lower thoracic aorta to just below the renal arteries. There is minimal partially calcified scattered atherosclerotic plaque. There is complete occlusion of the abdominal aorta just below the renal arteries. There is no intimal flap above the level of occlusion. There is a moderate stenosis at the origin of the cyst celiac artery of approximately 50% with good and distal opacification. The superior mesenteric artery is normal in appearance. Bilateral renal arteries are patent. There is mild partially calcified plaque of the proximal right renal artery without significant stenosis. There is poor opacification of a branch of the right renal artery to the lower pole right kidney. The inferior mesenteric artery is partially opacified although arises from the occluded segment, suggest reconstituted flow. There is no periaortic fluid, infiltration or extravasation. The common iliac arteries are completely opacified. There is reconstituted flow in the bilateral external and internal iliac arteries to the common femoral arteries. There is multifocal stenoses in the distal left external iliac artery with additional reconstituted flow at the proximal common femoral artery. The right common femoral artery is completely occluded. There is no significant flow the remainder of the right lower extremity including the common femoral, superficial femoral and popliteal arteries and trifurcation vessels to the feet. There is no significant reconstitution. There is reconstituted flow in the left common and proximal superficial femoral artery. There is occlusion mid left superficial femoral artery. There is a small amount of reconstituted flow in the distal left superficial femoral artery just above the popliteal artery. There is no significant flow distally to the feet. CT abdomen/pelvis: As compared to prior study, there is bilateral renal cortical enhancement. There is segmental relative hypo enhancement of the mid and lower pole of the left kidney at the level of a poorly opacified left renal artery, suspicious for a infarct. Remainder of the abdomen pelvis is unchanged. IMPRESSION: 1. 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 No proximal intimal flap is identified proximal to the occlusion. Considerations include dissection versus acute thrombosis of the underlying atherosclerotic disease. 2. Minimal reconstituted flow in the bilateral external iliac arteries and common femoral arteries. No significant flow in the right lower extremity distal to the common femoral artery. Small amount of reconstituted flow in the left common femoral artery and superficial femoral artery without significant flow below the popliteal artery. 3. Mild atherosclerotic calcifications as noted above. 4. Segmental defect and enhancement in the left kidney and a level of a possible distal renal branch occlusion suggesting renal infarct. Findings reported to Dr. Fitch on 01/14/2017 0056. RPTAT: HMVK .John Angel MD, MD Date Time Electronically viewed and signed by .John Angel MD, MD on 01/14/2017 00:57 .K/ CC: FROYLAN FITCH DO PROCEDURE: Chest. CLINICAL INDICATION: Chest pain. TECHNIQUE: Single frontal view of the chest was obtained. COMPARISON: 10/15/2016. FINDINGS: There is sternotomy wires and prosthetic valve are present. The cardiac silhouette is enlarged. The aortic arch is unremarkable. There is no focal consolidation, vascular congestion or pleural effusion. There is mild left basilar scarring. There left upper lobe calcified granulomas. There is no pneumothorax. IMPRESSION: Mild cardiomegaly. Mild left basilar scarring. .Charbel Lara MD, MD Date Time Electronically viewed and signed by .Charbel Lara MD, MD on 01/13/2017 23:02 .T/ CC: FROYLAN FITCH DO AMENDMENT: 01/14/2017 12:58:22 AM John Angel MD ADDENDUM: Corrections: PROCEDURE: CT Angiogram Abdomen/Pelvis/Bilateral lower extremities runoff with IV contrast. TECHNIQUE: CT scan of the abdomen, pelvis bilateral lower extremities was performed on a multidetector CT scanner PROCEDURE: CT Angiogram Chest Abdomen and Pelvis with IV contrast. CLINICAL INDICATION: Bilateral lower extremity pain. Mottled legs. Possible dissection. TECHNIQUE: CT scan of the chest, abdomen and pelvis was performed on a multidetector CT scanner. The patient was scanned following the uncomplicated administration of 125 cc Omnipaque-350 intravenous contrast material. 3D, Coronal and sagittal reformatted images were obtained from the axial source images. Images were reviewed on a high-resolution PACS workstation. Exam CTDlvol = 43 mGy and DLP = 1126 mGy-cm. One of the following 3 dose reduction techniques were used: Automated exposure control; adjustment of the mA and/or kV according to patient size; or use of iterative reconstruction technique. COMPARISON: CT pelvis 12/26/2016 FINDINGS: CTA chest/abdomen/pelvis: Study is limited by a very weak contrast: Within the aorta. Majority of the contrast material is within the pulmonary arteries and right side of the heart despite delayed images. There is a weak although visible contrast column within the thoracic aorta. The ascending aorta is top normal caliber measuring 3.9 cm in AP diameter.. There is no evidence for a thoracic aortic dissection. There is mild atherosclerotic plaque involving the aortic arch.. Coronary artery vascular calcifications are present.. There is no significant contrast bolus within the abdominal aorta and the angiogram is nondiagnostic. The abdominal aorta is normal in caliber. There is mild scattered atherosclerotic calcified plaque greatest at the proximal right renal artery and distal abdominal aorta. There is no periaortic fluid or infiltration. The pulmonary arteries are normal in appearance. There is no evidence for pulmonary artery filling defect/thrombosis. There is no portal venous gas. CTA lower extremity runoff: The bilateral lower extremity runoff is nondiagnostic. There is no significant contrast bolus in either lower extremity. Minimal scattered vascular calcifications are present in the lower extremities. CT chest: The patient status post sternotomy. The heart is mildly enlarged. Atrial appendage clip is present. There is trace pericardial fluid or thickening. There is no significant mediastinal or hilar lymphadenopathy. There is mild dependent atelectasis. There is no focal infiltrate. There is no pleural effusion. There is no pneumothorax. There are no fractures. There are degenerative changes of the thoracic spine. CT abdomen/pelvis: The liver is overall normal in size. There are unchanged scattered calcifications within the liver.. The gallbladder has been removed. There is no definite biliary ductal dilation. Pancreas is unremarkable. Punctate splenic calcifications are present. Spleen is otherwise normal in size and appearance. There are no adrenal masses. There is an unchanged 1 point 5 cm possible exophytic cyst lower pole right kidney, not well characterized. Kidneys are normal in appearance without hydronephrosis, mass or calculus. There is no perinephric collection. Ureters are of normal caliber in appearance. Urinary bladder is partially contracted.. There is no obstruction or ileus. The appendix is well visualized and normal in size. There is diffuse left and sigmoid colon evidence for diverticulitis. There is no free fluid. There is no lymphadenopathy. Uterus is not identified. The probable ovaries are normal in appearance. There are degenerative changes of the lumbar spine. IMPRESSION: 1. Very limited examination due to poor contrast bolus within the aorta. 2. Weak contrast column within the thoracic aorta without evidence for dissection. The ascending aorta is top normal in caliber. Descending aorta is normal in caliber. No evidence for thoracic aortic aneurysm. Mild atherosclerotic vascular calcifications of the aorta and coronary arteries.. 3. Nondiagnostic examination of the abdominal aorta and bilateral runoff. No abdominal aortic aneurysm. Mild scattered atherosclerotic calcifications. Recommend repeat examination or color Doppler vascular examination of the lower extremities. 4. Cardiomegaly. Minimal pericardial fluid versus thickening. 5. Mild atherosclerotic calcifications of the abdominal aorta. 6. Status post cholecystectomy. 7. Redemonstrated left and sigmoid colon diverticulosis without evidence for diverticulitis. 8. No obstructive uropathy. Poorly characterized possible cyst lower pole of the right kidney. 9. Liver and splenic punctate calcifications/granulomas. 10. Degenerative changes of the thoracic and lumbar spine. 11. Status post hysterectomy. Probable normal size ovaries identified. Findings reported to Dr. FITCH on 01/13/2017 11:20 PM. RPTAT: HMVK .John Angel MD, MD Date Time Electronically viewed and signed by .John Angel MD, on 01/14/2017 00:58 .K/ CC: FROYLAN FITCH DO Spoke with our vascular surgeon Dr. Man. Stated that this procedure is very difficult and require some intensive ICU care afterwards and is a very complicated surgery and will need a higher level of care due to the postop complications are possible in the intensive ICU care that will be needed. Will try to transfer the patient out of this facility. Patient vital signs are currently stable with a heart rate of 77 in atrial fibrillation blood pressures 130s over 80s. Patient's pain is better with Dilaudid. She is started on heparin drip after heparin bolus of 5000 units per Discussed with the son the severity of the situation the case and the be transferred to the hospital for a level of care Critical Care Time: 45 minutes Treatments/Evaluations: Close monitoring and treatment of unstable vital signs, cardiorespiratory, and neurologic status, while maintaining tight balance of fluid, respiratory, and cardiac interventions. This time includes discussing the case with the patient and the patient's family. This time does not include all procedures stated elsewhere in this record. This time also includes reviewing old records, labs and radiological studies. This time includes examining and re-examining the patient. Additionally, this time also includes arranging care with admitting and consulting physicians. Spoke with Dr. Joe at [facility] who accepted the transfer Departure Diagnosis: Primary Impression: Aortic thrombus Additional Impression: Aortic occlusion Condition: Critical FROYLAN FITCH DO Jan 13, 2017 22:20
[2017-01-13 22:21] LABS: BASOPHILS % 0.3 % (0.0-2.0); EOSINOPHILS # 0.1 10^3/ul (0.0-0.5); HEMATOCRIT 42.1 % (37.0-47.0); HEMOGLOBIN 13.3 g/dl (12.0-16.0); LYMPHOCYTES # 2.1 10^3/ul (0.8-2.9); LYMPHOCYTES % 18.5 % (15.0-51.0); MEAN CORPUSCULAR HEMOGLOBIN 27.5 pg (29.0-33.0); MEAN CORPUSCULAR HGB CONC 31.6 g/dl (32.0-37.0); MEAN CORPUSCULAR VOLUME 87.2 fl (82.0-101.0); MEAN PLATELET VOLUME 9.8 fl (7.4-10.4); MONOCYTE # 0.7 10^3/ul (0.3-0.9); MONOCYTES % 5.6 % (0.0-11.0); NEUTROPHIL # 8.5 10^3/ul (1.6-7.5); PLATELET COUNT 287 10^3/UL (140-415); RED BLOOD COUNT 4.83 10^6/ul (4.20-5.40); RED CELL DISTRIBUTION WIDTH 14.7 % (11.5-14.5); WHITE BLOOD COUNT 11.5 10^3/ul (4.8-10.8)
[2017-01-13 22:26] LABS: INR 0.97; PROTIME 12.9 Sec (12.2-14.2)
[2017-01-13 22:27] LABS: PARTIAL THROMBOPLASTIN TIME 23.6 Sec (25.0-35.0)
[2017-01-13 22:29] LABS: ANION GAP 17 (8-16); BLOOD UREA NITROGEN 15 mg/dl (7-20); CALCIUM 9.3 mg/dl (8.4-10.2); CARBON DIOXIDE 16 mmol/L (21-31); CHLORIDE 112 mmol/L (97-110); CREATININE 0.64 mg/dl (0.44-1.00); D-DIMER 2381.24 ng/ml (<460); GLUCOSE 181 mg/dl (70-220); POTASSIUM 3.7 mmol/L (3.5-5.1); SODIUM 141 mmol/L (135-144)
[2017-01-13] MEDS ORDERED: NITROPRUSSIDE 50 MG in DEXTROSE 5% 248 ML IV SCH (22:30)
[2017-01-13] MEDS ORDERED: ACET1TAB40 PO (22:30)
[2017-01-13] MEDS ORDERED: ATEN-51 PO (22:30)
[2017-01-13] MEDS ORDERED: FAMO20TA18 PO (22:30)
[2017-01-13] MEDS ORDERED: ESMOLOL 100 MG INJ IV ONE (22:30)
[2017-01-13 22:39] LABS: TROPONIN-I < 0.012 ng/ml (0.00-0.12)
--- NOTE | 2017-01-13 23:03 | RADRPT ---
PROCEDURE: Chest. CLINICAL INDICATION: Chest pain. TECHNIQUE: Single frontal view of the chest was obtained. COMPARISON: 10/15/2016. FINDINGS: There is sternotomy wires and prosthetic valve are present. The cardiac silhouette is enlarged. Th e aortic arch is unremarkable. There is no focal consolidation, vascular congestion or pleural effu pam. There is mild left basilar scarring. There left upper lobe calcified granulomas. There is n o pneumothorax. IMPRESSION: Mild cardiomegaly. Mild left basilar scarring. .Charbel Lara MD, MD Date Time Electronically viewed and signed by .Charbel Lara MD, MD on 01/13/2017 23:02 .T/
--- NOTE | 2017-01-13 23:40 | RADRPT ---
AMENDMENT: 01/14/2017 12:58:22 AM John Angel MD ADDENDUM: Corrections: PROCEDURE: CT Angiogram Abdomen/Pelvis/Bilateral lower extremities runoff with IV contrast. TECHNIQUE: CT scan of the abdomen, pelvis bilateral lower extremities was performed on a multidetec tor CT scanner PROCEDURE: CT Angiogram Chest Abdomen and Pelvis with IV contrast. CLINICAL INDICATION: Bilateral lower extremity pain. Mottled legs. Possible dissection. TECHNIQUE: CT scan of the chest, abdomen and pelvis was performed on a multidetector CT scanner. The patient was scanned following the uncomplicated administration of 125 cc Omnipaque-350 intraveno us contrast material. 3D, Coronal and sagittal reformatted images were obtained from the axial sour ce images. Images were reviewed on a high-resolution PACS workstation. Exam CTDlvol = 43 mGy and DL P = 1126 mGy-cm. One of the following 3 dose reduction techniques were used: Automated exposure con trol; adjustment of the mA and/or kV according to patient size; or use of iterative reconstruction t echnique. COMPARISON: CT pelvis 12/26/2016 FINDINGS: CTA chest/abdomen/pelvis: Study is limited by a very weak contrast: Within the aorta. Majority of the contrast material is w ithin the pulmonary arteries and right side of the heart despite delayed images. There is a weak al though visible contrast column within the thoracic aorta. The ascending aorta is top normal caliber measuring 3.9 cm in AP diameter.. There is no evidence for a thoracic aortic dissection. There is m ild atherosclerotic plaque involving the aortic arch.. Coronary artery vascular calcifications are present.. There is no significant contrast bolus within the abdominal aorta and the angiogram is nondiagnostic . The abdominal aorta is normal in caliber. There is mild scattered atherosclerotic calcified plaqu e greatest at the proximal right renal artery and distal abdominal aorta. There is no periaortic fl uid or infiltration. The pulmonary arteries are normal in appearance. There is no evidence for pulmonary artery filling defect/thrombosis. There is no portal venous gas. CTA lower extremity runoff: The bilateral lower extremity runoff is nondiagnostic. There is no significant contrast bolus in ei ther lower extremity. Minimal scattered vascular calcifications are present in the lower extremities . CT chest: The patient status post sternotomy. The heart is mildly enlarged. Atrial appendage clip is present . There is trace pericardial fluid or thickening. There is no significant mediastinal or hilar lym phadenopathy. There is mild dependent atelectasis. There is no focal infiltrate. There is no pleural effusion. There is no pneumothorax. There are no fractures. There are degenerative changes of the thoracic spine. CT abdomen/pelvis: The liver is overall normal in size. There are unchanged scattered calcifications within the liver.. The gallbladder has been removed. There is no definite biliary ductal dilation. Pancreas is unrema rkable. Punctate splenic calcifications are present. Spleen is otherwise normal in size and appeara nce. There are no adrenal masses. There is an unchanged 1 point 5 cm possible exophytic cyst lower pole right kidney, not well charact erized. Kidneys are normal in appearance without hydronephrosis, mass or calculus. There is no lazara nephric collection. Ureters are of normal caliber in appearance. Urinary bladder is partially cont racted.. There is no obstruction or ileus. The appendix is well visualized and normal in size. There is dif fuse left and sigmoid colon evidence for diverticulitis. There is no free fluid. There is no lymph adenopathy. Uterus is not identified. The probable ovaries are normal in appearance. There are degenerative changes of the lumbar spine. IMPRESSION: 1. Very limited examination due to poor contrast bolus within the aorta. 2. Weak contrast column within the thoracic aorta without evidence for dissection. The ascending a stevie is top normal in caliber. Descending aorta is normal in caliber. No evidence for thoracic aort ic aneurysm. Mild atherosclerotic vascular calcifications of the aorta and coronary arteries.. 3. Nondiagnostic examination of the abdominal aorta and bilateral runoff. No abdominal aortic aneu rysm. Mild scattered atherosclerotic calcifications. Recommend repeat examination or color Doppler vascular examination of the lower extremities. 4. Cardiomegaly. Minimal pericardial fluid versus thickening. 5. Mild atherosclerotic calcifications of the abdominal aorta. 6. Status post cholecystectomy. 7. Redemonstrated left and sigmoid colon diverticulosis without evidence for diverticulitis. 8. No obstructive uropathy. Poorly characterized possible cyst lower pole of the right kidney. 9. Liver and splenic punctate calcifications/granulomas. 10. Degenerative changes of the thoracic and lumbar spine. 11. Status post hysterectomy. Probable normal size ovaries identified. Findings reported to Dr. FITCH on 01/13/2017 11:20 PM. RPTAT: HMVK .John Angel MD, MD Date Time Electronically viewed and signed by .John Angel MD, MD on 01/14/2017 00:58 .K/
[2017-01-14] MEDS ORDERED: HYDROmorphONE 1 MG/ML SYG IV STA ×2 (00:55→02:20)
[2017-01-14] MEDS ORDERED: ONDANSETRON 4 MG INJ IV STA ×2 (00:55→02:20)
[2017-01-14] MEDS ORDERED: HEPARIN 25000 UNITS/250 ML 250 ML IV STA (00:56)
--- NOTE | 2017-01-14 00:57 | RADRPT ---
PROCEDURE: CT Angiogram Abdomen/Pelvis/Biltaeral lower extremities runoff with IV contrast. CLINICAL INDICATION: Bilateral lower extremity pain. Mottled legs. Possible dissection. TECHNIQUE: CT scan of the abdomen, pelvis bilateral lower extremities was performed on a multidetec tor CT scanner. The patient was scanned following the uncomplicated administration of 100 cc Omnipaq ue-350 intravenous contrast material. 3D, Coronal and sagittal reformatted images were obtained from the axial source images. Images were reviewed on a high-resolution PACS workstation. Exam CTDlvol = 174 mGy and DLP = 1308 mGy-cm. One of the following 3 dose reduction techniques were used: Automate d exposure control; adjustment of the mA and/or kV according to patient size; or use of iterative re construction technique. COMPARISON: CT CAP with runoff 01/13/2017 FINDINGS: CTA abdomen/pelvis/bilateral lower extremity runoff:: There is a good contrast bolus present. The abdominal aorta is normal caliber. The abdominal aorta is patent from the visualized lower thoracic aorta to just below the renal arteries. There is minim al partially calcified scattered atherosclerotic plaque. There is complete occlusion of the abdomin al aorta just below the renal arteries. There is no intimal flap above the level of occlusion. The re is a moderate stenosis at the origin of the cyst celiac artery of approximately 50% with good and distal opacification. The superior mesenteric artery is normal in appearance. Bilateral renal art eries are patent. There is mild partially calcified plaque of the proximal right renal artery witho ut significant stenosis. There is poor opacification of a branch of the right renal artery to the l ower pole right kidney. The inferior mesenteric artery is partially opacified although arises from the occluded segment, suggest reconstituted flow. There is no periaortic fluid, infiltration or extravasation. The common iliac arteries are completely opacified. There is reconstituted flow in the bilateral external and internal iliac arteries to the common femoral arteries. There is multifo jennifer stenoses in the distal left external iliac artery with additional reconstituted flow at the prox imal common femoral artery. The right common femoral artery is completely occluded. There is no significant flow the remainder of the right lower extremity including the common femoral, superficial femoral and popliteal arterie s and trifurcation vessels to the feet. There is no significant reconstitution. There is reconstituted flow in the left common and proximal superficial femoral artery. There is oc clusion mid left superficial femoral artery. There is a small amount of reconstituted flow in the d istal left superficial femoral artery just above the popliteal artery. There is no significant flow distally to the feet. CT abdomen/pelvis: As compared to prior study, there is bilateral renal cortical enhancement. There is segmental relat manuel hypo enhancement of the mid and lower pole of the left kidney at the level of a poorly opacified left renal artery, suspicious for a infarct. Remainder of the abdomen pelvis is unchanged. IMPRESSION: 1. 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 No proxim al intimal flap is identified proximal to the occlusion. Considerations include dissection versus a cute thrombosis of the underlying atherosclerotic disease. 2. Minimal reconstituted flow in the bilateral external iliac arteries and common femoral arteries. No significant flow in the right lower extremity distal to the common femoral artery. Small amoun t of reconstituted flow in the left common femoral artery and superficial femoral artery without sig nificant flow below the popliteal artery. 3. Mild atherosclerotic calcifications as noted above. 4. Segmental defect and enhancement in the left kidney and a level of a possible distal renal branc h occlusion suggesting renal infarct. Findings reported to Dr. Banegas on 01/14/2017 0056. RPTAT: HMVK .John Angel MD, Date Time Electronically viewed and signed by .John Angel MD, on 01/14/2017 00:57 .K/
[2017-01-14] MEDS ORDERED: HEPARIN 1000 UNITS/ML 10 ML INJ IV STA (01:26)
[2017-01-14] MEDS ORDERED: DILTIAZEM 25 MG INJ IV ONE (01:30)
[2017-01-14 02:55] VITALS: BP 125/88; PULSE 93; RESP 18; TEMP 98.2
== END 2017-01-14 03:31 | disposition short-term general hospital (02) ==
LOC: E/R 21:28
DX: I74.10 Embolism and thrombosis of unspecified parts of aorta (principal); R07.9 Chest pain, unspecified; Z87.891 Personal history of nicotine dependence
CPT/HCPCS: 36415; 71010; 71275; 75635; 80048; 84484; 85025; 85378; 85610; 85730; 93005; 96374; 96375; 96376; J1170; J1644; J2405; J7070; Q9967; Z7502; Z7610

== ENCOUNTER 2018-02-27 00:42 | Inpatient (IN) | END 2018-03-09 21:45 | disposition home health service (06) | DRG 372 ==

== ENCOUNTER 2018-06-21 12:15 | Inpatient (IN) | payer MEDICARE, BC ==
[~2018-06-21] VITALS: Ht 152.4 cm; Wt 82.0 kg
[~2018-06-21 12:15] MED LIST changes: +ACET1TAB40 PO; +AMIO200T4 PO; -AMLO5TAB4 PO; -ASPI-664 PO; +DICY10CA40 PO; -ERGO500037 PO; +FAMO20TA18 PO; -FER325 PO; -HYDR12.58 PO; -LOSA25TA5 PO; +METF500T24 PO; -METF500T4 PO; +METO-429 PO; +METR500T PO; +RIVA20TA5 PO; -SENN-53 PO
--- NOTE | 2018-06-21 15:40 | ERD ---
ER Documentation Chief Complaint Chief Complaint SENT BY PMD FOR 5.2 HGB, GENERALIZED WEAKNESS HPI 63-year-old female sent by her primary care physician for HemoCue showing hemoglobin of 5.2. Patient has history of CVA, A. fib, peripheral arterial disease. For the past week she has been looking much more pale than usual per her son. She is also complained of generalized weakness and aches in bilateral lower extremities. The patient is usually bedbound. He states that her stool has been looking darker than usual. She is on blood thinners. She denies any associated abdominal pain, or shortness of breath. She did have some mild right-sided chest pain today which she did not mention to her son. She has been feeling dizzy and having some headaches as well. She denies any dysuria but her son states that her urine is foul-smelling. No nausea or vomiting. No fevers or chills. ROS All systems reviewed and are negative except as per history of present illness. Medications Home Meds Reported Medications Brimonidine Tartrate* (Brimonidine Tartrate*) 0.2%-15ML Drop Opht, 1 DROP RIGHT EYE Q8, #1 EA 06/21/18 Sulfacetamide Sodium* (Bleph-10*) 10%-5 Ml Opht Drops, 1 DROP LEFT EYE Q3H, #1 EA 06/21/18 Metoprolol Tartrate* (Lopressor*) 50 Mg Tab, 50 MG PO NEEDED, #60 TAB 06/21/18 Hydroxyzine Hcl* (Hydroxyzine Hcl*) 25 Mg Tablet, 25 MG PO NEEDED PRN for ITCHING, #30 TAB 06/21/18 Amiodarone Hcl* (Amiodarone Hcl*) 200 Mg Tablet, 200 MG PO BID, #60 TAB 06/21/18 Rivaroxaban* (Xarelto*) 20 Mg Tablet, 20 MG PO QAM, TAB 06/21/18 Ibuprofen* (Ibuprofen*) 600 Mg Tablet, 600 MG PO PRN PRN for PAIN, TAB 06/21/18 Discontinued Reported Medications Acetaminophen with Codeine (Acetaminophen-Cod #3 Tablet) 1 Each Tablet, 1 TAB PO Q6H for PAIN, #7 TAB 01/13/17 Famotidine* (Famotidine*) 20 Mg Tablet, 20 MG PO BID, #60 TAB 01/13/17 Metformin Hcl* (Metformin Hcl*) 500 Mg Tablet, 500 MG PO WITH BREAKFAST DINNE, #60 TAB 10/06/16 Discontinued Scripts Metronidazole* (Flagyl*) 500 Mg Tablet, 500 MG PO Q8 for 5 Days, TAB Prov:BRO SALAZAR MD 03/09/18 Rivaroxaban* (Xarelto*) 20 Mg Tablet, 20 MG PO WITH DINNER for 30 Days, TAB Prov:BRO SALAZAR MD 03/09/18 Metoprolol Tartrate* (Lopressor*) 50 Mg Tab, 50 MG PO BID for 30 Days, TAB Prov:BRO SALAZAR MD 03/09/18 Amiodarone Hcl* (Amiodarone Hcl*) 200 Mg Tablet, 200 MG PO DAILY for 30 Days, TAB Prov:BRO SALAZAR MD 03/09/18 Dicyclomine HCl (Dicyclomine HCl) 10 Mg Capsule, 10 MG PO TID PRN for ABDOMINAL CRAMPS for 10 Days, CAP Prov:BRO SALAZAR MD 03/09/18 Allergies Allergies: Coded Allergies: No Known Drug Allergies (Unverified Allergy, Unknown, 06/21/18) PMhx/Soc History of Surgery: Yes (HEART VALVE REPLACEMENT(SEPTEMBER 2015), BYPASS (DECEMBER 2016)) Anesthesia Reaction: No Hx Neurological Disorder: No Hx Respiratory Disorders: No Hx Cardiac Disorders: Yes (HTN, CVA (LEFT SIDED WEAKNESS)) Hx Psychiatric Problems: Yes (DEPRESSION, ANXIETY) Hx Miscellaneous Medical Probl: Yes (H.OF CVA, HTN ,DM , A-FIB,H.OF VALVE REPLACEMENTB, S/B CHOLECYSTECTOMY) Hx Alcohol Use: No Hx Substance Use: No Hx Tobacco Use: Yes FmHx Family History: No diabetes Physical Exam Vitals Vital Signs Date Temp Pulse Resp B/P (MAP) Pulse Ox O2 O2 Flow FiO2 Time Delivery Rate 06/21/18 98.4 86 24 132/76 97 Room Air 19:11 (94) 06/21/18 93 19 105/65 100 Room Air 17:17 (78) 06/21/18 98.1 94 18 130/74 100 12:30 (92) Physical Exam Const: No acute distress, nontoxic Head: Atraumatic Eyes: Pale conjunctiva, PERRLA, EOMI ENT: Normal External Ears, Nose and Mouth. Dry mucous membranes. Neck: Full range of motion. No meningismus. Resp: Clear to auscultation bilaterally Cardio: Irregularly irregular rhythm with normal rate, no murmurs. 2+ distal pulses Abd: Soft, non tender, non distended. Normal bowel sounds Skin: Pale. No petechiae or rashes Back: No midline or flank tenderness Ext: Bilateral lower extremity fasciotomy scars noted. Distal extremities cool to touch, pale.No cyanosis, or edema. Neur: Awake and alert, normal speech, left facial droop that is chronic. Left-sided upper and lower extremity weakness, strength 3 out of 5 at baseline. Right upper and right lower extremity strength intact. Psych: Normal Mood and Affect Result Diagram: 06/21/18 1530 06/21/18 1530 Results 24 hrs Laboratory Tests Test 06/21/18 15:30 06/21/18 16:20 White Blood Count 4.5 10^3/ul Red Blood Count 2.65 10^6/ul Hemoglobin 5.7 g/dl Hematocrit 20.6 % Mean Corpuscular Volume 77.7 fl Mean Corpuscular Hemoglobin 21.5 pg Mean Corpuscular Hemoglobin Concent 27.7 g/dl Red Cell Distribution Width 17.2 % Platelet Count 336 10^3/UL Mean Platelet Volume 9.2 fl Immature Granulocytes % 0.400 % Neutrophils % % Segmented Neutrophils % (Manual) 70 % Lymphocytes % % Lymphocytes % (Manual) 21 % Monocytes % % Monocytes % (Manual) 5 % Eosinophils % % Eosinophils % (Manual) 3 % Basophils % % Myelocytes % (Manual) 1 % Nucleated Red Blood Cells % 0.0 /100WBC Immature Granulocytes # 0.020 10^3/ul Neutrophils # 10^3/ul Lymphocytes (Manual) 0.9 10^3/ul Lymphocytes # 10^3/ul Monocytes # 10^3/ul Monocytes # (Manual) 0.2 10^3/ul Eosinophils # 10^3/ul Basophils # 10^3/ul Myelocytes # 0.0 10^3/ul Nucleated Red Blood Cells # 10^3/ul Platelet Estimate NORMAL Polychromasia 3+ Hypochromasia 2+ Poikilocytosis 1+ Anisocytosis 3+ Microcytosis 3+ Prothrombin Time 14.2 Sec Prothrombin Time Ratio 1.1 INR International Normalized Ratio 1.09 Activated Partial Thromboplast Time 27.5 Sec Sodium Level 143 mmol/L Potassium Level 4.4 mmol/L Chloride Level 113 mmol/L Carbon Dioxide Level 22 mmol/L Anion Gap 8 Blood Urea Nitrogen 24 mg/dl Creatinine 0.85 mg/dl Est Glomerular Filtrat Rate mL/min > 60 mL/min Glucose Level 92 mg/dl Calcium Level 8.9 mg/dl Total Bilirubin 0.3 mg/dl Direct Bilirubin 0.00 mg/dl Indirect Bilirubin 0.3 mg/dl Aspartate Amino Transf (AST/SGOT) 92 IU/L Alanine Aminotransferase (ALT/SGPT) 102 IU/L Alkaline Phosphatase 113 IU/L Troponin I < 0.012 ng/ml Total Protein 7.0 g/dl Albumin 3.4 g/dl Globulin 3.60 g/dl Albumin/Globulin Ratio 0.94 Urine Color RED Urine Clarity TURBID Urine pH 5.0 Urine Specific Hickman 1.017 Urine Ketones NEGATIVE mg/dL Urine Nitrite POSITIVE mg/dL Urine Bilirubin NEGATIVE mg/dL Urine Urobilinogen NEGATIVE mg/dL Urine Leukocyte Esterase TRACE Chloe/ul Urine Microscopic RBC 0 /HPF Urine Microscopic WBC 7 /HPF Urine Bacteria MANY /HPF Urine Hemoglobin 2+ mg/dL Urine Glucose NEGATIVE mg/dL Urine Total Protein NEGATIVE mg/dl Current Medications Medications Dose Sig/Kiana Start Time Status Last (Trade) Ordered Route PRN Stop Time Admin Dose Reason Admin Sodium 250 ml @ 0 Q0M ONCE 06/21/18 DC Chloride mls/hr IV 15:51 06/21/18 15:52 Ondansetron 4 mg ER BRIDGE 06/21/18 HCl (Zofran PRN IV 18:30 Inj) NAUSEA AND/OR 06/22/18 18:29 VOMITING 650 mg ER BRIDGE 06/21/18 Acetaminophen PRN PO MILD 18:30 (Tylenol PAIN(1-3)OR 06/22/18 18:29 Tab) ELEVATED TEMP Procedures/MDM EMERGENT LABS AND DIAGNOSTIC STUDIES: Lab Results above were reviewed and interpreted by me. CBC: Severe anemia with hemoglobin 5.7 CMP: Elevated BUN with normal creatinine, likely due to prerenal azotemia. No evidence of liver failure Troponin within normal limits, not indicative of cardiac ischemia UA: Pending 12-lead EKG was interpreted by Fortino Soni MD: Atrial flutter with ventricular rate of 90 beats per minute Normal axis Normal intervals inferior and lateral T wave inversions, possibly due to ischemia. No STEMI. Radiology Results as interpreted by Radiology below were reviewed by Katey Soni MD: Chest x-ray: IMPRESSION: Mild Cardiomegaly. Mild bibasilar atelectatic changes. Initial Nursing notes reviewed. Previous Medical Records requested via the Electronic Health Record. EMERGENCY DEPARTMENT COURSE / MEDICAL DECISION MAKING: Patient is presenting with generalized weakness with pallor. Vitals showed no significant abnormalities. On exam she did look anemic. Hemoglobin was truly 5.7. 2 units of PRBCs were ordered. I suspect she has most likely occult GI bleed, especially given her blood thinner use. There are no signs of endorgan injury or myocardial ischemia. Patient will require admission for observation, transfusion, and further workup of her anemia. Critical Care Time: 40 minutes Treatments/Evaluations: Close monitoring and treatment of unstable vital signs, cardiorespiratory, and neurologic status, while maintaining tight balance of fluid, respiratory, and cardiac interventions. This time includes discussing the case with the patient and the patients family. This time does not include all procedures stated elsewhere in this record. This time also includes reviewing old records, labs and radiological studies. This time includes examining and re- examining the patient. Additionally, this time also includes arranging care with admitting and consulting physicians. Accepting Care Team: Current data and ongoing care discussed. Time: Time of admission Primary Provider: Outstanding Data: UA Departure Diagnosis: Primary Impression: Severe anemia Additional Impression: Prerenal azotemia Condition: Serious MIRANDA SONI MD Jun 21, 2018 15:40
[2018-06-21] MEDS ORDERED: SOD CHLORIDE 0.9% 250 ML IV ONE (15:51)
[2018-06-21] MEDS ORDERED: RIVA20TA5 PO (16:11)
[2018-06-21] MEDS ORDERED: IBUP-1542 PO (16:11)
[2018-06-21] MEDS ORDERED: HYDR-843 PO (16:12)
[2018-06-21] MEDS ORDERED: AMIO200T4 PO (16:12)
[2018-06-21] MEDS ORDERED: METO-429 PO (16:13)
[2018-06-21] MEDS ORDERED: BRIM15DR7 RIGHT EYE (16:16)
[2018-06-21] MEDS ORDERED: SULF5DRO17 LEFT EYE (16:16)
[2018-06-21] MEDS ORDERED: ONDANSETRON 4 MG INJ IV PRN (18:30)
[2018-06-21] MEDS ORDERED: ACETAMINOPHEN 325 MG TAB PO PRN (18:30)
[2018-06-21 20:00] VITALS: PULSE 87; Ht 152.4 cm; Wt 82.0 kg
--- NOTE | 2018-06-21 20:30 | NUR ---
ADMITTED TO THE UNIT WITH BLOOD TRANSFUSION IN PROGRESS STARTED IN ER.PLACED ON TELE MONITOR,INTERVIEWED FOR ADMISSION QUESTIONER WITH PRIMING MACHINE OPERATOR.
[2018-06-21] MEDS ORDERED: hydrOXYzine HCL 25 MG TAB PO PRN (21:00)
[2018-06-21] MEDS: BRIMONIDINE 0.2% 5 ML BTL RIGHT EYE SCH (21:54)
[2018-06-21] MEDS: AMIODARONE 200 MG TAB PO SCH (21:55)
[2018-06-21] MEDS: SULFACETAMIDE 10% 15 ML OPH LEFT EYE SCH (21:55)
--- NOTE | 2018-06-21 22:45 | NUR ---
2D UNIT OF PRBC VERIFIED BY 2 RN'S PER PROTOCOL.BLOOD TRANSFUSION STARTED.
[2018-06-22] VITALS (13 sets, daily range): BP systolic 106–138; BP diastolic 64–88; PULSE 76–94; RESP 18–20
[2018-06-22] MEDS: SULFACETAMIDE 10% 15 ML OPH LEFT EYE SCH ×8 (00:13→21:06)
--- NOTE | 2018-06-22 01:35 | NUR ---
BLOOD TRANSFUSION COMPLETED.NO ADVERSE REACTION NOTED.PROCEDURE TOLERATED WELL.
[2018-06-22] MEDS ORDERED: traMADol 50 MG TAB PO PRN (02:30)
--- NOTE | 2018-06-22 05:34 | NUR ---
END OF THE SHIFT:PT. IS AA,O X 3.NS/P 2 UNIT'S OF BLOOD TRANSFUSION OF PRBC.PROCEDURE TOLERATED WELL,NO ADVERSE REACTION.A-FLUTTER AT 8OSS ON THE MONITOR.REPOSITION IN BED Q 2 HOURS.AIR LOSS MATTRESS ORDERED TO PREVENT PRESSURE INJURIES.
[2018-06-22] MEDS: PANTOPRAZOLE 40 MG INJ IV SCH ×2 (06:14→17:46)
[2018-06-22] MEDS: BRIMONIDINE 0.2% 5 ML BTL RIGHT EYE SCH ×3 (06:14→21:06)
--- NOTE | 2018-06-22 06:34 | CONS ---
Date/Time of Note Date/Time of Note DATE: 06/22/18 TIME: 06:32 Assessment/Plan Assessment/Plan Chief Complaint/Hosp Course 63 yo female who is bedbound secondary to CVA, h/o afib on xarelto presented for Hgb of 5.7, generalized weakness, and black stools 1. Upper GI bleed manifested through melanotic stools 2. Severe acute anemia secondary to blood loss 3. Transaminitis 4. H/O biliary stent placement by Dr. Ward in 02/2018 5. Atrial fibrillation, was on xarelto 6. Leukopenia 7. UTI 8. H/O C diff 9. H/O CVA Plan: PPI BID EGD/ERCP tomorrow NO anticoagulants HH q 8 hours, call MD for less than 7.6 Pt examined and plan of care discussed with Dr. Ward Consultation Date/Type/Reason Admit Date/Time Jun 21, 2018 at 18:18 Hx of Present Illness 63 yo female with PMH of CVA, atrial fibrillation, peripheral arterial disease, h/o Cdiff presented to [facility] ER with in office HemoCue showing hemoglobin of 5.2 at her primary physician's office. Pt states she began feeling overall weakness 3 days ago and son states she has been looking pale. She c/o mild pain everywhere and intermittent dizziness. She states she has been feeling nauseous but no vomiting. Due to nausea she hasn't been able to eat much. She states her bm have been black for last two days, partly diarrhea and part soft. Her HH in the ER 5.7/20.6. Iron panel shows: Iron 15, TIBC 424, % sat 4 and ferritin 16. ALT and AST are elevated at 102/92. Pt has h/o biliary obstruction for which Dr Ward did ERCP with sphincterotomy and stent placement in 02/2018. Hep panel negative. INR 1.1. UA is positive for UTI. Pt is bedbound status secondary to CVA with no use of legs. She denies SOB or CP, but per ER note she had mild right sided chest pain today which alleviated on its own. She denies fevers or chills. Does c/o headaches. No visual changes. Denies cough or ches t or nasal congestion. Social History Smoking Status: Never smoker Exam/Review of Systems Vital Signs Vitals Vital Signs Date Temp Pulse Resp B/P (MAP) Pulse Ox O2 O2 Flow FiO2 Time Delivery Rate 06/22/18 98.9 81 18 109/72 94 04:22 (84) 06/21/18 Room Air 19:11 Intake and Output 06/21/18 06/21/18 06/22/18 1515:00 23:00 07:00 IntakeIntake Total 1000 ml BalanceBalance 1000 ml Exam Constitutional: alert, oriented Psych: no complaints Head: normocephalic Eyes: other (Pupils unequal and reactive, left eye ptosis) ENMT: mucosa pink and moist Respiratory: clear to auscultation Cardiovascular: regular rate and rhythm Gastrointestinal: tender (TTP in all quadrants particularly LLQ) Musculoskeletal: other (BLE edematous with RLE 1/5 strength and LLE 0/5) Extremities: normal pulses Neurological: nl mental status Medications Medications Current Medications Ondansetron HCl (Zofran Inj) 4 mg ER BRIDGE PRN IV NAUSEA AND/OR VOMITING; Start 06/21/18 at 18:30; Stop 06/22/18 at 18:29 Acetaminophen (Tylenol Tab) 650 mg ER BRIDGE PRN PO MILD PAIN(1-3)OR ELEVATED TEMP; Start 06/21/18 at 18:30; Stop 06/22/18 at 18:29 Amiodarone HCl (Cordarone) 200 mg BID PO Last administered on 06/21/18at 21:55; Admin Dose 200 MG; Start 06/21/18 at 21:00 Brimonidine Tartrate (Alphagan 0.2%) 1 drop Q8 RIGHT EYE Last administered on 06/22/18at 06:14; Admin Dose 1 DROP; Start 06/21/18 at 22:00 Hydroxyzine HCl (Atarax) 25 mg Q6 PRN PO ITCHING; Start 06/21/18 at 21:00 Sulfacetamide Sodium (Bleph-10 Oph Drop) 1 drop Q3 LEFT EYE Last administered on 06/22/18at 06:14; Admin Dose 1 DROP; Start 06/21/18 at 21:30 Acetaminophen (Tylenol Tab) 650 mg Q6H PRN PO MILD PAIN(1-3)OR ELEVATED TEMP; Start 06/21/18 at 21:00 Pantoprazole (Protonix Iv) 40 mg BID@ IV Last administered on 06/22/18at 06:14; Admin Dose 40 MG; Start 06/22/18 at 06:00 Ondansetron HCl (Zofran Inj) 4 mg Q6H PRN IV NAUSEA AND/OR VOMITING; Start 06/21/18 at 21:00 Tramadol HCl (Ultram) 50 mg Q6H PRN PO MODERATE PAIN LEVEL 4-6; Start 06/22/18 at 02:30 Influenza Virus Vaccine Quadrival (Fluzone) 0.5 ml ONCE ONCE IM* ; Start 06/22/18 at 10:00; Stop 06/22/18 at 10:01 Results Result Diagram: 06/21/18 1530 06/21/18 1530 Results 24 hrs Laboratory Tests Test 06/21/18 15:30 06/21/18 16:20 06/22/18 04:54 White Blood Count 4.5 #L Red Blood Count 2.65 #L Hemoglobin 5.7 #*L Hematocrit 20.6 #L Mean Corpuscular Volume 77.7 L Mean Corpuscular Hemoglobin 21.5 #L Mean Corpuscular Hemoglobin Concent 27.7 L Red Cell Distribution Width 17.2 H Platelet Count 336 # Mean Platelet Volume 9.2 Immature Granulocytes % 0.400 Neutrophils % Segmented Neutrophils % (Manual) 70 Lymphocytes % Lymphocytes % (Manual) 21 Monocytes % Monocytes % (Manual) 5 Eosinophils % Eosinophils % (Manual) 3 Basophils % Myelocytes % (Manual) 1 H Nucleated Red Blood Cells % 0.0 Immature Granulocytes # 0.020 Neutrophils # Lymphocytes (Manual) 0.9 Lymphocytes # Monocytes # Monocytes # (Manual) 0.2 L Eosinophils # Basophils # Myelocytes # 0.0 Nucleated Red Blood Cells # Platelet Estimate NORMAL Polychromasia 3+ Hypochromasia 2+ Poikilocytosis 1+ Anisocytosis 3+ Microcytosis 3+ Prothrombin Time 14.2 Prothrombin Time Ratio 1.1 INR International Normalized Ratio 1.09 Activated Partial Thromboplast Time 27.5 Sodium Level 143 Potassium Level 4.4 Chloride Level 113 H Carbon Dioxide Level 22 Anion Gap 8 Blood Urea Nitrogen 24 H Creatinine 0.85 Est Glomerular Filtrat Rate mL/min > 60 Glucose Level 92 Calcium Level 8.9 Total Bilirubin 0.3 Direct Bilirubin 0.00 Indirect Bilirubin 0.3 Aspartate Amino Transf (AST/SGOT) 92 H Alanine Aminotransferase (ALT/SGPT) 102 H Alkaline Phosphatase 113 Troponin I < 0.012 Total Protein 7.0 Albumin 3.4 Globulin 3.60 H Albumin/Globulin Ratio 0.94 Urine Color RED Urine Clarity TURBID A Urine pH 5.0 Urine Specific [place] 1.017 Urine Ketones NEGATIVE Urine Nitrite POSITIVE A Urine Bilirubin NEGATIVE Urine Urobilinogen NEGATIVE Urine Leukocyte Esterase TRACE A Urine Microscopic RBC 0 Urine Microscopic WBC 7 H Urine Bacteria MANY A Urine Hemoglobin 2+ H Urine Glucose NEGATIVE Urine Total Protein NEGATIVE Iron Level 15 L Total Iron Binding Capacity 424 H Percent Iron Saturation 4 L ANNELIESE DUKE Jun 22, 2018 06:34
--- NOTE | 2018-06-22 08:10 | NUR ---
Received call from Ultrasound. desktop technician verbalized that she called me earlier but headline writer didn't draft roller picker. Explained to her that I didn't receive the call because call was transferred to a different extension. US tech asked if Patient has been NPO. Verbalized to tech that she just started eating breakfast already. US tech asked for lunch to be held and procedure will be done in 6 hours.
[2018-06-22] MEDS: AMIODARONE 200 MG TAB PO SCH ×2 (08:50→21:05)
[2018-06-22] MEDS ORDERED: INFLUENZA VIRUS VACCINE 0.5 ML (DISPENSING) IM* ONE (10:00)
[2018-06-22] MEDS: ACETAMINOPHEN 325 MG TAB PO PRN (12:35)
[2018-06-22] MEDS: ONDANSETRON 4 MG INJ IV PRN (12:35)
--- NOTE | 2018-06-22 12:56 | QN ---
Documentation Comment seen and examined BRO SALAZAR MD Jun 22, 2018 12:56
[2018-06-22] MEDS ORDERED: OXYCODONE/ACETAMINOPHEN (5/325) TAB PO PRN (13:00)
[2018-06-22] MEDS: CEFTRIAXONE 1 GM/50 ML (PMX) 50 ML IVPB SCH (14:29)
--- NOTE | 2018-06-22 15:04 | HP ---
DATE OF ADMISSION: 06/21/2018 REASON FOR ADMISSION: Severe anemia. HISTORY OF PRESENTING ILLNESS: This is a 63-year-old woman with a past medical history of AFib, hist ory of hypertension, hyperlipidemia, history of left-sided CVA, hemorrhagic conversion, hypertension, diabetes, abnormal liver function test, history of valve replacement, G-tube placement in the past, history of cholecystectomy, history of aortic thrombus status post thrombectomy at [facility] 1 year a go, who was recently admitted in [facility] from 02/27/2018 to 03/09/2018 secondary to diarrhea with C. diff colitis. The patient also had TRAE at that time that was resolved. The pat brady was discharged home with Xarelto, which patient had been taking. The son noticed that the patien ceci has been having low blood pressure for past 1 week. He also noted that the patient was becoming pa le, yellow. He apparently was checking blood glucose at home and the glucometer did not seem to work . He went to his primary care doctor and was told that she has pale. The patient had labs done and hemoglobin was 5.2. Apparently, the patient was also having black stool for the past 2 days and was sent into ER for further evaluation. The patient denied any hematemesis. On admission, vital signs were 109/72, afebrile, heart rate 81, saturating 94% on room air. The patient's hemoglobin was 5.7 f rom last discharge of 12.8. BMP within normal limit. AST of 92, ALT 102, alkaline phosphatase 113. The patient received 2 units of blood and was started on PPI and was admitted for further management . PAST MEDICAL HISTORY: 1. History of Clostridium difficile colitis. 2. Hypertension. 3. Left-sided CVA with left-sided weakness and hemiplegia. 4. History of dilated common bile duct without evidence of choledocholithiasis, status post ERCP wit h placement of stent on 02/2018. 5. Diabetes. 6. History of AFib, on Xarelto. 7. History of atherosclerotic heart disease. 8. History of valve replacement. 9. History of stroke and aortic thrombus status post thrombectomy in [facility] a year ago. ALLERGIES: NONE. PAST SURGICAL HISTORY: Valve surgery. SOCIAL HISTORY: No history of smoking, alcohol or any drug use. The patient is bedbound and lives w ith son at home. REVIEW OF SYSTEMS: The patient complained of black stools for the last 2 days, has been feeling weak , tired. Denied any shortness of breath. Denied any chest pain. Denied any hematemesis, any bright blood per rectum. [place] some nausea. The patient has weakness on the left side, chronic hemiplegia. PHYSICAL EXAMINATION: VITAL SIGNS: Currently blood pressure 138/88, afebrile, heart rate is 76 and irregularly irregular. GENERAL: The patient is awake, alert, oriented, does not appear to in any acute distress. HEENT: Pupils are equal, round, reactive to light. The patient has marked pallor. NECK: Supple. No JVD. HEART: Irregularly irregular. No murmur, rub or gallop. LUNGS: Clear to auscultate bilaterally. ABDOMEN: Soft, nontender, nondistended. Normal bowel sounds. EXTREMITIES: The patient has left-sided hemiplegia. LABORATORY DATA: Showed sodium 143, potassium 4.4, chloride 113, bicarbonate 22, BUN of 24, creatini ne 0.85. AST 92, ALT of 102, alkaline phosphatase 113. Total iron 15, TIBC 424 ____. Hemoglobin of 5.7, white count 4.5, platelet count 336. INR was 1.07. UA is positive for nitrite, 7 WBCs. DIAGNOSTIC DATA: Chest x-ray showed mild cardiomegaly, mild basilar atelectatic changes. ASSESSMENT AND PLAN: This is a 63-year-old female presenting with: 1. Severe anemia, likely secondary to upper gastrointestinal bleed with melena. It could be gastrit is, esophagitis/ulcers. The patient is also on Xarelto. 2. Upper gastrointestinal bleed secondary to #2. 3. Transaminitis and history of stent placement by Dr. Ward in 02/2018. 4. Atrial fibrillation, on Xarelto. 5. Leukopenia. 6. Urinary tract infection. 7. History of Clostridium difficile. 8. History of cerebrovascular accident, bedbound, left-sided weakness. 9. History of aortic thrombus, status post thrombectomy. 10. History of atherosclerotic disease. PLAN: At this period of time, the patient will be admitted to telemetry. The patient has already re ceived 2 units of blood. The patient will have hemoglobin checked every 8 hours. The patient is con tinued on PPI. We will start the patient on IV antibiotics. The patient also will be seen by GI. W e will have an endoscopy and questionable ERCP. GI has been consulted. We will also call cardiology consultation. Rest of the treatment will depend on the patient's hospitalization course. Dictated By: BRO FERRARO/AUDRA Conf#: [id number] DID#: [id number] CC: EMANUEL LAMAR MD;*EndCC*
[2018-06-22] MEDS: SOD FERRIC GLUC COMPLX 125 MG in SOD CHLORIDE 0.9% 100 ML IVPB SCH (17:22)
--- NOTE | 2018-06-22 17:58 | NUR ---
EOSS Patient is alert and oriented to person, place, and time. no shortness of breath noted. Patient complained of headache and was given tylenol. Complained of nausea and was given zofran IVP. With relief noted. Patient had Ultrasound of abdomen. Will have EGD and ERCP procedure tomorrow per GI. Consent was signed by patient. Patient to be NPO after midnight for procedure. will endorse to english as a second language instructor. All needs attended to and met. Kept comfortable. Call light within reach.
[2018-06-23] VITALS (11 sets, daily range): BP systolic 111–131; BP diastolic 66–91; PULSE 78–97; RESP 18–20
[2018-06-23] MEDS: SULFACETAMIDE 10% 15 ML OPH LEFT EYE SCH ×8 (00:28→20:05)
[2018-06-23] MEDS: PANTOPRAZOLE 40 MG INJ IV SCH ×2 (05:35→17:52)
[2018-06-23] MEDS: BRIMONIDINE 0.2% 5 ML BTL RIGHT EYE SCH ×3 (05:39→21:09)
--- NOTE | 2018-06-23 06:15 | NUR ---
END OF THE SHIFT:NO SIGNIFICANT CHANGES THROUGHOUT THE SHIFT NOTED.NPO POST MIDNIGHT PRIOR EGD AND ERCP IN AM.CONTINUE TO FOLLOW CURRENT PLAN OF CARE.
[2018-06-23] MEDS: AMIODARONE 200 MG TAB PO SCH ×2 (08:44→20:05)
--- NOTE | 2018-06-23 08:53 | PN ---
Date/Time of Note Date/Time of Note DATE: 06/23/18 TIME: 08:51 Assessment/Plan VTE Prophylaxis Risk score (from Ns)>0 risk: 5 SCD applied (from [facility] [place]): No SCD contraindicated: patient refusal Pharmacological prophylaxis: NA/contraindicated Pharm contraindication: bleeding Lines/Catheters IV Catheter Type (from [facility] [place]): Saline Lock Urinary Cath still in place: No Assessment/Plan Hospital Course 63 yo female who is bedbound secondary to CVA, h/o afib on xarelto presented for Hgb of 5.7, generalized weakness, and black stools 1. Upper GI bleed manifested through melanotic stools 2. Severe acute anemia secondary to blood loss 3. Transaminitis -US of abd unremarkable 4. H/O biliary stent placement by Dr. Ward in 02/2018 5. Atrial fibrillation, was on xarelto 6. Leukopenia 7. UTI 8. H/O C diff 9. H/O CVA Plan: PPI BID EGD and ERCP scheduled for today, GI lab is having trouble finding a time. NO anticoagulants HH q 8 hours, call MD for less than 7.6 Pt examined and plan of care discussed with Dr. Ward Subjective 24 Hr Interval Summary Free Text/Dictation INR 1.1. Hgb 8.8 Exam/Review of Systems Vital Signs Vitals Vital Signs Date Temp Pulse Resp B/P (MAP) Pulse Ox O2 O2 Flow FiO2 Time Delivery Rate 06/23/18 85 08:00 06/23/18 98.3 20 111/72 97 07:29 (85) 06/22/18 Room Air 15:39 Intake and Output 06/22/18 06/22/18 06/23/18 1414:59 22:59 06:59 IntakeIntake Total 125 ml 350 ml BalanceBalance 125 ml 350 ml Exam Constitutional: alert, oriented Psych: no complaints Head: normocephalic Eyes: nl sclera, PERRL Respiratory: normal air movement Cardiovascular: regular rate and rhythm Gastrointestinal: soft, tender Neurological: nl mental status Medications Medications Current Medications Amiodarone HCl (Cordarone) 200 mg BID PO Last administered on 06/22/18at 21:05; Admin Dose 200 MG; Start 06/21/18 at 21:00 Brimonidine Tartrate (Alphagan 0.2%) 1 drop Q8 RIGHT EYE Last administered on 06/23/18at 05:39; Admin Dose 1 DROP; Start 06/21/18 at 22:00 Hydroxyzine HCl (Atarax) 25 mg Q6 PRN PO ITCHING; Start 06/21/18 at 21:00 Sulfacetamide Sodium (Bleph-10 Oph Drop) 1 drop Q3 LEFT EYE Last administered on 06/23/18at 08:44; Admin Dose 1 DROP; Start 06/21/18 at 21:30 Acetaminophen (Tylenol Tab) 650 mg Q6H PRN PO MILD PAIN(1-3)OR ELEVATED TEMP Last administered on 06/22/18at 12:35; Admin Dose 650 MG; Start 06/21/18 at 21:00 Pantoprazole (Protonix Iv) 40 mg BID@18 IV Last administered on 06/23/18at 05:35; Admin Dose 40 MG; Start 06/22/18 at 06:00 Ondansetron HCl (Zofran Inj) 4 mg Q6H PRN IV NAUSEA AND/OR VOMITING Last administered on 06/22/18at 12:35; Admin Dose 4 MG; Start 06/21/18 at 21:00 Tramadol HCl (Ultram) 50 mg Q6H PRN PO MODERATE PAIN LEVEL 4-6; Start 06/22/18 at 02:30 Oxycodone/ Acetaminophen (Percocet (5/ 325)) 1 tab Q6 PRN PO MODERATE PAIN LEVEL 4-6; Start 06/22/18 at 13:00 Ceftriaxone Sodium 50 ml @ 100 mls/hr Q24H IVPB Last administered on 06/22/18at 14:29; Admin Dose 100 MLS/HR; Start 06/22/18 at 13:00 Ferric Sodium Gluconate Complex 125 mg/Sodium Chloride 110 ml @ 110 mls/hr DAILY@17 IVPB Last administered on 06/22/18at 17:22; Admin Dose 110 MLS/HR; Start 06/22/18 at 17:00; Stop 06/26/18 at 17:59 Results Result Diagram: 06/23/18 0656 06/21/18 1530 Results 24 hrs Laboratory Tests Test 06/22/18 14:54 06/23/18 06:56 Hemoglobin 8.1 L 8.8 L Hematocrit 25.9 L 29.2 L White Blood Count 4.8 Red Blood Count 3.64 L Mean Corpuscular Volume 80.2 L Mean Corpuscular Hemoglobin 24.2 L Mean Corpuscular Hemoglobin Concent 30.1 L Red Cell Distribution Width 17.8 H Platelet Count 279 Mean Platelet Volume 9.8 Immature Granulocytes % 0.400 Neutrophils % 74.3 Lymphocytes % 17.1 Monocytes % 6.7 Eosinophils % 1.5 Basophils % 0.0 Nucleated Red Blood Cells % 0.0 Immature Granulocytes # 0.020 Neutrophils # 3.5 Lymphocytes # 0.8 Monocytes # 0.3 Eosinophils # 0.1 Basophils # 0.0 Nucleated Red Blood Cells # 0.0 Prothrombin Time 12.7 Prothrombin Time Ratio 1.0 INR International Normalized Ratio 0.94 Activated Partial Thromboplast Time 29.2 ANNELIESE DUKE Jun 23, 2018 08:53
[2018-06-23] MEDS: CEFTRIAXONE 1 GM/50 ML (PMX) 50 ML IVPB SCH (13:50)
[2018-06-23] MEDS: SOD FERRIC GLUC COMPLX 125 MG in SOD CHLORIDE 0.9% 100 ML IVPB SCH (16:46)
--- NOTE | 2018-06-23 17:05 | PN ---
Date/Time of Note Date/Time of Note DATE: 06/23/18 TIME: 17:02 Assessment/Plan VTE Prophylaxis Risk score (from Ns)>0 risk: 5 SCD applied (from [facility] [place]): No SCD contraindicated: other Pharmacological prophylaxis: NA/contraindicated Pharm contraindication: bleeding Lines/Catheters IV [facility]ter Type (from [facility] Saline Lock Urinary Cath still in place: No Assessment/Plan Hospital Course 63 y/o with 1. Severe anemia, likely secondary to upper gastrointestinal bleed with melena. It could be gastritis, esophagitis/ulcers. The patient is also on Xarelto. 2. Upper gastrointestinal bleed secondary to #2. 3. Transaminitis and history of stent placement by Dr. Ward in 02/2018. 4. Atrial fibrillation, on Xarelto. 5. Leukopenia. 6. Urinary tract infection. Pending final cultures 7. History of Clostridium difficile. 8. History of cerebrovascular accident, bedbound, left-sided weakness. 9. History of aortic thrombus, status post thrombectomy. 10. History of atherosclerotic disease. Plan -hb Globin has been stable, EGD and ERCP today -cw with Rocephin for UTI -Hold Xarelto due to bleeding -Monitor A. fib -cw with IV iron -Pain control -Labs tomorrow Subjective 24 Hr Interval Summary Free Text/Dictation hb Globin stable today patient said that she is hungry waiting for EGD No GI bleeding noted Exam/Review of Systems Vital Signs Vitals Vital Signs Date Temp Pulse Resp B/P (MAP) Pulse Ox O2 O2 Flow FiO2 Time Delivery Rate 06/23/18 84 16:00 06/23/18 98.2 20 127/91 98 Room Air 15:17 (103) Intake and Output 06/22/18 06/22/18 06/23/18 1515:00 23:00 07:00 IntakeIntake Total 125 ml 350 ml BalanceBalance 125 ml 350 ml Exam GENERAL: The patient is awake, alert, oriented, does not appear to in any acute distress. HEENT: Pupils are equal, round, reactive to light. The patient has marked pallor. NECK: Supple. No JVD. HEART: Irregularly irregular. No murmur, rub or gallop. LUNGS: Clear to auscultate bilaterally. ABDOMEN: Soft, nontender, nondistended. Normal bowel sounds. EXTREMITIES: The patient has left-sided hemiplegia. Medications Medications Current Medications Amiodarone HCl (Cordarone) 200 mg BID PO Last administered on 06/22/18at 21:05; Admin Dose 200 MG; Start 06/21/18 at 21:00 Brimonidine Tartrate (Alphagan 0.2%) 1 drop Q8 RIGHT EYE Last administered on 06/23/18at 13:50; Admin Dose 1 DROP; Start 06/21/18 at 22:00 Hydroxyzine HCl (Atarax) 25 mg Q6 PRN PO ITCHING; Start 06/21/18 at 21:00 Sulfacetamide Sodium (Bleph-10 Oph Drop) 1 drop Q3 LEFT EYE Last administered on 06/23/18at 15:17; Admin Dose 1 DROP; Start 06/21/18 at 21:30 Acetaminophen (Tylenol Tab) 650 mg Q6H PRN PO MILD PAIN(1-3)OR ELEVATED TEMP Last administered on 06/22/18at 12:35; Admin Dose 650 MG; Start 06/21/18 at 21:00 Pantoprazole (Protonix Iv) 40 mg BID@,18 IV Last administered on 06/23/18at 05:35; Admin Dose 40 MG; Start 06/22/18 at 06:00 Ondansetron HCl (Zofran Inj) 4 mg Q6H PRN IV NAUSEA AND/OR VOMITING Last administered on 06/22/18at 12:35; Admin Dose 4 MG; Start 06/21/18 at 21:00 Tramadol HCl (Ultram) 50 mg Q6H PRN PO MODERATE PAIN LEVEL 4-6; Start 06/22/18 at 02:30 Oxycodone/ Acetaminophen (Percocet (5/ 325)) 1 tab Q6 PRN PO MODERATE PAIN LEVEL 4-6; Start 06/22/18 at 13:00 Ceftriaxone Sodium 50 ml @ 100 mls/hr Q24H IVPB Last administered on 06/23/18at 13:50; Admin Dose 100 MLS/HR; Start 06/22/18 at 13:00 Ferric Sodium Gluconate Complex 125 mg/Sodium Chloride 110 ml @ 110 mls/hr DAILY@17 IVPB Last administered on 06/23/18at 16:46; Admin Dose 110 MLS/HR; Start 06/22/18 at 17:00; Stop 06/26/18 at 17:59 Results Result Diagram: 06/23/18 0656 06/23/18 0656 Results 24 hrs Laboratory Tests Test 06/23/18 06:56 White Blood Count 4.8 Red Blood Count 3.64 L Hemoglobin 8.8 L Hematocrit 29.2 L Mean Corpuscular Volume 80.2 L Mean Corpuscular Hemoglobin 24.2 L Mean Corpuscular Hemoglobin Concent 30.1 L Red Cell Distribution Width 17.8 H Platelet Count 279 Mean Platelet Volume 9.8 Immature Granulocytes % 0.400 Neutrophils % 74.3 Lymphocytes % 17.1 Monocytes % 6.7 Eosinophils % 1.5 Basophils % 0.0 Nucleated Red Blood Cells % 0.0 Immature Granulocytes # 0.020 Neutrophils # 3.5 Lymphocytes # 0.8 Monocytes # 0.3 Eosinophils # 0.1 Basophils # 0.0 Nucleated Red Blood Cells # 0.0 Prothrombin Time 12.7 Prothrombin Time Ratio 1.0 INR International Normalized Ratio 0.94 Activated Partial Thromboplast Time 29.2 Sodium Level 141 Potassium Level 4.1 Chloride Level 111 H Carbon Dioxide Level 22 Anion Gap 8 Blood Urea Nitrogen 14 # Creatinine 0.73 Est Glomerular Filtrat Rate mL/min > 60 Glucose Level 84 Calcium Level 8.8 Phosphorus Level 4.5 Magnesium Level 1.9 Total Bilirubin 0.5 Direct Bilirubin 0.00 Indirect Bilirubin 0.5 Aspartate Amino Transf (AST/SGOT) 84 H Alanine Aminotransferase (ALT/SGPT) 90 H Alkaline Phosphatase 104 Total Protein 6.7 Albumin 3.3 Globulin 3.40 H Albumin/Globulin Ratio 0.97 BRO SALAZAR MD Jun 23, 2018 17:05
--- NOTE | 2018-06-23 18:08 | NUR ---
Called GI lab at 1720 to get updates regarding patient's EGD/ERCP procedure. Spoke with Zora YADAV and verbalized that Dr. Murphy has cancelled her procedure and rescheduled it to tomorrow afternoon at 1400. No notification from GI lab or Dr. Murphy was made prior to this phone call. Patient verbalized that she is upset. Paged Dr. Murphy 3 times for diet orders. No called received at this time. Patient was notably upset. Apologized to patient and will attempt to get in touch in Dr. murphy for orders.
--- NOTE | 2018-06-23 18:24 | NUR ---
EOSS Patient is alert and oriented to person, place, and time. No shortness of breath noted. no complaint of pain. EGD /ERCP rescheduled for tomorrow at 1400. Patient will be NPO after midnight. Patient on pre-op diet for dinner at this time. All needs attended to and met. Kept comfortable. Call light within reach
[2018-06-24] VITALS (19 sets, daily range): BP systolic 79–137; BP diastolic 62–90; PULSE 72–92; RESP 16–23
[2018-06-24] MEDS: SULFACETAMIDE 10% 15 ML OPH LEFT EYE SCH ×8 (00:36→20:14)
[2018-06-24] MEDS: BRIMONIDINE 0.2% 5 ML BTL RIGHT EYE SCH ×3 (05:57→22:23)
[2018-06-24] MEDS: PANTOPRAZOLE 40 MG INJ IV SCH ×2 (05:57→16:58)
--- NOTE | 2018-06-24 06:00 | NUR ---
EOSS Patient stable, turned q 2hours, denies any discomfort, Patient having EGD/ERCP done today at 1400 ,patient verbalizes understanding of procedure, all needs met, vital signs stable.Son came over to visit, explained about patient plan of care and verbalized understanding.
[2018-06-24] MEDS: AMIODARONE 200 MG TAB PO SCH ×2 (09:00→20:14)
[2018-06-24] MEDS: CEFTRIAXONE 1 GM/50 ML (PMX) 50 ML IVPB SCH (13:00)
--- NOTE | 2018-06-24 13:33 | HPN ---
Date/Time of Note Date/Time of Note DATE: 06/24/18 TIME: 13:33 Interval H&P Admission Note Pt. seen H&P reviewed: No system changes EDSON PÉREZ MD Jun 24, 2018 13:33
[2018-06-24] MEDS ORDERED: INDOMETHACIN 50 MG SUPP PR ONE (13:37)
[2018-06-24] MEDS ORDERED: IOHEXOL 300MG/ML 30 ML BTL ONE (13:37)
--- NOTE | 2018-06-24 13:39 | PREAC ---
Date/Time of Note Date/Time of Note DATE: 06/24/18 TIME: 13:35 Anesthesia Eval and Record Evaluation Time Pre-Procedure Interview DATE: 06/24/18 TIME: 13:35 Age 63 Sex female NPO: 8 hrs Preoperative diagnosis Choledocholithiasis Planned procedure ERCP Past Medical History Past Medical History: Includes Cardio: HTN, Dyslipidemia, CAD, PTCA/Stent, Arrythmia (A-Fib), Other (s/p AVR ) Endo: Diabetes Neuro: Other (Left Hemiparetic due to Stroke 5 yrs ago) Heme: Anemia Surgery & Anesthesia Issues No known issue Meds Anticoagulation: No Beta Elvis within 24 hr: Yes Reported Medications Brimonidine Tartrate* (Brimonidine Tartrate*) 0.2%-15ML Drop Opht, 1 DROP RIGHT EYE Q8, #1 EA 06/21/18 Sulfacetamide Sodium* (Bleph-10*) 10%-5 Ml Opht Drops, 1 DROP LEFT EYE Q3H, #1 EA 06/21/18 Metoprolol Tartrate* (Lopressor*) 50 Mg Tab, 50 MG PO NEEDED, #60 TAB 06/21/18 Hydroxyzine Hcl* (Hydroxyzine Hcl*) 25 Mg Tablet, 25 MG PO NEEDED PRN for ITCHING, #30 TAB 06/21/18 Amiodarone Hcl* (Amiodarone Hcl*) 200 Mg Tablet, 200 MG PO BID, #60 TAB 06/21/18 Rivaroxaban* (Xarelto*) 20 Mg Tablet, 20 MG PO QAM, TAB 06/21/18 Ibuprofen* (Ibuprofen*) 600 Mg Tablet, 600 MG PO PRN PRN for PAIN, TAB 06/21/18 Discontinued Reported Medications Acetaminophen with Codeine (Acetaminophen-Cod #3 Tablet) 1 Each Tablet, 1 TAB PO Q6H for PAIN, #7 TAB 01/13/17 Famotidine* (Famotidine*) 20 Mg Tablet, 20 MG PO BID, #60 TAB 01/13/17 Metformin Hcl* (Metformin Hcl*) 500 Mg Tablet, 500 MG PO WITH BREAKFAST DINNE, #60 TAB 10/06/16 Discontinued Scripts Metronidazole* (Flagyl*) 500 Mg Tablet, 500 MG PO Q8 for 5 Days, TAB Prov:BRO SALAZAR MD 03/09/18 Rivaroxaban* (Xarelto*) 20 Mg Tablet, 20 MG PO WITH DINNER for 30 Days, TAB Prov:BRO SALAZAR MD 03/09/18 Metoprolol Tartrate* (Lopressor*) 50 Mg Tab, 50 MG PO BID for 30 Days, TAB Prov:BRO SALAZAR MD 03/09/18 Amiodarone Hcl* (Amiodarone Hcl*) 200 Mg Tablet, 200 MG PO DAILY for 30 Days, TAB Prov:BRO SALAZAR MD 03/09/18 Dicyclomine HCl (Dicyclomine HCl) 10 Mg Capsule, 10 MG PO TID PRN for ABDOMINAL CRAMPS for 10 Days, CAP Prov:BRO SALAZAR MD 03/09/18 Current Medications Amiodarone HCl (Cordarone) 200 mg BID PO Last administered on 06/23/18at 20:05; Admin Dose 200 MG; Start 06/21/18 at 21:00 Brimonidine Tartrate (Alphagan 0.2%) 1 drop Q8 RIGHT EYE Last administered on 06/24/18at 05:57; Admin Dose 1 DROP; Start 06/21/18 at 22:00 Hydroxyzine HCl (Atarax) 25 mg Q6 PRN PO ITCHING; Start 06/21/18 at 21:00 Sulfacetamide Sodium (Bleph-10 Oph Drop) 1 drop Q3 LEFT EYE Last administered on 06/24/18at 12:12; Admin Dose 1 DROP; Start 06/21/18 at 21:30 Acetaminophen (Tylenol Tab) 650 mg Q6H PRN PO MILD PAIN(1-3)OR ELEVATED TEMP Last administered on 06/22/18at 12:35; Admin Dose 650 MG; Start 06/21/18 at 21:00 Pantoprazole (Protonix Iv) 40 mg BID@18 IV Last administered on 06/24/18at 05:57; Admin Dose 40 MG; Start 06/22/18 at 06:00 Ondansetron HCl (Zofran Inj) 4 mg Q6H PRN IV NAUSEA AND/OR VOMITING Last administered on 06/22/18at 12:35; Admin Dose 4 MG; Start 06/21/18 at 21:00 Tramadol HCl (Ultram) 50 mg Q6H PRN PO MODERATE PAIN LEVEL 4-6; Start 12/5/18 at 02:30 Oxycodone/ Acetaminophen (Percocet (5/ 325)) 1 tab Q6 PRN PO MODERATE PAIN LEVEL 4-6; Start 06/22/18 at 13:00 Ceftriaxone Sodium 50 ml @ 100 mls/hr Q24H IVPB Last administered on 06/23/18at 13:50; Admin Dose 100 MLS/HR; Start 06/22/18 at 13:00 Ferric Sodium Gluconate Complex 125 mg/Sodium Chloride 110 ml @ 110 mls/hr DAILY@17 IVPB Last administered on 06/23/18at 16:46; Admin Dose 110 MLS/HR; Start 06/22/18 at 17:00; Stop 06/26/18 at 17:59 Meds reviewed: Yes Allergies Coded Allergies: No Known Drug Allergies (Unverified Allergy, Unknown, 06/23/18) Allergies Reviewed: Yes Labs/Studies Labs Reviewed: Reviewed by anesthesiologist Result Diagram: 06/24/18 0525 06/24/18 0525 Laboratory Tests 06/24/18 05:25 test: N/A Studies: ECG (A-Fib), CXR (Mild Cardiomegaly, Atelectasis) Pre-procedure Exam Last vitals Vital Signs Date Temp Pulse Resp B/P (MAP) Pulse Ox O2 O2 Flow FiO2 Time Delivery Rate 06/24/18 82 12:00 06/24/18 98.0 20 99/62 (74) 97 Room Air 11:19 Airway: Adequate mouth opening, Adequate thyromental dist Mallampati: Mallampati II Teeth: Normal Lung: Normal Heart: Normal ASA Physical Status ASA physical status: 4 Emergency: None Planned Anesthetic General/MAC: ETT Planned Pain Management Parenteral pain med Pre-operative Attestations Prior to commencing anesthesia and surgery, the patient was re-evaluated, there was verification of: *The patient's identity *The results of appropriate recent lab work and preoperative vital signs *The above evaluation not changing prior to induction *Anesthetic plan, risk benefits, alternative and complications discussed with patient/family; questions answered; patient/family understands, accepts and wishes to proceed. VIKTORIYA GLASS MD Jun 24, 2018 13:39
[2018-06-24] MEDS ORDERED: ETOMIDATE 20 MG INJ ONE (13:44)
[2018-06-24] MEDS ORDERED: FENTAnyl 50 MCG/ML VIAL ONE (13:44)
[2018-06-24] MEDS ORDERED: ROCURONIUM 50 MG INJ ONE (13:44)
[2018-06-24] MEDS ORDERED: HYDROmorphONE 1 MG/5 ML IV SYRINGE IV PRN ×2 (14:00)
[2018-06-24] MEDS ORDERED: ONDANSETRON 4 MG INJ IV PRN (14:00)
[2018-06-24] MEDS ORDERED: LABETALOL HCL 20MG INJ IV PRN (14:00)
[2018-06-24] MEDS ORDERED: hydrALAzine 20 MG INJ IV PRN (14:00)
[2018-06-24] MEDS ORDERED: MEPERIDINE 25 MG INJ IV PRN (14:00)
[2018-06-24] MEDS ORDERED: FENTAnyl 50 MCG/ML VIAL IV PRN ×2 (14:00)
[2018-06-24] MEDS ORDERED: DIPHENHYDRAMINE 50 MG INJ IV PRN (14:00)
[2018-06-24] MEDS ORDERED: CEFAZOLIN 1 GM INJ ONE (14:08)
[2018-06-24] MEDS ORDERED: METOCLOPRAMIDE 10 MG INJ ONE (14:09)
[2018-06-24] MEDS ORDERED: ONDANSETRON 4 MG INJ ONE (14:09)
[2018-06-24] MEDS ORDERED: PHENYLephrine (100 MCG/ML) 5ML SYG ONE (14:09)
[2018-06-24] MEDS ORDERED: DEXAMETHASONE 4 MG/ML 1 ML INJ ONE (14:09)
[2018-06-24] MEDS ORDERED: FAMOTIDINE 20 MG INJ ONE (14:14)
[2018-06-24] MEDS ORDERED: SUGAMMADEX SODIUM 200 MG/2 ML VIAL IV ONE (14:29)
--- NOTE | 2018-06-24 14:37 | NUR ---
RECEIVED PATIENT FROM OR VIA BED POST EGD ERCP STENT REMOVAL ,STONE REMOVAL,STILL SLEEPING ON O2 6L VIA FACE MASK SATURATING 100%. SR .BP STABLE.
--- NOTE | 2018-06-24 14:40 | PAC ---
Date/Time of Note Date/Time of Note DATE: 06/24/18 TIME: 14:40 Post-Anesthesia Notes Post-Anesthesia Note Last documented vital signs Vital Signs Date Temp Pulse Resp B/P (MAP) Pulse Ox O2 O2 Flow FiO2 Time Delivery Rate 06/24/18 82 12:00 06/24/18 98.0 78 20 99/62 (74) 97 Room Air 14:39 Activity: WNL Respiratory function: WNL Cardiovascular function: WNL Mental status: Baseline Pain reasonably controlled: Yes Hydration appropriate: Yes Nausea/Vomiting absent: Yes VIKTORIYA GLASS MD Jun 24, 2018 14:40
--- NOTE | 2018-06-24 14:54 | NUR ---
PATIENT NOW AWAKE. A/OX3. DENIES PAIN .
--- NOTE | 2018-06-24 15:09 | PN ---
Date/Time of Note Date/Time of Note DATE: 06/24/18 TIME: 15:08 Assessment/Plan VTE Prophylaxis Risk score (from Ns)>0 risk: 4 SCD applied (from [facility]): Yes Pharmacological prophylaxis: NA/contraindicated Pharm contraindication: bleeding Lines/Catheters IV C[facility]ter Type (from [facility]): Peripheral IV Urinary Cath still in place: No Assessment/Plan Hospital Course 63 y/o with 1. Severe anemia, likely secondary to upper gastrointestinal bleed with melena. It could be gastritis, esophagitis/ulcers. The patient is also on Xarelto. 2. Upper gastrointestinal bleed secondary to #2. 3. Transaminitis and history of stent placement by Dr. Ward in 02/2018. 4. Atrial fibrillation, on Xarelto. 5. Leukopenia. 6. Urinary tract infection. Pending final cultures 7. History of Clostridium difficile. 8. History of cerebrovascular accident, bedbound, left-sided weakness. 9. History of aortic thrombus, status post thrombectomy. 10. History of atherosclerotic disease. Plan -hb Globin has been stable, EGD and ERCP today -cw with Rocephin for UTI -Hold Xarelto due to bleeding -Monitor A. fib -cw with IV iron -Pain control -Labs tomorrow -Cards consult Subjective 24 Hr Interval Summary Free Text/Dictation Went for EGD HB Globin stable Exam/Review of Systems Vital Signs Vitals Vital Signs Date Temp Pulse Resp B/P (MAP) Pulse Ox O2 O2 Flow FiO2 Time Delivery Rate 06/24/18 Simple 6.0 15:01 Mask 06/24/18 82 12:00 06/24/18 98.0 20 99/62 (74) 97 11:19 Intake and Output 06/23/18 06/23/18 06/24/18 1515:00 23:00 07:00 IntakeIntake Total 0 ml BalanceBalance 0 ml Exam GENERAL: The patient is awake, alert, oriented, does not appear to in any acute distress. HEENT: Pupils are equal, round, reactive to light. The patient has marked pallor. NECK: Supple. No JVD. HEART: Irregularly irregular. No murmur, rub or gallop. LUNGS: Clear to auscultate bilaterally. ABDOMEN: Soft, nontender, nondistended. Normal bowel sounds. EXTREMITIES: The patient has left-sided hemiplegia. Medications Medications Current Medications Amiodarone HCl (Cordarone) 200 mg BID PO Last administered on 06/23/18at 20:05; Admin Dose 200 MG; Start 06/21/18 at 21:00 Brimonidine Tartrate (Alphagan 0.2%) 1 drop Q8 RIGHT EYE Last administered on 06/24/18 05:57; Admin Dose 1 DROP; Start 06/21/18 at 22:00 Hydroxyzine HCl (Atarax) 25 mg Q6 PRN PO ITCHING; Start 06/21/18 at 21:00 Sulfacetamide Sodium (Bleph-10 Oph Drop) 1 drop Q3 LEFT EYE Last administered on 06/24/18at 12:12; Admin Dose 1 DROP; Start 06/21/18 at 21:30 Acetaminophen (Tylenol Tab) 650 mg Q6H PRN PO MILD PAIN(1-3)OR ELEVATED TEMP Last administered on 06/22/18at 12:35; Admin Dose 650 MG; Start 06/21/18 at 21:00 Pantoprazole (Protonix Iv) 40 mg BID@18 IV Last administered on 06/24/18 05:57; Admin Dose 40 MG; Start 06/22/18 at 06:00 Ondansetron HCl (Zofran Inj) 4 mg Q6H PRN IV NAUSEA AND/OR VOMITING Last administered on 06/22/18 12:35; Admin Dose 4 MG; Start 06/21/18 at 21:00 Tramadol HCl (Ultram) 50 mg Q6H PRN PO MODERATE PAIN LEVEL 4-6; Start 06/22/18 at 02:30 Oxycodone/ Acetaminophen (Percocet (5/ 325)) 1 tab Q6 PRN PO MODERATE PAIN LEVEL 4-6; Start 06/22/18 at 13:00 Ceftriaxone Sodium 50 ml @ 100 mls/hr Q24H IVPB Last administered on 06/23/18at 13:50; Admin Dose 100 MLS/HR; Start 06/22/18 at 13:00 Ferric Sodium Gluconate Complex 125 mg/Sodium Chloride 110 ml @ 110 mls/hr DAILY@17 IVPB Last administered on 06/23/18at 16:46; Admin Dose 110 MLS/HR; Start 06/22/18 at 17:00; Stop 06/26/18 at 17:59 Hydromorphone HCl (Dilaudid) 0.2 mg PACU PRN IV MILD PAIN LEVEL 1-3; Start 06/24/18 at 14:00; Stop 06/24/18 at 18:00 Hydromorphone HCl (Dilaudid) 0.4 mg PACU PRN IV MODERATE PAIN LEVEL 4-6; Start 06/24/18 at 14:00; Stop 06/24/18 at 18:00 Fentanyl (Sublimaze) 25 mcg PACU ORDER PRN IV MILD PAIN LEVEL 1-3; Start 06/24/18 at 14:00; Stop 06/24/18 at 18:00 Fentanyl (Sublimaze) 50 mcg PACU ORDER PRN IV MODERATE PAIN LEVEL 4-6; Start 06/24/18 at 14:00; Stop 06/24/18 at 18:00 Ondansetron HCl (Zofran Inj) 4 mg PACU ORDER PRN IV NAUSEA AND/OR VOMITING; Start 06/24/18 at 14:00; Stop 06/24/18 at 18:00 Labetalol HCl (Labetalol) 5 mg PACU ORDER PRN IV ELEVATED BLOOD PRESSURE; Start 06/24/18 at 14:00; Stop 06/24/18 at 18:00 Hydralazine HCl (Apresoline) 5 mg PACU ORDER PRN IV ELEVATED BLOOD PRESSURE; Start 06/24/18 at 14:00; Stop 06/24/18 at 18:00 Meperidine HCl (Demerol) 25 mg PACU ORDER PRN IV POST OPERATIVE SHIVERING; Start 06/24/18 at 14:00; Stop 06/24/18 at 18:00 Diphenhydramine HCl (Benadryl) 25 mg PACU ORDER PRN IV PRURITUS; Start 06/24/18 at 14:00; Stop 06/24/18 at 18:00 Results Result Diagram: 06/24/18 0525 06/24/18 0525 Results 24 hrs Laboratory Tests Test 06/24/18 05:25 06/24/18 14:43 White Blood Count 4.1 L Red Blood Count 3.48 L Hemoglobin 8.4 L Hematocrit 28.0 L Mean Corpuscular Volume 80.5 L Mean Corpuscular Hemoglobin 24.1 L Mean Corpuscular Hemoglobin Concent 30.0 L Red Cell Distribution Width 18.6 H Platelet Count 290 Mean Platelet Volume 9.4 Immature Granulocytes % 0.700 H Neutrophils % 65.5 Lymphocytes % 21.4 Monocytes % 9.5 Eosinophils % 2.7 Basophils % 0.2 Nucleated Red Blood Cells % 0.5 H Immature Granulocytes # 0.030 Neutrophils # 2.7 Lymphocytes # 0.9 Monocytes # 0.4 Eosinophils # 0.1 Basophils # 0.0 Nucleated Red Blood Cells # 0.0 Sodium Level 139 Potassium Level 4.0 Chloride Level 106 Carbon Dioxide Level 23 Anion Gap 10 Blood Urea Nitrogen 19 Creatinine 1.03 H Est Glomerular Filtrat Rate mL/min 54 L Glucose Level 88 Calcium Level 8.7 Phosphorus Level 5.1 H Magnesium Level 1.9 Bedside Glucose 102 BRO SALAZAR MD Jun 24, 2018 15:09
[2018-06-24] MEDS: ONDANSETRON 4 MG INJ IV PRN (15:29)
--- NOTE | 2018-06-24 15:33 | NUR ---
C/O PAIN TO HER THROAT 10/26 .AND FEELING NAUSEATED. ZOFRAN 4MG IV GIVEN .FENTANYL 25MC IV GIVEN.
--- NOTE | 2018-06-24 15:55 | NUR ---
TRANSFERRED TO [facility] VIA BED IN STABLE CONDITION .PATIENT WEARING HER UPPER DENTURES AND LOWER PARTIAL DENTURES. ALSO WEARING HER EYE GLASSES DURING TRANSFER AND REPORT GIVEN TO VANCE YADAV
[2018-06-24] MEDS: SOD FERRIC GLUC COMPLX 125 MG in SOD CHLORIDE 0.9% 100 ML IVPB SCH (16:58)
--- NOTE | 2018-06-24 18:28 | NUR ---
EOSS Pt stable, on RA saturating well not in any distress nor is complaining of any pain as of writing this note. POC reviewed and was c/o, needs anticipated, hourly rounding performed, turned an reposition q2h, room kept clean and clutter free. EGD/ERCP done today, tolerated procedure well. Will endorse accordingly to night RN
[2018-06-25] VITALS (12 sets, daily range): BP systolic 103–159; BP diastolic 66–81; PULSE 64–93; RESP 18–20
--- NOTE | 2018-06-25 02:53 | NUR ---
Enzo complaining of IV site left hand discomfort, IV flushing well, instructed patient that IV working well. offered patient to remove IV to relieve discomfort and start a new IV access in the other arm, patient stated he rather wait, refuses to have another iv line started and the iv access removed. Patient is heplocked. I will continue to monitor
[2018-06-25] MEDS: SULFACETAMIDE 10% 15 ML OPH LEFT EYE SCH ×8 (03:54→21:07)
[2018-06-25] MEDS: BRIMONIDINE 0.2% 5 ML BTL RIGHT EYE SCH ×3 (06:01→21:07)
[2018-06-25] MEDS: PANTOPRAZOLE 40 MG INJ IV SCH ×2 (06:28→17:42)
--- NOTE | 2018-06-25 06:47 | NUR ---
EOSS patient stable during the shift, vital signs wnl. all needs met, states no longer feeling discomfort on IV site, noted left arm swelling, elevated with pillows. Report will be endorse to oncoming shift nurse.
[2018-06-25] MEDS: AMIODARONE 200 MG TAB PO SCH ×2 (08:31→21:07)
--- NOTE | 2018-06-25 08:34 | CONS ---
Date/Time of Note Date/Time of Note DATE: 06/25/18 TIME: 08:32 Assessment/Plan Assessment/Plan Additional Assessment/Plan 63 yo with a. fib, parox, valve replacement - now GIB - best to hold anti- coagulation, per CXR might be with LA appendage occlusion devise - need to get records from [facility]. # [id number] Consultation Date/Type/Reason Admit Date/Time Jun 21, 2018 at 18:18 Initial Consult Date Exam/Review of Systems Vital Signs Vitals Vital Signs Date Temp Pulse Resp B/P (MAP) Pulse Ox O2 O2 Flow FiO2 Time Delivery Rate 06/25/18 98.1 69 20 103/66 96 Room Air 07:32 (78) 06/24/18 6.0 15:01 Intake and Output 06/24/18 06/24/18 06/25/18 1515:00 23:00 07:00 IntakeIntake Total 480 ml 340 ml BalanceBalance 480 ml 340 ml Medications Medications Current Medications Amiodarone HCl (Cordarone) 200 mg BID PO Last administered on 06/25/18at 08:31; Admin Dose 200 MG; Start 06/21/18 at 21:00 Brimonidine Tartrate (Alphagan 0.2%) 1 drop Q8 RIGHT EYE Last administered on 06/25/18at 06:01; Admin Dose 1 DROP; Start 06/21/18 at 22:00 Hydroxyzine HCl (Atarax) 25 mg Q6 PRN PO ITCHING; Start 06/21/18 at 21:00 Sulfacetamide Sodium (Bleph-10 Oph Drop) 1 drop Q3 LEFT EYE Last administered on 06/25/18at 08:31; Admin Dose 1 DROP; Start 06/21/18 at 21:30 Acetaminophen (Tylenol Tab) 650 mg Q6H PRN PO MILD PAIN(1-3)OR ELEVATED TEMP Last administered on 06/22/18at 12:35; Admin Dose 650 MG; Start 06/21/18 at 21:00 Pantoprazole (Protonix Iv) 40 mg BID@18 IV Last administered on 06/25/18 06:28; Admin Dose 40 MG; Start 06/22/18 at 06:00 Ondansetron HCl (Zofran Inj) 4 mg Q6H PRN IV NAUSEA AND/OR VOMITING Last administered on 06/24/18at 15:29; Admin Dose 4 MG; Start 06/21/18 at 21:00 Tramadol HCl (Ultram) 50 mg Q6H PRN PO MODERATE PAIN LEVEL 4-6; Start 06/22/18 at 02:30 Oxycodone/ Acetaminophen (Percocet (5/ 325)) 1 tab Q6 PRN PO MODERATE PAIN LEVEL 4-6; Start 06/22/18 at 13:00 Ceftriaxone Sodium 50 ml @ 100 mls/hr Q24H IVPB Last administered on 06/23/18at 13:50; Admin Dose 100 MLS/HR; Start 06/22/18 at 13:00 Ferric Sodium Gluconate Complex 125 mg/Sodium Chloride 110 ml @ 110 mls/hr DAILY@17 IVPB Last administered on 06/24/18at 16:58; Admin Dose 110 MLS/HR; Start 06/22/18 at 17:00; Stop 06/26/18 at 17:59 Results Result Diagram: 06/25/18 0528 06/25/18 0528 Results 24 hrs Laboratory Tests Test 06/24/18 14:43 06/25/18 05:28 Bedside Glucose 102 White Blood Count 6.1 # Red Blood Count 3.49 L Hemoglobin 8.6 L Hematocrit 28.2 L Mean Corpuscular Volume 80.8 L Mean Corpuscular Hemoglobin 24.6 L Mean Corpuscular Hemoglobin Concent 30.5 L Red Cell Distribution Width 19.7 H Platelet Count 296 Mean Platelet Volume 9.1 Immature Granulocytes % 0.700 H Neutrophils % 85.8 H Lymphocytes % 8.9 L Monocytes % 4.4 Eosinophils % 0.0 Basophils % 0.2 Nucleated Red Blood Cells % 0.0 Immature Granulocytes # 0.040 H Neutrophils # 5.2 Lymphocytes # 0.5 L Monocytes # 0.3 Eosinophils # 0.0 Basophils # 0.0 Nucleated Red Blood Cells # 0.0 Sodium Level 142 Potassium Level 4.4 Chloride Level 111 H Carbon Dioxide Level 23 Anion Gap 8 Blood Urea Nitrogen 16 Creatinine 0.83 Est Glomerular Filtrat Rate mL/min > 60 Glucose Level 115 Calcium Level 9.1 Phosphorus Level 4.0 Magnesium Level 2.0 AVERY FOLEY MD Jun 25, 2018 08:34
[2018-06-25] MEDS: CEFTRIAXONE 1 GM/50 ML (PMX) 50 ML IVPB SCH (14:30)
--- NOTE | 2018-06-25 16:40 | CONS ---
Date/Time of Note Date/Time of Note DATE: 06/25/18 TIME: 16:39 Assessment/Plan Assessment/Plan Additional Assessment/Plan Assessment/Plan Hospital Course 63 yo female who is bedbound secondary to CVA, h/o afib on xarelto presented for Hgb of 5.7, generalized weakness, and black stools 1. Upper GI bleed manifested through melanotic stools 2. Severe acute anemia secondary to blood loss 3. Transaminitis -US of abd unremarkable 4. H/O biliary stent placement by Dr. Pérez in 02/2018 5. Atrial fibrillation, was on xarelto 6. Leukopenia 7. UTI 8. H/O C diff 9. H/O CVA 10. Status post a sphincterotomy removal of the stent and stone Plan: PPI BID EGD mild gastritis NO anticoagulants HH q 8 hours, call MD for less than 7.6 Given the history of rectal polyp patient definitely needs a colonoscopy. Her ferritin level is low Consultation Date/Type/Reason Admit Date/Time Jun 21, 2018 at 18:18 Initial Consult Date 24 HR Interval Summary Free Text/Dictation Complaints of constipation and lower abdominal pain Constitutional: improved Exam/Review of Systems Vital Signs Vitals Vital Signs Date Temp Pulse Resp B/P (MAP) Pulse Ox O2 O2 Flow FiO2 Time Delivery Rate 06/25/18 74 16:25 06/25/18 98.2 20 132/77 100 Room Air 15:11 (95) 06/24/18 6.0 15:01 Intake and Output 06/24/18 06/24/18 06/25/18 1515:00 23:00 07:00 IntakeIntake Total 480 ml 340 ml BalanceBalance 480 ml 340 ml Exam Constitutional: alert, oriented, well developed Psych: no complaints, nl mood/affect Head: normocephalic, atraumatic Eyes: nl conjunctiva, EOMI, nl lids, nl sclera, PERRL ENMT: nl external ears & nose, nl lips & teeth, nl nasal mucosa & septum Neck: supple, non-tender Respiratory: clear to auscultation, normal air movement Cardiovascular: regular rate and rhythm, nl pulses Gastrointestinal: soft, nl liver, spleen, non-tender Musculoskeletal: nl extremities to inspection, nl gait and stance Extremities: normal pulses Neurological: INDUSTRIAL SEAMSTRESS II-XII intact, nl mental status, nl speech, nl strength Skin: nl turgor; No rash or lesions Lymph: nl lymph nodes Medications Medications Current Medications Amiodarone HCl (Cordarone) 200 mg BID PO Last administered on 06/25/18at 08:31; Admin Dose 200 MG; Start 06/21/18 at 21:00 Brimonidine Tartrate (Alphagan 0.2%) 1 drop Q8 RIGHT EYE Last administered on 06/25/18 14:30; Admin Dose 1 DROP; Start 06/21/18 at 22:00 Hydroxyzine HCl (Atarax) 25 mg Q6 PRN PO ITCHING; Start 06/21/18 at 21:00 Sulfacetamide Sodium (Bleph-10 Oph Drop) 1 drop Q3 LEFT EYE Last administered on 06/25/18 15:54; Admin Dose 1 DROP; Start 06/21/18 at 21:30 Acetaminophen (Tylenol Tab) 650 mg Q6H PRN PO MILD PAIN(1-3)OR ELEVATED TEMP Last administered on 06/22/18at 12:35; Admin Dose 650 MG; Start 06/21/18 at 21:00 Pantoprazole (Protonix Iv) 40 mg BID@18 IV Last administered on 06/25/18 06:28; Admin Dose 40 MG; Start 06/22/18 at 06:00 Ondansetron HCl (Zofran Inj) 4 mg Q6H PRN IV NAUSEA AND/OR VOMITING Last administered on 06/24/18 15:29; Admin Dose 4 MG; Start 06/21/18 at 21:00 Tramadol HCl (Ultram) 50 mg Q6H PRN PO MODERATE PAIN LEVEL 4-6; Start 06/22/18 at 02:30 Oxycodone/ Acetaminophen (Percocet (5/ 325)) 1 tab Q6 PRN PO MODERATE PAIN LEVEL 4-6; Start 06/22/18 at 13:00 Ceftriaxone Sodium 50 ml @ 100 mls/hr Q24H IVPB Last administered on 06/25/18 14:30; Admin Dose 100 MLS/HR; Start 06/22/18 at 13:00 Ferric Sodium Gluconate Complex 125 mg/Sodium Chloride 110 ml @ 110 mls/hr DAILY@17 IVPB Last administered on 06/24/18at 16:58; Admin Dose 110 MLS/HR; Start 06/22/18 at 17:00; Stop 06/26/18 at 17:59 Results Result Diagram: 06/25/18 0528 06/25/18 0528 Results 24 hrs Laboratory Tests Test 06/25/18 05:28 White Blood Count 6.1 # Red Blood Count 3.49 L Hemoglobin 8.6 L Hematocrit 28.2 L Mean Corpuscular Volume 80.8 L Mean Corpuscular Hemoglobin 24.6 L Mean Corpuscular Hemoglobin Concent 30.5 L Red Cell Distribution Width 19.7 H Platelet Count 296 Mean Platelet Volume 9.1 Immature Granulocytes % 0.700 H Neutrophils % 85.8 H Lymphocytes % 8.9 L Monocytes % 4.4 Eosinophils % 0.0 Basophils % 0.2 Nucleated Red Blood Cells % 0.0 Immature Granulocytes # 0.040 H Neutrophils # 5.2 Lymphocytes # 0.5 L Monocytes # 0.3 Eosinophils # 0.0 Basophils # 0.0 Nucleated Red Blood Cells # 0.0 Sodium Level 142 Potassium Level 4.4 Chloride Level 111 H Carbon Dioxide Level 23 Anion Gap 8 Blood Urea Nitrogen 16 Creatinine 0.83 Est Glomerular Filtrat Rate mL/min > 60 Glucose Level 115 Calcium Level 9.1 Phosphorus Level 4.0 Magnesium Level 2.0 EDSON PÉREZ MD Jun 25, 2018 16:40
[2018-06-25] MEDS: SOD FERRIC GLUC COMPLX 125 MG in SOD CHLORIDE 0.9% 100 ML IVPB SCH (17:29)
--- NOTE | 2018-06-25 18:35 | PN ---
Date/Time of Note Date/Time of Note DATE: 06/25/18 TIME: 18:33 Assessment/Plan VTE Prophylaxis Risk score (from Ns)>0 risk: 7 SCD applied (from [facility] [place] Yes Pharmacological prophylaxis: NA/contraindicated Pharm contraindication: bleeding Lines/Catheters IV [facility]ter Type (from [facility]): Peripheral IV Urinary Cath still in place: No Assessment/Plan Hospital Course 63 y/o with 1. Severe anemia, likely secondary to upper gastrointestinal bleed with melena. This post EGD with gastritis 2. Upper gastrointestinal bleed secondary to #2. 3. Transaminitis and history of stent placement by Dr. Ward in 02/2018. 4. Atrial fibrillation, on Xarelto. 5. Leukopenia. 6. Urinary tract infection. + E. coli 7. History of Clostridium difficile. 8. History of cerebrovascular accident, bedbound, left-sided weakness. 9. History of aortic thrombus, status post thrombectomy. 10. History of atherosclerotic disease. Plan -hb Globin has been stable -DC IV iron first patient request - stool softeners -cw with Rocephin for ECOLI UTI -Hold Xarelto due to bleeding -Monitor A. fib -cw with IV iron -Pain control -Labs tomorrow -FU Cards consult Subjective 24 Hr Interval Summary Free Text/Dictation ABDOMINAL PAIN Patient does not like the IV iron Exam/Review of Systems Vital Signs Vitals Vital Signs Date Temp Pulse Resp B/P (MAP) Pulse Ox O2 O2 Flow FiO2 Time Delivery Rate 06/25/18 74 16:25 06/25/18 98.2 20 132/77 100 Room Air 15:11 (95) 06/24/18 6.0 15:01 Intake and Output 06/24/18 06/24/18 06/25/18 1414:59 22:59 06:59 IntakeIntake Total 480 ml 340 ml BalanceBalance 480 ml 340 ml Exam GENERAL: The patient is awake, alert, oriented, does not appear to in any acute distress. HEENT: Pupils are equal, round, reactive to light. The patient has marked pallor. NECK: Supple. No JVD. HEART: Irregularly irregular. No murmur, rub or gallop. LUNGS: Clear to auscultate bilaterally. ABDOMEN: Soft, nontender, nondistended. Normal bowel sounds. EXTREMITIES: The patient has left-sided hemiplegia. Medications Medications Current Medications Amiodarone HCl (Cordarone) 200 mg BID PO Last administered on 06/25/18 08:31; Admin Dose 200 MG; Start 06/21/18 at 21:00 Brimonidine Tartrate (Alphagan 0.2%) 1 drop Q8 RIGHT EYE Last administered on 06/25/18 14:30; Admin Dose 1 DROP; Start 06/21/18 at 22:00 Hydroxyzine HCl (Atarax) 25 mg Q6 PRN PO ITCHING; Start 06/21/18 at 21:00 Sulfacetamide Sodium (Bleph-10 Oph Drop) 1 drop Q3 LEFT EYE Last administered on 06/25/18 17:30; Admin Dose 1 DROP; Start 06/21/18 at 21:30 Acetaminophen (Tylenol Tab) 650 mg Q6H PRN PO MILD PAIN(1-3)OR ELEVATED TEMP Last administered on 06/22/18at 12:35; Admin Dose 650 MG; Start 06/21/18 at 21:00 Pantoprazole (Protonix Iv) 40 mg BID@,18 IV Last administered on 06/25/18 17:42; Admin Dose 40 MG; Start 06/22/18 at 06:00 Ondansetron HCl (Zofran Inj) 4 mg Q6H PRN IV NAUSEA AND/OR VOMITING Last administered on 06/24/18at 15:29; Admin Dose 4 MG; Start 06/21/18 at 21:00 Tramadol HCl (Ultram) 50 mg Q6H PRN PO MODERATE PAIN LEVEL 4-6; Start 06/22/18 at 02:30 Oxycodone/ Acetaminophen (Percocet (5/ 325)) 1 tab Q6 PRN PO MODERATE PAIN LEVEL 4-6; Start 06/22/18 at 13:00 Ceftriaxone Sodium 50 ml @ 100 mls/hr Q24H IVPB Last administered on 06/25/18 14:30; Admin Dose 100 MLS/HR; Start 06/22/18 at 13:00 Results Result Diagram: 06/25/1828 06/25/18527 Results 24 hrs Laboratory Tests Test 06/25/18 05:28 White Blood Count 6.1 # Red Blood Count 3.49 L Hemoglobin 8.6 L Hematocrit 28.2 L Mean Corpuscular Volume 80.8 L Mean Corpuscular Hemoglobin 24.6 L Mean Corpuscular Hemoglobin Concent 30.5 L Red Cell Distribution Width 19.7 H Platelet Count 296 Mean Platelet Volume 9.1 Immature Granulocytes % 0.700 H Neutrophils % 85.8 H Lymphocytes % 8.9 L Monocytes % 4.4 Eosinophils % 0.0 Basophils % 0.2 Nucleated Red Blood Cells % 0.0 Immature Granulocytes # 0.040 H Neutrophils # 5.2 Lymphocytes # 0.5 L Monocytes # 0.3 Eosinophils # 0.0 Basophils # 0.0 Nucleated Red Blood Cells # 0.0 Sodium Level 142 Potassium Level 4.4 Chloride Level 111 H Carbon Dioxide Level 23 Anion Gap 8 Blood Urea Nitrogen 16 Creatinine 0.83 Est Glomerular Filtrat Rate mL/min > 60 Glucose Level 115 Calcium Level 9.1 Phosphorus Level 4.0 Magnesium Level 2.0 BRO SALAZAR MD Jun 25, 2018 18:35
--- NOTE | 2018-06-25 18:40 | NUR ---
Patient's VSS, tolerated meds well. IV site changed, patient tolerated IV antibiotic Rocephin and Ferric Gluconate well. Patient resting in bed, will continue to monitor.
[2018-06-25] MEDS ORDERED: DOCUSATE SODIUM 100 MG CAP PO PRN (19:00)
[2018-06-26] VITALS (13 sets, daily range): BP systolic 108–143; BP diastolic 60–83; PULSE 60–96; RESP 20
[2018-06-26] MEDS: SULFACETAMIDE 10% 15 ML OPH LEFT EYE SCH ×8 (03:00→21:03)
[2018-06-26] MEDS: BRIMONIDINE 0.2% 5 ML BTL RIGHT EYE SCH ×3 (05:33→21:03)
[2018-06-26] MEDS: PANTOPRAZOLE 40 MG INJ IV SCH ×2 (05:33→17:26)
--- NOTE | 2018-06-26 07:40 | NUR ---
end of shift: patient is alert an oriented, atrial fib/ a. flutter on monitor; incontinent of urine; skin kept clean and dry; w/ left side weakness from CVA; needs attended, will endorse to dayshift nurse
[2018-06-26] MEDS: AMIODARONE 200 MG TAB PO SCH ×2 (08:39→21:04)
--- NOTE | 2018-06-26 10:51 | CONS ---
Date/Time of Note Date/Time of Note DATE: 06/26/18 TIME: 10:49 Assessment/Plan Assessment/Plan Additional Assessment/Plan 1. A. fib - rate controlled, con't to follow. 2. Secondary hyper coag state - Xarelto on hold with GIB - EGD + gastritis - will defer to GIB when OK to restart Xarelto - soon preferred given high CHADS2 score. 3. History of aortic valve replacement, bioprosthetic by echo this admit - stable by EXAM. 4. Nausea, vomiting, abdominal pain. 5. Elevated LFTs. 6. History of cerebrovascular accident with left-sided hemiparesis, hemorrhagic. Consultation Date/Type/Reason Admit Date/Time Jun 21, 2018 at 18:18 Initial Consult Date 24 HR Interval Summary Free Text/Dictation Xarelto on hold with GIB - EGD + gastritis - will defer to GIB when OK to restart Xarelto - soon preferred given high CHADS2 score. ROS: No fever, no chills, no nausea, no vomiting, no diarrhea/constipation No recent weight changes No chest pain, no PND, no orthopnea - better today No dizziness, blurred vision No thirst, no heat or cold intolerance Exam/Review of Systems Vital Signs Vitals Vital Signs Date Temp Pulse Resp B/P (MAP) Pulse Ox O2 O2 Flow FiO2 Time Delivery Rate 06/26/18 78 08:00 06/26/18 98.2 20 116/74 98 Room Air 07:05 (88) 06/24/18 6.0 15:01 Intake and Output 06/25/18 06/25/18 06/26/18 1515:00 23:00 07:00 IntakeIntake Total 800 ml 400 ml BalanceBalance 800 ml 400 ml Exam General: WN/WD/NAD, AOx 3 HEENT: Unicetric/atraumatic/EOMI (follow commands) NECK: JVD elevated, no thyromegaly Lymph: no lymphadenopathy HEART: irregular with no S3, II/ systolic murmur at apex LUNGS: Coarse sounds ABD: soft, NT, ND, +BS : Intact Neuro: non focal SKIN: chronic changes EXT: trace edema Medications Medications Current Medications Amiodarone HCl (Cordarone) 200 mg BID PO Last administered on 06/26/18at 08:39; Admin Dose 200 MG; Start 06/21/18 at 21:00 Brimonidine Tartrate (Alphagan 0.2%) 1 drop Q8 RIGHT EYE Last administered on 06/26/18at 05:33; Admin Dose 1 DROP; Start 06/21/18 at 22:00 Hydroxyzine HCl (Atarax) 25 mg Q6 PRN PO ITCHING; Start 06/21/18 at 21:00 Sulfacetamide Sodium (Bleph-10 Oph Drop) 1 drop Q3 LEFT EYE Last administered on 06/26/18at 05:33; Admin Dose 1 DROP; Start 06/21/18 at 21:30 Acetaminophen (Tylenol Tab) 650 mg Q6H PRN PO MILD PAIN(1-3)OR ELEVATED TEMP Last administered on 06/22/18at 12:35; Admin Dose 650 MG; Start 06/21/18 at 21:00 Pantoprazole (Protonix Iv) 40 mg BID@,18 IV Last administered on 06/26/18at 05:33; Admin Dose 40 MG; Start 06/22/18 at 06:00 Ondansetron HCl (Zofran Inj) 4 mg Q6H PRN IV NAUSEA AND/OR VOMITING Last administered on 06/24/18at 15:29; Admin Dose 4 MG; Start 06/21/18 at 21:00 Tramadol HCl (Ultram) 50 mg Q6H PRN PO MODERATE PAIN LEVEL 4-6; Start 06/22/18 at 02:30 Oxycodone/ Acetaminophen (Percocet (5/ 325)) 1 tab Q6 PRN PO MODERATE PAIN LEVEL 4-6; Start 06/22/18 at 13:00 Ceftriaxone Sodium 50 ml @ 100 mls/hr Q24H IVPB Last administered on 06/25/18at 14:30; Admin Dose 100 MLS/HR; Start 06/22/18 at 13:00 Docusate Sodium (Colace) 100 mg BID PRN PO CONSTIPATION Last administered on 06/25/18at 21:07; Admin Dose 100 MG; Start 06/25/18 at 19:00 Results Result Diagram: 06/26/18 0537 06/25/18 0528 Results 24 hrs Laboratory Tests Test 06/26/18 05:37 White Blood Count 5.3 Red Blood Count 3.61 L Hemoglobin 8.8 L Hematocrit 30.3 L Mean Corpuscular Volume 83.9 Mean Corpuscular Hemoglobin 24.4 L Mean Corpuscular Hemoglobin Concent 29.0 L Red Cell Distribution Width 20.9 H Platelet Count 284 Mean Platelet Volume 9.3 Immature Granulocytes % 0.600 H Neutrophils % 65.9 Lymphocytes % 24.8 Monocytes % 6.6 Eosinophils % 1.9 Basophils % 0.2 Nucleated Red Blood Cells % 0.0 Immature Granulocytes # 0.030 Neutrophils # 3.5 Lymphocytes # 1.3 Monocytes # 0.4 Eosinophils # 0.1 Basophils # 0.0 Nucleated Red Blood Cells # 0.0 AVERY FOLEY MD Jun 26, 2018 10:51
[2018-06-26] MEDS: CEFTRIAXONE 1 GM/50 ML (PMX) 50 ML IVPB SCH (12:23)
--- NOTE | 2018-06-26 17:05 | PN ---
Date/Time of Note Date/Time of Note DATE: 06/26/18 TIME: 17:04 Assessment/Plan VTE Prophylaxis Risk score (from Ns)>0 risk: 7 SCD applied (from [facility] [place] No SCD contraindicated: other Pharmacological prophylaxis: NA/contraindicated Pharm contraindication: bleeding Lines/Catheters IV Catheter Type (from [facility]): Saline Lock Urinary Cath still in place: No Assessment/Plan Hospital Course 63 y/o with 1. Severe anemia, likely secondary to upper gastrointestinal bleed with melena. This post EGD with gastritis 2. Upper gastrointestinal bleed secondary to #2. 3. Transaminitis and history of stent placement by Dr. Ward in 02/2018. 4. Atrial fibrillation, on Xarelto. 5. Leukopenia. 6. Urinary tract infection. + E. coli 7. History of Clostridium difficile. 8. History of cerebrovascular accident, bedbound, left-sided weakness. 9. History of aortic thrombus, status post thrombectomy. 10. History of atherosclerotic disease. Plan -hb Globin has been stable - stool softeners -cw with Rocephin for ECOLI UTI -Hold Xarelto due to bleeding, will ask cardiology about recommendations for blood thinners -Monitor A. fib -cw with IV iron -Pain control -Labs tomorrow -FU Cards consult PT will likely need SNIF will do PT eval Subjective 24 Hr Interval Summary Free Text/Dictation Is constipated Exam/Review of Systems Vital Signs Vitals Vital Signs Date Temp Pulse Resp B/P (MAP) Pulse Ox O2 O2 Flow FiO2 Time Delivery Rate 06/26/18 83 16:00 06/26/18 98.4 20 143/83 98 Room Air 15:11 (103) 06/24/18 6.0 15:01 Intake and Output 06/25/18 06/25/18 06/26/18 1515:00 23:00 07:00 IntakeIntake Total 800 ml 400 ml BalanceBalance 800 ml 400 ml Exam GENERAL: The patient is awake, alert, oriented, does not appear to in any acute distress. HEENT: Pupils are equal, round, reactive to light. The patient has marked pallor. NECK: Supple. No JVD. HEART: Irregularly irregular. No murmur, rub or gallop. LUNGS: Clear to auscultate bilaterally. ABDOMEN: Soft, nontender, nondistended. Normal bowel sounds. EXTREMITIES: The patient has left-sided hemiplegia. Medications Medications Current Medications Amiodarone HCl (Cordarone) 200 mg BID PO Last administered on 06/26/18at 08:39; Admin Dose 200 MG; Start 06/21/18 at 21:00 Brimonidine Tartrate (Alphagan 0.2%) 1 drop Q8 RIGHT EYE Last administered on 06/26/18 05:33; Admin Dose 1 DROP; Start 06/21/18 at 22:00 Hydroxyzine HCl (Atarax) 25 mg Q6 PRN PO ITCHING; Start 06/21/18 at 21:00 Sulfacetamide Sodium (Bleph-10 Oph Drop) 1 drop Q3 LEFT EYE Last administered on 06/26/18 05:33; Admin Dose 1 DROP; Start 06/21/18 at 21:30 Acetaminophen (Tylenol Tab) 650 mg Q6H PRN PO MILD PAIN(1-3)OR ELEVATED TEMP Last administered on 06/22/18at 12:35; Admin Dose 650 MG; Start 06/21/18 at 21:00 Pantoprazole (Protonix Iv) 40 mg BID@06,18 IV Last administered on 06/26/18 05:33; Admin Dose 40 MG; Start 06/22/18 at 06:00 Ondansetron HCl (Zofran Inj) 4 mg Q6H PRN IV NAUSEA AND/OR VOMITING Last administered on 06/24/18at 15:29; Admin Dose 4 MG; Start 06/21/18 at 21:00 Tramadol HCl (Ultram) 50 mg Q6H PRN PO MODERATE PAIN LEVEL 4-6; Start 06/22/18 at 02:30 Oxycodone/ Acetaminophen (Percocet (5/ 325)) 1 tab Q6 PRN PO MODERATE PAIN LEVEL 4-6; Start 06/22/18 at 13:00 Ceftriaxone Sodium 50 ml @ 100 mls/hr Q24H IVPB Last administered on 06/26/18at 12:23; Admin Dose 100 MLS/HR; Start 06/22/18 at 13:00 Docusate Sodium (Colace) 100 mg BID PRN PO CONSTIPATION Last administered on 06/25/18 21:07; Admin Dose 100 MG; Start 06/25/18 at 19:00 Sodium Biphosphate/ Sodium Phosphate (Fleet Enema) 133 ml ONCE ONCE VA ; Start 06/26/18 at 17:30; Stop 06/26/18 at 17:31; Status UNV Senna (Senokot) 1 tab DAILY PRN PO CONSTIPATION; Start 06/26/18 at 17:30; Status UNV Lubiprostone (Amitiza) 16 mcg BID PO ; Start 06/26/18 at 21:00; Status UNV Results Result Diagram: 06/26/18 0537 06/25/18 0528 Results 24 hrs Laboratory Tests Test 06/26/18 05:37 White Blood Count 5.3 Red Blood Count 3.61 L Hemoglobin 8.8 L Hematocrit 30.3 L Mean Corpuscular Volume 83.9 Mean Corpuscular Hemoglobin 24.4 L Mean Corpuscular Hemoglobin Concent 29.0 L Red Cell Distribution Width 20.9 H Platelet Count 284 Mean Platelet Volume 9.3 Immature Granulocytes % 0.600 H Neutrophils % 65.9 Lymphocytes % 24.8 Monocytes % 6.6 Eosinophils % 1.9 Basophils % 0.2 Nucleated Red Blood Cells % 0.0 Immature Granulocytes # 0.030 Neutrophils # 3.5 Lymphocytes # 1.3 Monocytes # 0.4 Eosinophils # 0.1 Basophils # 0.0 Nucleated Red Blood Cells # 0.0 BRO SALAZAR MD Jun 26, 2018 17:05
--- NOTE | 2018-06-26 17:11 | NUR ---
Nurses notes: Called Dr Mcdonough and made aware of 2views chest xray and informed pt had 350ml urine output since this morning. with order to give Lasix 60mg IV x1.
[2018-06-26] MEDS ORDERED: SENNA TAB PO PRN (17:30)
[2018-06-26] MEDS ORDERED: NA PHOSPHATE/BIPHOS 133 ML ENEMA PR ONE (17:30)
--- NOTE | 2018-06-26 19:42 | CONS ---
Date/Time of Note Date/Time of Note DATE: 06/26/18 TIME: 19:42 Assessment/Plan Assessment/Plan Additional Assessment/Plan Hospital Course 63 yo female who is bedbound secondary to CVA, h/o afib on xarelto presented for Hgb of 5.7, generalized weakness, and black stools 1. Upper GI bleed manifested through melanotic stools 2. Severe acute anemia secondary to blood loss 3. Transaminitis -US of abd unremarkable 4. H/O biliary stent placement by Dr. Pérez in 02/2018 5. Atrial fibrillation, was on xarelto 6. Leukopenia 7. UTI 8. H/O C diff 9. H/O CVA 10. Status post a sphincterotomy removal of the stent and stone Plan: PPI BID EGD mild gastritis NO anticoagulants HH q 8 hours, call MD for less than 7.6 Given the history of rectal polyp patient definitely needs a colonoscopy. Her ferritin level is low Consultation Date/Type/Reason Admit Date/Time Jun 21, 2018 at 18:18 Initial Consult Date 24 HR Interval Summary Free Text/Dictation Complains of constipation Exam/Review of Systems Vital Signs Vitals Vital Signs Date Temp Pulse Resp B/P (MAP) Pulse Ox O2 O2 Flow FiO2 Time Delivery Rate 06/26/18 83 16:00 06/26/18 98.4 20 143/83 98 Room Air 15:11 (103) 06/24/18 6.0 15:01 Intake and Output 06/25/18 06/25/18 06/26/18 1515:00 23:00 07:00 IntakeIntake Total 800 ml 400 ml BalanceBalance 800 ml 400 ml Exam Constitutional: alert, oriented, well developed Psych: no complaints, nl mood/affect Head: normocephalic, atraumatic Eyes: nl conjunctiva, EOMI, nl lids, nl sclera, PERRL ENMT: nl external ears & nose, nl lips & teeth, nl nasal mucosa & septum Neck: supple, non-tender Respiratory: clear to auscultation, normal air movement Cardiovascular: regular rate and rhythm, nl pulses Gastrointestinal: soft, nl liver, spleen, non-tender Musculoskeletal: nl extremities to inspection, nl gait and stance Extremities: normal pulses Neurological: [employer] II-XII intact, nl mental status, nl speech, nl strength Skin: nl turgor; No rash or lesions Lymph: nl lymph nodes Medications Medications Current Medications Amiodarone HCl (Cordarone) 200 mg BID PO Last administered on 06/26/18at 08:39; Admin Dose 200 MG; Start 06/21/18 at 21:00 Brimonidine Tartrate (Alphagan 0.2%) 1 drop Q8 RIGHT EYE Last administered on 06/26/18 05:33; Admin Dose 1 DROP; Start 06/21/18 at 22:00 Hydroxyzine HCl (Atarax) 25 mg Q6 PRN PO ITCHING; Start 06/21/18 at 21:00 Sulfacetamide Sodium (Bleph-10 Oph Drop) 1 drop Q3 LEFT EYE Last administered on 06/26/18 05:33; Admin Dose 1 DROP; Start 06/21/18 at 21:30 Acetaminophen (Tylenol Tab) 650 mg Q6H PRN PO MILD PAIN(1-3)OR ELEVATED TEMP Last administered on 06/22/18at 12:35; Admin Dose 650 MG; Start 06/21/18 at 21:00 Pantoprazole (Protonix Iv) 40 mg BID@06,18 IV Last administered on 06/26/18 17:26; Admin Dose 40 MG; Start 06/22/18 at 06:00 Ondansetron HCl (Zofran Inj) 4 mg Q6H PRN IV NAUSEA AND/OR VOMITING Last administered on 06/24/18at 15:29; Admin Dose 4 MG; Start 06/21/18 at 21:00 Tramadol HCl (Ultram) 50 mg Q6H PRN PO MODERATE PAIN LEVEL 4-6; Start 06/22/18 at 02:30 Oxycodone/ Acetaminophen (Percocet (5/ 325)) 1 tab Q6 PRN PO MODERATE PAIN LEVEL 4-6; Start 06/22/18 at 13:00 Ceftriaxone Sodium 50 ml @ 100 mls/hr Q24H IVPB Last administered on 06/26/18at 12:23; Admin Dose 100 MLS/HR; Start 06/22/18 at 13:00 Docusate Sodium (Colace) 100 mg BID PRN PO CONSTIPATION Last administered on 06/25/18 21:07; Admin Dose 100 MG; Start 06/25/18 at 19:00 Senna (Senokot) 1 tab DAILY PRN PO CONSTIPATION; Start 06/26/18 at 17:30 Lubiprostone (Amitiza) 16 mcg BID PO ; Start 06/26/18 at 21:00 Results Result Diagram: 06/26/18 0537 06/25/18 0528 Results 24 hrs Laboratory Tests Test 06/26/18 05:37 White Blood Count 5.3 Red Blood Count 3.61 L Hemoglobin 8.8 L Hematocrit 30.3 L Mean Corpuscular Volume 83.9 Mean Corpuscular Hemoglobin 24.4 L Mean Corpuscular Hemoglobin Concent 29.0 L Red Cell Distribution Width 20.9 H Platelet Count 284 Mean Platelet Volume 9.3 Immature Granulocytes % 0.600 H Neutrophils % 65.9 Lymphocytes % 24.8 Monocytes % 6.6 Eosinophils % 1.9 Basophils % 0.2 Nucleated Red Blood Cells % 0.0 Immature Granulocytes # 0.030 Neutrophils # 3.5 Lymphocytes # 1.3 Monocytes # 0.4 Eosinophils # 0.1 Basophils # 0.0 Nucleated Red Blood Cells # 0.0 EDSON PÉREZ MD Jun 26, 2018 19:42
[2018-06-26] MEDS: LUBIPROSTONE 8 MCG CAPSULE PO SCH (21:04)
[2018-06-26] MEDS: ACETAMINOPHEN 325 MG TAB PO PRN (21:14)
[2018-06-27] VITALS (10 sets, daily range): BP systolic 120–140; BP diastolic 78–87; PULSE 67–99; RESP 18–20
[2018-06-27] MEDS: SULFACETAMIDE 10% 15 ML OPH LEFT EYE SCH ×8 (03:00→21:00)
[2018-06-27] MEDS: PANTOPRAZOLE 40 MG INJ IV SCH ×2 (05:39→17:55)
[2018-06-27] MEDS: BRIMONIDINE 0.2% 5 ML BTL RIGHT EYE SCH ×3 (05:39→21:56)
--- NOTE | 2018-06-27 06:33 | NUR ---
end of shift: patient is alert and oriented, atrial flutter controlled on monitor; w/ left sided paralysis from CVA; skin kept clean and dry, repositioned and kept comfortable; had 2 bowel movement last night after enema given during the day; will endorse to dayshift nurse
--- NOTE | 2018-06-27 07:08 | PN ---
Date/Time of Note Date/Time of Note DATE: 06/27/18 TIME: 07:05 Assessment/Plan VTE Prophylaxis Risk score (from Ns)>0 risk: 7 [place] [facility] [place]CD contraindicated: patient refusal Pharmacological prophylaxis: NA/contraindicated Pharm contraindication: bleeding Lines/Catheters IV Catheter Type (from [place]): Saline Lock Urinary Cath still in place: No Assessment/Plan Hospital Course 63 yo female who is bedbound secondary to CVA, h/o afib on xarelto presented for Hgb of 5.7, generalized weakness, and black stools 1. Upper GI bleed manifested through melanotic stools 2. Severe acute anemia secondary to blood loss 3. Transaminitis -US of abd unremarkable 4. H/O biliary stent placement by Dr. Ward in 02/2018 5. Atrial fibrillation, was on xarelto 6. Leukopenia 7. UTI 8. H/O C diff 9. H/O CVA 10. S/P EGD and ERcP with stent removal 06/24 Plan: PPI BID NO anticoagulants HH q 8 hours, call MD for less than 7.6 Colonoscopy tomorrow Pt examined and plan of care discussed with Dr. Ward Subjective 24 Hr Interval Summary Free Text/Dictation No evidence of GI bleeding per RN. Pt resting comfortably. Denies abdominal pain or N/V. Exam/Review of Systems Vital Signs Vitals Vital Signs Date Temp Pulse Resp B/P (MAP) Pulse Ox O2 O2 Flow FiO2 Time Delivery Rate 06/27/18 67 04:00 06/27/18 98.0 18 123/78 96 03:52 (93) 06/26/18 Room Air 15:11 06/24/18 6.0 15:01 Intake and Output 06/26/18 06/26/18 06/27/18 1515:00 23:00 07:00 IntakeIntake Total 50 ml 960 ml 500 ml BalanceBalance 50 ml 960 ml 500 ml Exam Constitutional: alert, oriented Psych: no complaints Head: normocephalic Eyes: nl sclera, PERRL Respiratory: clear to auscultation Cardiovascular: regular rate and rhythm Gastrointestinal: soft, non-tender Extremities: normal pulses Neurological: nl mental status, nl speech Medications Medications Current Medications Amiodarone HCl (Cordarone) 200 mg BID PO Last administered on 06/26/18 21:04; Admin Dose 200 MG; Start 06/21/18 at 21:00 Brimonidine Tartrate (Alphagan 0.2%) 1 drop Q8 RIGHT EYE Last administered on 06/27/18at 05:39; Admin Dose 1 DROP; Start 06/21/18 at 22:00 Hydroxyzine HCl (Atarax) 25 mg Q6 PRN PO ITCHING; Start 06/21/18 at 21:00 Sulfacetamide Sodium (Bleph-10 Oph Drop) 1 drop Q3 LEFT EYE Last administered on 06/27/18at 05:39; Admin Dose 1 DROP; Start 06/21/18 at 21:30 Acetaminophen (Tylenol Tab) 650 mg Q6H PRN PO MILD PAIN(1-3)OR ELEVATED TEMP Last administered on 06/26/18 21:14; Admin Dose 650 MG; Start 06/21/18 at 21:00 Pantoprazole (Protonix Iv) 40 mg BID@,18 IV Last administered on 06/27/18 05:39; Admin Dose 40 MG; Start 06/22/18 at 06:00 Ondansetron HCl (Zofran Inj) 4 mg Q6H PRN IV NAUSEA AND/OR VOMITING Last ad ministered on 06/24/18at 15:29; Admin Dose 4 MG; Start 06/21/18 at 21:00 Tramadol HCl (Ultram) 50 mg Q6H PRN PO MODERATE PAIN LEVEL 4-6; Start 06/22/18 at 02:30 Oxycodone/ Acetaminophen (Percocet (5/ 325)) 1 tab Q6 PRN PO MODERATE PAIN LEVEL 4-6; Start 06/22/18 at 13:00 Ceftriaxone Sodium 50 ml @ 100 mls/hr Q24H IVPB Last administered on 06/26/18at 12:23; Admin Dose 100 MLS/HR; Start 06/22/18 at 13:00 Docusate Sodium (Colace) 100 mg BID PRN PO CONSTIPATION Last administered on 06/25/18 21:07; Admin Dose 100 MG; Start 06/25/18 at 19:00 Senna (Senokot) 1 tab DAILY PRN PO CONSTIPATION; Start 06/26/18 at 17:30 Lubiprostone (Amitiza) 16 mcg BID PO Last administered on 12/9/18at 21:04; Admin Dose 16 MCG; Start 06/26/18 at 21:00 Results Result Diagram: 06/27/18 0522 06/25/18 0528 Results 24 hrs Laboratory Tests Test 06/27/18 05:22 White Blood Count 5.9 Red Blood Count 3.94 L Hemoglobin 9.8 L Hematocrit 33.2 L Mean Corpuscular Volume 84.3 Mean Corpuscular Hemoglobin 24.9 L Mean Corpuscular Hemoglobin Concent 29.5 L Red Cell Distribution Width 21.9 H Platelet Count 288 Mean Platelet Volume 8.7 Immature Granulocytes % 0.700 H Neutrophils % 69.0 Lymphocytes % 20.8 Monocytes % 7.3 Eosinophils % 1.9 Basophils % 0.3 Nucleated Red Blood Cells % 0.0 Immature Granulocytes # 0.040 H Neutrophils # 4.1 Lymphocytes # 1.2 Monocytes # 0.4 Eosinophils # 0.1 Basophils # 0.0 Nucleated Red Blood Cells # 0.0 ANNELIESE DUKE Jun 27, 2018 07:08
[2018-06-27] MEDS: LUBIPROSTONE 8 MCG CAPSULE PO SCH ×2 (09:01→21:58)
[2018-06-27] MEDS: AMIODARONE 200 MG TAB PO SCH ×2 (09:02→21:00)
--- NOTE | 2018-06-27 09:16 | CONS ---
DATE OF ADMISSION: 06/21/2018 DATE OF CONSULTATION: 06/25/2018 REFERRING PHYSICIAN: Dr. Salazar. REASON FOR EVALUATION: Atrial fibrillation, history of valve replacement, prior history of CVA with aortic thrombus. HISTORY OF PRESENT ILLNESS: Ms. Ayala is a 63-year-old woman with history of atrial fibrillatio n, history of hypertension, dyslipidemia, history of CVA with hemorrhagic conversion, history of valv e replacement which I believe to be aortic, who comes to the hospital now for evaluation of severe an emia with bleeding. Patient appeared to have been anticoagulated with Xarelto at that point, the jamar abreu has already received blood transfusion and she is being evaluated by GI team. Currently, the felicita hu is hemodynamically stable. She is status post endoscopy. Currently, the patient did have an ep isode of atrial fibrillation in the emergency room when she was admitted but she is currently in sinu s rhythm. It appears that by the chest x-ray that the patient has a left atrial appendage device. I think for now, conservative therapy is indicated. The patient will hold off on anticoagulation give n history of significant bleed and monitor closely. PAST MEDICAL HISTORY: 1. Hypertension. 2. Dyslipidemia. 3. History of left-sided cerebrovascular accident. 4. History of hemorrhagic conversion. 5. History of on Xarelto, now with another episode of bleeding. 6. History of coronary artery disease. 7. History of stroke. 8. History of thrombectomy. 9. History of peptic ulcer disease. 10. History of left atrial appendage and plan likely based on the x-ray review. ALLERGIES: NO KNOWN MEDICAL ALLERGIES. SOCIAL HISTORY: The patient does not smoke, does not drink. FAMILY HISTORY: Negative for sudden cardiac or premature coronary artery disease. MEDICATIONS: The patient's medications include: 1. Iron supplement. 2. 3. Protonix. 4. Tramadol. 5. Sucralfate. 6. Amiodarone 25 mg p.o. b.i.d. 7. . She is not on any blood thinning medications at this point, although she was on Xarelto prior. REVIEW OF SYSTEMS: CONSTITUTIONAL: No fevers, no chills, bleeding as described. HEENT: No changes in vision or hearing. CARDIAC: No chest pain reported now. RESPIRATORY: Short of breath. GASTROINTESTINAL: No nausea, vomiting. GENITOURINARY: No dysuria, hematuria. NEUROLOGIC: Prior CVA. PSYCHIATRIC: Possible history of psychiatric illness. PHYSICAL EXAMINATION: VITAL SIGNS: Temperature is 98.1. Heart rate is 69, blood pressure 103/66. GENERAL: She is well-nourished woman in no acute distress, alert, oriented x2 to 3, speaking mostly Slovak. HEAD: Normocephalic, atraumatic. Eyes anicteric. NECK: Supple. JVD 6-7 cm. There is no lymphadenopathy, no thyromegaly. HEART: Regular. I do not hear a mechanical click. She is regular now. LUNGS: Coarse to base. ABDOMEN: Soft, bowel sounds are present. No hepatosplenomegaly. EXTREMITIES: Trace edema. NEUROLOGICAL: She has neurological deficits status post CVA. LABORATORY DATA: White blood cell count 6.1, hemoglobin increased to 8.4, platelets 298. INR is 0.9 now. Sodium 142, potassium 4.4, chloride 111, carbon dioxide 23. Her BUN is 16, creatinine 0.8. T roponin was 0.012 on presentation. ASSESSMENT AND PLAN: 1. Atrial fibrillation. The patient has atrial fibrillation, paroxysmal, and now converted to sinus rhythm. I think she might not be the best candidate for anticoagulation in the setting of continuou s bleeding as well as history of hemorrhagic conversion. The patient reported to have a left atrial appendage by chest x-ray. Will discuss with primary team, as the risk and benefits of anticoagulatio n in this case need to be carefully dressed. 2. 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 Does not appear to be mechanical. We will try to o btain records from [facility]. There is still not clear to me what type of procedure she had. For now, niya mabry follow up with a 2D echo. 3. Hypertension. Blood pressure well optimized. Continue to monitor. 4. Anemia. Patient with significant anemia on presentation which she already had an evaluation with Dr. Ward. Continue to follow and replace fluids as necessary. 5. Coronary artery disease, no chest pain. For now, the patient did not rule in for ischemia. Trop onins are negative. 6. state. As noted above, patient on Xarelto prior. Now all anticoagulation is off. We will follow. I think amiodarone is reasonable to try to keep the patient in sinus rhythm. I would like to thank Dr. Salazar for referring this patient for my evaluation. Dictated By: AVERY FOLEY MD ML/NTS Conf#: [id number] DID#: [id number] CC: BRO SALAZAR; EMANUEL LAMAR MD;*EndCC*
--- NOTE | 2018-06-27 11:15 | CONS ---
Date/Time of Note Date/Time of Note DATE: 06/27/18 TIME: 11:08 Assessment/Plan Assessment/Plan Chief Complaint/Hosp Course IMP: 1.PAF-off xarelto due to GIB 2.AVR-? bioprosthesis 3.HTN 4.GIB s/p EGD with gastirtis 5.anemia 6.CVA with L sided weakness Recc: -Tele -off anticoagulation due to GIB -pnding colonscopy? -Continue amio and follow hgb closely -Continue abx's and f/u cx data Consultation Date/Type/Reason Admit Date/Time Jun 21, 2018 at 18:18 Initial Consult Date 06/25/18 Type of Consult cardiology Reason for Consultation PAF/AVR Requesting Provider: BRO SALAZAR MD Exam/Review of Systems Vital Signs Vitals Vital Signs Date Temp Pulse Resp B/P (MAP) Pulse Ox O2 O2 Flow FiO2 Time Delivery Rate 06/27/18 80 08:13 06/27/18 98.3 20 131/87 92 07:28 (102) 06/26/18 Room Air 15:11 06/24/18 6.0 15:01 Intake and Output 06/26/18 06/26/18 06/27/18 1515:00 23:00 07:00 IntakeIntake Total 50 ml 960 ml 500 ml BalanceBalance 50 ml 960 ml 500 ml Exam Review of Systems: CONSTITUTIONAL: No fevers, chills. PULMONARY: No sob CARDIOVASCULAR: No chest pain/palpitations GASTROINTESTINAL: No nausea/vomiting. GENITOURINARY: No hematuria/dysuria. MUSCULOSKELETAL: No myagias/arthalgias. PSYCHIATRIC: The patient denies depression. NEUROLOGIC: No weakness Constitutional: alert Psych: no complaints Head: normocephalic ENMT: mucosa pink and moist Neck: supple, jvd (9 cm water) Respiratory: diminished breath sounds (at bases/B) Cardiovascular: regular rate and rhythm Gastrointestinal: soft, non-tender Musculoskeletal: muscle weakness (LUE) Extremities: edema (trace/B) Neurological: focal weakness Medications Medications Current Medications Amiodarone HCl (Cordarone) 200 mg BID PO Last administered on 06/27/18at 09:02; Admin Dose 200 MG; Start 06/21/18 at 21:00 Brimonidine Tartrate (Alphagan 0.2%) 1 drop Q8 RIGHT EYE Last administered on 06/27/18at 05:39; Admin Dose 1 DROP; Start 06/21/18 at 22:00 Hydroxyzine HCl (Atarax) 25 mg Q6 PRN PO ITCHING; Start 06/21/18 at 21:00 Sulfacetamide Sodium (Bleph-10 Oph Drop) 1 drop Q3 LEFT EYE Last administered on 06/27/18at 09:01; Admin Dose 1 DROP; Start 06/21/18 at 21:30 Acetaminophen (Tylenol Tab) 650 mg Q6H PRN PO MILD PAIN(1-3)OR ELEVATED TEMP Last administered on 06/26/18at 21:14; Admin Dose 650 MG; Start 06/21/18 at 21:00 Pantoprazole (Protonix Iv) 40 mg BID@18 IV Last administered on 06/27/18at 05:39; Admin Dose 40 MG; Start 06/22/18 at 06:00 Ondansetron HCl (Zofran Inj) 4 mg Q6H PRN IV NAUSEA AND/OR VOMITING Last administered on 06/24/18at 15:29; Admin Dose 4 MG; Start 06/21/18 at 21:00 Tramadol HCl (Ultram) 50 mg Q6H PRN PO MODERATE PAIN LEVEL 4-6; Start 06/22/18 at 02:30 Oxycodone/ Acetaminophen (Percocet (5/ 325)) 1 tab Q6 PRN PO MODERATE PAIN LEVEL 4-6; Start 06/22/18 at 13:00 Ceftriaxone Sodium 50 ml @ 100 mls/hr Q24H IVPB Last administered on 06/26/18at 12:23; Admin Dose 100 MLS/HR; Start 06/22/18 at 13:00 Docusate Sodium (Colace) 100 mg BID PRN PO CONSTIPATION Last administered on 06/25/18at 21:07; Admin Dose 100 MG; Start 06/25/18 at 19:00 Senna (Senokot) 1 tab DAILY PRN PO CONSTIPATION; Start 06/26/18 at 17:30 Lubiprostone (Amitiza) 16 mcg BID PO Last administered on 06/27/18at 09:01; Admin Dose 16 MCG; Start 06/26/18 at 21:00 Results Result Diagram: 06/27/1852106/25/18527 Results 24 hrs Laboratory Tests Test 12/10/18 05:22 White Blood Count 5.9 Red Blood Count 3.94 L Hemoglobin 9.8 L Hematocrit 33.2 L Mean Corpuscular Volume 84.3 Mean Corpuscular Hemoglobin 24.9 L Mean Corpuscular Hemoglobin Concent 29.5 L Red Cell Distribution Width 21.9 H Platelet Count 288 Mean Platelet Volume 8.7 Immature Granulocytes % 0.700 H Neutrophils % 69.0 Lymphocytes % 20.8 Monocytes % 7.3 Eosinophils % 1.9 Basophils % 0.3 Nucleated Red Blood Cells % 0.0 Immature Granulocytes # 0.040 H Neutrophils # 4.1 Lymphocytes # 1.2 Monocytes # 0.4 Eosinophils # 0.1 Basophils # 0.0 Nucleated Red Blood Cells # 0.0 EMANUEL LAMAR Jun 27, 2018 11:15
--- NOTE | 2018-06-27 11:20 | NUR ---
PT Evaluation (See full note below): Therapy day number 1 Evaluation Start Time 09:30 Evaluation End Time 10:30 Evaluation Total Time 60 min Subjective Current complaint of pain Pain Scale NUMERIC Pain Intensity 5 (0-10) Patient Stated Goal for Pain Relief 0 (0-10) Pain Level Comment L side of arm and leg. Pre Treatment Vital Signs Stable Yes Supine to Sit Dependent Bed Mobility Sit to Supine Dependent Sitting Tolerance 15 min Additional Mobility Comments 2PA. Pt requires max A for static sitting balance. Patient uses wheelchair Not Applicable Additional Gait Comments Pt is non-ambulatory Weight Bearing Assessment Label Bilat Lower Extremity Weight Bearing Status Non Weight Bearing Additional Weight Bearing Comments L foot flaccid, R foot drop. Unsafe to bear weight Static Sitting Balance Fair minus Dynamic Sitting Balance Poor plus Safety Judgement Good Activity Tolerance Fair Post Treatment Pain Intensity 5 0-10 Variance Documentation See Note PT Technical Record Comment PT Evaluation: The pt is a 63-year-old F with PMH of AFib, HTN, hyperlipidemia,left-sided CVA with hemiplegia ~3 years ago, hemorrhagic conversion, DM2, abnormal liver function test, history of valve replacement, G-tube placement in the past, history of cholecystectomy, history of aortic thrombus status post thrombectomy at [facility] 1 year ago, who was recently admitted in [facility] from 02/27/2018 to 03/09/2018 secondary to diarrhea with C. diff colitis. The patient also had TRAE at that time that was resolved. The patient was discharged home with Xarelto, which patient had been taking. The son noticed that the patient has been having low blood pressure for past 1 week. He also noted that the patient was becoming pale, yellow. He went to his primary care doctor and was told that she has pale. The patient had labs done and hemoglobin was 5.2. Apparently, the patient was also having black stool for the past 2 days and was sent into ER for further evaluation. The patient received 2 units of blood and was started on PPI and was admitted for further management. Pt is now SP ERCP for choledocholithiasis. Precautions: Fall risk, non-ambulatory for 3 years. 2 person assist. PLOF: Pt lives with her son in a house with no stairs. She is bedbound. Reports having only assistance in the morning before he goes to work, then she is mostly in bed with diapers, and is soiled throughout the day until he comes back at ~5pm. Pt has a w/c at home, occasional dependent w/c transfer with son's help. CLOF: Pt supine in bed, agreeable to PT, cleared by RN. Pt is A&O x4. She reports not being able to walk for 3 years. LUE and LLE with 0/5 strength, flaccid throughout. Pt with L shoulder subluxation. Sup<>sit dependant with 2-person assist. Pt requires max A for static sitting balance. Pt also with R foot drop. not safe for out of bed mobility. She was left supine in bed, call light and needs in reach, bed alarm on. Recommendations: Pt with history of CVA with L side hemiplegia for ~3 years now. She is bedbound and non-ambulatory. Pt reports not having enough assistance at home, and lying in bed soiled throughout the day. Recommend to d/c pt to SNF for director long term care care. She may benefit from perinatal social worker consultation due to not having sufficient assistance at home. Will keep pt on PT schedule 3x/week to promote improved sitting balance as trial PT.
[2018-06-27] MEDS: CEFTRIAXONE 1 GM/50 ML (PMX) 50 ML IVPB SCH (12:15)
--- NOTE | 2018-06-27 13:31 | PN ---
Date/Time of Note Date/Time of Note DATE: 06/27/18 TIME: 13:31 Assessment/Plan VTE Prophylaxis Risk score (from Ns)>0 risk: 7 SCD applied (from [facility]): No SCD contraindicated: other Pharmacological prophylaxis: NA/contraindicated Pharm contraindication: bleeding Lines/Catheters IV C[facility]ter Type [facility] [place]ine Lock Urinary Cath still in place: No Assessment/Plan Hospital Course 63 y/o with 1. Severe anemia, likely secondary to upper gastrointestinal bleed with melena. This post EGD with gastritis has history of polyps per GI will need a colonoscopy 2. Upper gastrointestinal bleed secondary to #2. 3. Transaminitis and history of stent placement by Dr. Ward in 02/2018. 4. Atrial fibrillation, on Xarelto. 5. Leukopenia. 6. Urinary tract infection. + E. coli 7. History of Clostridium difficile. 8. History of cerebrovascular accident, bedbound, left-sided weakness. 9. History of aortic thrombus, status post thrombectomy. 10. History of atherosclerotic disease. Plan -Colonoscopy tomorrow -hb Globin has been stable - stool softeners -cw with Rocephin for ECOLI UTI -Hold Xarelto due to bleeding, will ask cardiology about recommendations for blood thinners -Monitor A. fib -cw with IV iron -Pain control -Labs tomorrow -FU Cards consult driver service technician to look for SNIF placement Subjective 24 Hr Interval Summary Free Text/Dictation She will be going for colonoscopy tomorrow with GI Exam/Review of Systems Vital Signs Vitals Vital Signs Date Temp Pulse Resp B/P (MAP) Pulse Ox O2 O2 Flow FiO2 Time Delivery Rate 06/27/18 99 12:28 06/27/18 98.3 20 140/80 98 11:27 (100) 06/26/18 Room Air 15:11 06/24/18 6.0 15:01 Intake and Output 06/26/18 06/26/18 06/27/18 1515:00 23:00 07:00 IntakeIntake Total 50 ml 960 ml 500 ml BalanceBalance 50 ml 960 ml 500 ml Exam GENERAL: The patient is awake, alert, oriented, does not appear to in any acute distress. HEENT: Pupils are equal, round, reactive to light. The patient has marked pallor. NECK: Supple. No JVD. HEART: Irregularly irregular. No murmur, rub or gallop. LUNGS: Clear to auscultate bilaterally. ABDOMEN: Soft, nontender, nondistended. Normal bowel sounds. EXTREMITIES: The patient has left-sided hemiplegia. Medications Medications Current Medications Amiodarone HCl (Cordarone) 200 mg BID PO Last administered on 06/27/18 09:02; Admin Dose 200 MG; Start 06/21/18 at 21:00 Brimonidine Tartrate (Alphagan 0.2%) 1 drop Q8 RIGHT EYE Last administered on 06/27/18 05:39; Admin Dose 1 DROP; Start 06/21/18 at 22:00 Hydroxyzine HCl (Atarax) 25 mg Q6 PRN PO ITCHING; Start 06/21/18 at 21:00 Sulfacetamide Sodium (Bleph-10 Oph Drop) 1 drop Q3 LEFT EYE Last administered on 06/27/18at 12:15; Admin Dose 1 DROP; Start 06/21/18 at 21:30 Acetaminophen (Tylenol Tab) 650 mg Q6H PRN PO MILD PAIN(1-3)OR ELEVATED TEMP Last administered on 06/26/18at 21:14; Admin Dose 650 MG; Start 06/21/18 at 21:00 Pantoprazole (Protonix Iv) 40 mg BID@06,18 IV Last administered on 06/27/18 05:39; Admin Dose 40 MG; Start 06/22/18 at 06:00 Ondansetron HCl (Zofran Inj) 4 mg Q6H PRN IV NAUSEA AND/OR VOMITING Last administered on 06/24/18 15:29; Admin Dose 4 MG; Start 06/21/18 at 21:00 Tramadol HCl (Ultram) 50 mg Q6H PRN PO MODERATE PAIN LEVEL 4-6; Start 06/22/18 at 02:30 Oxycodone/ Acetaminophen (Percocet (5/ 325)) 1 tab Q6 PRN PO MODERATE PAIN LEVEL 4-6; Start 06/22/18 at 13:00 Ceftriaxone Sodium 50 ml @ 100 mls/hr Q24H IVPB Last administered on 06/27/18 12:15; Admin Dose 100 MLS/HR; Start 06/22/18 at 13:00 Docusate Sodium (Colace) 100 mg BID PRN PO CONSTIPATION Last administered on 12/8/18at 21:07; Admin Dose 100 MG; Start 06/25/18 at 19:00 Senna (Senokot) 1 tab DAILY PRN PO CONSTIPATION; Start 06/26/18 at 17:30 Lubiprostone (Amitiza) 16 mcg BID PO Last administered on 06/27/18at 09:01; Admin Dose 16 MCG; Start 06/26/18 at 21:00 Results Result Diagram: 06/27/18 0522 06/25/18 0528 Results 24 hrs Laboratory Tests Test 06/27/18 05:22 White Blood Count 5.9 Red Blood Count 3.94 L Hemoglobin 9.8 L Hematocrit 33.2 L Mean Corpuscular Volume 84.3 Mean Corpuscular Hemoglobin 24.9 L Mean Corpuscular Hemoglobin Concent 29.5 L Red Cell Distribution Width 21.9 H Platelet Count 288 Mean Platelet Volume 8.7 Immature Granulocytes % 0.700 H Neutrophils % 69.0 Lymphocytes % 20.8 Monocytes % 7.3 Eosinophils % 1.9 Basophils % 0.3 Nucleated Red Blood Cells % 0.0 Immature Granulocytes # 0.040 H Neutrophils # 4.1 Lymphocytes # 1.2 Monocytes # 0.4 Eosinophils # 0.1 Basophils # 0.0 Nucleated Red Blood Cells # 0.0 BRO SALAZAR MD Jun 27, 2018 13:31
--- NOTE | 2018-06-27 13:54 | NUR ---
NURSES NOTES: PT WITH ORDERS TO OBTAIN CONSENT FOR COLONOSCOPY BY . SINGLE END SEWER USED #[id number] AT THIS TIME. PT VERBALIZED UNDERSTANDING AND STATED SHE WILL WAIT FOR HER SON TO COME BEFORE SHE SIGNS CONSENT FORM. PATIENT EDUCATION FROM [employer] PRINTED IN [place] AND GIVEN TO PATIENT. WILL CONTINUE TO MONITOR AND ASSESS PT THROUGHOUT THE SHIFT
--- NOTE | 2018-06-27 14:18 | NUR ---
CM NOTE PT HAS BEEN ACCEPTED AT [facility] PER SON'S SHANNON'S CHOICE ,CM S/W CESILIA, AND MAY TRANSFER ONCE PT IS MEDICALLY CLEAR, CM WILL CONTINUE TO FOLLOW UP.
[2018-06-27] MEDS ORDERED: PEG/ELECTROLYTES 4L BTL PO ONE ×2 (17:00→20:00)
[2018-06-27] MEDS ORDERED: BISACODYL (EC) 5 MG TAB PO ONE ×2 (17:00→20:00)
--- NOTE | 2018-06-27 18:49 | NUR ---
EOSS: PT LAYING IN BED. DENIES PAIN OR DISCOMFORT AT THIS TIME. NO S/S OF RESPIRATORY DISTRESS PT ON ROOM AIR. PENDING COLONOSCOPY TOMORROW BY DR. PÉREZ. CONSENT OBTAINED AND PLACED IN PT'S CHART. BOWEL PREP STARTED AND TO CONTINUE IN AM. PT TO BE NPO AT MIDNIGHT. PENDING HAND CULTIVATOR CONSULT. FALL AND SAFETY PRECAUTIONS IMPLEMENTED. CALL LIGHT WITHIN REACH, BED IN LOWEST POSITION BRAKES LOCKED ROOM FREE OF CLUTTER, PERSONAL BELONGINGS PLACED CLOSE TO PT. WILL ENDORSE TO TRANSFER WORKER RN ACCORDINGLY.
--- NOTE | 2018-06-27 19:04 | RADRPT ---
Echocardiogram Report Patient Name: ARIANA MORENO Gender: Female Date: 1955 Study Date: 26-Jun-2018 Interactive Project Manager: PRETTY Location: 607 Height(Cm): 152 Weight(Kg): 82 BSA: 1.86 Ref. Physician: AVERY FOLEY Quality: Adequate Procedures: Transthoracic echocardiogram with complete 2D, M-Mode, and doppler examination. Indications: Valve Replacement. 2D/M Mode Doppler Measurement Value Normal Ranges Measurement Value Normal Ranges LVIDd 2D 4.4 3.5 - 5.6 cm [place] VTI 1.3 cm2 LVIDs 2D 2.5 2.1 - 4.1 cm AV Mean Shmuel 1.2 m/sec LVPWd 2D 1.2 0.6 - 1.1 cm AV Mean PG 6.0 mmHg IVSd 2D 1.2 0.6 - 1.1 cm AV VTI 33.6 cm LA Dimen 2D 5.4 2.3 - 4.0 cm LVOT Mean Shmuel 0.5 m/sec LVOT Diam 1.9 cm LVOT Mean PG 1.0 mmHg LVOT Peak Shmuel 0.7 m/sec LVOT Peak PG 2.0 mmHg MV PHT 79.0 msec MV Peak Shmuel 2.3 m/sec MV Peak PG 21.0 mmHg MV Mean Shmuel 1.1 m/sec MV Mean PG 6.0 mmHg MV Decel [place] 9 MV PHT Peak Shmuel 2.3 m/sec MV PHT 79.0 msec MV VTI 49.8 cm MVA PHT 2.8 cm2 MVA VTI 0.9 cm TV Mean PG 2.0 mmHg TR Peak Shmuel 2.8 m/sec TR Peak PG 31.0 mmHg PV Peak Shmuel 1.0 m/sec PV Peak PG 4.0 mmHg RVSP 34.0 mmHg Findings Left Ventricle: Normal left ventricular systolic function. Normal left ventricular cavity size. Mild concentric left ventricular hypertrophy. Ejection fraction is visually estimated at 60 %. Right Ventricle: Normal right ventricular size. Normal right ventricular systolic function. Left Atrium: There is severe enlargement of left atrium. Right Atrium: The right atrium is normal in size. Mitral Valve: Mild mitral leaflet calcification. Mild mitral annular calcification. Mild mitral valve regurgitation. Mild mitral stenosis. Mitral valve Max Velocity 2.27 m/sec. MaxPG 21.00 mmHg. MeanPG 6.00 mmHg. Aortic Valve: Aortic Valve Bio Prosthesis. Aortic valve Max velocity 1.70 m/sec. Max PG 11.60 mmHg. No aortic regurgitation. Tricuspid Valve: Normal appearance of the tricuspid valve. Estimated peak PA systolic pressure 34 mmHg. There is trace tricuspid regurgitation. Pulmonic Valve: Normal pulmonic valve appearance. There is mild pulmonic regurgitation. Pericardium: Normal pericardium with no significant pericardial effusion. Aorta: Normal aortic root. IVC: Normal size and normal respiratory collapse consistent with normal right atrial pressure. Conclusions Normal left ventricular systolic function. Normal left ventricular cavity size. Mild concentric left ventricular hypertrophy. Ejection fraction is visually estimated at 60 %. There is severe enlargement of left atrium. Mild mitral leaflet calcification. Mild mitral annular calcification. Mild mitral valve regurgitation. Mild mitral stenosis. Mitral valve Max Velocity 2.27 m/sec. MaxPG 21.00 mmHg. MeanPG 6.00 mmHg. Aortic Valve Bio Prosthesis. Aortic valve Max velocity 1.70 m/sec. Max PG 11.60 mmHg. No aortic regurgitation. Normal appearance of the tricuspid valve. Estimated peak PA systolic pressure 34 mmHg. There is trace tricuspid regurgitation. Normal pulmonic valve appearance. There is mild pulmonic regurgitation. Electronically Signed By: Horace Olivas 27-Jun-2018 19:03:02 -0800 Patient Name: ARIANA MORENO Study Date: 26-Jun-2018 [id number]
[2018-06-28] VITALS (14 sets, daily range): BP systolic 77–141; BP diastolic 44–92; PULSE 70–94; RESP 18–36
[2018-06-28] MEDS: SULFACETAMIDE 10% 15 ML OPH LEFT EYE SCH ×8 (03:00→21:00)
--- NOTE | 2018-06-28 04:00 | NUR ---
PT NPO FOR COLOSCOPY INCONTINENT LIQUID STOOL AND URINE PT RESTING WELL VITAL SIGN STABLE
[2018-06-28] MEDS: PANTOPRAZOLE 40 MG INJ IV SCH ×2 (06:30→18:11)
[2018-06-28] MEDS: BRIMONIDINE 0.2% 5 ML BTL RIGHT EYE SCH ×3 (06:30→21:47)
[2018-06-28] MEDS ORDERED: PROPOFOL 200 MG INJ ONE (07:00)
[2018-06-28] MEDS ORDERED: LIDOCAINE 100 MG SYRINGE ONE (07:00)
--- NOTE | 2018-06-28 07:20 | PN ---
Date/Time of Note Date/Time of Note DATE: 06/28/18 TIME: 07:19 Assessment/Plan VTE Prophylaxis Risk score (from Ns)>0 risk: 3 SCD applied (from [facility] [place] No SCD contraindicated: low risk/ambulating Pharmacological prophylaxis: NA/contraindicated Pharm contraindication: bleeding Lines/Catheters IV Catheter Type (from [facility]): Saline Lock Urinary Cath still in place: No Assessment/Plan Hospital Course 63 yo female who is bedbound secondary to CVA, h/o afib on xarelto presented for Hgb of 5.7, generalized weakness, and black stools 1. Upper GI bleed manifested through melanotic stools 2. Severe acute anemia secondary to blood loss 3. Transaminitis -US of abd unremarkable 4. H/O biliary stent placement by Dr. Ward in 02/2018 5. Atrial fibrillation, was on xarelto 6. Leukopenia 7. UTI 8. H/O C diff 9. H/O CVA 10. S/P EGD and ERcP with stent removal 06/24 Plan: Colonoscopy today, INR 1.0. Hemodynamically stable. Bowel prep complete PPI BID NO anticoagulants HH q 8 hours, call MD for less than 7.6 Pt examined and plan of care discussed with Dr. Ward Exam/Review of Systems Vital Signs Vitals Vital Signs Date Temp Pulse Resp B/P (MAP) Pulse Ox O2 O2 Flow FiO2 Time Delivery Rate 06/28/18 98.1 94 20 111/70 97 04:00 (84) 06/26/18 Room Air 15:11 06/24/18 6.0 15:01 Intake and Output 06/27/18 06/27/18 06/28/18 1515:00 23:00 07:00 IntakeIntake Total 450 ml 2000 ml BalanceBalance 450 ml 2000 ml Medications Medications Current Medications Amiodarone HCl (Cordarone) 200 mg BID PO Last administered on 06/27/18at 21:00; Admin Dose 200 MG; Start 06/21/18 at 21:00 Brimonidine Tartrate (Alphagan 0.2%) 1 drop Q8 RIGHT EYE Last administered on 06/28/18at 06:30; Admin Dose 1 DROP; Start 06/21/18 at 22:00 Hydroxyzine HCl (Atarax) 25 mg Q6 PRN PO ITCHING; Start 06/21/18 at 21:00 Sulfacetamide Sodium (Bleph-10 Oph Drop) 1 drop Q3 LEFT EYE Last administered on 06/27/18at 17:53; Admin Dose 1 DROP; Start 06/21/18 at 21:30 Acetaminophen (Tylenol Tab) 650 mg Q6H PRN PO MILD PAIN(1-3)OR ELEVATED TEMP Last administered on 06/26/18at 21:14; Admin Dose 650 MG; Start 06/21/18 at 21:00 Pantoprazole (Protonix Iv) 40 mg BID@,18 IV Last administered on 06/28/18at 06:30; Admin Dose 40 MG; Start 06/22/18 at 06:00 Ondansetron HCl (Zofran Inj) 4 mg Q6H PRN IV NAUSEA AND/OR VOMITING Last administered on 06/24/18at 15:29; Admin Dose 4 MG; Start 06/21/18 at 21:00 Tramadol HCl (Ultram) 50 mg Q6H PRN PO MODERATE PAIN LEVEL 4-6; Start 06/22/18 at 02:30 Oxycodone/ Acetaminophen (Percocet (5/ 325)) 1 tab Q6 PRN PO MODERATE PAIN LEVEL 4-6; Start 06/22/18 at 13:00 Ceftriaxone Sodium 50 ml @ 100 mls/hr Q24H IVPB Last administered on 06/27/18at 12:15; Admin Dose 100 MLS/HR; Start 06/22/18 at 13:00 Docusate Sodium (Colace) 100 mg BID PRN PO CONSTIPATION Last administered on 06/25/18at 21:07; Admin Dose 100 MG; Start 06/25/18 at 19:00 Senna (Senokot) 1 tab DAILY PRN PO CONSTIPATION; Start 06/26/18 at 17:30 Lubiprostone (Amitiza) 16 mcg BID PO Last administered on 06/27/18at 21:58; Admin Dose 16 MCG; Start 06/26/18 at 21:00 Results Result Diagram: 06/28/18 0511 06/25/18 0528 Results 24 hrs Laboratory Tests Test 06/28/18 05:11 White Blood Count 8.8 # Red Blood Count 3.89 L Hemoglobin 9.7 L Hematocrit 32.5 L Mean Corpuscular Volume 83.5 Mean Corpuscular Hemoglobin 24.9 L Mean Corpuscular Hemoglobin Concent 29.8 L Red Cell Distribution Width 22.5 H Platelet Count 273 Mean Platelet Volume 8.9 Immature Granulocytes % 0.700 H Neutrophils % 80.2 H Lymphocytes % 11.6 L Monocytes % 6.5 Eosinophils % 0.9 Basophils % 0.1 Nucleated Red Blood Cells % 0.0 Immature Granulocytes # 0.060 H Neutrophils # 7.0 Lymphocytes # 1.0 Monocytes # 0.6 Eosinophils # 0.1 Basophils # 0.0 Nucleated Red Blood Cells # 0.0 Prothrombin Time 13.3 Prothrombin Time Ratio 1.0 INR International Normalized Ratio 1.00 Activated Partial Thromboplast Time 30.6 ANNELIESE DUKE Jun 28, 2018 07:20
[2018-06-28] MEDS: ONDANSETRON 4 MG INJ IV PRN (08:23)
[2018-06-28] MEDS: AMIODARONE 200 MG TAB PO SCH ×2 (08:31→21:46)
[2018-06-28] MEDS: LUBIPROSTONE 8 MCG CAPSULE PO SCH ×2 (08:31→21:47)
--- NOTE | 2018-06-28 08:51 | NUR ---
NURSES NOTES: CALLED GI LAB X [phone] SPOKE WITH PAOLA BANKRUPTCY PROCESSOR REGARDING PT TIME FOR COLONOSCOPY. PENDING TIME 1230/1630, PAOLA STATED SHE WILL CALL BACK WITH UPDATED TIME. PT REMAINS NPO FOR PROCEDURE. CONSENT SIGNED BY PT AND PLACED IN CHART. NOTED WITH LIQUID STOOLS. WILL CONTINUE TO MONITOR AND ASSESS PT THROUGHOUT THE SHIFT
--- NOTE | 2018-06-28 10:43 | CONS ---
Date/Time of Note Date/Time of Note DATE: 06/28/18 TIME: 10:41 Assessment/Plan Assessment/Plan Additional Assessment/Plan 1. Atrial fibrillation. The patient has atrial fibrillation, paroxysmal, and now converted to sinus rhythm. I think she might not be the best candidate for anticoagulation in the setting of continuous bleeding as well as history of hemorrhagic conversion. The patient reported to have a left atrial appendage by chest x-ray. Will discuss with primary team, as the risk and benefits of anticoagulation in this case need to be carefully dressed.H/h stable - feels better overall. 2. 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 Does not appear to be mechanical. We will try to obtain records from [facility]. There is still not clear to me what type of procedure she had. For now, will follow - better fluid status. 3. Hypertension. Blood pressure well optimized. Continue to monitor. 4. Anemia. Patient with significant anemia on presentation which she already had an evaluation with Dr. Ward. Continue to follow and replace fluids as necessary. No active bleeding nw. 5. Coronary artery disease, no chest pain. For now, the patient did not rule in for ischemia. Troponins are negative. NO CP. 6. 2ry hypercoag state - patient on Xarelto prior. Now all anticoagulation is off. We will follow. I think amiodarone is reasonable to try to keep the patient in sinus rhythm. Consultation Date/Type/Reason Admit Date/Time Jun 21, 2018 at 18:18 Initial Consult Date Requesting Provider: BRO SALAZAR MD 24 HR Interval Summary Free Text/Dictation NO acute events - VS stable - sitting up in bed - will follow clinically. ROS: No fever, no chills, no nausea, no vomiting, no diarrhea/constipation No recent weight changes No chest pain, no PND, no orthopnea - improved SOB. No dizziness, blurred vision No thirst, no heat or cold intolerance Exam/Review of Systems Vital Signs Vitals Vital Signs Date Temp Pulse Resp B/P (MAP) Pulse Ox O2 O2 Flow FiO2 Time Delivery Rate 06/28/18 91 08:16 06/28/18 98.3 20 137/92 98 07:29 (107) 06/26/18 Room Air 15:11 06/24/18 6.0 15:01 Intake and Output 06/27/18 06/27/18 06/28/18 1515:00 23:00 07:00 IntakeIntake Total 450 ml 2000 ml BalanceBalance 450 ml 2000 ml Exam General: WN/WD/NAD, AOx 3 [place] HEENT: Unicetric/atraumatic/EOMI (follow commands) NECK: JVD elevated, no thyromegaly Lymph: no lymphadenopathy HEART:ir regular with no S3, II/ systolic murmur at apex LUNGS: Coarse sounds ABD: soft, NT, ND, +BS : Intact Neuro: non focal SKIN: chronic changes EXT: trace edema Medications Medications Current Medications Amiodarone HCl (Cordarone) 200 mg BID PO Last administered on 06/27/18at 21:00; Admin Dose 200 MG; Start 06/21/18 at 21:00 Brimonidine Tartrate (Alphagan 0.2%) 1 drop Q8 RIGHT EYE Last administered on 06/28/18at 06:30; Admin Dose 1 DROP; Start 06/21/18 at 22:00 Hydroxyzine HCl (Atarax) 25 mg Q6 PRN PO ITCHING; Start 06/21/18 at 21:00 Sulfacetamide Sodium (Bleph-10 Oph Drop) 1 drop Q3 LEFT EYE Last administered on 06/27/18at 17:53; Admin Dose 1 DROP; Start 06/21/18 at 21:30 Acetaminophen (Tylenol Tab) 650 mg Q6H PRN PO MILD PAIN(1-3)OR ELEVATED TEMP L ast administered on 06/26/18at 21:14; Admin Dose 650 MG; Start 06/21/18 at 21:00 Pantoprazole (Protonix Iv) 40 mg BID@ IV Last administered on 06/28/18at 06:30; Admin Dose 40 MG; Start 06/22/18 at 06:00 Ondansetron HCl (Zofran Inj) 4 mg Q6H PRN IV NAUSEA AND/OR VOMITING Last administered on 06/28/18at 08:23; Admin Dose 4 MG; Start 06/21/18 at 21:00 Tramadol HCl (Ultram) 50 mg Q6H PRN PO MODERATE PAIN LEVEL 4-6; Start 06/22/18 at 02:30 Oxycodone/ Acetaminophen (Percocet (5/ 325)) 1 tab Q6 PRN PO MODERATE PAIN LEVEL 4-6; Start 06/22/18 at 13:00 Ceftriaxone Sodium 50 ml @ 100 mls/hr Q24H IVPB Last administered on 06/27/18at 12:15; Admin Dose 100 MLS/HR; Start 06/22/18 at 13:00 Docusate Sodium (Colace) 100 mg BID PRN PO CONSTIPATION Last administered on 06/25/18at 21:07; Admin Dose 100 MG; Start 06/25/18 at 19:00 Senna (Senokot) 1 tab DAILY PRN PO CONSTIPATION; Start 06/26/18 at 17:30 Lubiprostone (Amitiza) 16 mcg BID PO Last administered on 06/27/18at 21:58; Admin Dose 16 MCG; Start 06/26/18 at 21:00 Results Result Diagram: 06/28/18 0511 06/25/18 0528 Results 24 hrs Laboratory Tests Test 06/28/18 05:11 White Blood Count 8.8 # Red Blood Count 3.89 L Hemoglobin 9.7 L Hematocrit 32.5 L Mean Corpuscular Volume 83.5 Mean Corpuscular Hemoglobin 24.9 L Mean Corpuscular Hemoglobin Concent 29.8 L Red Cell Distribution Width 22.5 H Platelet Count 273 Mean Platelet Volume 8.9 Immature Granulocytes % 0.700 H Neutrophils % 80.2 H Lymphocytes % 11.6 L Monocytes % 6.5 Eosinophils % 0.9 Basophils % 0.1 Nucleated Red Blood Cells % 0.0 Immature Granulocytes # 0.060 H Neutrophils # 7.0 Lymphocytes # 1.0 Monocytes # 0.6 Eosinophils # 0.1 Basophils # 0.0 Nucleated Red Blood Cells # 0.0 Prothrombin Time 13.3 Prothrombin Time Ratio 1.0 INR International Normalized Ratio 1.00 Activated Partial Thromboplast Time 30.6 AVERY FOLEY MD Jun 28, 2018 10:43
--- NOTE | 2018-06-28 11:09 | NUR ---
PT NOTE [facility] Patient: Karina Ayala : 1955 Age/Sex: 63/F Unit#: [id number] Room/Bed: 607/A User: Cinthia Hernandez PTA Date: 06/28/18 11:09 Type: PT Technical Record Therapy day number 2 Subjective Denies pain Pain Scale NUMERIC Pain Intensity 0 (0-10) Patient Stated Goal for Pain Relief 0 (0-10) Pain Level Comment denied pain Exercise Assessment Label Bilat Lower Extremity Exercise Type Active Assist ROM Additional Exercise Comments See PT note Exercise Start Time 10:10 Exercise End Time 10:35 Total Exercise Time 25 min (8-127) Transfer Training Start Time 10:35 Supine to Sit Moderate Assist Bed Mobility Sit to Supine Moderate Assist Bed Transfer Ability Maximum Assist Chair Transfer Ability Maximum Assist Additional Mobility Comments 2PA, squat pivot transfer Transfer Training End Time 11:09 Total Transfer Training Time 34 min (8-127) Patient uses wheelchair Not Applicable Weight Bearing Assessment Label Bilat Lower Extremity Weight Bearing Status Non Weight Bearing Static Sitting Balance Fair Dynamic Sitting Balance Fair minus Standing Static Balance Poor Dynamic Standing Balance Poor Safety Judgement Good Activity Tolerance Fair Post Treatment Pain Intensity 0 0-10 Variance Documentation See PT note Total Treament Time 59 min (8-127) Total Minutes 59 Total Units 4 PT Technical Record Comment PT NOTE S: RN Krista cleared pt for PT. Pt denied pain and agreeable to tx O: Received pt in semifowler w/ PARK WORKER present in room. PT aide present for translation and 2P assistance. ModA mobility and MaxA transfers via stand pivot transfer. Performed AAROME/PROME in semifowler/EOB; APs, heel slides, hip abd/add, glute sets, seated marches, LAQ, anterior/lateral reach 3x10 each exercises. Returned pt back to bed. Positioned pt to comfort in semifowler. Call light/phone within reach. Bed alarm on. Needs met. A: Fair tolerance to tx. Fair/Fair minus sitting balance. Pt able to return to center when LOB while seated. P: Continue w/ POC and progress as tolerated
--- NOTE | 2018-06-28 11:40 | NUR ---
NURSES NOTES AWAITING NEW EYE DROPS FROM PHARMACY FOR SULFACETAMIDE. CALLED PHARMACY SPOKE WITH CIARA AND STATED EYE DROPS ARE WAITING TO ARRIVE THEY WERE BACKORDERED. PT AWARE.
--- NOTE | 2018-06-28 12:28 | PN ---
Date/Time of Note Date/Time of Note DATE: 06/28/18 TIME: 12:24 Assessment/Plan VTE Prophylaxis Risk score (from Ns)>0 risk: 6 SCD applied ([place] [facility] [place] No SCD contraindicated: other Pharmacological prophylaxis: NA/contraindicated Pharm contraindication: bleeding Lines/Catheters IV Catheter Type (from [facility]): Saline Lock Urinary Cath still in place: No Assessment/Plan Hospital Course 63 y/o with 1. Severe anemia, likely secondary to upper gastrointestinal bleed with melena. This post EGD with gastritis has history of polyps per GI will need a colonoscopy 2. Upper gastrointestinal bleed secondary to #2. 3. Transaminitis and history of stent placement by Dr. Ward in 02/2018. 4. Atrial fibrillation, on Xarelto. 5. Leukopenia. 6. Urinary tract infection. + E. coli 7. History of Clostridium difficile. 8. History of cerebrovascular accident, bedbound, left-sided weakness. 9. History of aortic thrombus, status post thrombectomy. 10. History of atherosclerotic disease. Plan -Colonoscopy due -hb Globin has been stable - stool softeners -cw with Rocephin for ECOLI UTI to complete a 10-day course -Hold Xarelto due to bleeding, will ask cardiology about recommendations for blood thinners, likely resuming based on the colonoscopy results -Monitor A. fib -cw with IV iron -Pain control -Labs tomorrow -FU Cards consult dispo pending colonoscopy and restarting anticoagulation Subjective 24 Hr Interval Summary Free Text/Dictation Colonoscopy today. Patient is hungry Exam/Review of Systems Vital Signs Vitals Vital Signs Date Temp Pulse Resp B/P (MAP) Pulse Ox O2 O2 Flow FiO2 Time Delivery Rate 06/28/18 82 12:21 06/28/18 98.0 20 101/74 97 Room Air 11:01 (83) 06/24/18 6.0 15:01 Intake and Output 06/27/18 06/27/18 06/28/18 1515:00 23:00 07:00 IntakeIntake Total 450 ml 2000 ml BalanceBalance 450 ml 2000 ml Exam ENERAL: The patient is awake, alert, oriented, does not appear to in any acute distress. HEENT: Pupils are equal, round, reactive to light. The patient has marked pallor. NECK: Supple. No JVD. HEART: Irregularly irregular. No murmur, rub or gallop. LUNGS: Clear to auscultate bilaterally. ABDOMEN: Soft, nontender, nondistended. Normal bowel sounds. EXTREMITIES: The patient has left-sided hemiplegia. Medications Medications Current Medications Amiodarone HCl (Cordarone) 200 mg BID PO Last administered on 06/27/18 21:00; Admin Dose 200 MG; Start 06/21/18 at 21:00 Brimonidine Tartrate (Alphagan 0.2%) 1 drop Q8 RIGHT EYE Last administered on 06/28/18 06:30; Admin Dose 1 DROP; Start 06/21/18 at 22:00 Hydroxyzine HCl (Atarax) 25 mg Q6 PRN PO ITCHING; Start 06/21/18 at 21:00 Sulfacetamide Sodium (Bleph-10 Oph Drop) 1 drop Q3 LEFT EYE Last administered on 06/27/18 17:53; Admin Dose 1 DROP; Start 06/21/18 at 21:30 Acetaminophen (Tylenol Tab) 650 mg Q6H PRN PO MILD PAIN(1-3)OR ELEVATED TEMP Last administered on 06/26/18at 21:14; Admin Dose 650 MG; Start 06/21/18 at 21:00 Pantoprazole (Protonix Iv) 40 mg BID@,18 IV Last administered on 06/28/18 06:30; Admin Dose 40 MG; Start 06/22/18 at 06:00 Ondansetron HCl (Zofran Inj) 4 mg Q6H PRN IV NAUSEA AND/OR VOMITING Last administered on 06/28/18 08:23; Admin Dose 4 MG; Start 06/21/18 at 21:00 Tramadol HCl (Ultram) 50 mg Q6H PRN PO MODERATE PAIN LEVEL 4-6; Start 06/22/18 at 02:30 Oxycodone/ Acetaminophen (Percocet (5/ 325)) 1 tab Q6 PRN PO MODERATE PAIN LEVEL 4-6; Start 06/22/18 at 13:00 Ceftriaxone Sodium 50 ml @ 100 mls/hr Q24H IVPB Last administered on 8at 12:15; Admin Dose 100 MLS/HR; Start 06/22/18 at 13:00 Docusate Sodium (Colace) 100 mg BID PRN PO CONSTIPATION Last administered on 12/8/18at 21:07; Admin Dose 100 MG; Start 06/25/18 at 19:00 Senna (Senokot) 1 tab DAILY PRN PO CONSTIPATION; Start 06/26/18 at 17:30 Lubiprostone (Amitiza) 16 mcg BID PO Last administered on 06/27/18at 21:58; Admin Dose 16 MCG; Start 06/26/18 at 21:00 Results Result Diagram: 06/28/18 0511 06/25/18 0528 Results 24 hrs Laboratory Tests Test 06/28/18 05:11 White Blood Count 8.8 # Red Blood Count 3.89 L Hemoglobin 9.7 L Hematocrit 32.5 L Mean Corpuscular Volume 83.5 Mean Corpuscular Hemoglobin 24.9 L Mean Corpuscular Hemoglobin Concent 29.8 L Red Cell Distribution Width 22.5 H Platelet Count 273 Mean Platelet Volume 8.9 Immature Granulocytes % 0.700 H Neutrophils % 80.2 H Lymphocytes % 11.6 L Monocytes % 6.5 Eosinophils % 0.9 Basophils % 0.1 Nucleated Red Blood Cells % 0.0 Immature Granulocytes # 0.060 H Neutrophils # 7.0 Lymphocytes # 1.0 Monocytes # 0.6 Eosinophils # 0.1 Basophils # 0.0 Nucleated Red Blood Cells # 0.0 Prothrombin Time 13.3 Prothrombin Time Ratio 1.0 INR International Normalized Ratio 1.00 Activated Partial Thromboplast Time 30.6 BRO SALAZAR MD Jun 28, 2018 12:28
--- NOTE | 2018-06-28 12:35 | NUR ---
NURSES NOTES: PT LEFT UNIT AT 1219 FOR SCHEDULED COLONOSCOPY. ACCOMPANIED BY MAT PAYTON AND IDALIA QUINTANILLA FOR TRANSPORT TO GI LAB. AWAITING FOR PT TO ARRIVE BACK TO UNIT AT THIS TIME
[2018-06-28] MEDS ORDERED: PROPOFOL 20 ML ONE (13:10)
[2018-06-28] MEDS ORDERED: PHENYLephrine (100 MCG/ML) 5ML SYG ONE (13:22)
--- NOTE | 2018-06-28 13:37 | NUR ---
PACU NOTES RECEIVED FROM [facility] Addendum: 06/28/18 at 1435 by MAHENDRA FOREMAN RN TRANSFERRED TO ROOM, EDNA IN THE ROOM, WITH THE PORTABLE TELE MONITOR BOX, CONFIRMED WITH THE MT IN THE CENTRAL STATION. PATIENT WENT UP WITH HER DENTURES (UPPER AND LOWER) AND EYEGLASSES, DENIES NAUSEA AND DISCOMFORT
[2018-06-28] MEDS: CEFTRIAXONE 1 GM/50 ML (PMX) 50 ML IVPB SCH (14:22)
--- NOTE | 2018-06-28 14:26 | NUR ---
NURSES NOTES: PT ARRIVED BACK TO UNIT AT THIS TIME. ENDORSED BY LEIF SUÁREZ FROM GI LAB S/P COLONOSCOPY. SCHEDULED MEDICATIONS NOW ADMINISTERED. RECEIVED PT A/OX4. DENIES PAIN OR DISCOMFORT AT THIS TIME. CLEANED PT WITH EDNA ABREU. PT CLEAN AND DRY. NO S.S OF RESPIRATORY DISTRESS PT ON ROOM AIR. PT EATING SITTING UP IN BED. WILL CONTINUE TO MONITOR AND ASSESS PT THROUGHOUT THE SHIFT
--- NOTE | 2018-06-28 18:29 | NUR ---
EOSS: PT LAYING IN BED. DENIES PAIN OR DISCOMFORT AT THIS TIME. NO S/S OF RESPIRATORY DISTRESS PT ON ROOM AIR. S/P COLONOSCOPY TODAY BY . UNABLE TO COLLECT UA/URINE CULTURE. PENDING LABS IN AM. WILL ENDORSE TO PRICING ANALYST. PT CLEAN AND DRY. FALL AND SAFETY PRECAUTIONS IMPLEMENTED. CALL LIGHT WITHIN REACH, BED IN LOWEST POSITION BRAKES LOCKED ROOM FREE OF CLUTTER, PERSONAL BELONGINGS PLACED CLOSE TO PT. WILL ENDORSE TO PRICING ANALYST RN ACCORDINGLY.
--- NOTE | 2018-06-28 21:40 | NUR ---
Pt's son demanding to know that result of the colonoscopy. Explained to the son if there is any abnormality with the doctor will contact him. He keep insisting to know the result. Explained to him the the result of the colonoscopy were not available and that will endorse it to the morning AM to let Dr Preston or Dr Ward to call him.
--- NOTE | 2018-06-28 21:50 | NUR ---
Pt asked to have her purse brought from the security office. Pt decides to keep her purse with her. Made son aware of her decision.
[2018-06-29] VITALS (9 sets, daily range): BP systolic 94–110; BP diastolic 57–69; PULSE 77–97; RESP 16–18
[2018-06-29] MEDS: SULFACETAMIDE 10% 15 ML OPH LEFT EYE SCH ×8 (03:00→21:53)
[2018-06-29] MEDS: PANTOPRAZOLE 40 MG INJ IV SCH ×2 (06:08→17:15)
[2018-06-29] MEDS: BRIMONIDINE 0.2% 5 ML BTL RIGHT EYE SCH ×3 (06:09→21:08)
--- NOTE | 2018-06-29 07:01 | NUR ---
EOSS Pt AAO x4 with periods of forgetfulness. Reposition every 2 hours. Pt refused bed bath this morning. He requested to have it around 7-7:30. No acute changes
--- NOTE | 2018-06-29 07:34 | PN ---
Date/Time of Note Date/Time of Note DATE: 06/29/18 TIME: 07:30 Assessment/Plan VTE Prophylaxis Risk score (from Ns)>0 risk: 5 SCD applied (from Ns): Yes Pharmacological prophylaxis: NA/contraindicated Pharm contraindication: bleeding Lines/Catheters IV [facility]ter Type (from [facility]): Peripheral IV Urinary Cath still in place: No Assessment/Plan Hospital Course 63 yo female who is bedbound secondary to CVA, h/o afib on xarelto presented for Hgb of 5.7, generalized weakness, and black stools 1. Upper GI bleed manifested through melanotic stools 2. Severe acute anemia secondary to blood loss 3. Transaminitis -US of abd unremarkable 4. H/O biliary stent placement by Dr. Ward in 02/2018 5. Atrial fibrillation, was on xarelto 6. Leukopenia -resolved 7. UTI 8. H/O C diff 9. H/O CVA 10. S/P EGD and ERCP with stent removal 06/24, S/P colon 06/28 11. Diverticulosis of left side of colon 12. Polyp which was removed Plan: NO diverticulitis noted. Colonoscopy reports diverticulitis of large colon but that is computer error. NO Diverticulitis noted. Pathology pending Patient will need colonoscopy in 6 months. Spoke with son regarding colonoscopy results, following up with Dr. Ward as outpatient, diverticulosis friendly diet, and a follow up colonoscopy in 6 months. PPI BID NO anticoagulants HH q 8 hours, call MD for less than 7.6 Monitor LFTs Pt examined and plan of care discussed with Dr. Ward Subjective 24 Hr Interval Summary Free Text/Dictation No complaints of abdominal pain. Mild nausea. Exam/Review of Systems Vital Signs Vitals Vital Signs Date Temp Pulse Resp B/P (MAP) Pulse Ox O2 O2 Flow FiO2 Time Delivery Rate 06/29/18 98.2 83 18 104/63 99 04:00 (77) 06/28/18 Room Air 15:18 Intake and Output 06/28/18 06/28/18 06/29/18 1515:00 23:00 07:00 IntakeIntake Total 1010 ml 400 ml BalanceBalance 1010 ml 400 ml Exam Constitutional: alert, oriented Psych: no complaints Head: normocephalic Eyes: PERRL ENMT: mucosa pink and moist Respiratory: diminished breath sounds Cardiovascular: regular rate and rhythm Gastrointestinal: soft, non-tender Musculoskeletal: muscle weakness Medications Medications Current Medications Amiodarone HCl (Cordarone) 200 mg BID PO Last administered on 06/28/18at 21:46; Admin Dose 200 MG; Start 06/21/18 at 21:00 Brimonidine Tartrate (Alphagan 0.2%) 1 drop Q8 RIGHT EYE Last administered on 06/29/18 06:09; Admin Dose 1 DROP; Start 06/21/18 at 22:00 Hydroxyzine HCl (Atarax) 25 mg Q6 PRN PO ITCHING; Start 06/21/18 at 21:00 Sulfacetamide Sodium (Bleph-10 Oph Drop) 1 drop Q3 LEFT EYE Last administered on 06/27/18at 17:53; Admin Dose 1 DROP; Start 06/21/18 at 21:30 Acetaminophen (Tylenol Tab) 650 mg Q6H PRN PO MILD PAIN(1-3)OR ELEVATED TEMP Last administered on 06/26/18 21:14; Admin Dose 650 MG; Start 06/21/18 at 21:00 Pantoprazole (Protonix Iv) 40 mg BID@18 IV Last administered on 06/29/18 06:08; Admin Dose 40 MG; Start 06/22/18 at 06:00 Ondansetron HCl (Zofran Inj) 4 mg Q6H PRN IV NAUSEA AND/OR VOMITING Last administered on 06/28/18 08:23; Admin Dose 4 MG; Start 06/21/18 at 21:00 Tramadol HCl (Ultram) 50 mg Q6H PRN PO MODERATE PAIN LEVEL 4-6; Start 06/22/18 at 02:30 Oxycodone/ Acetaminophen (Percocet (5/ 325)) 1 tab Q6 PRN PO MODERATE PAIN LEVEL 4-6; Start 06/22/18 at 13:00 Ceftriaxone Sodium 50 ml @ 100 mls/hr Q24H IVPB Last administered on 06/28/18 14:22; Admin Dose 100 MLS/HR; Start 06/22/18 at 13:00 Docusate Sodium (Colace) 100 mg BID PRN PO CONSTIPATION Last administered on 06/25/18 21:07; Admin Dose 100 MG; Start 06/25/18 at 19:00 Senna (Senokot) 1 tab DAILY PRN PO CONSTIPATION; Start 06/26/18 at 17:30 Lubiprostone (Amitiza) 16 mcg BID PO Last administered on 06/28/18at 21:47; Admin Dose 16 MCG; Start 06/26/18 at 21:00 Results Result Diagram: 06/29/18 0522 06/29/18 0522 Results 24 hrs Laboratory Tests Test 06/29/18 05:22 White Blood Count 5.7 # Red Blood Count 3.73 L Hemoglobin 9.5 L Hematocrit 31.6 L Mean Corpuscular Volume 84.7 Mean Corpuscular Hemoglobin 25.5 L Mean Corpuscular Hemoglobin Concent 30.1 L Red Cell Distribution Width 23.4 H Platelet Count 233 Mean Platelet Volume 9.2 Immature Granulocytes % 1.000 H Neutrophils % 69.7 Lymphocytes % 19.6 Monocytes % 8.0 Eosinophils % 1.4 Basophils % 0.3 Nucleated Red Blood Cells % 0.0 Immature Granulocytes # 0.060 H Neutrophils # 4.0 Lymphocytes # 1.1 Monocytes # 0.5 Eosinophils # 0.1 Basophils # 0.0 Nucleated Red Blood Cells # 0.0 Sodium Level 140 Potassium Level 4.3 Chloride Level 109 Carbon Dioxide Level 24 Anion Gap 7 Blood Urea Nitrogen 23 H Creatinine 0.82 Est Glomerular Filtrat Rate mL/min > 60 Glucose Level 95 Calcium Level 9.1 Phosphorus Level 3.9 Magnesium Level 1.8 ANNELIESE DUKE Jun 29, 2018 07:34
[2018-06-29] MEDS: AMIODARONE 200 MG TAB PO SCH ×2 (10:03→21:08)
[2018-06-29] MEDS: LUBIPROSTONE 8 MCG CAPSULE PO SCH ×2 (10:04→21:08)
--- NOTE | 2018-06-29 12:03 | CONS ---
Date/Time of Note Date/Time of Note DATE: 06/29/18 TIME: 11:59 Assessment/Plan Assessment/Plan Chief Complaint/Hosp Course IMP: 1.PAF/AFL-off xarelto due to GIB and currently in AFL 2.AVR-? bioprosthesis 3.HTN 4.GIB s/p EGD with gastirtis. colonoscopy with diverticulosis 5.anemia 6.CVA with L sided weakness Recc: -Tele -off anticoagulation due to GIB and per GI note recommend staying off of anticoagulation -Continue amio and follow hgb closely -Continue abx's and f/u cx data Consultation Date/Type/Reason Admit Date/Time Jun 21, 2018 at 18:18 Initial Consult Date 06/25/18 Type of Consult cardiology Reason for Consultation AFL/AF Requesting Provider: BRO SALAZAR MD Exam/Review of Systems Vital Signs Vitals Vital Signs Date Temp Pulse Resp B/P (MAP) Pulse Ox O2 O2 Flow FiO2 Time Delivery Rate 06/29/18 98.6 84 16 94/57 (69) 98 Room Air 11:25 Intake and Output 06/28/18 06/28/18 06/29/18 1515:00 23:00 07:00 IntakeIntake Total 1010 ml 400 ml BalanceBalance 1010 ml 400 ml Exam Review of Systems: CONSTITUTIONAL: No fevers, chills. PULMONARY: No sob CARDIOVASCULAR: No chest pain/palpitations GASTROINTESTINAL: No nausea/vomiting. GENITOURINARY: No hematuria/dysuria. MUSCULOSKELETAL: No myagias/arthalgias. PSYCHIATRIC: The patient denies depression. NEUROLOGIC: No weakness Constitutional: alert, oriented Psych: no complaints Head: normocephalic ENMT: mucosa pink and moist Neck: supple, jvd (9 cm water) Respiratory: diminished breath sounds (at bases/B) Cardiovascular: irregular rhythm Gastrointestinal: soft, non-tender Musculoskeletal: muscle weakness Extremities: edema (UE/B) Neurological: focal weakness (L sided) Medications Medications Current Medications Amiodarone HCl (Cordarone) 200 mg BID PO Last administered on 06/29/18at 10:03; Admin Dose 200 MG; Start 06/21/18 at 21:00 Brimonidine Tartrate (Alphagan 0.2%) 1 drop Q8 RIGHT EYE Last administered on 06/29/18at 06:09; Admin Dose 1 DROP; Start 06/21/18 at 22:00 Hydroxyzine HCl (Atarax) 25 mg Q6 PRN PO ITCHING; Start 06/21/18 at 21:00 Sulfacetamide Sodium (Bleph-10 Oph Drop) 1 drop Q3 LEFT EYE Last administered on 06/27/18at 17:53; Admin Dose 1 DROP; Start 06/21/18 at 21:30 Acetaminophen (Tylenol Tab) 650 mg Q6H PRN PO MILD PAIN(1-3)OR ELEVATED TEMP Last administered on 06/26/18at 21:14; Admin Dose 650 MG; Start 06/21/18 at 21:00 Pantoprazole (Protonix Iv) 40 mg BID@18 IV Last administered on 06/29/18at 06:08; Admin Dose 40 MG; Start 06/22/18 at 06:00 Ondansetron HCl (Zofran Inj) 4 mg Q6H PRN IV NAUSEA AND/OR VOMITING Last administered on 06/28/18at 08:23; Admin Dose 4 MG; Start 06/21/18 at 21:00 Tramadol HCl (Ultram) 50 mg Q6H PRN PO MODERATE PAIN LEVEL 4-6; Start 06/22/18 at 02:30 Oxycodone/ Acetaminophen (Percocet (5/ 325)) 1 tab Q6 PRN PO MODERATE PAIN LEVE L 4-6; Start 06/22/18 at 13:00 Ceftriaxone Sodium 50 ml @ 100 mls/hr Q24H IVPB Last administered on 06/28/18at 14:22; Admin Dose 100 MLS/HR; Start 06/22/18 at 13:00 Docusate Sodium (Colace) 100 mg BID PRN PO CONSTIPATION Last administered on 06/25/18at 21:07; Admin Dose 100 MG; Start 06/25/18 at 19:00 Senna (Senokot) 1 tab DAILY PRN PO CONSTIPATION; Start 06/26/18 at 17:30 Lubiprostone (Amitiza) 16 mcg BID PO Last administered on 06/29/18at 10:04; Admin Dose 16 MCG; Start 06/26/18 at 21:00 Results Result Diagram: 06/29/1852106/29/18 0522 Results 24 hrs Laboratory Tests Test 06/29/18 05:22 White Blood Count 5.7 # Red Blood Count 3.73 L Hemoglobin 9.5 L Hematocrit 31.6 L Mean Corpuscular Volume 84.7 Mean Corpuscular Hemoglobin 25.5 L Mean Corpuscular Hemoglobin Concent 30.1 L Red Cell Distribution Width 23.4 H Platelet Count 233 Mean Platelet Volume 9.2 Immature Granulocytes % 1.000 H Neutrophils % 69.7 Lymphocytes % 19.6 Monocytes % 8.0 Eosinophils % 1.4 Basophils % 0.3 Nucleated Red Blood Cells % 0.0 Immature Granulocytes # 0.060 H Neutrophils # 4.0 Lymphocytes # 1.1 Monocytes # 0.5 Eosinophils # 0.1 Basophils # 0.0 Nucleated Red Blood Cells # 0.0 Sodium Level 140 Potassium Level 4.3 Chloride Level 109 Carbon Dioxide Level 24 Anion Gap 7 Blood Urea Nitrogen 23 H Creatinine 0.82 Est Glomerular Filtrat Rate mL/min > 60 Glucose Level 95 Calcium Level 9.1 Phosphorus Level 3.9 Magnesium Level 1.8 EMANUEL LAMAR Jun 29, 2018 12:03
[2018-06-29] MEDS: CEFTRIAXONE 1 GM/50 ML (PMX) 50 ML IVPB SCH (12:49)
--- NOTE | 2018-06-29 13:36 | NUR ---
SW: CONSULTATION SW was consulted to assess patient's "home living conditions." SW spoke with patient's son Destin Townsend ([phone]), who states that he is patient's primary surrogate spokesperson. [facility] patient currently lives with him and his at [address] [place] [address]. States that patient is recipient of IHSS, and states that his is patient's primary IHSS provider for about 4 hours a day. However, states that he and his do take care of patient 24/ at home. States that he is patient's primary mode of transportation. [facility] patient is and has 7 total children, 3 of which live locally. [facility] patient is disabled and she receives disability income. Destin states that he has spoken with and MITCHELL regarding SNF placement. According to MITCHELL Platt, plan is for SNF placement for this patient. All questions/ concerns were denied at this time. Delivery Mgr remains available as needed throughout patient's treatment process.
[2018-06-29] MEDS: ACETAMINOPHEN 325 MG TAB PO PRN (15:06)
--- NOTE | 2018-06-29 15:50 | NUR ---
PT NOTE Therapy day number 3 Subjective Denies pain Pain Scale NUMERIC Pain Intensity 0 (0-10) Patient Stated Goal for Pain Relief 0 (0-10) Pain Level Comment DENIES PAIN Exercise Assessment Label Bilat Lower Extremity Exercise Type Active Assist ROM Additional Exercise Comments Sitting: AP's, heel slides, knee flex/ext, marches Exercise Start Time 15:50 Exercise End Time 16:05 Total Exercise Time 15 min (8-127) Transfer Training Start Time 16:05 Supine to Sit Moderate Assist Bed Mobility Sit to Supine Maximum Assist Bed Transfer Ability Maximum Assist Chair Transfer Ability Maximum Assist Additional Mobility Comments 2PA, squat pivot transfer Transfer Training End Time 16:30 Total Transfer Training Time 25 min (8-127) Patient uses wheelchair Not Applicable Weight Bearing Assessment Label Bilat Lower Extremity Weight Bearing Status Non Weight Bearing Static Sitting Balance Fair Dynamic Sitting Balance Fair minus Standing Static Balance Poor Dynamic Standing Balance Poor Safety Judgement Good Activity Tolerance Fair Post Treatment Pain Intensity 0 0-10 Variance Documentation SEE BELOW AND PT NOTE Total Treament Time 40 min (8-127) Total Minutes 40 Total Units 3 PT Technical Record Comment PT NOTE S: Pt stated, "I want to sit in the chair." Pt speaks Setswana. Agreeable for PT and cleared per LEIF Parmar. O: Received pt in semi-fowlers, alert. Bed mobility (HOB elevated using BR w/RUE w/Vcs for hand placement and sequence) and transfer see above for details. MaxA 2PA w/VCs for hand placement and sequence squat pivot transfer bed<>chair x 1 using gait belt. Pt then performed in sitting AROM RLE and PROM LLE thera ex, see above for exercises. Assisted pt BTB MaxA 2PA w/VCs for repositioning. Left pt in comfort position, call light/phone within reach, bed alarmed, and all needs met. LEIF Parmar informed of pt's status. A: Fair tolerance to tx. Pt showed no signs of distress or SOB during or after tx. Pt reported mild dizziness upon sitting EOB, however it went away within 3-5 minutes per pt. Limited sitting due to pt having a BM and requiring to be cleaned. P: Continue POC and progress as tolerated.
--- NOTE | 2018-06-29 17:02 | PN ---
Date/Time of Note Date/Time of Note DATE: 06/29/18 TIME: 17:00 Assessment/Plan VTE Prophylaxis Risk score (from Ns)>0 risk: 5 SCD applied (from Ns): Yes Pharmacological prophylaxis: NA/contraindicated Pharm contraindication: bleeding Lines/Catheters IV [facility]from [facility] Peripheral IV Urinary Cath still in place: No Assessment/Plan Hospital Course 63 y/o with 1. Severe anemia, likely secondary to upper gastrointestinal bleed with melena. This post EGD with gastritis has history of polyps per GI will need a colonoscopy 2. Upper gastrointestinal bleed secondary to #2. 3. Transaminitis and history of stent placement by Dr. Ward in 02/2018. 4. Atrial fibrillation, on Xarelto. 5. Leukopenia. 6. Urinary tract infection. + E. coli 7. History of Clostridium difficile. 8. History of cerebrovascular accident, bedbound, left-sided weakness. 9. History of aortic thrombus, status post thrombectomy. 10. History of atherosclerotic disease. Plan -Sp colonoscopy today -ask GI if it is okay to restart Xarelto -hb Globin has been stable - stool softeners -cw with Rocephin for ECOLI UTI to complete a 10-day course -Hold Xarelto due to bleeding, will ask cardiology about recommendations for blood thinners, likely resuming based on the colonoscopy results -Monitor A. fib -cw with IV iron -Pain control -Labs tomorrow -FU Cards consult likely dc tomorrow if started on anticoagulation and hb stable Subjective 24 Hr Interval Summary Free Text/Dictation This post colonoscopy today with the polyp Exam/Review of Systems Vital Signs Vitals Vital Signs Date Temp Pulse Resp B/P (MAP) Pulse Ox O2 O2 Flow FiO2 Time Delivery Rate 06/29/18 97 16:00 06/29/18 97.6 16 107/58 95 Room Air 15:40 (74) Intake and Output 06/28/18 06/28/18 06/29/18 1414:59 22:59 06:59 IntakeIntake Total 1010 ml 400 ml BalanceBalance 1010 ml 400 ml Exam Exam ENERAL: The patient is awake, alert, oriented, does not appear to in any acute distress. HEENT: Pupils are equal, round, reactive to light. The patient has marked pallor. NECK: Supple. No JVD. HEART: Irregularly irregular. No murmur, rub or gallop. LUNGS: Clear to auscultate bilaterally. ABDOMEN: Soft, nontender, nondistended. Normal bowel sounds. EXTREMITIES: The patient has left-sided hemiplegia. Medications Medications Medications Current Medications Amiodarone HCl (Cordarone) 200 mg BID PO Last administered on 06/29/18at 10:03; Admin Dose 200 MG; Start 06/21/18 at 21:00 Brimonidine Tartrate (Alphagan 0.2%) 1 drop Q8 RIGHT EYE Last administered on 06/29/18at 15:06; Admin Dose 1 DROP; Start 06/21/18 at 22:00 Hydroxyzine HCl (Atarax) 25 mg Q6 PRN PO ITCHING; Start 06/21/18 at 21:00 Sulfacetamide Sodium (Bleph-10 Oph Drop) 1 drop Q3 LEFT EYE Last administered on 06/29/18at 15:06; Admin Dose 1 DROP; Start 06/21/18 at 21:30 Acetaminophen (Tylenol Tab) 650 mg Q6H PRN PO MILD PAIN(1-3)OR ELEVATED TEMP Last administered on 06/29/18at 15:06; Admin Dose 650 MG; Start 06/21/18 at 21:00 Pantoprazole (Protonix Iv) 40 mg BID@18 IV Last administered on 06/29/18at 06:08; Admin Dose 40 MG; Start 06/22/18 at 06:00 Ondansetron HCl (Zofran Inj) 4 mg Q6H PRN IV NAUSEA AND/OR VOMITING Last administered on 06/28/18at 08:23; Admin Dose 4 MG; Start 06/21/18 at 21:00 Tramadol HCl (Ultram) 50 mg Q6H PRN PO MODERATE PAIN LEVEL 4-6; Start 06/22/18 at 02:30 Oxycodone/ Acetaminophen (Percocet (5/ 325)) 1 tab Q6 PRN PO MODERATE PAIN LEVEL 4-6; Start 06/22/18 at 13:00 Ceftriaxone Sodium 50 ml @ 100 mls/hr Q24H IVPB Last administered on 06/18 09/05at 12:49; Admin Dose 100 MLS/HR; Start 06/22/18 at 13:00 Docusate Sodium (Colace) 100 mg BID PRN PO CONSTIPATION Last administered on 06/25/18at 21:07; Admin Dose 100 MG; Start 06/25/18 at 19:00 Senna (Senokot) 1 tab DAILY PRN PO CONSTIPATION; Start 06/26/18 at 17:30 Lubiprostone (Amitiza) 16 mcg BID PO Last administered on 06/29/18at 10:04; Admin Dose 16 MCG; Start 06/26/18 at 21:00 Results Result Diagram: 06/29/1822 06/29/18 0522 Results 24 hrs Laboratory Tests Test 06/29/18 05:22 White Blood Count 5.7 # Red Blood Count 3.73 L Hemoglobin 9.5 L Hematocrit 31.6 L Mean Corpuscular Volume 84.7 Mean Corpuscular Hemoglobin 25.5 L Mean Corpuscular Hemoglobin Concent 30.1 L Red Cell Distribution Width 23.4 H Platelet Count 233 Mean Platelet Volume 9.2 Immature Granulocytes % 1.000 H Neutrophils % 69.7 Lymphocytes % 19.6 Monocytes % 8.0 Eosinophils % 1.4 Basophils % 0.3 Nucleated Red Blood Cells % 0.0 Immature Granulocytes # 0.060 H Neutrophils # 4.0 Lymphocytes # 1.1 Monocytes # 0.5 Eosinophils # 0.1 Basophils # 0.0 Nucleated Red Blood Cells # 0.0 Sodium Level 140 Potassium Level 4.3 Chloride Level 109 Carbon Dioxide Level 24 Anion Gap 7 Blood Urea Nitrogen 23 H Creatinine 0.82 Est Glomerular Filtrat Rate mL/min > 60 Glucose Level 95 Calcium Level 9.1 Phosphorus Level 3.9 Magnesium Level 1.8 BRO SALAZAR MD Jun 29, 2018 17:02
--- NOTE | 2018-06-29 18:56 | NUR ---
EOSS PT IS STABLE, NO S/S OF DISTRESS. REPOSITIONED EVERY 2 HOURS, CALL LIGHT WITHIN REACH, BED ALARM ON. ALL NEEDS WERE MET, VS WNL. POSSIBLE DISCHARGE TO SNF TOMORROW.
[2018-06-30] VITALS (10 sets, daily range): BP systolic 96–185; BP diastolic 54–90; PULSE 73–85; RESP 16–18
[2018-06-30] MEDS: SULFACETAMIDE 10% 15 ML OPH LEFT EYE SCH ×7 (03:00→17:46)
[2018-06-30] MEDS: BRIMONIDINE 0.2% 5 ML BTL RIGHT EYE SCH ×2 (05:47→13:47)
[2018-06-30] MEDS: PANTOPRAZOLE 40 MG INJ IV SCH ×2 (05:50→17:46)
--- NOTE | 2018-06-30 06:46 | NUR ---
end of shift: patient is alert and oriented, atrial flutter controlled on monitor; had some discomfort on the left upper extremity, elevated on pillow; skin kept clean and dry, Calazime ointment applied on perineal area for incontinence dermatitis; will endorse to dayshift nurse
--- NOTE | 2018-06-30 07:34 | PN ---
Date/Time of Note Date/Time of Note DATE: 06/30/18 TIME: 07:30 Assessment/Plan VTE Prophylaxis Risk score (from Ns)>0 risk: 7 SCD applied (from Ns): Yes Pharmacological prophylaxis: NA/contraindicated Pharm contraindication: bleeding Lines/Catheters IV [facility] ([facility]): Peripheral IV Urinary Cath still in place: No Assessment/Plan Hospital Course 63 yo female who is bedbound secondary to CVA, h/o afib on xarelto presented for Hgb of 5.7, generalized weakness, and black stools 1. Upper GI bleed manifested through melanotic stools 2. Severe acute anemia secondary to blood loss 3. Transaminitis -US of abd unremarkable -improving, AST 70, everything else wnl. 4. H/O biliary stent placement by Dr. Ward in 02/2018 5. Atrial fibrillation, was on xarelto 6. Leukopenia -resolved 7. UTI 8. H/O C diff 9. H/O CVA 10. S/P EGD and ERCP with stent removal 06/24, S/P colon 06/28 11. Diverticulosis of left side of colon 12. Polyp which was removed Plan: Monitor HH Okay to restart anti coagulants NO diverticulitis noted. Colonoscopy reports diverticulitis of large colon but that is computer error. NO Diverticulitis noted. Pathology pending Patient will need colonoscopy in 6 months. Spoke with son regarding colonoscopy results, following up with Dr. Ward as outpatient, diverticulosis friendly diet, and a follow up colonoscopy in 6 months. PPI BID Monitor LFTs Pt examined and plan of care discussed with Dr. Ward Subjective 24 Hr Interval Summary Free Text/Dictation Pt has very mild abdominal pain. Nausea yesterday. BM yesterday was still dark per [employer]PA[employer]. Hgb stable. C/O foot pain. Tolerating PO diet. Exam/Review of Systems Vital Signs Vitals Vital Signs Date Temp Pulse Resp B/P (MAP) Pulse Ox O2 O2 Flow FiO2 Time Delivery Rate 06/30/18 98.1 75 17 116/61 97 04:00 (79) 06/29/18 Room Air 15:40 Intake and Output 06/29/18 06/29/18 06/30/18 1515:00 23:00 07:00 IntakeIntake Total 900 ml 400 ml BalanceBalance 900 ml 400 ml Exam Constitutional: alert, oriented Psych: no complaints Head: normocephalic Eyes: PERRL ENMT: mucosa pink and moist Respiratory: clear to auscultation Cardiovascular: regular rate and rhythm Gastrointestinal: soft, tender (mild) Musculoskeletal: muscle weakness Neurological: nl mental status Medications Medications Current Medications Amiodarone HCl (Cordarone) 200 mg BID PO Last administered on 06/29/18at 21:08; Admin Dose 200 MG; Start 06/21/18 at 21:00 Brimonidine Tartrate (Alphagan 0.2%) 1 drop Q8 RIGHT EYE Last administered on 06/30/18at 05:47; Admin Dose 1 DROP; Start 06/21/18 at 22:00 Hydroxyzine HCl (Atarax) 25 mg Q6 PRN PO ITCHING; Start 06/21/18 at 21:00 Sulfacetamide Sodium (Bleph-10 Oph Drop) 1 drop Q3 LEFT EYE Last administered on 06/30/18at 05:47; Admin Dose 1 DROP; Start 06/21/18 at 21:30 Acetaminophen (Tylenol Tab) 650 mg Q6H PRN PO MILD PAIN(1-3)OR ELEVATED TEMP Last administered on 06/29/18at 15:06; Admin Dose 650 MG; Start 06/21/18 at 21:00 Pantoprazole (Protonix Iv) 40 mg BID@,18 IV Last administered on 06/30/18at 05:50; Admin Dose 40 MG; Start 06/22/18 at 06:00 Ondansetron HCl (Zofran Inj) 4 mg Q6H PRN IV NAUSEA AND/OR VOMITING Last administered on 06/28/18at 08:23; Admin Dose 4 MG; Start 06/21/18 at 21:00 Tramadol HCl (Ultram) 50 mg Q6H PRN PO MODERATE PAIN LEVEL 4-6; Start 06/22/18 at 02:30 Oxycodone/ Acetaminophen (Percocet (5/ 325)) 1 tab Q6 PRN PO MODERATE PAIN LEVEL 4-6; Start 06/22/18 at 13:00 Ceftriaxone Sodium 50 ml @ 100 mls/hr Q24H IVPB Last administered on 06/29/18at 12:49; Admin Dose 100 MLS/HR; Start 06/22/18 at 13:00 Docusate Sodium (Colace) 100 mg BID PRN PO CONSTIPATION Last administered on 06/25/18at 21:07; Admin Dose 100 MG; Start 06/25/18 at 19:00 Senna (Senokot) 1 tab DAILY PRN PO CONSTIPATION; Start 06/26/18 at 17:30 Lubiprostone (Amitiza) 16 mcg BID PO Last administered on 06/29/18at 21:08; Admin Dose 16 MCG; Start 06/26/18 at 21:00 Results Result Diagram: 06/30/18 0530 06/29/18 0522 Results 24 hrs Laboratory Tests Test 06/30/18 05:30 White Blood Count 4.4 #L Red Blood Count 3.69 L Hemoglobin 9.4 L Hematocrit 31.6 L Mean Corpuscular Volume 85.6 Mean Corpuscular Hemoglobin 25.5 L Mean Corpuscular Hemoglobin Concent 29.7 L Red Cell Distribution Width 23.0 H Platelet Count 231 Mean Platelet Volume 9.4 Immature Granulocytes % 0.900 H Neutrophils % 62.3 Lymphocytes % 25.1 Monocytes % 9.4 Eosinophils % 2.1 Basophils % 0.2 Nucleated Red Blood Cells % 0.0 Immature Granulocytes # 0.040 H Neutrophils # 2.7 Lymphocytes # 1.1 Monocytes # 0.4 Eosinophils # 0.1 Basophils # 0.0 Nucleated Red Blood Cells # 0.0 Total Bilirubin 0.2 Direct Bilirubin 0.00 Indirect Bilirubin 0.2 Aspartate Amino Transf (AST/SGOT) 70 H Alanine Aminotransferase (ALT/SGPT) 59 Alkaline Phosphatase 101 Total Protein 6.4 Albumin 3.1 L ANNELIESE DUKE Jun 30, 2018 07:33
[2018-06-30] MEDS: AMIODARONE 200 MG TAB PO SCH (08:16)
[2018-06-30] MEDS: LUBIPROSTONE 8 MCG CAPSULE PO SCH (08:16)
--- NOTE | 2018-06-30 11:00 | CONS ---
Date/Time of Note Date/Time of Note DATE: 06/30/18 TIME: 10:56 Assessment/Plan Assessment/Plan Chief Complaint/Hosp Course IMP: 1.PAF/AFL-off xarelto due to GIB and currently in AFL 2.AVR-? bioprosthesis 3.HTN 4.GIB s/p EGD with gastirtis. colonoscopy with diverticulosis 5.anemia 6.CVA with L sided weakness Recc: -Tele -off anticoagulation due to GIB and per GI note recommend staying off of anticoagulation -Continue amio for now and follow rhythm closely and follow hgb closely -Continue abx's and f/u cx data Consultation Date/Type/Reason Admit Date/Time Jun 21, 2018 at 18:18 Initial Consult Date 06/25/18 Type of Consult cardiology Reason for Consultation AFL Requesting Provider: BRO SALAZAR MD Exam/Review of Systems Vital Signs Vitals Vital Signs Date Temp Pulse Resp B/P (MAP) Pulse Ox O2 O2 Flow FiO2 Time Delivery Rate 06/30/18 77 08:02 06/30/18 98.1 18 116/68 98 07:33 (84) 06/29/18 Room Air 15:40 Intake and Output 06/29/18 06/29/18 06/30/18 1515:00 23:00 07:00 IntakeIntake Total 900 ml 400 ml BalanceBalance 900 ml 400 ml Exam Review of Systems: CONSTITUTIONAL: No fevers, chills. PULMONARY: No sob CARDIOVASCULAR: No chest pain/palpitations GASTROINTESTINAL: No nausea/vomiting. GENITOURINARY: No hematuria/dysuria. MUSCULOSKELETAL: No myagias/arthalgias. PSYCHIATRIC: The patient denies depression. NEUROLOGIC: No weakness Constitutional: alert Psych: no complaints Head: normocephalic ENMT: mucosa pink and moist Respiratory: clear to auscultation Cardiovascular: regular rate and rhythm Gastrointestinal: soft, non-tender Musculoskeletal: muscle tone (normal) Extremities: edema (none) Neurological: focal weakness (L sided) Medications Medications Current Medications Amiodarone HCl (Cordarone) 200 mg BID PO Last administered on 06/30/18at 08:16; Admin Dose 200 MG; Start 06/21/18 at 21:00 Brimonidine Tartrate (Alphagan 0.2%) 1 drop Q8 RIGHT EYE Last administered on 06/30/18at 05:47; Admin Dose 1 DROP; Start 06/21/18 at 22:00 Hydroxyzine HCl (Atarax) 25 mg Q6 PRN PO ITCHING; Start 06/21/18 at 21:00 Sulfacetamide Sodium (Bleph-10 Oph Drop) 1 drop Q3 LEFT EYE Last administered on 06/30/18at 08:17; Admin Dose 1 DROP; Start 06/21/18 at 21:30 Acetaminophen (Tylenol Tab) 650 mg Q6H PRN PO MILD PAIN(1-3)OR ELEVATED TEMP Last administered on 06/29/18at 15:06; Admin Dose 650 MG; Start 06/21/18 at 21:00 Pantoprazole (Protonix Iv) 40 mg BID@18 IV Last administered on 06/30/18at 05:50; Admin Dose 40 MG; Start 06/22/18 at 06:00 Ondansetron HCl (Zofran Inj) 4 mg Q6H PRN IV NAUSEA AND/OR VOMITING Last administered on 06/28/18at 08:23; Admin Dose 4 MG; Start 06/21/18 at 21:00 Tramadol HCl (Ultram) 50 mg Q6H PRN PO MODERATE PAIN LEVEL 4-6; Start 06/22/18 at 02:30 Oxycodone/ Acetaminophen (Percocet (5/ 325)) 1 tab Q6 PRN PO MODERATE PAIN LEVEL 4-6; Start 06/22/18 at 13:00 Ceftriaxone Sodium 50 ml @ 100 mls/hr Q24H IVPB Last administered on 06/29/18at 12:49; Admin Dose 100 MLS/HR; Start 06/22/18 at 13:00 Docusate Sodium (Colace) 100 mg BID PRN PO CONSTIPATION Last administered on 06/25/18at 21:07; Admin Dose 100 MG; Start 06/25/18 at 19:00 Senna (Senokot) 1 tab DAILY PRN PO CONSTIPATION; Start 06/26/18 at 17:30 Lubiprostone (Amitiza) 16 mcg BID PO Last administered on 06/30/18at 08:16; Admin Dose 16 MCG; Start 06/26/18 at 21:00 Results Result Diagram: 06/30/18 0530 06/29/18 0522 Results 24 hrs Laboratory Tests Test 06/30/18 05:30 White Blood Count 4.4 #L Red Blood Count 3.69 L Hemoglobin 9.4 L Hematocrit 31.6 L Mean Corpuscular Volume 85.6 Mean Corpuscular Hemoglobin 25.5 L Mean Corpuscular Hemoglobin Concent 29.7 L Red Cell Distribution Width 23.0 H Platelet Count 231 Mean Platelet Volume 9.4 Immature Granulocytes % 0.900 H Neutrophils % 62.3 Lymphocytes % 25.1 Monocytes % 9.4 Eosinophils % 2.1 Basophils % 0.2 Nucleated Red Blood Cells % 0.0 Immature Granulocytes # 0.040 H Neutrophils # 2.7 Lymphocytes # 1.1 Monocytes # 0.4 Eosinophils # 0.1 Basophils # 0.0 Nucleated Red Blood Cells # 0.0 Total Bilirubin 0.2 Direct Bilirubin 0.00 Indirect Bilirubin 0.2 Aspartate Amino Transf (AST/SGOT) 70 H Alanine Aminotransferase (ALT/SGPT) 59 Alkaline Phosphatase 101 Total Protein 6.4 Albumin 3.1 L EMANUEL LAMAR Jun 30, 2018 11:00
[2018-06-30] MEDS: CEFTRIAXONE 1 GM/50 ML (PMX) 50 ML IVPB SCH (12:25)
--- NOTE | 2018-06-30 15:02 | NUR ---
MITCHELL NOTE: RECEIVED AN ORDER TO ARRANGE FOR PT TO TRANSFER TO [facility] BY 6 PM. CM CALLED SON SHANNON AND MADE HIM AWARE OF THE PLAN FOR DISCHARGE,PER SON HE WILL NEED TO SPEAK WITH THE DOCTOR PRIOR TO THE DISCHARGE, C/O MD NOT UPDATING HIM WITH HIS MOTHER'S CARE, THREATENING TO FILE LAWSUIT AGAINST MD, MITCHELL MADE CHARGE NURSE REYMUNDO AWARE AND PER CLINICAL QUALITY ANALYST SHE WILL MAKE BEDSIDE RN AWARE TO FOLLOW UP WITH MD. -----MITCHELL ARRANGED AMBULANCE ON WILL CALL, [facility] [phone] AND THE TRIP NUMBER IS [phone] PER MARIE.------- MITCHELL ALSO DISCUSSED IMM WITH THE SON. HE WANTS TO S/W MD PRIOR TO DISCHARGE, PER SON HE WANTS HIS QUESTIONS ANSWERED.
--- NOTE | 2018-06-30 17:13 | QN ---
Documentation Comment seen and examined dc summary BRO SALAZAR MD Jun 30, 2018 17:13
--- NOTE | 2018-06-30 17:17 | PDOCDIS ---
Discharge Instructions DIAGNOSIS Discharge Diagnosis gi bleed CONDITION [id number] Patient Condition: [id number] Fair HOME CARE INSTRUCTIONS: [id number] Special Diet: [id number] LOW CHOL LOW FAT ACTIVITY: [id number] Activity Restrictions: [id number] Slowly Increase Activity Rest between Activity Avoid heavy lifting FOLLOW UP/APPOINTMENTS Follow-up Plan f.u gi in 2-3 weeks f/u cards in 2-3 weeks BRO SALAZAR MD Jun 30, 2018 17:17
--- NOTE | 2018-06-30 17:36 | NUR ---
RN NOTE CALLED REID FROM [facility] FOR REPORT. PT WILL GET PICKED UP AFTER 6PM TONIGHT. PT IS STABLE, NO C/O PAIN, S/S OF DISTRESS. VS WNL.
--- NOTE | 2018-06-30 18:24 | NUR ---
EOSS PT IS STABLE, NO S/S OF DISTRESS NOTED. REPORT GIVEN, PICTURES TAKEN, DISCHARGE INSTRUCTIONS AND EDUCATION GIVEN. WAITING FOR AMBULANCE FOR [facility].
--- NOTE | 2018-06-30 18:27 | DS ---
DATE OF ADMISSION: 06/21/2018 DATE OF DISCHARGE: 06/30/2018 HOSPITAL COURSE: This is a 63-year-old female with a past medical history of AFib, hypertension, hyp erlipidemia, CVA hemorrhagic conversion, hypertension, diabetes, abnormal liver function test, valve replacement, G-tube, cholecystectomy, aortic thrombus admitted to [facility] jodie to low blood pressure for 1 week. The patient was becoming pale yellow. Apparently checking blo od glucose at home according to the son and the blood glucometer was not working. The patient was se en by the primary doctor and was told that ____. Labs drawn and was told hemoglobin was 6.2. Patien ceci was having black stools for past 2 days. On admission, vital signs were stable. Hemoglobin was 5. 7 from last discharge of 12.8. The patient received 2 units of blood and started on Protonix and was admitted for further management. The patient's blood thinners were held. Patient was also seen by cardiology consultation with Dr. Olivas, GI consultation with Dr. Ward. Echo was also done that s howed EF of 60%. Patient had EGD and ERCP and stent removal on 06/24/2018. Patient also had a colon oscopy that was performed by Dr. Ward on 06/28/2018 that did not show diverticulitis, it was an err or; however, did show patient had a sessile polyp, was successfully removed by cold snare technique. Polyp could not be retrieved because of poor prep and the patient will need a colonoscopy in 6 month s. The patient was feeling much better. Hemoglobin had been stable. Vital signs had been stable. Hemoglobin was 9.4. Per GI, it was stable, that the patient be started on Xarelto. Patient was star bennie back on Xarelto. Currently, patient is stable to be discharged to a [facility] on p.o. Xarelto . FINAL DISCHARGE DIAGNOSES: 1. Gastrointestinal bleed, status post esophagogastroduodenoscopy and status post endoscopic retrogr teresa cholangiopancreatography with removal of the stent. 2. Status post colonoscopy with a polyp which could not be received as it was lost. The patient niya l need a repeat colonoscopy in 6 months. 3. Transaminitis. 4. Ultrasound of the abdomen unremarkable, improving. 5. Atrial fibrillation, on Xarelto. 6. Leukopenia. 7. History of urinary tract infection Escherichia coli. The patient was started on Rocephin which i s sensitive to Rocephin. 8. History of cerebrovascular accident. 9. Severe acute anemia secondary to blood loss. 10. History of Clostridium difficile. 11. History of cerebrovascular accident, bedbound. 12. History of aortic thrombus status post thrombectomy. DISCHARGE CONDITION: Stable. DISCHARGE MEDICATIONS: 1. Amitiza for constipation. 2. Senna. 3. Colace. 4. Percocet. 5. Rocephin for 4 more days. 6. Protonix 40 mg p.o. b.i.d. 7. Ultram p.r.n. 8. Alphagan eyedrops. 9. ____. 10. Amiodarone 200 b.i.d. 11. Atarax. 12. Acetaminophen. 13. Metoprolol. 14. Patient was put back on Xarelto 20 mg. Case was discussed with the son Destin over the phone. The patient will need a followup with GI in 1 to 2 weeks and cardiology in 1 to 2 weeks. Patient is currently going to [facility]. Dictated By: BRO FERRARO/AUDRA Conf#: [id number] DID#: [id number]
--- NOTE | 2018-06-30 19:44 | NUR ---
patient for discharge to [facility], report given to ambulance staff; belongings with the patient
== END 2018-06-30 19:48 | DRG 378 ==
LOC: E/R 12:15 → 6WM 18:18
PROVIDERS: ADMIT Internal Medicine; ATTEND Internal Medicine
PROC: 30233N1 Transfusion of Nonautologous Red Blood Cells into Peripheral Vein, Percutaneous Approach (ICD-10-PCS; 2018-06-21)
PROC: 0FPB8DZ Removal of Intraluminal Device from Hepatobiliary Duct, Via Natural or Artificial Opening Endoscopic (ICD-10-PCS; 2018-06-24)
PROC: 0FC98ZZ Extirpation of Matter from Common Bile Duct, Via Natural or Artificial Opening Endoscopic (ICD-10-PCS; 2018-06-24)
PROC: 0DBL8ZX Excision of Transverse Colon, Via Natural or Artificial Opening Endoscopic, Diagnostic (ICD-10-PCS; principal; 2018-06-28 16:30)
DX: K92.1 Melena (principal); N39.0 Urinary tract infection, site not specified; I69.354 Hemiplegia and hemiparesis following cerebral infarction affecting left non-dominant side; K57.32 Diverticulitis of large intestine without perforation or abscess without bleeding; K80.34 Calculus of bile duct with chronic cholangitis without obstruction; I69.954 Hemiplegia and hemiparesis following unspecified cerebrovascular disease affecting left non-dominant side; D62 Acute posthemorrhagic anemia; D50.0 Iron deficiency anemia secondary to blood loss (chronic); I85.00 Esophageal varices without bleeding; Z74.01 Bed confinement status; Z95.2 Presence of prosthetic heart valve; Z79.02 Long term (current) use of antithrombotics/antiplatelets; Z86.010 Personal history of colon polyps; D12.3 Benign neoplasm of transverse colon; K29.70 Gastritis, unspecified, without bleeding; R07.9 Chest pain, unspecified; Z86.718 Personal history of other venous thrombosis and embolism; B96.20 Unspecified Escherichia coli [E. coli] as the cause of diseases classified elsewhere
CPT/HCPCS: 36415; 36430; 71045; 74330; 76705; 80048; 80053; 80076; 81001; 82607; 82728; 82746; 82962; 83540; 83735; 84100; 84484; 85014; 85018; 85025; 85610; 85730; 86850; 86900; 86901; 86920; 87086; 90686; 93005; 93306; 97110; 97162; 97530; C9113; J0690; J0696; J1100; J2001; J2370; J2405; J2765; J2916; J3010; J7040; P9016; P9612; Q9967

== ENCOUNTER 2018-10-23 12:39 | Emergency (ER) | payer MEDICARE, BC ==
[~2018-10-23] VITALS: Ht 162.6 cm; Wt 80.0 kg
[~2018-10-23 12:39] MED LIST changes: -ACET1TAB40 PO; +BRIM15DR7 RIGHT EYE; -DICY10CA40 PO; -FAMO20TA18 PO; +HYDR-843 PO; +IBUP-1542 PO; -METF500T24 PO; -METR500T PO; +SULF5DRO17 LEFT EYE
[2018-10-23 12:41] VITALS: Ht 162.6 cm; Wt 80.0 kg
[2018-10-23] MEDS ORDERED: WARF2TAB PO (13:18)
[2018-10-23] MEDS ORDERED: ATOR-2 PO (13:19)
[2018-10-23] MEDS ORDERED: ERGO500013 PO (13:20)
[2018-10-23] MEDS ORDERED: IBUP-1542 PO (13:20)
[2018-10-23] MEDS ORDERED: BRIM15DR7 BOTH EYES (13:21)
[2018-10-23] MEDS ORDERED: SULF5DRO17 BOTH EYES (13:22)
[2018-10-23] MEDS ORDERED: SOD CHLORIDE 0.9% 1,000 ML IV STA (13:30)
[2018-10-23] MEDS ORDERED: HYDROmorphONE 1 MG/ML SYG IV STA (13:44)
[2018-10-23] MEDS ORDERED: ONDANSETRON 4 MG INJ IV STA (13:44)
--- NOTE | 2018-10-23 14:02 | ERD ---
ER Documentation Chief Complaint Chief Complaint BIBA D/T DIABETIC WOUND ON LEFT HEEL HPI This is a 63-year-old female who is here because she had a left ankle fracture that was hairline and was wearing a orthotic boot and her caregiver nurse took it off this morning and noticed that there was a left lateral posterior heel ulcer the size of a half dollar. Patient states that the ankle goal is at baseline but the heel is painful. No fever no erythema ROS All systems reviewed and are negative except as per history of present illness. Medications Home Meds Reported Medications Sulfacetamide Sodium* (Bleph-10*) 10%-5 Ml Opht Drops, 1 DROP BOTH EYES Q3H, #1 EA 10/23/18 Brimonidine Tartrate* (Brimonidine Tartrate*) 0.2%-15ML Drop Opht, 1 DROP BOTH EYES Q8, #1 EA 10/23/18 Ibuprofen* (Ibuprofen*) 600 Mg Tablet, 600 MG PO Q8 PRN for NEEDED, TAB 10/23/18 Ergocalciferol (Vitamin D2) (VITAMIN D2) 50,000 Unit Capsule, 38347 UNIT PO Q7D, CAP 10/23/18 Atorvastatin* (Atorvastatin*) 80 Mg Tablet, 80 MG PO QHS, #30 TAB 10/23/18 Warfarin Sodium* (Coumadin*) 2 Mg Tablet, 2 MG PO DAILY, TAB 10/23/18 Discontinued Reported Medications Brimonidine Tartrate* (Brimonidine Tartrate*) 0.2%-15ML Drop Opht, 1 DROP RIGHT EYE Q8, #1 EA 06/21/18 Sulfacetamide Sodium* (Bleph-10*) 10%-5 Ml Opht Drops, 1 DROP LEFT EYE Q3H, #1 EA 06/21/18 Metoprolol Tartrate* (Lopressor*) 50 Mg Tab, 50 MG PO NEEDED, #60 TAB 06/21/18 Hydroxyzine Hcl* (Hydroxyzine Hcl*) 25 Mg Tablet, 25 MG PO NEEDED PRN for ITCHING, #30 TAB 06/21/18 Amiodarone Hcl* (Amiodarone Hcl*) 200 Mg Tablet, 200 MG PO BID, #60 TAB 06/21/18 Rivaroxaban* (Xarelto*) 20 Mg Tablet, 20 MG PO QAM, TAB 12/4/18 Ibuprofen* (Ibuprofen*) 600 Mg Tablet, 600 MG PO PRN PRN for PAIN, TAB 06/21/18 Allergies Allergies: Coded Allergies: No Known Drug Allergies (Unverified Allergy, Unknown, 10/23/18) PMhx/Soc History of Surgery: Yes (HEART VALVE REPLACEMENT(2016);BYPASS(2017);HYSTERECTOMY;) Anesthesia Reaction: No Hx Neurological Disorder: Yes (DEPRESSION,ANXIETY;CVA WITH LEFT-SIDED WEAKNESS;) Hx Respiratory Disorders: No Hx Cardiac Disorders: Yes (HTN;A-FLUTTER;) Hx Psychiatric Problems: No Hx Miscellaneous Medical Probl: Yes (See EMR for details. ) Hx Alcohol Use: No Hx Substance Use: No Hx Tobacco Use: No FmHx Family History: No coronary disease Physical Exam Vitals Vital Signs Date Temp Pulse Resp B/P (MAP) Pulse Ox O2 O2 Flow FiO2 Time Delivery Rate 10/23/18 98.0 86 16 146/88 99 12:41 (107) Physical Exam Const: Well-developed, well-nourished Head: Atraumatic, normocephalic Eyes: Normal Conjunctiva, PERRLA, EOMI, normal sclera, no nystagmus ENT: Normal External Ears, Nose and Mouth, moist mucus membranes. Neck: Full range of motion. No meningismus, no lymphadenopathy. Resp: Clear to auscultation bilaterally, no wheezing, rhonchi, rales Cardio: Regular rate and rhythm, no murmurs, S1 S2 present Abd: Soft, non tender x 4, non distended. Normal bowel sounds, no guarding or rebound, no pulsitile abdominal masses or bruits Skin: No petechiae or rashes, no ecchymosis , no maculopapular rash, the left lateral posterior heel has a half dollar size ulcer that is having clean margins and no erythema is a few millimeters deep Back: No midline or flank tenderness Ext: No cyanosis, or edema, FROM x 4, normal inspection, neurovascu larly intact x 4 Neur: Awake and alert, STR 5/5 x 2, left-sided paralysis due to stroke was at baseline, sensation intact x 4, no focal findings, cerebellum intact Psych: Normal Mood and Affect Result Diagram: 10/23/18 1344 10/23/18 1344 Results 24 hrs Laboratory Tests Test 10/23/18 13:44 White Blood Count 6.1 10^3/ul Red Blood Count 5.50 10^6/ul Hemoglobin 12.6 g/dl Hematocrit 42.0 % Mean Corpuscular Volume 76.4 fl Mean Corpuscular Hemoglobin 22.9 pg Mean Corpuscular Hemoglobin Concent 30.0 g/dl Red Cell Distribution Width 18.5 % Platelet Count 237 10^3/UL Mean Platelet Volume 9.6 fl Immature Granulocytes % 0.300 % Neutrophils % 74.2 % Lymphocytes % 16.2 % Monocytes % 7.3 % Eosinophils % 1.7 % Basophils % 0.3 % Nucleated Red Blood Cells % 0.0 /100WBC Immature Granulocytes # 0.020 10^3/ul Neutrophils # 4.5 10^3/ul Lymphocytes # 1.0 10^3/ul Monocytes # 0.4 10^3/ul Eosinophils # 0.1 10^3/ul Basophils # 0.0 10^3/ul Nucleated Red Blood Cells # 0.0 10^3/ul Sodium Level 144 mmol/L Potassium Level 4.4 mmol/L Chloride Level 113 mmol/L Carbon Dioxide Level 23 mmol/L Anion Gap 8 Blood Urea Nitrogen 28 mg/dl Creatinine 0.79 mg/dl Est Glomerular Filtrat Rate mL/min > 60 mL/min Glucose Level 110 mg/dl Calcium Level 9.3 mg/dl Current Medications Medications Dose Sig/Kiana Start Time Status Last (Trade) Ordered Route PRN Stop Time Admin Dose Reason Admin Sodium 1,000 ml @ Q1H STAT 10/23/18 DC 10/23/18 Chloride 1,000 mls/hr IV 13:30 10/23/18 13:46 14:29 1 mg ONCE STAT 10/23/18 DC 10/23/18 Hydromorphone IV 13:44 10/23/18 13:48 HCl 13:45 (Dilaudid) Ondansetron 4 mg ONCE STAT 10/23/18 DC 10/23/18 HCl (Zofran IV 13:44 10/23/18 13:48 Inj) 13:45 Procedures/MDM PROCEDURE: XR Left Ankle. CLINICAL INDICATION: Pain TECHNIQUE: AP, oblique and lateral views of the left ankle were performed. COMPARISON: None. FINDINGS: There is diffuse osteopenia. There is anatomic alignment of the joint spaces. No acute fracture or osseous lesion is identified. The joints are normal. Noted is bimalleolar soft tissue swelling. IMPRESSION: No fracture or dislocation. Osteopenia. Bimalleolar soft tissue swelling. .Adi Hernandez MD, Date Time Electronically viewed and signed by .Adi Hernandez MD, on 10/23/2018 15:08 .A/ CC: FROYLAN FITCH DO [id number] Ordering MD: FROYLAN FITCH DO Location: E/R Room/Bed: PROCEDURE: XR left calcaneus. CLINICAL INDICATION: Ulcer. Possible osteomyelitis per TECHNIQUE: Two views of the left calcaneus are available for review. COMPARISON: None available FINDINGS: Bone density is markedly decreased, limiting evaluation for early osteomyelitis. No evidence for a displaced fracture. No soft tissue gas is seen. Vascular calcifications are present. There may be a lateral soft tissue ulceration. IMPRESSION: 1. Decreased bone mineral density. Please note that MRI is more sensitive in evaluating for early changes of osteomyelitis. 2. Possible lateral soft tissue ulceration, poorly assessed. RPTAT: PP .Octavio Higgins MD, MD Date Time Electronically viewed and signed by .Octavio Higgins MD, MD on 10/23/2018 15:21 .d/ CC: FROYLAN FITCH DO [id number] The patient's blood work looks stable and there is no evidence of gross osteomy elitis on the x-rays. The patient's deep enough to me anyway. I will discharge home with Levaquin and have the patient follow-up with her primary for wound care Departure Diagnosis: Primary Impression: Open wound Additional Impression: Ulcer Condition: Stable FROYLAN FITCH DO Oct 23, 2018 14:02
[2018-10-23] MEDS ORDERED: HYDR-4011 PO (15:37)
[2018-10-23] MEDS ORDERED: LEVO750T25 PO (15:37)
[2018-10-23 19:40] VITALS: BP 154/89; PULSE 89; RESP 22
== END 2018-10-23 19:40 | disposition home or self-care (01) ==
LOC: E/R 12:39
DX: E11.621 Type 2 diabetes mellitus with foot ulcer (principal); I10 Essential (primary) hypertension; L97.529 Non-pressure chronic ulcer of other part of left foot with unspecified severity; Z86.73 Personal history of transient ischemic attack (TIA), and cerebral infarction without residual deficits
CPT/HCPCS: 36415; 73610; 73650; 80048; 85025; 96374; 96375; 99284; J1170; J2405; J7030